=== PATIENT | female | born 1960 | race African-American/Black ===

== ENCOUNTER 2016-10-11 13:02 | Emergency (ER) | payer OTHER ==
[2016-10-11 13:06] VITALS: BP 135/62; PULSE 56; TEMP 98.3; BMI 30.2
--- NOTE | 2016-10-11 14:19 | PDOC ---
History of Present Illness - General Chief Complaint: Laceration Stated Complaint: LT FINGER LACERATION Time Seen by Provider: 10/11/16 14:13 History Source: Patient - History of Present Illness Initial Comments: 10/11/16 14:13 was making a salad at home, slipped and incised her left index finger. Patient is taking Plavix so was having difficulty getting the bleeding to stop. States last tetanus was a few months ago. 10/11/16 14:16 Timing/Duration: reports: just prior to arrival Severity: Yes: mild Past History - Travel Traveled outside of the country in the last 30 days: No Close contact w/someone who was outside of country & ill: No - Past Medical History Allergies/Adverse Reactions: Allergies Allergy/AdvReac Type Severity Reaction Status Date / Time lactose Allergy Mild Verified 10/11/16 13:06 codeine [Codeine] AdvReac Intermediate Verified 10/11/16 13:06 Home Medications: Ambulatory Orders Atorvastatin Ca [Lipitor] 20 mg PO HS #0 tablet 05/15/12 Amlodipine Besylate [Norvasc -] 10 mg PO DAILY 02/15/13 Clopidogrel Bisulfate [Plavix -] 75 mg PO DAILY 02/15/13 Enalapril Maleate [Vasotec -] 10 mg PO DAILY 02/03/14 Anastrozole [Arimidex -] 1 mg PO DAILY #0 tablet 02/07/14 Aspirin [ASA -] 81 mg PO DAILY #0 tab.chew 02/07/14 Insulin (Novolog) [Novolog Flexpen -] 0 units SQ ACHS PRN 02/09/15 Levothyroxine [Synthroid -] 112 mcg PO DAILY 02/09/15 Cephalexin Monohydrate [Keflex -] 500 mg PO Q8H #21 capsule 04/21/16 Cancer: Yes (LEFT BREAST LUMPECTOMY) CVA: Yes (TIA X 3) Diabetes: Yes HTN: Yes Psychiatric Problems: Yes (ANXIETY.) Thyroid Disease: Yes (HYPO.) - Psycho/Social/Smoking Cessation Hx Anxiety: Yes Suicidal Ideation: No Smoking Status: Yes Smoking History: Never smoked Have you smoked in the past 12 months: No Number of Cigarettes Smoked Daily: 6 If you are a former smoker, when did you quit?: 01/16/2014 Information on smoking cessation initiated: No 'Breaking Loose' booklet given: 02/03/14 Hx Alcohol Use: No Drug/Substance Use Hx: No Substance Use Type: None Hx Substance Use Treatment: No Review of Systems - Review of Systems Able to Perform ROS?: Yes Is the patient limited Luxembourger proficient: Yes Constitutional: Yes: See HPI. No: Symptoms Reported Musculoskeletal: Yes: Symptoms Reported, See HPI Integumentary: Yes: Symptoms Reported, See HPI, Lesions (flap laceration to the distal aspect of left index finger) *Physical Exam - Vital Signs Last Vital Signs Temp Pulse Resp BP Pulse Ox 98.3 F 56 L 20 135/62 100 10/11/16 13:03 10/11/16 13:03 10/11/16 13:03 10/11/16 13:03 10/11/16 13:03 - Physical Exam General Appearance: Yes: Nourished, Appropriately Dressed, Apparent Distress, Mild Distress Neck: positive: Supple Musculoskeletal: positive: Normal Inspection. negative: Decreased Range of Motion Extremity: positive: Normal Capillary Refill, Normal Range of Motion Integumentary: positive: Normal Color, Other (1 cm flap laceration to the distal aspect of left index finger, no nailbed involvement, has full range of motion. Small oozing type bleed) Neurologic: positive: eyeglass lens generator II-XII NML intact, Fully Oriented, Alert, Normal Mood/ Affect, Normal Response, Motor Strength 5/5 Procedures - Laceration/Wound Repair Left 2nd digit Finger Wound Length: to 2.5 cm Wound Explored: clean Wound's Depth, Shape: flap Irrigated w/ Saline: Yes Betadine Prep: Yes Wound Repaired With: Sutures Number of Sutures: 3 Sterile Dressing Applied: Yes Splint Applied: Yes Progress Note - Progress Note Progress Note: Finger laceration repaired. *DC/Admit/Observation/Transfer Diagnosis at time of Disposition: Finger laceration Qualifiers: Encounter type: initial encounter Qualified Code(s): S61.219A - Laceration without foreign body of unspecified finger without damage to nail, initial encounter - Discharge Dispostion Disposition: HOME Condition at time of disposition: Stable Admit: No - Patient Instructions Printed Discharge Instructions: DI for Laceration Repair Additional Instructions: Rest, elevate, avoid strenuous activity or heavy lifting until sutures are removed Leave dressing on for the next 24 hours, Then may remove dressing gently and wash area with soap and water. Reapply bacitracin ointment and dressing daily for the next 5 days On day #6 keep the wound protected and cover as needed until sutures are removed allowing wound to start to dry May use Tylenol or Motrin for pain relief Suture removal in : 10 Days
== END 2016-10-11 14:26 | disposition home or self-care (01) ==
LOC: JERFT 13:02
PROC: 0HQGXZZ Repair Left Hand Skin, External Approach (ICD-10-PCS; principal; 2016-10-11)
DX: S61.211A Laceration without foreign body of left index finger without damage to nail, initial encounter (principal); W45.8XXA Other foreign body or object entering through skin, initial encounter; Y93.G1 Activity, food preparation and clean up; Y92.000 Kitchen of unspecified non-institutional (private) residence as the place of occurrence of the external cause; Z79.01 Long term (current) use of anticoagulants; Z79.82 Long term (current) use of aspirin; F41.9 Anxiety disorder, unspecified; E03.9 Hypothyroidism, unspecified; Z87.891 Personal history of nicotine dependence; I10 Essential (primary) hypertension; E11.9 Type 2 diabetes mellitus without complications; Z86.73 Personal history of transient ischemic attack (TIA), and cerebral infarction without residual deficits; Z85.3 Personal history of malignant neoplasm of breast
CPT/HCPCS: 12001-25; 99281-25

== ENCOUNTER 2017-01-27 12:47 | Emergency (ER) | payer BC, OTHER ==
[2017-01-27 13:03] VITALS: PULSE 73; TEMP 98.2; BMI 28.8
--- NOTE | 2017-01-27 13:52 | PDOC ---
History of Present Illness - General History Source: Patient Exam Limitations: No Limitations - History of Present Illness Initial Comments: 01/27/17 14:10 56y F hx of hl, htn, dm, hyopthyroidism, tia, ckd presents with abnormal labs. The patient had blood work with dr. Solis yesterday and was told her K was elevated to 5.7. The pt states she otherwise feels well, and denies any problems with potassium in the past. The pt states sh does have a mild L flank pain that is intermittent and worse when she is moving/twisting. IT is otherwise not associated wth any radiationg, hematuria, abd pain, back pain, dysuria, fever/chills, n/v, diarrhea. The pt also states the pain seems to improve after having a BM. She has a chronic problemw ith constipation and states the last time she had a good BM was several months ago, but she does hav small intermittent BMs here and there. She has not been compliant with her stool regiment. <Mp Camp - Last Filed: 01/27/17 15:23> <Jed Medina - Last Filed: 01/27/17 15:25> - General Chief Complaint: Pain Stated Complaint: LT SIDE PAIN, (PCP SENT) LAB VARIANCE Time Seen by Provider: 01/27/17 13:38 Past History - Past Medical History Cancer: Yes (LEFT BREAST LUMPECTOMY) CVA: Yes (TIA X 3) Diabetes: Yes HTN: Yes Hypercholesterolemia: Yes Psychiatric Problems: Yes (ANXIETY.) Thyroid Disease: Yes (HYPO.) - Psycho/Social/Smoking Cessation Hx Anxiety: Yes Suicidal Ideation: No Smoking Status: Yes Smoking History: Former smoker Have you smoked in the past 12 months: No Number of Cigarettes Smoked Daily: 6 If you are a former smoker, when did you quit?: 01/16/2014 Information on smoking cessation initiated: No 'Breaking Loose' booklet given: 02/03/14 Hx Alcohol Use: No Drug/Substance Use Hx: No Substance Use Type: None Hx Substance Use Treatment: No <Mp Camp - Last Filed: 01/27/17 15:23> <Jed Medina - Last Filed: 01/27/17 15:25> - Past Medical History Allergies/Adverse Reactions: Allergies Allergy/AdvReac Type Severity Reaction Status Date / Time lactose Allergy Mild Verified 01/27/17 12:59 codeine [Codeine] AdvReac Intermediate Verified 01/27/17 12:59 Home Medications: Ambulatory Orders Atorvastatin Ca [Lipitor] 20 mg PO HS #0 tablet 05/15/12 Amlodipine Besylate [Norvasc -] 10 mg PO DAILY 02/15/13 Clopidogrel Bisulfate [Plavix -] 75 mg PO DAILY 02/15/13 Enalapril Maleate [Vasotec -] 10 mg PO DAILY 02/03/14 Anastrozole [Arimidex -] 1 mg PO DAILY #0 tablet 02/07/14 Aspirin [ASA -] 81 mg PO DAILY #0 tab.chew 02/07/14 Insulin (Novolog) [Novolog Flexpen -] 0 units SQ ACHS PRN 02/09/15 Levothyroxine [Synthroid -] 112 mcg PO DAILY 02/09/15 Cephalexin Monohydrate [Keflex -] 500 mg PO Q8H #21 capsule 04/21/16 Review of Systems - Review of Systems Able to Perform ROS?: Yes Comments:: 01/27/17 14:13 Constitutional - no reported Fever, Chills, HEENT: no reported vision changes, sore throat Respiratory: no reported cough, sob, hemoptysis Cardiac: no reported chest pain, palpitations, light headedness, leg swelling Abd/GI: +flank pain no reported abd pain, nausea, vomiting, blood per rectum, melena, diarrhea : no reported dysuria, frequency, discharge Musculskelatal - no reported back pain, joint swelling skin - no reported bruising, erythema, rash neurological: no reported headache, numbness, focal weakness, tingling, ataxia, hematologic: no reported anemia, easy bruising, easy bleeding <Conrado,Mp - Last Filed: 01/27/17 15:23> *Physical Exam - Vital Signs Last Vital Signs Temp Pulse Resp BP Pulse Ox 98.2 F 73 19 126/71 96 01/27/17 12:59 01/27/17 12:59 01/27/17 12:59 01/27/17 12:59 01/27/17 12:59 - Physical Exam Comments: 01/27/17 14:13 GENERAL: The patient is awake, alert, and fully oriented, Nontoxic - in no acute distress. HEAD: Normocephalic, atraumatic. EYES: extraocular movements intact, sclera anicteric, conjunctiva clear. ENT: Normal voice, Moist mucous membranes. NECK: Normal range of motion, supple LUNGS: Breath sounds equal, clear to auscultation bilaterally. No wheezes, no rhonchi, no rales. HEART: Regular rate and rhythm, normal S1 and S2 without murmur, rub or gallop. ABDOMEN: Soft, nontender, normoactive bowel sounds. No guarding, no rebound. No CVA tenderness mild tenderness to flank, worse with rotational motion/turning EXTREMITIES: Normal range of motion, no edema. No clubbing or cyanosis. No cords, erythema, or tenderness. NEUROLOGICAL: No facial assymetry, Normal speech, PSYCH: Normal mood, normal affect. SKIN: Warm, Dry, normal turgor, <Mp Camp - Last Filed: 01/27/17 15:23> - Vital Signs Last Vital Signs Temp Pulse Resp BP Pulse Ox 98.2 F 73 19 126/71 96 01/27/17 12:59 01/27/17 12:59 01/27/17 12:59 01/27/17 12:59 01/27/17 13:30 <Jed Medina - Last Filed: 01/27/17 15:25> Heart Score/ECG Review - ECG Impressions Comment:: 01/27/17 15:20 Twelve-lead EKG was performed and reviewed by me. There is normal sinus rhythm with a rate of 58 The axis is normal. The intervals are normal. There is normal R wave progression There are no ST or T wave abnormalities. Impression: Normal twelve-lead EKG <Mp Camp - Last Filed: 01/27/17 15:23> ED Treatment Course - LABORATORY CBC & Chemistry Diagram: 01/27/17 14:03 01/27/17 14:03 <Mp Camp - Last Filed: 01/27/17 15:23> - LABORATORY CBC & Chemistry Diagram: 01/27/17 14:03 01/27/17 14:03 - ADDITIONAL ORDERS Additional order review: Laboratory Results 01/27/17 01/27/17 14:03 14:03 Sodium 141 Potassium 5.2 H Chloride 106 Carbon Dioxide 26 Anion Gap 9 BUN 36 H Creatinine 1.6 H Creat Clearance w eGFR 33.47 Random Glucose 143 H D Calcium 9.2 Magnesium 2.5 H D Total Bilirubin 0.4 D AST 32 D ALT 52 D Alkaline Phosphatase 201 H D Total Protein 7.7 Albumin 3.9 Urine Color Ltyellow Urine Appearance Clear Urine pH 5.0 Urine Protein 1+ H Urine Glucose (UA) Negative Urine Ketones Negative Urine Blood Negative Urine Nitrite Negative Urine Bilirubin Negative Urine Urobilinogen Negative Ur Leukocyte Esterase Negative 01/27/17 14:03 RBC 3.84 MCV 92.3 MCHC 33.0 RDW 13.9 MPV 8.6 Neutrophils % 53.3 D Lymphocytes % 36.7 Monocytes % 5.8 Eosinophils % 3.1 Basophils % 1.1 <Jed Medina - Last Filed: 01/27/17 15:25> Medical Decision Making - Medical Decision Making 01/27/17 14:14 pt sent here for hyperkalemia will recheck her K, mag, will obtain ekg flank pain, lkely musuclar as only preent when she is moving, no pain when she is at rest no systemic comlaints including f/c, n/v abd soft nontender will ck ua to r/o hematuria ?kidney stone 01/27/17 15:21 k at 5.2 cr at 1.6 ekg shows no changes suggestive of hyperkalemia case dw dr. andino - will hvae pt fu with dr. khoury next week ua inconsistent with hematuria/uti I discussed the physical exam findings, ancillary test results and final diagnoses with the patient. I answered all of the patient's questions. The patient was satisfied with the care received and felt comfortable with the discharge plan and treatment plan. The patient will call their primary care physician within 24 hours to arrange follow-up and will return to the Emergency Department with any new, persistent or worsening symptoms. <Mp Camp - Last Filed: 01/27/17 15:23> *DC/Admit/Observation/Transfer - Discharge Dispostion Admit: No <Mp Camp - Last Filed: 01/27/17 15:23> - Attestations Scribe Attestion: Documentation prepared by Jed Medina, acting as medical affairs director for Mp Camp MD. <Jed Medina - Last Filed: 01/27/17 15:25> Diagnosis at time of Disposition: Hyperkalemia - Discharge Dispostion Disposition: HOME Condition at time of disposition: Improved - Referrals Referrals: Brennen Davenport MD [Primary Care Provider] - Anthony Khoury MD [Staff Physician] - - Patient Instructions Printed Discharge Instructions: DI for Hyperkalemia Additional Instructions: Follow-up with Dr. Khoury on Monday. Return to the emergency department immediately with ANY new, persistent or worsening symptoms. You MUST call and follow up with your doctor tomorrow for further evaluation of your symptoms. Results were discussed with you. Please make sure your doctor reviews the results of your emergency evaluation. If you had any xrays during your visit, it was read preliminarily by myself, a Radiologist will review it and if there are any additional findings we will call you.
[2017-01-27 14:12] LABS: BASOPHIL 1.1 % (0-2.0); EOSINOPHIL 3.1 % (0-4.5); MCH 30.4 pg (25.7-33.7); MEAN CELL VOLUME 92.3 fl (80-96); MEAN PLT VOLUME 8.6 fl (7.5-11.1); NEUTROPHILS 53.3 % (42.8-82.8); PLATELET COUNT 255 K/MM3 (134-434); RDW 13.9 % (11.6-15.6); WHITE BLOOD COUNT 4.7 K/mm3 (4.0-10.0)
[2017-01-27 14:13] LABS: URINE APPEARANCE CLEAR; URINE BILIRUBIN NEGATIVE (NEGATIVE); URINE BLOOD NEGATIVE (NEGATIVE); URINE COLOR LTYELLOW; URINE GLUCOSE (UA) NEGATIVE (NEGATIVE); URINE KETONE NEGATIVE (NEGATIVE); URINE LEUK ESTERASE NEGATIVE (NEGATIVE); URINE NITRITE NEGATIVE (NEGATIVE); URINE UROBILINOGEN NEGATIVE E.U./dl (0.2-1.0)
[2017-01-27 14:14] LABS: URINE PROTEIN 1+ (NEGATIVE)
[2017-01-27 14:32] LABS: ALBUMIN 3.9 g/dl (3.4-5.0); BILIRUBIN,TOTAL 0.4 mg/dL (0.2-1.0); CALCIUM 9.2 mg/dL (8.5-10.1); COCKROFT - GAULT 47.787; CREATININE 1.6 mg/dL (0.55-1.02); MAGNESIUM 2.5 mg/dL (1.8-2.4); TOT PROT 7.7 g/dl (6.4-8.2)
[2017-01-27 16:13] VITALS: BP 122/70
[2017-01-27 17:34] LABS: URINE HYALINE CAST 5 /lpf; URINE MUCUS RARE; URINE RBC 1 /hpf (0-3); URINE WBC <1 /hpf (3-5)
--- NOTE | 2017-01-30 12:54 | EKG ---
Test Reason : Blood Pressure : / mmHG Vent. Rate : 058 BPM Atrial Rate : 058 BPM P-R Int : 138 ms QRS Dur : 070 ms QT Int : 410 ms P-R-T Axes : 059 -05 006 degrees QTc Int : 402 ms SINUS BRADYCARDIA WITH PREMATURE ATRIAL COMPLEXES CANNOT RULE OUT ANTERIOR INFARCT , AGE UNDETERMINED ABNORMAL ECG WHEN COMPARED WITH ECG OF 03-FEB-2014 18:54, PREMATURE ATRIAL COMPLEXES ARE NOW PRESENT T WAVE INVERSION NOW EVIDENT IN LATERAL LEADS Confirmed by MICHELE LEAHY MD ([id number]) on 01/30/2017 12:54:27 PM Referred By: Confirmed By:MICHELE LEAHY MD
== END 2017-01-27 15:55 | disposition home or self-care (01) ==
LOC: JER 12:47
DX: E87.6 Hypokalemia (principal); I10 Essential (primary) hypertension; E11.9 Type 2 diabetes mellitus without complications; Z79.84 Long term (current) use of oral hypoglycemic drugs; E78.5 Hyperlipidemia, unspecified; N18.9 Chronic kidney disease, unspecified; F41.8 Other specified anxiety disorders; Z86.73 Personal history of transient ischemic attack (TIA), and cerebral infarction without residual deficits; Z85.3 Personal history of malignant neoplasm of breast
CPT/HCPCS: 36415; 80053; 81003; 81015; 83735; 85025; 93005; 93010; 99282-25

== ENCOUNTER 2017-04-23 12:28 | Emergency (ER) | payer BC, OTHER ==
[2017-04-23 12:52] VITALS: BP 116/67; PULSE 65; TEMP 98.3; BMI 30.9
--- NOTE | 2017-04-23 12:56 | PDOC ---
Attending Attestation - Resident Resident Name: Malick Childress - ED Attending Attestation I have performed the following: I have examined & evaluated the patient, The case was reviewed & discussed with the resident, I agree w/resident's findings & plan, Exceptions are as noted - HPI HPI: 04/23/17 13:32 "The patient is a 56 year old female, with a significant past medical history of HLD, HTN, DM, hypothyroidism, TIA, DM, and CKD, who presents to the emergency department with bilateral knee pain for several months. She reports that it started with swelling above her knees and pain with prolonged ambulation in both knees. She reports since its original onset having bilateral knee pain that is made worse with any weight bearing activities. She notes today here pain was notably worse,being unable to walk long distances secondary to bilateral knee pain. Pt denies any new weakness or numbness in her legs. She denies recent fevers, chills, headache or dizziness. She denies recent nausea, vomit, diarrhea. Per chart review, pt has had Xrays and MRI of her L knee that demonstrate likely meniscal tear. Pt has not yet seen an orthopedist regarding her knee pain. Allergies: NKA Past surgical history: None reported. Social history: Nonsmoker. Denies EtOH use and recreational drug use. " - Physicial Exam PE: 04/23/17 13:36 "GENERAL: Awake, alert, and fully oriented, in no acute distress HEAD: No signs of trauma EYES: PERRLA, EOMI, sclera anicteric, conjunctiva clear ENT: Auricles normal inspection, hearing grossly normal, nares patent, oropharynx clear without exudates. Moist mucosa NECK: Normal ROM, supple, no lymphadenopathy, JVD, or masses LUNGS: Breath sounds equal, clear to auscultation bilaterally. No wheezes, and no crackles HEART: Regular rate and rhythm, normal S1 and S2, no murmurs, rubs or gallops ABDOMEN: Soft, nontender, normoactive bowel sounds. No guarding, no rebound. No masses EXTREMITIES: Normal range of motion, no edema. Pt ambulatory with antalgic gait , + pain on varus and valgus stress BLE, negative drawer test, no laxity in either knee NEUROLOGICAL: Cranial nerves II through XII grossly intact. Normal speech, 5/5 strength and sensation in all extremities SKIN: Warm, Dry, normal turgor, no rashes or lesions noted. " - Medical Decision Making 04/23/17 13:39 56 F with chronic b/l knee pain, presenting with worsening pain. Pain is likely msk in etiology, given previous abnormal XR and MRI findings. No asymmetric swelling or calf pain to suggest DVT. Pt with normal strength and sensation, no neuro deficits to suggest intracranial process. - Refer to ortho
--- NOTE | 2017-04-23 13:15 | PDOC ---
History of Present Illness - General Chief Complaint: Constipation Stated Complaint: SWOLLEN LEGS Time Seen by Provider: 04/23/17 12:54 - History of Present Illness Initial Comments: 04/23/17 13:15 Ms. Veliz is a 56 year old female with a significant past medical history of DMII , Breast Cancer (L), Kidney disease, and TIA's (3, last in 2010) who presents to the emergency department with a several week history of increased leg pain bilaterally. She states that she normally has pain in both knees when she walks but that over the last few weeks it has gotten much worse. The patient denies chest pain, shortness of breath, headache and dizziness. Denies fever, chills, nausea, vomit, diarrhea and constipation. Denies dysuria, frequency, urgency and hematuria. Allergies: Codeine Past surgical history: partial hysterectomy and L lumpectomy Social history: Denies EtOH or tobacco use PMD - Brennen Davenport Past History - Past Medical History Allergies/Adverse Reactions: Allergies Allergy/AdvReac Type Severity Reaction Status Date / Time lactose Allergy Mild Verified 01/27/17 12:59 codeine [Codeine] AdvReac Intermediate Verified 01/27/17 12:59 Home Medications: Ambulatory Orders Atorvastatin Ca [Lipitor] 20 mg PO HS #0 tablet 05/15/12 Amlodipine Besylate [Norvasc -] 10 mg PO DAILY 02/15/13 Clopidogrel Bisulfate [Plavix -] 75 mg PO DAILY 02/15/13 Enalapril Maleate [Vasotec -] 10 mg PO DAILY 02/03/14 Aspirin [ASA -] 81 mg PO DAILY #0 tab.chew 02/07/14 Insulin (Novolog) [Novolog Flexpen -] 0 units SQ ACHS PRN 02/09/15 Levothyroxine [Synthroid -] 112 mcg PO DAILY 02/09/15 Insulin Glargine,Hum.rec.anlog [Toujeo Solostar] 35 unit SQ AM 01/27/17 Oxycodone HCl/Acetaminophen [Percocet 10-325 mg Tablet] 1 each PO Q6H PRN Cancer: Yes (LEFT BREAST LUMPECTOMY) CVA: Yes (TIA X 3) Diabetes: Yes HTN: Yes Hypercholesterolemia: Yes Psychiatric Problems: Yes (ANXIETY.) Thyroid Disease: Yes (HYPO.) - Psycho/Social/Smoking Cessation Hx Anxiety: Yes Suicidal Ideation: No Smoking Status: Yes Smoking History: Former smoker Have you smoked in the past 12 months: No Number of Cigarettes Smoked Daily: 6 If you are a former smoker, when did you quit?: 2012 Information on smoking cessation initiated: No 'Breaking Loose' booklet given: 02/03/14 Hx Alcohol Use: No Drug/Substance Use Hx: No Substance Use Type: None Hx Substance Use Treatment: No Review of Systems - Review of Systems Comments:: 04/23/17 13:16 GENERAL/CONSTITUTIONAL: No fever or chills. No weakness. HEAD, EYES, EARS, NOSE AND THROAT: No change in vision. No ear pain or discharge. No sore throat. CARDIOVASCULAR: No chest pain or shortness of breath RESPIRATORY: No cough, wheezing, or hemoptysis. GASTROINTESTINAL: No nausea, vomiting, diarrhea or constipation. GENITOURINARY: No dysuria, frequency, or change in urination. MUSCULOSKELETAL: +Significant knee pain RICHELLE with walking. No muscle swelling or pain. No neck or back pain. SKIN: No rash NEUROLOGIC: No headache, vertigo, loss of consciousness, or change in strength/ sensation. ENDOCRINE: No increased thirst. No abnormal weight change HEMATOLOGIC/LYMPHATIC: No anemia, easy bleeding, or history of blood clots. ALLERGIC/IMMUNOLOGIC: No hives or skin allergy. *Physical Exam - Vital Signs Last Vital Signs Temp Pulse Resp BP Pulse Ox 98.3 F 65 18 116/67 100 04/23/17 12:49 04/23/17 12:49 04/23/17 12:49 04/23/17 12:49 04/23/17 12:49 - Physical Exam Comments: 04/23/17 13:16 GENERAL: Awake, alert, and fully oriented, in no acute distress HEAD: No signs of trauma, normocephalic, atraumatic EYES: PERRLA, EOMI, sclera anicteric, conjunctiva clear ENT: Auricles normal inspection, hearing grossly normal, nares patent, oropharynx clear without exudates. Moist mucosa NECK: Normal ROM, supple, no lymphadenopathy, JVD, or masses LUNGS: No distress, speaks full sentences, clear to auscultation bilaterally HEART: Regular rate and rhythm, normal S1 and S2, no murmurs, rubs or gallops, peripheral pulses normal and equal bilaterally. ABDOMEN: Soft, nontender, normoactive bowel sounds. No guarding, no rebound. No masses EXTREMITIES: +Pain on standing noted but good muscle strength. Normal inspection , Normal range of motion, no edema. No clubbing or cyanosis. NEUROLOGICAL: +Walks with a cane to steady herself. Cranial nerves II through XII grossly intact. Normal speech, no focal sensorimotor deficits SKIN: Warm, Dry, normal turgor, no rashes or lesions noted. Medical Decision Making - Medical Decision Making 04/23/17 13:23 Ms. Veliz presents in no acute distress for management of her chronic knee pain. Counseled on management options and the need to do this with an outpatient provider for maximal benefit. 04/23/17 13:32 Will refer to ortho for f/u *DC/Admit/Observation/Transfer Diagnosis at time of Disposition: Pain in both knees Qualifiers: Chronicity: chronic Qualified Code(s): M25.561 - Pain in right knee; M25.562 - Pain in left knee; G89.29 - Other chronic pain - Discharge Dispostion Disposition: HOME - Referrals Referrals: Jez Dyer MD [Staff Physician] - - Patient Instructions Printed Discharge Instructions: DI for Knee Pain Additional Instructions: Please return if any increase in fever or acute pain. - Attestations Physician Attestion: 04/23/17 13:34 I, Dr. Malick Childress, attest that this document has been prepared under my direction and personally reviewed by me in its entirety. I further attest, that it accurately reflects all work, treatment, procedures and medical decision -making performed by me.
== END 2017-04-23 13:53 | disposition home or self-care (01) ==
LOC: JER 12:28
DX: M25.562 Pain in left knee (principal); M25.561 Pain in right knee; G89.29 Other chronic pain; I10 Essential (primary) hypertension; F41.9 Anxiety disorder, unspecified; E11.9 Type 2 diabetes mellitus without complications; Z85.3 Personal history of malignant neoplasm of breast; Z86.73 Personal history of transient ischemic attack (TIA), and cerebral infarction without residual deficits; Z87.891 Personal history of nicotine dependence
CPT/HCPCS: 99282-25

== ENCOUNTER 2018-05-23 09:51 | Inpatient (IN) | payer BC, OTHER ==
[2018-05-23 09:56] VITALS: BMI 33.5
--- NOTE | 2018-05-23 10:07 | PDOC ---
History of Present Illness - General History Source: Patient Exam Limitations: No Limitations - History of Present Illness Initial Comments: 05/23/18 11:25 The patient is a 57-year-old female with a past medical history of HLD, HTN, type 1 DM, Breast CA s/p lumpectomy and on hormonal therapy, TIA x4 (last stroke 4 years ago, with B/L weakness), CKD and hypothyroidism presets to the emergency department with dizziness since around 8:30 today. The patient reports an acute onset of dizziness presents with difficulty ambulating straight , states she keep veering left. The patient reports associated symptoms of lightheadedness when getting up and slightly blurry vision. The patient reports a baseline history of B/l weakness but denies the recent symptoms to be similar. The patient reports recent change in medication states she was started on Lovastatin 25 mg about 2 months ago and amlodipine dose reduced from 10 mg to 5 secondary to swelling. The patient reports she has an appointment with Dr. Park tomorrow. The patient reports getting an MRI done with Dr. Marinelli within the year. Denies numbness, tingling or loss of sensation. Denies Allergies: Codeine. Lactose Social history: Former smoker. Surgical history: lumpectomy PCP: Dr. Bonnie Davenport Neurology: Dr. Marinelli. <Linda Rios - Last Filed: 05/23/18 12:44> - General History Source: Patient Exam Limitations: No Limitations <Keyana Ross - Last Filed: 05/26/18 07:44> - General Chief Complaint: Lightheaded Stated Complaint: WEAKNESS, LIGHTHEADED Time Seen by Provider: 05/23/18 10:07 NIH Stroke Scale - Last Known Well Date/Time & Onset Date Last Known Well: 05/22/18 Time Last Known Well: 22:00 - Initial Evaluation Level of consciousness: Alert Ask patient the month and their age: Answers both correctly Ask patient to open & close eyes; make fist and let go: Obeys both correctly Best gaze (horizontal eye movement): Normal Visual field testing: No visual field loss Facial paresis (Show teeth/raise eyebrows/close eyes tight): Normal symmetrical movement Motor Function: Left Arm: Normal Motor Function: Right Arm: Normal (extends arm 90 (or 45) degrees for 10 seconds without drift Motor Function: Left Leg: Normal (extends leg 30 degrees for 5 seconds without drift) Motor Function: Right Leg: Normal (extends leg 30 degrees for 5 seconds without drift) Limb Ataxia: No ataxia Sensory(Use pinprick test arms,legs,trunk,face/side to side): Normal Best language (Describe picture, name items, read sentences): No Aphasia Dysarthria (read several words): Normal articulation Extinction and Inattention: No abnormality - Total Score NIH Stroke Scale Score: 0 <Keyana Ross - Last Filed: 05/26/18 07:44> tPA Exclusion Checklist 0-3hr - Time Elapsed Date last known well: 05/22/18 Time last known well: 22:00 Elaspsed time: 3 Day(s) and 9 Hour(s) and 40 Minutes - Thrombolytic Therapy Candidate Is the patient eligible for Thrombolytic Therapy?: No - Exclusion Criteria 0-3hr SBP greater than 185 or DBP greater than 110mmHg despite tx: No Recent IC/spinal surgery,head trauma or stroke w/in last 3mo: No Hx of previous IC hemorrhage, IC neoplasm, AVM or aneurysm: No Active internal bleeding: No Blding diathesis(low plt ct, inc PTT,INR>1.7 or use of NOAC): No Symptoms suggest subarachnoid hemorrhage: No CT demonstrates multilobar infarct(>1/3 cerebral hemiphere): No Arterial puncture at noncompressible site in previous 7 days: No Blood glucose concentration less than 50mg/dL (2.7mmol/L): No - Relative Exclusion Criteria 0-3h Life expectancy <1yr/severe co-morbid illness/PH[facility]ICIAN [employer] [facility]ICINE on admit: No : No Patient/family refused: No Rapid improvement: No Stroke severity too mild: No Recent acute TN (w/in previous 3 months): No Seizure at onset with postictal residual neuro impairments: No Major surgery or serious trauma w/in previous 14 days: No Recent GI or hemorrhage (w/in previous 21 days): No - Ineligibility reason(s) Reasons No tPA given: Outside of window - delayed arrival, See reason(s) noted above (NIHSS 0) <Keyana Ross - Last Filed: 05/26/18 07:44> Past History <Linda Rios - Last Filed: 05/23/18 12:44> - Past Medical History Cancer: Yes (LEFT BREAST LUMPECTOMY) CVA: Yes (TIA X 3) COPD: No Diabetes: Yes HTN: Yes Hypercholesterolemia: Yes Psychiatric Problems: Yes (ANXIETY.) Thyroid Disease: Yes (HYPO.) - Suicide/Smoking/Psychosocial Hx Smoking Status: Yes Smoking History: Never smoked Have you smoked in the past 12 months: No Number of Cigarettes Smoked Daily: 6 If you are a former smoker, when did you quit?: 2012 Information on smoking cessation initiated: No 'Breaking Loose' booklet given: 02/03/14 Hx Alcohol Use: No Drug/Substance Use Hx: No Substance Use Type: None Hx Substance Use Treatment: No <Keyana Ross - Last Filed: 05/26/18 07:44> - Past Medical History Allergies/Adverse Reactions: Allergies Allergy/AdvReac Type Severity Reaction Status Date / Time lactose Allergy Mild Verified 05/23/18 09:56 codeine [Codeine] AdvReac Intermediate Verified 05/23/18 09:56 Home Medications: Ambulatory Orders Atorvastatin Ca [Lipitor] 20 mg PO HS #0 tablet 05/15/12 Amlodipine Besylate [Norvasc -] 5 mg PO DAILY 02/15/13 Clopidogrel Bisulfate [Plavix -] 75 mg PO DAILY 02/15/13 Aspirin [ASA -] 81 mg PO DAILY #0 tab.chew 02/07/14 Insulin (Novolog) [Novolog Flexpen -] 0 units SQ ACHS PRN 02/09/15 Levothyroxine [Synthroid -] 100 mcg PO DAILY 02/09/15 Insulin Glargine,Hum.rec.anlog [Toujeo Solostar] 26 unit SQ AM 01/27/17 Oxycodone HCl/Acetaminophen [Percocet 10-325 mg Tablet] 1 each PO Q6H PRN Losartan Potassium 25 mg PO DAILY 05/23/18 Review of Systems - Review of Systems Able to Perform ROS?: Yes Comments:: 05/23/18 11:27 General: No fevers or chills, no weakness, no weight loss HEENT: (+) Slight blurry vision. No sore throat,. No ear pain CardioVascular: No chest pain or shortness of breath Respiratory:No cough, or wheezing. Gastrointestinal: no nausea, vomiting, diarrhea or constipation, No rectal bleeding Genitourinary: No dysuria, hematuria, or frequency Musculoskeletal: No joint or muscle pain or swelling Neurologic:(+) Dizziness and lightheadedness. No headache, vertigo, or loss of consciousness Psychiatric: nor depression Skin: No rashes or easy bruising Endocrine: no increased thirst or abnormal weight change Allergic: no skin or latex allergy All other systems reviewed and normal <Linda Rios - Last Filed: 05/23/18 12:44> *Physical Exam - Vital Signs Last Vital Signs Temp Pulse Resp BP Pulse Ox 97.6 F 79 18 172/86 99 05/23/18 09:52 05/23/18 09:52 05/23/18 09:52 05/23/18 09:52 05/23/18 09:52 - Physical Exam Comments: 05/23/18 11:27 GENERAL: The patient is in no acute distress. HEAD: Normal with no signs of trauma. EYES: PERRLA, EOMI, sclera anicteric, conjunctiva clear. ENT: Ears normal, nares patent, oropharynx clear without exudates. Moist mucous membranes. NECK: Normal range of motion, supple without lymphadenopathy, JVD, or masses. LUNGS: Breath sounds equal, clear to auscultation bilaterally. No wheezes, and no crackles. HEART:Regular rate and rhythm, normal S1 and S2 without murmur, rub or gallop. ABDOMEN: Soft, nontender, normoactive bowel sounds. No guarding, no rebound. No masses palpable. EXTREMITIES: Normal range of motion, no edema. No clubbing or cyanosis. No erythema, or tenderness. NEUROLOGICAL: See NIHSS. MUSCULOSKELETAL: Back non-tender to palpation, no CVA tenderness SKIN: Warm, Dry, normal turgor, no rashes or lesions noted. <Linda Rios - Last Filed: 05/23/18 12:44> - Vital Signs Last Vital Signs Temp Pulse Resp BP Pulse Ox 97.6 F 79 18 172/86 99 05/23/18 09:52 05/23/18 09:52 05/23/18 09:52 05/23/18 09:52 05/23/18 09:52 <Keyana Ross - Last Filed: 05/26/18 07:44> ED Treatment Course - LABORATORY CBC & Chemistry Diagram: 05/23/18 10:32 05/23/18 10:32 - ADDITIONAL ORDERS Additional order review: Laboratory Results 05/23/18 10:43 PT with INR 10.90 INR 0.96 05/23/18 10:32 RBC 3.93 MCV 93.9 MCHC 33.5 RDW 13.5 MPV 8.8 Neutrophils % 69.4 Lymphocytes % 20.0 D Monocytes % 6.2 Eosinophils % 3.5 Basophils % 0.9 <Linda Rios - Last Filed: 05/23/18 12:44> - LABORATORY CBC & Chemistry Diagram: 05/25/18 05:30 05/25/18 05:30 <Keyana Ross - Last Filed: 05/26/18 07:44> Medical Decision Making - Medical Decision Making 05/23/18 12:44 Dr. Jules called at 12:45 pm. <Linda Rios - Last Filed: 05/23/18 12:44> - Medical Decision Making 05/23/18 10:28 57 yo F h/o IDDM, HTN, HLD, prior CVA x 4, hypothyroidism Pt presents to the ER with a complaint of lightheadedness No vertigo Pt feels that when she walks, she is veering to the left side No headache She was last well last night Awoke this morning at approximately 8:30am and went to the bathroom She felt like she was veering to the left when she walked No chest pain, no shortness of breath On examination: NIHSS 0 RRR CTA No abd pain EK05/23/18 12:16 Laboratory Tests 02/28/18 05/23/18 05/23/18 11:44 10:32 10:32 WBC 5.8 Hgb 12.4 Hct 36.9 Plt Count 310 Sodium 140 Potassium 5.0 Chloride 107 Carbon Dioxide 26 BUN 32 H 32 H Creatinine 1.5 H 1.5 H Random Glucose 197 H 206 H Alkaline Phosphatase 152 H Creatine Kinase 270 H Troponin I < 0.02 05/23/18 13:[address] Jules Will order MRI Pt awoke with symptoms this AM Unclear time of onset NIHSS low would not TPA based on low NIHSS and unclear time of onset Symptoms could be peripheral however, pt has had multiple strokes in the past Case reviewed with Dr. Davenport He will admit Clinical impression: possible tia? possible posterior stroke, ? vertigo 05/26/18 07:44 <Keyana Ross - Last Filed: 05/26/18 07:44> *DC/Admit/Observation/Transfer - Attestations Scribe Attestion: 05/23/18 11:28 Documentation prepared by Linda Rios, acting as medical art therapist for Keyana Ross MD. <Linda Rios - Last Filed: 05/23/18 12:44> - Discharge Dispostion Decision to Admit order: Yes <Keyana Ross - Last Filed: 05/26/18 07:44> Diagnosis at time of Disposition: Dizziness, TIA (transient ischemic attack) - Discharge Dispostion Condition at time of disposition: Stable
[2018-05-23 11:01] LABS: BASO % 0.9 % (0-2.0); EOS % 3.5 % (0-4.5); HEMATOCRIT 36.9 % (32.4-45.2); HEMOGLOBIN 12.4 GM/dL (10.7-15.3); MCH 31.5 pg (25.7-33.7); MCHC 33.5 g/dl (32.0-36.0); MEAN CELL VOLUME 93.9 fl (80-96); MEAN PLT VOLUME 8.8 fl (7.5-11.1); MONO % 6.2 % (3.8-10.2); NEUT % 69.4 % (42.8-82.8); PLATELET COUNT 310 K/MM3 (134-434); RBC 3.93 M/mm3 (3.60-5.2); RDW 13.5 % (11.6-15.6); WHITE BLOOD COUNT 5.8 K/mm3 (4.0-10.0)
[2018-05-23 11:13] LABS: INR 0.96 (0.83-1.09); PROTHROMBIN TIME (PATIENT) 10.9 SEC (9.7-13.0)
--- NOTE | 2018-05-23 11:31 | EKG ---
Test Reason : Blood Pressure : / mmHG Vent. Rate : 071 BPM Atrial Rate : 071 BPM P-R Int : 150 ms QRS Dur : 072 ms QT Int : 414 ms P-R-T Axes : 065 -16 045 degrees QTc Int : 449 ms NORMAL SINUS RHYTHM WITH SINUS ARRHYTHMIA POSSIBLE LEFT ATRIAL ENLARGEMENT LOW VOLTAGE QRS NONSPECIFIC ST AND T WAVE ABNORMALITY ABNORMAL ECG WHEN COMPARED WITH ECG OF 27-JAN-2017 15:10, PREMATURE ATRIAL COMPLEXES ARE NO LONGER PRESENT NONSPECIFIC T WAVE ABNORMALITY HAS REPLACED INVERTED T WAVES IN LATERAL LEADS QT HAS LENGTHENED Confirmed by DORI AN, SCOTT ([id number]) on 05/23/2018 11:31:14 AM Referred By: Confirmed By:SCOTT MEADOWS MD
[2018-05-23 11:54] LABS: ALBUMIN 3.6 g/dl (3.4-5.0); ANION GAP 7 MMOL/L (8-16); BLOOD UREA NITROGEN 32 mg/dL (7-18); CALCIUM 8.9 mg/dL (8.5-10.1); CHLORIDE 107 mmol/L (98-107); CO2 26 mmol/L (21-32); CREATININE 1.5 mg/dL (0.55-1.02); GLUCOSE,RANDOM 206 mg/dL (74-106); SGOT/AST 21 U/L (15-37); SGPT/ALT 25 U/L (12-78); SODIUM 140 mmol/L (136-145)
[2018-05-23 11:58] LABS: ALK PHOS 152 U/L (45-117); BILIRUBIN,TOTAL 0.5 mg/dL (0.2-1.0); TOT PROT 7.9 g/dl (6.4-8.2)
[2018-05-23 12:42] LABS: URINE APPEARANCE SLCLOUDY; URINE BILIRUBIN NEGATIVE (<2.0 mg/dL); URINE COLOR LTYELLOW; URINE GLUCOSE (UA) NEGATIVE (NEGATIVE); URINE KETONE NEGATIVE (NEGATIVE); URINE LEUK ESTERASE TRACE (NEGATIVE); URINE NITRITE NEGATIVE (NEGATIVE); URINE UROBILINOGEN NEGATIVE mg/dL (0.2-1.0)
[2018-05-23 12:49] LABS: URINE PROTEIN 2+ (NEGATIVE)
[2018-05-23 12:56] LABS: EPI CELLS MODERATE /HPF (FEW); URINE BACTERIA RARE /hpf (NONE SEEN); URINE HYALINE CAST 1 /lpf
[2018-05-23] MEDS ORDERED: INSULIN (NOVOLOG) ASPART 100 UNITS/ML 10ML VIAL SQ ONE (14:27)
[2018-05-23 14:32] LABS: ACETONE SERUM NEGATIVE (NEGATIVE)
[2018-05-23] MEDS ORDERED: INSULIN (NOVOLOG) ASPART 100 UNITS/ML 10ML VIAL ONE ×2 (14:43→15:25)
[2018-05-23] MEDS ORDERED: Insulin (LOG) Aspart 100 UNITS/ML VIAL SQ ONE (15:26)
[2018-05-23] MEDS ORDERED: INSULIN REGULAR HUMAN 100 UNITS/ML *VIAL ONE (15:28)
[2018-05-23] MEDS ORDERED: ONDANSETRON 4 MG/2 ML VIAL IVPUSH ONE (15:28)
[2018-05-23] MEDS ORDERED: ONDANSETRON 4 MG/2 ML VIAL ONE (15:28)
[2018-05-23] MEDS ORDERED: SODIUM CHLORIDE 1,000 ML IV SCH (15:45)
[2018-05-23] MEDS: MECLIZINE HCL 25 MG TABLET (FP) PO SCH ×2 (17:47→22:19)
[2018-05-23] MEDS: ONDANSETRON 4 MG/2 ML VIAL IVPUSH PRN (21:01)
[2018-05-23] MEDS: PANTOPRAZOLE SODIUM 40 MG VIAL IVPB SCH (21:02)
[2018-05-23] MEDS ORDERED: INSULIN (LEVEMIR) 100 UNITS/ML UNITS SQ SCH (22:00)
[2018-05-23] MEDS: ATORVASTATIN CA 40 MG TABLET (FP) PO SCH (22:14)
[2018-05-24] MEDS: ACETAMINOPHEN 325 MG TABLET (FP) PO PRN ×2 (02:29→17:00)
[2018-05-24] MEDS: MECLIZINE HCL 25 MG TABLET (FP) PO SCH ×3 (05:46→21:32)
[2018-05-24 06:47] LABS: BASO % 0.5 % (0-2.0); HEMATOCRIT 37.7 % (32.4-45.2); HEMOGLOBIN 12.3 GM/dL (10.7-15.3); LYMPH % 10.5 % (8-40); MCH 30.8 pg (25.7-33.7); MCHC 32.6 g/dl (32.0-36.0); MEAN CELL VOLUME 94.3 fl (80-96); MEAN PLT VOLUME 8.8 fl (7.5-11.1); MONO % 3.9 % (3.8-10.2); NEUT % 85.1 % (42.8-82.8); PLATELET COUNT 300 K/MM3 (134-434); RBC 3.99 M/mm3 (3.60-5.2); RDW 13.7 % (11.6-15.6); WHITE BLOOD COUNT 10.3 K/mm3 (4.0-10.0)
[2018-05-24 07:43] LABS: ALBUMIN 3.6 g/dl (3.4-5.0); BLOOD UREA NITROGEN 30 mg/dL (7-18); CHLORIDE 106 mmol/L (98-107); POTASSIUM 4.4 mmol/L (3.5-5.1); SODIUM 142 mmol/L (136-145)
[2018-05-24 07:53] LABS: ALK PHOS 136 U/L (45-117); ANION GAP 13 MMOL/L (8-16); BILIRUBIN,TOTAL 0.8 mg/dL (0.2-1.0); CALCIUM 8.9 mg/dL (8.5-10.1); CO2 23 mmol/L (21-32); CREATININE 1.7 mg/dL (0.55-1.02); GLUCOSE,RANDOM 262 mg/dL (74-106); SGOT/AST 21 U/L (15-37); SGPT/ALT 22 U/L (12-78); TOT PROT 7.7 g/dl (6.4-8.2)
--- NOTE | 2018-05-24 08:49 | CONSULT ---
Consult - text type - Consultation Consultation Note: Neurology History of Present Illness 57-year-old female with a past medical history of HLD, HTN, type 1 DM, Breast CA s/p lumpectomy and on hormonal therapy, TIA x4 (last stroke 4 years ago, with B/L weakness), CKD and hypothyroidism presets to the emergency department with dizziness since around 8:30 today. The patient reports an acute onset of dizziness presented with difficulty ambulating straight, stated she keep veering left. The patient reported associated symptoms of lightheadedness when getting up and slightly blurry vision. The patient reports a baseline history of B/l weakness but denies the recent symptoms to be similar. The patient reported recent change in medication states she was started on Lovastatin 25 mg about 2 months ago and amlodipine dose reduced from 10 mg to 5 secondary to swelling. Previously seen by Dr Marinelli as well, had requested to see me to ER physician and I was called. CT head completed and no acute changes. MRI brain ordered, pending. She has been vomiting overnight and this AM remains unable to ambulate. Not able to keep meclezine/zofran without emesis. Also anxious and may benefit from low dose valium, will order 2mg. Past History - Past Medical History Cancer: Yes (LEFT BREAST LUMPECTOMY) CVA: Yes (TIA X 3) COPD: No Diabetes: Yes HTN: Yes Hypercholesterolemia: Yes Psychiatric Problems: Yes (ANXIETY.) Thyroid Disease: Yes (HYPO.) - Suicide/Smoking/Psychosocial Hx Smoking Status: Yes Smoking History: Never smoked Have you smoked in the past 12 months: No Number of Cigarettes Smoked Daily: 6 If you are a former smoker, when did you quit?: 2012 Information on smoking cessation initiated: No 'Breaking Loose' booklet given: 02/03/14 Hx Alcohol Use: No Drug/Substance Use Hx: No Substance Use Type: None Hx Substance Use Treatment: No - Past Medical History Allergies/Adverse Reactions: Allergies Allergy/AdvReac Type Severity Reaction Status Date / Time lactose Allergy Mild Verified 05/23/18 09:56 codeine [Codeine] AdvReac Intermediate Verified 05/23/18 09:56 Home Medications: Ambulatory Orders Atorvastatin Ca [Lipitor] 20 mg PO HS #0 tablet 05/15/12 Amlodipine Besylate [Norvasc -] 5 mg PO DAILY 02/15/13 Clopidogrel Bisulfate [Plavix -] 75 mg PO DAILY 02/15/13 Aspirin [ASA -] 81 mg PO DAILY #0 tab.chew 02/07/14 Insulin (Novolog) [Novolog Flexpen -] 0 units SQ ACHS PRN 02/09/15 Levothyroxine [Synthroid -] 100 mcg PO DAILY 02/09/15 Insulin Glargine,Hum.rec.anlog [Toujeo Solostar] 26 unit SQ AM 01/27/17 Oxycodone HCl/Acetaminophen [Percocet 10-325 mg Tablet] 1 each PO Q6H PRN Losartan Potassium 25 mg PO DAILY 05/23/18 Review of Systems General: No fevers or chills, no weakness, no weight loss HEENT: (+) Slight blurry vision. No sore throat,. No ear pain CardioVascular: No chest pain or shortness of breath Respiratory:No cough, or wheezing. Gastrointestinal: no nausea, vomiting, diarrhea or constipation, No rectal bleeding Genitourinary: No dysuria, hematuria, or frequency Musculoskeletal: No joint or muscle pain or swelling Neurologic:(+) Dizziness and lightheadedness. No headache, vertigo, or loss of consciousness Psychiatric: nor depression Skin: No rashes or easy bruising Endocrine: no increased thirst or abnormal weight change Allergic: no skin or latex allergy All other systems reviewed and normal *Physical Exam Vital Signs Period Temp Pulse Resp BP Sys/Perez Pulse Ox Last 24 Hr 97.6 F-98.7 F 65-79 18-20 122-172/61-86 96-100 GENERAL: The patient is in no acute distress. HEAD: Normal with no signs of trauma. EYES: PERRLA, EOMI, sclera anicteric, conjunctiva clear. ENT: Ears normal, nares patent, oropharynx clear without exudates. Moist mucous membranes. NECK: Normal range of motion, supple without lymphadenopathy, JVD, or masses. LUNGS: Breath sounds equal, clear to auscultation bilaterally. No wheezes, and no crackles. HEART:Regular rate and rhythm, normal S1 and S2 without murmur, rub or gallop. ABDOMEN: Soft, nontender, normoactive bowel sounds. No guarding, no rebound. No masses palpable. EXTREMITIES: Normal range of motion, no edema. No clubbing or cyanosis. No erythema, or tenderness. NEUROLOGICAL: Awake, alert, no aphasia, CN intact, sensory intact, UE 5-, LE 4+ , limited effort, gait deferred MUSCULOSKELETAL: Back non-tender to palpation, no CVA tenderness SKIN: Warm, Dry, normal turgor, no rashes or lesions noted. CBCD WBC 10.3 K/mm3 (4.0-10.0) H 05/24/18 05:30 RBC 3.99 M/mm3 (3.60-5.2) 05/24/18 05:30 Hgb 12.3 GM/dL (10.7-15.3) 05/24/18 05:30 Hct 37.7 % (32.4-45.2) 05/24/18 05:30 MCV 94.3 fl (80-96) 05/24/18 05:30 MCHC 32.6 g/dl (32.0-36.0) 05/24/18 05:30 RDW 13.7 % (11.6-15.6) 05/24/18 05:30 Plt Count 300 K/MM3 (134-434) 05/24/18 05:30 MPV 8.8 fl (7.5-11.1) 05/24/18 05:30 CMP Sodium 142 mmol/L (136-145) 05/24/18 05:30 Potassium 4.4 mmol/L (3.5-5.1) 05/24/18 05:30 Chloride 106 mmol/L (98-107) 05/24/18 05:30 Carbon Dioxide 23 mmol/L (21-32) 05/24/18 05:30 Anion Gap 13 MMOL/L (8-16) 05/24/18 05:30 BUN 30 mg/dL (7-18) H 05/24/18 05:30 Creatinine 1.7 mg/dL (0.55-1.02) H 05/24/18 05:30 Creat Clearance w eGFR 31.09 (>60) 05/24/18 05:30 Random Glucose 262 mg/dL (74-106) H 05/24/18 05:30 Calcium 8.9 mg/dL (8.5-10.1) 05/24/18 05:30 Total Bilirubin 0.8 mg/dL (0.2-1.0) 05/24/18 05:30 AST 21 U/L (15-37) 05/24/18 05:30 ALT 22 U/L (12-78) 05/24/18 05:30 Alkaline Phosphatase 136 U/L (45-117) H D 05/24/18 05:30 Total Protein 7.7 g/dl (6.4-8.2) 05/24/18 05:30 Albumin 3.6 g/dl (3.4-5.0) 05/24/18 05:30 CARDIAC ENZYMES Creatine Kinase 289 IU/L (26-192) H 05/24/18 05:30 Troponin I 0.30 ng/ml (0.00-0.05) H 05/24/18 05:30 CT head reviewed Medical Decision Making 57-year-old female with a past medical history of HLD, HTN, type 1 DM, Breast CA s/p lumpectomy and on hormonal therapy, TIA x4 (last stroke 4 years ago, with B/L weakness), CKD and hypothyroidism presets to the emergency department with dizziness since around 8:30 today. The patient reports an acute onset of dizziness presented with difficulty ambulating straight, stated she keep veering left. The patient reported associated symptoms of lightheadedness when getting up and slightly blurry vision. Recommend IV Fluids, increased hydration MRI brain ordered Avoid sudden head movements Echo being completed, follow up results Not able to keep meclezine/zofran without emesis. Also anxious, ordered low dose Valium Physical therapy, vestibular therapy as able Monitor BP, maintain normotensive range Monitor LDL, continue statin Continue ASA, Plavix Fall prevention DVT ppx Discussed with nurse
[2018-05-24] MEDS: ONDANSETRON 4 MG/2 ML VIAL IVPUSH PRN (08:52)
[2018-05-24] MEDS: PANTOPRAZOLE SODIUM 40 MG VIAL IVPB SCH ×2 (08:53→12:04)
[2018-05-24] MEDS: diazePAM 2 MG TABLET PO SCH ×3 (09:54→16:00)
[2018-05-24] MEDS: amLODIPine BESYLATE 5 MG TABLET (FP) PO SCH (09:55)
[2018-05-24] MEDS: CLOPIDOGREL BISULFATE 75 MG TABLET (FP) PO SCH (09:55)
[2018-05-24] MEDS: ASPIRIN COATED 81 MG TABLET.EC PO SCH (09:55)
--- NOTE | 2018-05-24 10:20 | CON.CARD ---
Consult Consult Specialty:: cardiology Reason for Consultation:: dizziness, gait imbalance; hx CVA, HTN - History of Present Illness History of Present Illness: The patient is a 57-year-old female with a past medical history of HLD, HTN, type 1 DM, Breast CA s/p lumpectomy and on hormonal therapy, TIA; CVA x4 (last stroke 4 years ago, with residual B/L weakness), CKD and hypothyroidism presets to the emergency department with dizziness since around 8:30 today. The patient reports an acute onset of dizziness presents with difficulty ambulating straight, states she keep veering left. The patient reports associated symptoms of lightheadedness when getting up and slightly blurry vision. The patient reports a baseline history of B/l weakness but denies the recent symptoms to be similar. The patient reports recent change in medication states she was started on Lovastatin 25 mg about 2 months ago and amlodipine dose reduced from 10 mg to 5 secondary to swelling. The patient reports she has an appointment with Dr. Park tomorrow. The patient reports getting an MRI done with Dr. Marinelli within the year. Denies numbness, tingling or loss of sensation. - History Source History Provided By: Patient, Medical Record Limitations to Obtaining History: No Limitations - Past Medical History Cardio/Vascular: Yes: HTN, Hyperlipdemia (breast cancer , radiation, hypothyroid ) Reproductive: Yes: Postmenopausal ...: No - Alcohol/Substance Use Hx Alcohol Use: No - Smoking History Smoking history: Former smoker Have you smoked in the past 12 months: No Aproximately how many cigarettes per day: 6 If you are a former smoker, when did you quit?: 2013 Home Medications - Allergies Allergies/Adverse Reactions: Allergies Allergy/AdvReac Type Severity Reaction Status Date / Time lactose Allergy Mild Verified 05/23/18 09:56 codeine [Codeine] AdvReac Intermediate Verified 05/23/18 09:56 - Home Medications Home Medications: Ambulatory Orders Atorvastatin Ca [Lipitor] 20 mg PO HS #0 tablet 05/15/12 Amlodipine Besylate [Norvasc -] 5 mg PO DAILY 02/15/13 Clopidogrel Bisulfate [Plavix -] 75 mg PO DAILY 02/15/13 Aspirin [ASA -] 81 mg PO DAILY #0 tab.chew 02/07/14 Insulin (Novolog) [Novolog Flexpen -] 0 units SQ ACHS PRN 02/09/15 Levothyroxine [Synthroid -] 100 mcg PO DAILY 02/09/15 Insulin Glargine,Hum.rec.anlog [Toubetina Solostar] 26 unit SQ AM 01/27/17 Oxycodone HCl/Acetaminophen [Percocet 10-325 mg Tablet] 1 each PO Q6H PRN Losartan Potassium 25 mg PO DAILY 05/23/18 Family Disease History - Family Disease History Family Disease History: Heart Disease: Mother ([place] in her ?50s) Review of Systems - Review of Systems Constitutional: reports: Weakness Eyes: reports: No Symptoms HENT: reports: No Symptoms Neck: reports: No Symptoms Cardiovascular: reports: No Symptoms Respiratory: reports: No Symptoms Gastrointestinal: reports: No Symptoms Genitourinary: reports: No Symptoms Breasts: reports: No Symptoms Reported Musculoskeletal: reports: Muscle Weakness Neurological: reports: Weakness Psychiatric: reports: Anxiety - Risk Factors Known Risk Factors: Yes: Age, Family History, Hypercholesterolemia, Hypertension , Physical Inactivity, Prior MT /Emb Stroke (several prior strokes) Vital Signs: Vital Signs Temperature 98.6 F 05/24/18 05:09 Pulse Rate 76 05/24/18 05:09 Respiratory Rate 18 05/24/18 05:09 Blood Pressure 146/77 05/24/18 05:09 O2 Sat by Pulse Oximetry (%) 96 05/23/18 21:00 Constitutional: Yes: Anxious Eyes: Yes: WNL HENT: Yes: WNL Neck: Yes: WNL Respiratory: Yes: WNL Gastrointestinal: Yes: WNL Renal/: No: Anuria Cardiovascular: Yes: Pulse Irregular JVD: No Carotid Bruit: No PMI: Non-Displaced Heart Sounds: Yes: S1, S2 Murmur: Yes: Systolic Murmur, Grade 1 Musculoskeletal: Yes: Muscle Weakness Extremities: Yes: Cool Edema: No Peripheral Pulses WNL: Yes Integumentary: Yes: WNL Neurological: Yes: Alert, Oriented, Unsteady Gait, Weakness Psychiatric: Yes: Alert, Oriented - Other Data Labs, Other Data: CBC, BMP 05/24/18 05:30 05/24/18 05:30 INR, PTT INR 0.96 (0.83-1.09) 05/23/18 10:43 Troponin, BNP 05/23/18 05/24/18 10:32 05:30 Troponin I < 0.02 0.30 H Troponin, BNP 05/23/18 05/24/18 10:32 05:30 Troponin I < 0.02 0.30 H Problem List - Problems (1) CKD (chronic kidney disease) Code(s): N18.9 - CHRONIC KIDNEY DISEASE, UNSPECIFIED (2) Dizziness Code(s): R42 - DIZZINESS AND GIDDINESS (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 Code(s): I63.9 - CEREBRAL INFARCTION, UNSPECIFIED (5) Hyperlipidemia Assessment/Plan: on atorvastatin; f/u lipid panel, and keep LDL well below 70 mg/dL. Code(s): E78.5 - HYPERLIPIDEMIA, UNSPECIFIED (6) HTN (hypertension) Code(s): I10 - ESSENTIAL (PRIMARY) HYPERTENSION (7) Diabetes Assessment/Plan: On levemir. If renal function improves, consider ACEI or ARB for renal protection and HTN. Code(s): E11.9 - TYPE 2 DIABETES MELLITUS WITHOUT COMPLICATIONS
--- NOTE | 2018-05-24 10:34 | HP ---
Admitting History and Physical - Admission Chief Complaint: pt c/o dizziness when moving head for last wk getting woorst. also er dr stated she vis falling tioards lt side ? admiited for ? tia. also c/ o of pimples all over body derm stated ? psorisis History Source: Patient Limitations to Obtaining History: Other (brdridding due to dizziness) - Past Medical History Cardiovascular: Yes: HTN, Hyperlipdemia (breast cancer , radiation, hypothyroid) Gastrointestinal: Yes: Other (n/v) ...: No ENT: Yes: Other (vertigo) Dermatology: Yes: Other (?psoriasis) - Past Surgical History Past Surgical History: Yes: Valve Replacement (lt lumpectomy) - Smoking History Smoking history: Former smoker Have you smoked in the past 12 months: No Aproximately how many cigarettes per day: 6 If you are a former smoker, when did you quit?: 2013 - Alcohol/Substance Use Hx Alcohol Use: No History of Substance Use: reports: None - Social History Usual Living Arrangement: Yes: Alone History of Recent Travel: No Home Medications - Allergies Allergies/Adverse Reactions: Allergies Allergy/AdvReac Type Severity Reaction Status Date / Time lactose Allergy Mild Verified 05/23/18 09:56 codeine [Codeine] AdvReac Intermediate Verified 05/23/18 09:56 - Home Medications Home Medications: Ambulatory Orders Atorvastatin Ca [Lipitor] 20 mg PO HS #0 tablet 05/15/12 Amlodipine Besylate [Norvasc -] 5 mg PO DAILY 02/15/13 Clopidogrel Bisulfate [Plavix -] 75 mg PO DAILY 02/15/13 Aspirin [ASA -] 81 mg PO DAILY #0 tab.chew 02/07/14 Insulin (Novolog) [Novolog Flexpen -] 0 units SQ ACHS PRN 02/09/15 Levothyroxine [Synthroid -] 100 mcg PO DAILY 02/09/15 Insulin Glargine,Hum.rec.anlog [Touchriso Solostar] 26 unit SQ AM 01/27/17 Oxycodone HCl/Acetaminophen [Percocet 10-325 mg Tablet] 1 each PO Q6H PRN Losartan Potassium 25 mg PO DAILY 05/23/18 Family Disease History - Family Disease History Family History: Unremarkable Review of Systems - Review of Systems Neurological: reports: Dizziness Physical Examination Vital Signs: Vital Signs Temperature 98.6 F 05/24/18 05:09 Pulse Rate 76 05/24/18 05:09 Respiratory Rate 18 05/24/18 05:09 Blood Pressure 146/77 05/24/18 05:09 O2 Sat by Pulse Oximetry (%) 96 05/23/18 21:00 Constitutional: Yes: Well Nourished Eyes: Yes: WNL HENT: Yes: WNL Neck: Yes: WNL Cardiovascular: Yes: WNL Respiratory: Yes: WNL Gastrointestinal: Yes: Hypoactive Bowel Sounds ...Rectal Exam: Yes: Deferred Renal/: Yes: WNL Breast(s): Yes: WNL, Right Musculoskeletal: Yes: Back Pain Extremities: Yes: WNL Edema: No Peripheral Pulses WNL: Yes Integumentary: Yes: Other (pimples all over body) Psychiatric: Yes: WNL Labs: CBC, BMP 05/24/18 05:30 05/24/18 05:30 Problem List - Problems (1) Vertigo Code(s): R42 - DIZZINESS AND GIDDINESS Assessment/Plan miralax for constipation ? opoid induced hydrocortizone cream prednisone iv for vertigo no help w nativert chk carotid and echo to compleat tia cw/u sono abd high alp n/v ? may not be vertigo related cont all tx as is
[2018-05-24] MEDS ORDERED: methylPREDNISolone NA SUCC 40 MG/1 ML VIAL IVPB PRN (10:41)
[2018-05-24] MEDS: POLYETHYLENE GLYCOL 3350 119 GM BTL PO SCH (11:03)
[2018-05-24] MEDS: FOLIC ACID 1 MG TABLET (FP) PO SCH (11:03)
--- NOTE | 2018-05-24 11:11 | CON.GI ---
Consult Consult Specialty:: GI Reason for Consultation:: vomiting - History of Present Illness History of Present Illness: Chart reviewed. Events and neuro assessment noted. Per initial intake: The patient is a 57-year-old female with a past medical history of HLD, HTN, type 1 DM, Breast CA s/p lumpectomy and on hormonal therapy , TIA x4 (last stroke 4 years ago, with B/L weakness), CKD and hypothyroidism presets to the emergency department with dizziness since around 8:30 today. The patient reports an acute onset of dizziness presents with difficulty ambulating straight, states she keep veering left. The patient reports associated symptoms of lightheadedness when getting up and slightly blurry vision. The patient reports a baseline history of B/l weakness but denies the recent symptoms to be similar. The patient reports recent change in medication states she was started on Lovastatin 25 mg about 2 months ago and amlodipine dose reduced from 10 mg to 5 secondary to swelling. The patient reports she has an appointment with Dr. Park tomorrow. The patient reports getting an MRI done with Dr. Marinelli within the year. Denies numbness, tingling or loss of sensation. The pr reports nausea and vomiting episodes with onset last night. Triggered by dizziness, which, it turn, triggered by head movements. No chronic GI issues other than constipation treated with Movantic and Colace. Up to date on colorectal screening. No history of GERD, PUD. - History Source History Provided By: Patient, Medical Record Limitations to Obtaining History: No Limitations - Past Medical History Cardio/Vascular: Yes: HTN, Hyperlipdemia (breast cancer , radiation, hypothyroid ) Gastrointestinal: Yes: Other (n/v) ...: No ENT: Yes: Other (vertigo) Dermatology: Yes: Other (?psoriasis) - Past Surgical History Past Surgical History: Yes: Valve Replacement (lt lumpectomy) - Alcohol/Substance Use Hx Alcohol Use: No History of Substance Use: reports: None - Smoking History Smoking history: Former smoker Have you smoked in the past 12 months: No Aproximately how many cigarettes per day: 6 If you are a former smoker, when did you quit?: 2012 - Social History History of Recent Travel: No Home Medications - Allergies Allergies/Adverse Reactions: Allergies Allergy/AdvReac Type Severity Reaction Status Date / Time lactose Allergy Mild Verified 05/23/18 09:56 codeine [Codeine] AdvReac Intermediate Verified 05/23/18 09:56 - Home Medications Home Medications: Ambulatory Orders Atorvastatin Ca [Lipitor] 20 mg PO HS #0 tablet 05/15/12 Amlodipine Besylate [Norvasc -] 5 mg PO DAILY 02/15/13 Clopidogrel Bisulfate [Plavix -] 75 mg PO DAILY 02/15/13 Aspirin [ASA -] 81 mg PO DAILY #0 tab.chew 02/07/14 Insulin (Novolog) [Novolog Flexpen -] 0 units SQ ACHS PRN 02/09/15 Levothyroxine [Synthroid -] 100 mcg PO DAILY 02/09/15 Insulin Glargine,Hum.rec.anlog [Toujeo Solostar] 26 unit SQ AM 01/27/17 Oxycodone HCl/Acetaminophen [Percocet 10-325 mg Tablet] 1 each PO Q6H PRN Losartan Potassium 25 mg PO DAILY 05/23/18 Family Disease History - Family Disease History Family History: Unremarkable Review of Systems Findings/Remarks: as per HPI, ED, H&P Physical Exam-GI Vital Signs: Vital Signs Temperature 98.6 F 05/24/18 05:09 Pulse Rate 76 05/24/18 05:09 Respiratory Rate 18 05/24/18 05:09 Blood Pressure 146/77 05/24/18 05:09 O2 Sat by Pulse Oximetry (%) 96 05/23/18 21:00 Constitutional: Yes: Well Nourished, No Distress, Calm Eyes: Yes: Conjunctiva Clear HENT: Yes: Atraumatic, Other (loss of nasolabial fold on l. side) Respiratory: Yes: Regular Gastrointestinal Inspection: No: Ascites, Distention ...Auscultate: Yes: Normoactive Bowel Sounds ...Palpate: Yes: Soft. No: Firm/Rigid, Guarding, Mass, Tenderness Neurological: Yes: Alert, Oriented, Unsteady Gait (per HPI), Other. No: Confusion, Dysarthria, Lethargy, Tingling, Tremors Labs: CBC, BMP 05/24/18 05:30 05/24/18 05:30 INR, PTT INR 0.96 (0.83-1.09) 05/23/18 10:43 Laboratory Last Values WBC 10.3 K/mm3 (4.0-10.0) H 05/24/18 05:30 RBC 3.99 M/mm3 (3.60-5.2) 05/24/18 05:30 Hgb 12.3 GM/dL (10.7-15.3) 05/24/18 05:30 Hct 37.7 % (32.4-45.2) 05/24/18 05:30 MCV 94.3 fl (80-96) 05/24/18 05:30 MCH 30.8 pg (25.7-33.7) 05/24/18 05:30 MCHC 32.6 g/dl (32.0-36.0) 05/24/18 05:30 RDW 13.7 % (11.6-15.6) 05/24/18 05:30 Plt Count 300 K/MM3 (134-434) 05/24/18 05:30 MPV 8.8 fl (7.5-11.1) 05/24/18 05:30 Absolute Neuts (auto) 8.7 K/mm3 (1.5-8.0) H 05/24/18 05:30 Neutrophils % 85.1 % (42.8-82.8) H D 05/24/18 05:30 Lymphocytes % 10.5 % (8-40) D 05/24/18 05:30 Monocytes % 3.9 % (3.8-10.2) 05/24/18 05:30 Eosinophils % 0.0 % (0-4.5) D 05/24/18 05:30 Basophils % 0.5 % (0-2.0) 05/24/18 05:30 Nucleated RBC % 0 % (0-0) 05/24/18 05:30 PT with INR 10.90 SEC (9.7-13.0) 05/23/18 10:43 INR 0.96 (0.83-1.09) 05/23/18 10:43 Sodium 142 mmol/L (136-145) 05/24/18 05:30 Potassium 4.4 mmol/L (3.5-5.1) 05/24/18 05:30 Chloride 106 mmol/L (98-107) 05/24/18 05:30 Carbon Dioxide 23 mmol/L (21-32) 05/24/18 05:30 Anion Gap 13 MMOL/L (8-16) 05/24/18 05:30 BUN 30 mg/dL (7-18) H 05/24/18 05:30 Creatinine 1.7 mg/dL (0.55-1.02) H 05/24/18 05:30 Creat Clearance w eGFR 31.09 (>60) 05/24/18 05:30 POC Glucometer 267 UNITS (80-120) 05/24/18 04:36 Random Glucose 262 mg/dL (74-106) H 05/24/18 05:30 Calcium 8.9 mg/dL (8.5-10.1) 05/24/18 05:30 Total Bilirubin 0.8 mg/dL (0.2-1.0) 05/24/18 05:30 AST 21 U/L (15-37) 05/24/18 05:30 ALT 22 U/L (12-78) 05/24/18 05:30 Alkaline Phosphatase 136 U/L (45-117) H D 05/24/18 05:30 Creatine Kinase 289 IU/L (26-192) H 05/24/18 09:50 Creatine Kinase Index 1.9 % (0.0-5.0) 05/24/18 09:50 CK-MB (CK-2) 5.66 ng/mL (0.5-3.6) H 05/24/18 09:50 Troponin I 0.26 ng/ml (0.00-0.05) H 05/24/18 09:50 Total Protein 7.7 g/dl (6.4-8.2) 05/24/18 05:30 Albumin 3.6 g/dl (3.4-5.0) 05/24/18 05:30 Urine Color Ltyellow 05/23/18 10:32 Urine Appearance Slcloudy 05/23/18 10:32 Urine pH 5.0 (5.0-8.0) 05/23/18 10:32 Ur Specific [place] 1.014 (1.001-1.035) 05/23/18 10:32 Urine Protein 2+ (NEGATIVE) H 05/23/18 10:32 Urine Glucose (UA) Negative (NEGATIVE) 05/23/18 10:32 Urine Ketones Negative (NEGATIVE) 05/23/18 10:32 Urine Blood Negative (NEGATIVE) 05/23/18 10:32 Urine Nitrite Negative (NEGATIVE) 05/23/18 10:32 Urine Bilirubin Negative (<2.0 mg/dL) 05/23/18 10:32 Urine Urobilinogen Negative mg/dL (0.2-1.0) 05/23/18 10:32 Ur Leukocyte Esterase Trace (NEGATIVE) 05/23/18 10:32 Urine WBC (Auto) 1 /hpf (3-5) 05/23/18 10:32 Urine RBC (Auto) 1 /hpf (0-3) 05/23/18 10:32 Ur Epithelial Cells Moderate /HPF (FEW) 05/23/18 10:32 Urine Bacteria Rare /hpf (NONE SEEN) 05/23/18 10:32 Hyaline Casts 1 /lpf 05/23/18 10:32 Acetone, Qual Negative (NEGATIVE) L 05/23/18 10:32 Imaging - Results Chest X-ray: Report Reviewed Assessment/Plan This appears to be a positional vertigo with resultant nausea and vomiting. Neurology is on the case. Doubt GI system as the primary source of nausea and vomiting. May benefit form small dose PPI while on ASA and plavix. Will obtain AXR and Lipase. Continue current management.
--- NOTE | 2018-05-24 12:18 | ECHO ---
Name: ARUNA ARRIETA Exam:Adult Echocardiogram Study Date: 05/24/2018 08:31 AM Age: 57 yrs Reason For Study: DIZZINESS Height: 64 in Weight: 195 lb BSA: 1.9 m2 MMode/2D Measurements & Calculations IVSd: 0.86 cm Ao root diam: 3.1 cm LVIDd: 4.7 cm LA dimension: 2.8 cm LVIDs: 2.5 cm LVPWd: 0.85 cm EDV(Teich): 103.3 ml ESV(Teich): 21.9 ml Doppler Measurements & Calculations MV E max virgen: 50.9 cm/sec Med Peak E' Virgen: 7.9 cm/sec MV A max virgen: 101.4 cm/sec Med E/e': 6.4 MV E/A: 0.50 Lat Peak E' Virgen: 8.0 cm/sec MV dec time: 0.26 sec Lat E/e': 6.4 Procedure A complete two-dimensional transthoracic echocardiogram was performed (2D, M-mode, Doppler and color flow Doppler). Left Ventricle The left ventricular size, thickness and function are normal. The left ventricular ejection fraction is normal. Ejection Fraction = 60-65%. The left ventricular wall motion is normal. Right Ventricle The right ventricle is normal in size and function. Atria Normal left and right atrial size and function. Mitral Valve There is no mitral regurgitation noted. Tricuspid Valve No tricuspid regurgitation. There was insufficient TR detected to calculate RV systolic pressure. Aortic Valve No hemodynamically significant valvular aortic stenosis. No aortic regurgitation is present. Pulmonic Valve There is no pulmonic valvular regurgitation. Great Vessels The aortic root is normal size. Pericardium/Pleura There is no pericardial effusion. Interpretation Summary The left ventricular size, thickness and function are normal. The right ventricle is normal in size and function. No significant valvular abnormalities. MD Khalif Mcgrath 05/24/2018 11:46 AM
--- NOTE | 2018-05-24 13:41 | EKG ---
Test Reason : Blood Pressure : / mmHG Vent. Rate : 078 BPM Atrial Rate : 078 BPM P-R Int : 152 ms QRS Dur : 066 ms QT Int : 404 ms P-R-T Axes : 064 -15 026 degrees QTc Int : 460 ms NORMAL SINUS RHYTHM NONSPECIFIC T WAVE ABNORMALITY PROLONGED QT ABNORMAL ECG WHEN COMPARED WITH ECG OF 23-MAY-2018 09:52, NO SIGNIFICANT CHANGE WAS FOUND Confirmed by TITA AN, HEATHER ([id number]) on 05/24/2018 1:41:17 PM Referred By: LADONNA CHANDRA Confirmed By:HEATHER RIVERS MD
[2018-05-24] MEDS ORDERED: LOSARTAN POTASSIUM 25 MG TABLET PO ONE (18:15)
[2018-05-24] MEDS: INSULIN (LEVEMIR) 100 UNITS/ML UNITS SQ SCH (21:31)
[2018-05-24] MEDS: ATORVASTATIN CA 40 MG TABLET (FP) PO SCH (21:32)
[2018-05-24 21:44] LABS: CHOLESTEROL 190 mg/dL (50-200); HDL CHOLESTEROL 91 mg/dL (40-60); TRIGLYCERIDES 74 mg/dL (35-160)
[2018-05-25] MEDS: diazePAM 2 MG TABLET PO SCH ×5 (00:14→19:25)
[2018-05-25] MEDS: MECLIZINE HCL 25 MG TABLET (FP) PO SCH ×3 (06:16→21:36)
[2018-05-25 06:18] LABS: BASO % 0.7 % (0-2.0); EOS % 1.4 % (0-4.5); HEMOGLOBIN 11.3 GM/dL (10.7-15.3); LYMPH % 19.6 % (8-40); MCH 31.1 pg (25.7-33.7); MCHC 33.2 g/dl (32.0-36.0); MEAN CELL VOLUME 93.5 fl (80-96); MEAN PLT VOLUME 8.7 fl (7.5-11.1); MONO % 6.8 % (3.8-10.2); NEUT % 71.5 % (42.8-82.8); PLATELET COUNT 273 K/MM3 (134-434); RBC 3.64 M/mm3 (3.60-5.2); RDW 13.7 % (11.6-15.6); WHITE BLOOD COUNT 10.6 K/mm3 (4.0-10.0)
[2018-05-25 06:41] LABS: ANION GAP 8 MMOL/L (8-16); BLOOD UREA NITROGEN 30 mg/dL (7-18); CALCIUM 8.5 mg/dL (8.5-10.1); CHLORIDE 115 mmol/L (98-107); CO2 26 mmol/L (21-32); CREATININE 1.6 mg/dL (0.55-1.02); GLUCOSE,RANDOM 107 mg/dL (74-106); POTASSIUM 4.5 mmol/L (3.5-5.1); SODIUM 149 mmol/L (136-145)
--- NOTE | 2018-05-25 08:57 | PN ---
Progress Note (short form) - Note Progress Note: Neurology History of Present Illness 57-year-old female with a past medical history of HLD, HTN, type 1 DM, Breast CA s/p lumpectomy and on hormonal therapy, TIA x4 (last stroke 4 years ago, with B/L weakness), CKD and hypothyroidism presets to the emergency department with dizziness. The patient reported an acute onset of dizziness presented with difficulty ambulating straight, stated she keep veering left. The patient reported associated symptoms of lightheadedness when getting up and slightly blurry vision. The patient reports a baseline history of B/l weakness but denies the recent symptoms to be similar. The patient reported recent change in medication states she was started on Lovastatin 25 mg about 2 months ago and amlodipine dose reduced from 10 mg to 5 secondary to swelling. Previously seen by Dr Marinelli as well, had requested to see me to ER physician and I was called. CT head completed and no acute changes. MRI brain completed and demonstrated cerebellar infarct as noted. Discussed with nurse overnight, added CTA as Carotid doppler showed high peak velocity and further imaging recommended though does not appear to have high grade stenosis. Not completed due to elevated Cr, renal consulted, reports she previously saw Dr. Ramsay, consulted requested. Echo reviewed and normal. Lipid profile checked, LDL 100, will adjust statin, goal LDL is <70. Valium has been helpful and much improved. In terms of dispo, seems more likely that she will need short term rehab placement as opposed to home. Patient in agreement with this, discussed with AM nurse. Active Medications Acetaminophen (Tylenol -) 650 mg PO Q4H PRN PRN Reason: PAIN LEVEL 1 - 3 Last Admin: 05/24/18 17:00 Dose: 650 mg Amlodipine Besylate (Norvasc -) 5 mg PO DAILY [facility] Last Admin: 05/24/18 09:55 Dose: 5 mg Aspirin (Ecotrin -) 81 mg PO DAILY [facility] Last Admin: 05/24/18 09:55 Dose: 81 mg Atorvastatin Calcium (Lipitor -) 40 mg PO HS [facility] Last Admin: 05/24/18 21:32 Dose: 40 mg Clopidogrel Bisulfate (Plavix -) 75 mg PO DAILY [facility] Last Admin: 05/24/18 09:55 Dose: 75 mg Diazepam (Valium -) 2 mg PO Q6HPO [facility] Last Admin: 05/25/18 06:16 Dose: 2 mg Folic Acid (Folic Acid -) 1 mg PO DAILY [facility] Last Admin: 05/24/18 11:03 Dose: 1 mg Hydrocortisone (Anusol 2.5% Hc Cream -) 1 applic [place] DAILY [facility] Insulin Detemir (Levemir Vial) 25 units SQ HS [facility] Last Admin: 05/24/18 21:31 Dose: 15 units Losartan Potassium (Cozaar -) 25 mg PO DAILY [facility] Meclizine HCl (Antivert -) 25 mg PO TID [facility] Last Admin: 05/25/18 06:16 Dose: 25 mg Methylprednisolone Sodium Succinate (Solu-Medrol -) 40 mg IVPB BID PRN PRN Reason: VERTIGO Ondansetron HCl (Zofran Injection) 4 mg IVPUSH Q6H PRN PRN Reason: NAUSEA AND/OR VOMITING Last Admin: 05/24/18 08:52 Dose: 4 mg Pantoprazole Sodium (Protonix Iv) 40 mg IVPB DAILY [facility] Last Admin: 05/24/18 12:04 Dose: 40 mg Polyethylene Glycol (Miralax (For Daily Use) -) 17 gm PO DAILY [facility] Last Admin: 05/24/18 11:03 Dose: 17 grams Polyethylene Glycol (Miralax (For Daily Use) -) 17 gm PO DAILY [facility] *Physical Exam Vital Signs Temperature 98.9 F 05/25/18 06:02 Pulse Rate 69 05/25/18 06:02 Respiratory Rate 18 05/25/18 06:02 Blood Pressure 115/73 05/25/18 06:02 O2 Sat by Pulse Oximetry (%) 95 05/24/18 21:00 GENERAL: The patient is in no acute distress. HEAD: Normal with no signs of trauma. EYES: PERRLA, EOMI, sclera anicteric, conjunctiva clear. ENT: Ears normal, nares patent, oropharynx clear without exudates. Moist mucous membranes. NECK: Normal range of motion, supple without lymphadenopathy, JVD, or masses. LUNGS: Breath sounds equal, clear to auscultation bilaterally. No wheezes, and no crackles. HEART:Regular rate and rhythm, normal S1 and S2 without murmur, rub or gallop. ABDOMEN: Soft, nontender, normoactive bowel sounds. No guarding, no rebound. No masses palpable. EXTREMITIES: Normal range of motion, no edema. No clubbing or cyanosis. No erythema, or tenderness. NEUROLOGICAL: Awake, alert, no aphasia, CN intact, sensory intact, UE 5-, LE 4+ , limited effort, gait deferred MUSCULOSKELETAL: Back non-tender to palpation, no CVA tenderness SKIN: Warm, Dry, normal turgor, no rashes or lesions noted. CBCD WBC 10.6 K/mm3 (4.0-10.0) H 05/25/18 05:30 RBC 3.64 M/mm3 (3.60-5.2) 05/25/18 05:30 Hgb 11.3 GM/dL (10.7-15.3) 05/25/18 05:30 Hct 34.0 % (32.4-45.2) 05/25/18 05:30 MCV 93.5 fl (80-96) 05/25/18 05:30 MCHC 33.2 g/dl (32.0-36.0) 05/25/18 05:30 RDW 13.7 % (11.6-15.6) 05/25/18 05:30 Plt Count 273 K/MM3 (134-434) 05/25/18 05:30 MPV 8.7 fl (7.5-11.1) 05/25/18 05:30 CMP Sodium 149 mmol/L (136-145) H 05/25/18 05:30 Potassium 4.5 mmol/L (3.5-5.1) 05/25/18 05:30 Chloride 115 mmol/L (98-107) H 05/25/18 05:30 Carbon Dioxide 26 mmol/L (21-32) 05/25/18 05:30 Anion Gap 8 MMOL/L (8-16) 05/25/18 05:30 BUN 30 mg/dL (7-18) H 05/25/18 05:30 Creatinine 1.6 mg/dL (0.55-1.02) H 05/25/18 05:30 Creat Clearance w eGFR 33.34 (>60) 05/25/18 05:30 Random Glucose 107 mg/dL (74-106) H 05/25/18 05:30 Calcium 8.5 mg/dL (8.5-10.1) 05/25/18 05:30 Total Bilirubin 0.8 mg/dL (0.2-1.0) 05/24/18 05:30 AST 21 U/L (15-37) 05/24/18 05:30 ALT 22 U/L (12-78) 05/24/18 05:30 Alkaline Phosphatase 136 U/L (45-117) H D 05/24/18 05:30 Total Protein 7.7 g/dl (6.4-8.2) 05/24/18 05:30 Albumin 3.6 g/dl (3.4-5.0) 05/24/18 05:30 CARDIAC ENZYMES Creatine Kinase 289 IU/L (26-192) H 05/24/18 09:50 Troponin I 0.26 ng/ml (0.00-0.05) H 05/24/18 09:50 CT head reviewed MRI brain reviewed Echo reviewed Carotid doppler reviewed Medical Decision Making 57-year-old female with a past medical history of HLD, HTN, type 1 DM, Breast CA s/p lumpectomy and on hormonal therapy, TIA x4 (last stroke 4 years ago, with B/L weakness), CKD and hypothyroidism presets to the emergency department with dizziness since around 8:30 today. The patient reports an acute onset of dizziness presented with difficulty ambulating straight, stated she keep veering left. The patient reported associated symptoms of lightheadedness when getting up and slightly blurry vision. MRI brain completed and demonstrated cerebellar infarct as noted. CTA neck ordered as Carotid doppler showed high peak velocity and further imaging recommended though does not appear to have high grade stenosis. Elevated Cr, renal consulted, reports she previously saw Dr. Ramsay, consulted requested. Echo reviewed and normal. Lipid profile checked, LDL 100, will adjust statin, goal LDL is <70. Valium has been helpful and much improved. Avoid sudden head movements Continue meclezine/zofran Physical therapy, vestibular therapy as able PLan is for short term rehab Monitor BP, Goal is <140/90 for now, <130/80 as outpatient Continue ASA, Plavix Fall prevention DVT ppx Discussed with nurse
[2018-05-25] MEDS ORDERED: LOSARTAN POTASSIUM 50 MG TABLET (FP) PO SCH (10:00)
[2018-05-25] MEDS ORDERED: PT OWN MED DRAWER 7, Y5N ONE (10:06)
[2018-05-25] MEDS: HYDROCORTISONE 2.5% TOPICAL CREAM 30 GM TUBE PR SCH (10:34)
[2018-05-25] MEDS: ASPIRIN COATED 81 MG TABLET.EC PO SCH (10:37)
[2018-05-25] MEDS: POLYETHYLENE GLYCOL 3350 119 GM BTL PO SCH ×2 (10:37→10:38)
[2018-05-25] MEDS: FOLIC ACID 1 MG TABLET (FP) PO SCH (10:37)
[2018-05-25] MEDS: amLODIPine BESYLATE 5 MG TABLET (FP) PO SCH (10:38)
[2018-05-25] MEDS: CLOPIDOGREL BISULFATE 75 MG TABLET (FP) PO SCH (10:39)
[2018-05-25] MEDS: PANTOPRAZOLE SODIUM 40 MG VIAL IVPB SCH (10:50)
[2018-05-25] MEDS ORDERED: INSULIN (NOVOLOG) ASPART 100 UNITS/ML 10ML VIAL ONE ×2 (11:42→21:34)
[2018-05-25] MEDS ORDERED: INSULIN (NOVOLOG) ASPART 100 UNITS/ML 10ML VIAL SQ ONE (12:45)
--- NOTE | 2018-05-25 13:11 | PN ---
Progress Note, Physician Chief Complaint: less dizziness tolerating diet sugars higher on steroids - Current Medication List Current Medications: Active Medications Acetaminophen (Tylenol -) 650 mg PO Q4H PRN PRN Reason: PAIN LEVEL 1 - 3 Last Admin: 05/24/18 17:00 Dose: 650 mg Amlodipine Besylate (Norvasc -) 5 mg PO DAILY [facility] Last Admin: 05/25/18 10:38 Dose: 5 mg Aspirin (Ecotrin -) 81 mg PO DAILY [facility] Last Admin: 05/25/18 10:37 Dose: 81 mg Atorvastatin Calcium (Lipitor -) 80 mg PO HS [facility] Clopidogrel Bisulfate (Plavix -) 75 mg PO DAILY [facility] Last Admin: 05/25/18 10:39 Dose: 75 mg Diazepam (Valium -) 2 mg PO Q6HPO [facility] Last Admin: 05/25/18 12:02 Dose: Not Given Folic Acid (Folic Acid -) 1 mg PO DAILY [facility] Last Admin: 05/25/18 10:37 Dose: 1 mg Hydrocortisone (Anusol 2.5% Hc Cream -) 1 applic [place] DAILY [facility] Last Admin: 05/25/18 10:34 Dose: Not Given Insulin Detemir (Levemir Vial) 25 units SQ HS [facility] Last Admin: 05/24/18 21:31 Dose: 15 units Losartan Potassium (Cozaar -) 25 mg PO DAILY [facility] Last Admin: 05/25/18 10:36 Dose: 25 mg Meclizine HCl (Antivert -) 25 mg PO TID [facility] Last Admin: 05/25/18 06:16 Dose: 25 mg Methylprednisolone Sodium Succinate (Solu-Medrol -) 40 mg IVPB BID PRN PRN Reason: VERTIGO Ondansetron HCl (Zofran Injection) 4 mg IVPUSH Q6H PRN PRN Reason: NAUSEA AND/OR VOMITING Last Admin: 05/24/18 08:52 Dose: 4 mg Pantoprazole Sodium (Protonix Iv) 40 mg IVPB DAILY [facility] Last Admin: 05/25/18 10:50 Dose: 40 mg Polyethylene Glycol (Miralax (For Daily Use) -) 17 gm PO DAILY [facility] Last Admin: 05/25/18 10:37 Dose: 17 grams Polyethylene Glycol (Miralax (For Daily Use) -) 17 gm PO DAILY [facility] Last Admin: 05/25/18 10:38 Dose: Not Given - Objective Vital Signs: Vital Signs Temperature 98.5 F 05/25/18 10:23 Pulse Rate 67 05/25/18 10:23 Respiratory Rate 18 05/25/18 10:23 Blood Pressure 150/72 05/25/18 10:23 O2 Sat by Pulse Oximetry (%) 95 05/24/18 21:00 Constitutional: Yes: Calm Eyes: Yes: WNL HENT: Yes: WNL Neck: Yes: WNL Cardiovascular: Yes: WNL Respiratory: Yes: WNL Gastrointestinal: Yes: WNL ...Rectal Exam: Yes: Deferred Genitourinary: Yes: WNL Breast(s): Yes: WNL Musculoskeletal: Yes: Back Pain Edema: No Peripheral Pulses WNL: Yes Integumentary: Yes: WNL Neurological: Yes: Unsteady Gait ...Motor Strength: WNL Psychiatric: Yes: WNL Labs: CBC, BMP 05/25/18 05:30 05/25/18 05:30 INR, PTT INR 0.96 (0.83-1.09) 05/23/18 10:43 Problem List - Problems (1) Vertigo Code(s): R42 - DIZZINESS AND GIDDINESS Assessment/Plan cta neck renal to see if able to do test due to renal numbers case managment p/t going to [facility] spoke to her and agred short term rehab
--- NOTE | 2018-05-25 14:00 | CONSULT ---
Consult Consult Specialty:: Nephrology - History of Present Illness Chief Complaint: dizziness History of Present Illness: Pt is a 57 year old female with pmhx of HLD, HTN, DM, CKD, TIA, CVA, hypothyroidism and breast cancer who presents to the ER with dizziness. She was found to have a CVA and admitted for treatment. Pt has CKD and follows with Dr Khoury. She had a carotid ultrasound which had positive finding and it was recommended that she gets a cta of he head and neck. She denies shortness of breath. SHe denies lower ext edema. She denies dysuria or hematuria. - History Source History Provided By: Patient, Medical Record - Past Medical History Cardio/Vascular: Yes: HTN, Hyperlipdemia (breast cancer , radiation, hypothyroid ) Gastrointestinal: Yes: Other (n/v) Renal/: Yes: Renal Inusuff ...: No ENT: Yes: Other (vertigo) Dermatology: Yes: Other (?psoriasis) - Past Surgical History Past Surgical History: Yes: Valve Replacement (lt lumpectomy) - Alcohol/Substance Use Hx Alcohol Use: No History of Substance Use: reports: None - Smoking History Smoking history: Former smoker Have you smoked in the past 12 months: No Aproximately how many cigarettes per day: 6 If you are a former smoker, when did you quit?: 2012 - Social History History of Recent Travel: No Home Medications - Allergies Allergies/Adverse Reactions: Allergies Allergy/AdvReac Type Severity Reaction Status Date / Time lactose Allergy Mild Verified 05/23/18 09:56 codeine [Codeine] AdvReac Intermediate Verified 05/23/18 09:56 - Home Medications Home Medications: Ambulatory Orders Atorvastatin Ca [Lipitor] 20 mg PO HS #0 tablet 05/15/12 Amlodipine Besylate [Norvasc -] 5 mg PO DAILY 02/15/13 Clopidogrel Bisulfate [Plavix -] 75 mg PO DAILY 02/15/13 Aspirin [ASA -] 81 mg PO DAILY #0 tab.chew 02/07/14 Insulin (Novolog) [Novolog Flexpen -] 0 units SQ ACHS PRN 02/09/15 Levothyroxine [Synthroid -] 100 mcg PO DAILY 02/09/15 Insulin Glargine,Hum.rec.anlog [Touchriso Solostar] 26 unit SQ AM 01/27/17 Oxycodone HCl/Acetaminophen [Percocet 10-325 mg Tablet] 1 each PO Q6H PRN Losartan Potassium 25 mg PO DAILY 05/23/18 Review of Systems - Review of Systems Constitutional: reports: Malaise Eyes: reports: No Symptoms HENT: reports: No Symptoms Neck: reports: No Symptoms Cardiovascular: reports: No Symptoms Respiratory: reports: No Symptoms Gastrointestinal: reports: No Symptoms Musculoskeletal: reports: No Symptoms Integumentary: reports: No Symptoms Neurological: reports: Dizziness Physical Exam Vital Signs: Vital Signs Temperature 98.5 F 05/25/18 10:23 Pulse Rate 67 05/25/18 10:23 Respiratory Rate 18 05/25/18 10:23 Blood Pressure 150/72 05/25/18 10:23 O2 Sat by Pulse Oximetry (%) 95 05/24/18 21:00 Constitutional: Yes: Calm Eyes: Yes: Conjunctiva Clear Cardiovascular: Yes: S1, S2 Respiratory: Yes: CTA Bilaterally Gastrointestinal: Yes: Soft ...Rectal Exam: Yes: Other Musculoskeletal: Yes: WNL Integumentary: Yes: WNL Neurological: Yes: Oriented Labs: CBC, BMP 05/25/18 05:30 05/25/18 05:30 Laboratory Tests 12/28/16 01/27/17 02/28/18 12:12 14:03 11:44 Creatinine 1.6 H 1.6 H 1.5 H 05/23/18 05/24/18 05/25/18 10:32 05:30 05:30 Creatinine 1.5 H 1.7 H 1.6 H Imaging - Results Cat Scan: Report Reviewed Problem List - Problems (1) CKD (chronic kidney disease) Code(s): N18.9 - CHRONIC KIDNEY DISEASE, UNSPECIFIED (2) Dizziness Code(s): R42 - DIZZINESS AND GIDDINESS (3) Vertigo Code(s): R42 - DIZZINESS AND GIDDINESS (4) CVA (cerebral infarction) Code(s): I63.9 - CEREBRAL INFARCTION, UNSPECIFIED Assessment/Plan Current Medications Generic Name Dose Route Start Last Admin Trade Name Freq PRN Reason Stop Dose Admin Acetaminophen 650 mg 05/23/18 15:44 05/24/18 17:00 Tylenol - PO 650 mg Q4H PRN Administration PAIN LEVEL 1 - 3 Amlodipine Besylate 5 mg 05/24/18 10:00 05/25/18 10:38 Norvasc - PO 5 mg DAILY PAT Administration Aspirin 81 mg 05/24/18 10:00 05/25/18 10:37 Ecotrin - PO 81 mg DAILY PAT Administration Atorvastatin Calcium 80 mg 05/25/18 22:00 Lipitor - PO HS PAT Clopidogrel Bisulfate 75 mg 05/24/18 10:00 05/25/18 10:39 Plavix - PO 75 mg DAILY [facility] Administration Diazepam 2 mg 05/24/18 10:00 05/25/18 12:02 Valium - PO Not Given Q6HPO PAT Folic Acid 1 mg 05/24/18 10:00 05/25/18 10:37 Folic Acid - PO 1 mg DAILY [facility] Administration Hydrocortisone 1 applic 05/25/18 10:00 05/25/18 10:34 Anusol 2.5% Hc Cream - CT Not Given DAILY [facility] Insulin Aspart 1 vial 05/25/18 16:30 Novolog Vial Sliding Scale - SQ ACHS [facility] Protocol Insulin Detemir 25 units 05/24/18 22:00 05/24/18 21:31 Levemir Vial SQ 15 units HS [facility] Administration Losartan Potassium 25 mg 05/25/18 10:00 05/25/18 10:36 Cozaar - PO 25 mg DAILY [facility] Administration Meclizine HCl 25 mg 05/23/18 17:45 05/25/18 15:07 Antivert - PO 25 mg TID PAT Administration Methylprednisolone Sodium Succinate 40 mg 05/24/18 10:41 Solu-Medrol - IVPB BID PRN VERTIGO Ondansetron HCl 4 mg 05/23/18 20:51 05/24/18 08:52 Zofran Injection IVPUSH 4 mg Q6H PRN Administration NAUSEA AND/OR VOMITING Pantoprazole Sodium 40 mg 05/23/18 21:00 05/25/18 10:50 Protonix Iv IVPB 40 mg DAILY PAT Administration Polyethylene Glycol 17 gm 05/24/18 10:00 05/25/18 10:37 Miralax (For Daily Use) - PO 17 grams DAILY PAT Administration Polyethylene Glycol 17 gm 05/25/18 10:00 05/25/18 10:38 Miralax (For Daily Use) - PO Not Given DAILY [facility] Impression 1. CKD 2. HTN 3. CVA acute 4. hx breast cancer 5. HLD 6. DM Plan - can hold cozaar and increase norvasc to 10 mg - will give 1/2 ns as sodium is elevated - consider a vascular aval for the carotid lesion. perhaps a non contrast mra of the head and neck may provide more data. If these tests are not possible, would prep with fluids before CTA. Risk of MARILY from contrast explained to patient - monitor renal function - discussed with medical attending Dr Kelly
--- NOTE | 2018-05-25 14:12 | PN ---
Progress Note, Physician History of Present Illness: The patient is a 57-year-old female with a past medical history of HLD, HTN, type 1 DM, Breast CA s/p lumpectomy and on hormonal therapy, TIA x4 (last stroke 4 years ago, with B/L weakness), CKD and hypothyroidism presets to the emergency department with dizziness since around 8:30 today. The patient reports an acute onset of dizziness presents with difficulty ambulating straight , states she keep veering left. The patient reports associated symptoms of lightheadedness when getting up and slightly blurry vision. The patient reports a baseline history of B/l weakness but denies the recent symptoms to be similar. The patient reports recent change in medication states she was started on Lovastatin 25 mg about 2 months ago and amlodipine dose reduced from 10 mg to 5 secondary to swelling. The patient reports she has an appointment with Dr. Park tomorrow. The patient reports getting an MRI done with Dr. Marinelli within the year. Denies numbness, tingling or loss of sensation. - Current Medication List Current Medications: Active Medications Acetaminophen (Tylenol -) 650 mg PO Q4H PRN PRN Reason: PAIN LEVEL 1 - 3 Last Admin: 05/24/18 17:00 Dose: 650 mg Amlodipine Besylate (Norvasc -) 5 mg PO DAILY [facility] Last Admin: 05/25/18 10:38 Dose: 5 mg Aspirin (Ecotrin -) 81 mg PO DAILY [facility] Last Admin: 05/25/18 10:37 Dose: 81 mg Atorvastatin Calcium (Lipitor -) 80 mg PO [facility] Clopidogrel Bisulfate (Plavix -) 75 mg PO DAILY [facility] Last Admin: 05/25/18 10:39 Dose: 75 mg Diazepam (Valium -) 2 mg PO Q6HPO [facility] Last Admin: 05/25/18 12:02 Dose: Not Given Folic Acid (Folic Acid -) 1 mg PO DAILY [facility] Last Admin: 05/25/18 10:37 Dose: 1 mg Hydrocortisone (Anusol 2.5% Hc Cream -) 1 applic [place] DAILY [facility] Last Admin: 05/25/18 10:34 Dose: Not Given Insulin Aspart (Novolog Vial Sliding Scale -) 1 vial SQ [facility]; Protocol Insulin Detemir (Levemir Vial) 25 units SQ [facility] Last Admin: 05/24/18 21:31 Dose: 15 units Losartan Potassium (Cozaar -) 25 mg PO DAILY [facility] Last Admin: 05/25/18 10:36 Dose: 25 mg Meclizine HCl (Antivert -) 25 mg PO TID [facility] Last Admin: 05/25/18 06:16 Dose: 25 mg Methylprednisolone Sodium Succinate (Solu-Medrol -) 40 mg IVPB BID PRN PRN Reason: VERTIGO Ondansetron HCl (Zofran Injection) 4 mg IVPUSH Q6H PRN PRN Reason: NAUSEA AND/OR VOMITING Last Admin: 05/24/18 08:52 Dose: 4 mg Pantoprazole Sodium (Protonix Iv) 40 mg IVPB DAILY [facility] Last Admin: 05/25/18 10:50 Dose: 40 mg Polyethylene Glycol (Miralax (For Daily Use) -) 17 gm PO DAILY [facility] Last Admin: 05/25/18 10:37 Dose: 17 grams Polyethylene Glycol (Miralax (For Daily Use) -) 17 gm PO DAILY [facility] Last Admin: 05/25/18 10:38 Dose: Not Given - Objective Vital Signs: Vital Signs Temperature 98.5 F 05/25/18 10:23 Pulse Rate 67 05/25/18 10:23 Respiratory Rate 18 05/25/18 10:23 Blood Pressure 150/72 05/25/18 10:23 O2 Sat by Pulse Oximetry (%) 96 05/25/18 09:00 Eyes: Yes: WNL, Conjunctiva Clear, EOM Intact HENT: Yes: WNL, Atraumatic, Normocephalic Neck: Yes: WNL, Supple, Trachea Midline Cardiovascular: Yes: WNL, Regular Rate and Rhythm Respiratory: Yes: WNL, Regular, CTA Bilaterally Gastrointestinal: Yes: WNL, Normal Bowel Sounds Genitourinary: Yes: WNL Musculoskeletal: Yes: WNL Extremities: Yes: WNL Edema: No Integumentary: Yes: WNL Neurological: Yes: Alert, Oriented ...Motor Strength: WNL Psychiatric: Yes: WNL Labs: CBC, BMP 05/25/18 05:30 05/25/18 05:30 INR, PTT INR 0.96 (0.83-1.09) 05/23/18 10:43 Problem List - Problems (1) Dizziness Code(s): R42 - DIZZINESS AND GIDDINESS (2) TIA (transient ischemic attack) Code(s): G45.9 - TRANSIENT CEREBRAL ISCHEMIC ATTACK, UNSPECIFIED (3) Vertigo Code(s): R42 - DIZZINESS AND GIDDINESS (4) Abrasion of thigh, left, infected Code(s): S70.312A - ABRASION, LEFT THIGH, INITIAL ENCOUNTER; L08.9 - LOCAL INFECTION OF THE SKIN AND SUBCUTANEOUS TISSUE, UNSP Qualifiers: Encounter type: initial encounter Qualified Code(s): S70.312A - Abrasion, left thigh, initial encounter (5) 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 Code(s): I69.393 - ATAXIA FOLLOWING CEREBRAL INFARCTION (6) CVA (cerebral infarction) Code(s): I63.9 - CEREBRAL INFARCTION, UNSPECIFIED (7) Cellulitis of left thigh Code(s): L03.116 - CELLULITIS OF LEFT LOWER LIMB (8) Contusion of hip, left Code(s): S70.02XA - CONTUSION OF LEFT HIP, INITIAL ENCOUNTER (9) Contusion of thigh, left Code(s): S70.12XA - CONTUSION OF LEFT THIGH, INITIAL ENCOUNTER Qualifiers: Encounter type: initial encounter Qualified Code(s): S70.12XA - Contusion of left thigh, initial encounter (10) Finger laceration Code(s): S61.219A - LACERATION W/O FB OF UNSP FINGER W/O DAMAGE TO NAIL, INIT Qualifiers: Encounter type: initial encounter Qualified Code(s): S61.219A - Laceration without foreign body of unspecified finger without damage to nail, initial encounter (11) Hyperkalemia Code(s): E87.5 - HYPERKALEMIA (12) Hypoglycemia Code(s): E16.2 - HYPOGLYCEMIA, UNSPECIFIED (13) Knee pain, bilateral Code(s): M25.561 - PAIN IN RIGHT KNEE; M25.562 - PAIN IN LEFT KNEE Qualifiers: Chronicity: chronic Qualified Code(s): M25.561 - Pain in right knee; M25.562 - Pain in left knee; G89.29 - Other chronic pain (14) Shoulder joint pain Code(s): M25.519 - PAIN IN UNSPECIFIED SHOULDER Assessment/Plan cerebellar infarct CVA x 19 February 2014 Hyperlipidemia 2009 Hypertension 2011 Stage 0 Breast cancer- Lumpectomy s/p radiation 2013 Plan bp control c. duplex cont asa/plavix further rx as per neurology
[2018-05-25] MEDS ORDERED: SODIUM CHLORIDE 0.45% 1,000 ML IV SCH (15:15)
[2018-05-25] MEDS: INSULIN SLIDING SCALE (NOVOLOG) 1 VIAL SQ SCH ×2 (17:33→21:38)
[2018-05-25] MEDS: ATORVASTATIN CA 80 MG TABLET (FP) PO SCH (21:37)
[2018-05-25] MEDS: INSULIN (LEVEMIR) 100 UNITS/ML UNITS SQ SCH (21:37)
[2018-05-26] MEDS: diazePAM 2 MG TABLET PO SCH ×2 (01:30→06:19)
[2018-05-26] MEDS: MECLIZINE HCL 25 MG TABLET (FP) PO SCH ×3 (06:19→22:39)
[2018-05-26] MEDS: INSULIN SLIDING SCALE (NOVOLOG) 1 VIAL SQ SCH ×4 (06:19→22:37)
[2018-05-26 07:35] LABS: CHLORIDE 110 mmol/L (98-107); POTASSIUM 4.3 mmol/L (3.5-5.1); SODIUM 143 mmol/L (136-145)
[2018-05-26 07:38] LABS: ANION GAP 7 MMOL/L (8-16); BLOOD UREA NITROGEN 31 mg/dL (7-18); CALCIUM 8.1 mg/dL (8.5-10.1); CO2 26 mmol/L (21-32); CREATININE 1.5 mg/dL (0.55-1.02); GLUCOSE,RANDOM 155 mg/dL (74-106)
[2018-05-26] MEDS: ACETAMINOPHEN 325 MG TABLET (FP) PO PRN (08:12)
--- NOTE | 2018-05-26 08:51 | PN ---
Progress Note, Physician Chief Complaint: Seen and examined in coverage for Birdie She states her vertigo/dizziness has improved History of Present Illness: TELE: NSR, APCs, rare PVCs - Current Medication List Current Medications: Active Medications Acetaminophen (Tylenol -) 650 mg PO Q4H PRN PRN Reason: PAIN LEVEL 1 - 3 Last Admin: 05/26/18 08:12 Dose: 650 mg Amlodipine Besylate (Norvasc -) 10 mg PO DAILY [facility] Aspirin (Ecotrin -) 81 mg PO DAILY [facility] Last Admin: 05/25/18 10:37 Dose: 81 mg Atorvastatin Calcium (Lipitor -) 80 mg PO HS [facility] Last Admin: 05/25/18 21:37 Dose: 80 mg Clopidogrel Bisulfate (Plavix -) 75 mg PO DAILY [facility] Last Admin: 05/25/18 10:39 Dose: 75 mg Diazepam (Valium -) 2 mg PO Q6HPO [facility] Last Admin: 05/26/18 06:19 Dose: 2 mg Folic Acid (Folic Acid -) 1 mg PO DAILY [facility] Last Admin: 05/25/18 10:37 Dose: 1 mg Hydrocortisone (Anusol 2.5% Hc Cream -) 1 applic [place] DAILY [facility] Last Admin: 05/25/18 10:34 Dose: Not Given Sodium Chloride (1/2 Normal Saline) 1,000 mls @ 50 mls/hr IV ASDIR [facility] Stop: 05/26/18 15:14 Last Admin: 05/25/18 15:35 Dose: 50 mls/hr Insulin Aspart (Novolog Vial Sliding Scale -) 1 vial SQ [facility]; Protocol Last Admin: 05/26/18 06:19 Dose: 2 units Insulin Detemir (Levemir Vial) 25 units SQ [facility] Last Admin: 05/25/18 21:37 Dose: 15 units Meclizine HCl (Antivert -) 25 mg PO TID [facility] Last Admin: 05/26/18 06:19 Dose: 25 mg Methylprednisolone Sodium Succinate (Solu-Medrol -) 40 mg IVPB BID PRN PRN Reason: VERTIGO Ondansetron HCl (Zofran Injection) 4 mg IVPUSH Q6H PRN PRN Reason: NAUSEA AND/OR VOMITING Last Admin: 05/24/18 08:52 Dose: 4 mg Pantoprazole Sodium (Protonix Iv) 40 mg IVPB DAILY [facility] Last Admin: 05/25/18 10:50 Dose: 40 mg Polyethylene Glycol (Miralax (For Daily Use) -) 17 gm PO DAILY [facility] Last Admin: 05/25/18 10:37 Dose: 17 grams Polyethylene Glycol (Miralax (For Daily Use) -) 17 gm PO DAILY [facility] Last Admin: 05/25/18 10:38 Dose: Not Given - Objective Vital Signs: Vital Signs Temperature 98.5 F 05/26/18 01:00 Pulse Rate 60 05/26/18 05:00 Respiratory Rate 18 05/26/18 05:00 Blood Pressure 145/75 05/26/18 05:00 O2 Sat by Pulse Oximetry (%) 97 05/25/18 21:25 Constitutional: Yes: No Distress Cardiovascular: Yes: Regular Rate and Rhythm Respiratory: Yes: CTA Bilaterally Gastrointestinal: Yes: Soft Edema: No Neurological: Yes: Alert Labs: CBC, BMP 05/25/18 05:30 05/26/18 05:30 INR, PTT INR 0.96 (0.83-1.09) 05/23/18 10:43 - ....Imaging EKG: Image Reviewed Other: Other (MRA neck no sig stenosis) Assessment/Plan IMP: Acute cerebellar CVA HTN H/o breast CA REC: 1. Cont tele to r/o occult AF- thus far not noted 2. MRA neck w/out sig carotid stenosis. Echo with no obvious source. 3. Cont ASA/Plavix and high dose statin. Would likely benefit from JOSE ANGEL or ARB ( to replace Amlodipine, unless other medical contraindication). Optimize glucose control 4. Further reccs as per Neuro
[2018-05-26] MEDS ORDERED: PT OWN MED DRAWER 7, Y5N ONE (09:42)
[2018-05-26] MEDS: PANTOPRAZOLE SODIUM 40 MG VIAL IVPB SCH (10:15)
[2018-05-26] MEDS: ASPIRIN COATED 81 MG TABLET.EC PO SCH (10:16)
[2018-05-26] MEDS: CLOPIDOGREL BISULFATE 75 MG TABLET (FP) PO SCH (10:16)
[2018-05-26] MEDS: amLODIPine BESYLATE 10 MG TABLET (FP) PO SCH (10:16)
[2018-05-26] MEDS: FOLIC ACID 1 MG TABLET (FP) PO SCH (10:16)
[2018-05-26] MEDS: HYDROCORTISONE 2.5% TOPICAL CREAM 30 GM TUBE PR SCH (10:17)
[2018-05-26] MEDS: POLYETHYLENE GLYCOL 3350 119 GM BTL PO SCH ×2 (10:17→17:20)
--- NOTE | 2018-05-26 11:56 | PN ---
Progress Note (short form) - Note Progress Note: 1. CKD 2. HTN 3. CVA acute 4. hx breast cancer 5. HLD 6. DM Current Medications Amlodipine Besylate (Norvasc -) 10 mg PO DAILY [facility] Last Admin: 05/26/18 10:16 Dose: 10 mg Aspirin (Ecotrin -) 81 mg PO DAILY [facility] Last Admin: 05/26/18 10:16 Dose: 81 mg Atorvastatin Calcium (Lipitor -) 80 mg PO HS [facility] Last Admin: 05/25/18 21:37 Dose: 80 mg Clopidogrel Bisulfate (Plavix -) 75 mg PO DAILY [facility] Last Admin: 05/26/18 10:16 Dose: 75 mg Folic Acid (Folic Acid -) 1 mg PO DAILY [facility] Last Admin: 05/26/18 10:16 Dose: 1 mg Hydrocortisone (Anusol 2.5% Hc Cream -) 1 applic [place] DAILY [facility] Last Admin: 05/26/18 10:17 Dose: Not Given Insulin Aspart (Novolog Vial Sliding Scale -) 1 vial SQ [facility]; Protocol Last Admin: 05/26/18 06:19 Dose: 2 units Insulin Detemir (Levemir Vial) 25 units SQ [facility] Last Admin: 05/25/18 21:37 Dose: 15 units Meclizine HCl (Antivert -) 25 mg PO TID [facility] Last Admin: 05/26/18 06:19 Dose: 25 mg Pantoprazole Sodium (Protonix Iv) 40 mg IVPB DAILY [facility] Last Admin: 05/26/18 10:15 Dose: 40 mg Polyethylene Glycol (Miralax (For Daily Use) -) 17 gm PO DAILY [facility] Last Admin: 05/26/18 10:17 Dose: 17 grams Polyethylene Glycol (Miralax (For Daily Use) -) 17 gm PO DAILY [facility] Last Admin: 05/25/18 10:38 Dose: Not Given Prednisone (Deltasone -) 20 mg PO DAILY [facility] Last Vital Signs Temp Pulse Resp BP Pulse Ox 98.5 F 61 18 135/76 97 05/26/18 09:00 05/26/18 09:00 05/26/18 09:00 05/26/18 09:00 05/26/18 09:00 alert in nad Lungs clear heart reg abd soft nontender ext no edema CBC, BMP 05/25/18 05:30 05/26/18 05:30 IMP- CKD renal function at baseline HTN - good BP control Plan- ensure hydration monitor renal function
--- NOTE | 2018-05-26 12:19 | DS ---
Physical Examination Vital Signs: Vital Signs Temperature 98.5 F 05/26/18 09:00 Pulse Rate 61 05/26/18 09:00 Respiratory Rate 18 05/26/18 09:00 Blood Pressure 135/76 05/26/18 09:00 O2 Sat by Pulse Oximetry (%) 97 05/26/18 09:00 Constitutional: Yes: Well Nourished Eyes: Yes: WNL HENT: Yes: WNL Neck: Yes: WNL Cardiovascular: Yes: WNL Respiratory: Yes: WNL Gastrointestinal: Yes: WNL ...Rectal Exam: Yes: Deferred Renal/: Yes: WNL Breast(s): Yes: WNL Musculoskeletal: Yes: Back Pain Extremities: Yes: WNL Edema: No Peripheral Pulses WNL: Yes Integumentary: Yes: WNL Neurological: Yes: Weakness ...Motor Strength: WNL Psychiatric: Yes: WNL Labs: CBC, BMP 05/25/18 05:30 05/26/18 05:30 Discharge Summary Reason For Visit: DIZZINESS; TRANSIENT ISCHEMIC ATTACK cereballar cv Current Active Problems CKD (chronic kidney disease) (Acute) Dizziness (Acute) TIA (transient ischemic attack) (Acute) Vertigo (Acute) Condition: Stable - Instructions Diet, Activity, Other Instructions: cont all meds as is adir nh placement will come in to do d/c 100 pm Referrals: Brennen Davenport MD [Primary Care Provider] - Disposition: [facility] - Home Medications Comprehensive Discharge Medication List: Ambulatory Orders Atorvastatin Ca [Lipitor] 20 mg PO HS #0 tablet 05/15/12 Amlodipine Besylate [Norvasc -] 5 mg PO DAILY 02/15/13 Clopidogrel Bisulfate [Plavix -] 75 mg PO DAILY 02/15/13 Aspirin [ASA -] 81 mg PO DAILY #0 tab.chew 02/07/14 Insulin (Novolog) [Novolog Flexpen -] 0 units SQ ACHS PRN 02/09/15 Levothyroxine [Synthroid -] 100 mcg PO DAILY 02/09/15 Insulin Glargine,Hum.rec.anlog [Toujeo Solostar] 26 unit SQ AM 01/27/17 Oxycodone HCl/Acetaminophen [Percocet 10-325 mg Tablet] 1 each PO Q6H PRN Losartan Potassium 25 mg PO DAILY 05/23/18
[2018-05-26] MEDS: ATORVASTATIN CA 80 MG TABLET (FP) PO SCH (22:39)
[2018-05-26] MEDS: INSULIN (LEVEMIR) 100 UNITS/ML UNITS SQ SCH (22:41)
[2018-05-27] MEDS: INSULIN SLIDING SCALE (NOVOLOG) 1 VIAL SQ SCH ×4 (06:35→21:42)
[2018-05-27] MEDS: MECLIZINE HCL 25 MG TABLET (FP) PO SCH ×3 (06:36→21:40)
[2018-05-27] MEDS: ASPIRIN COATED 81 MG TABLET.EC PO SCH (09:07)
[2018-05-27] MEDS: FOLIC ACID 1 MG TABLET (FP) PO SCH (09:07)
[2018-05-27] MEDS: amLODIPine BESYLATE 10 MG TABLET (FP) PO SCH (09:07)
[2018-05-27] MEDS: predniSONE 20 MG TABLET (UD) PO SCH (09:07)
[2018-05-27] MEDS: PANTOPRAZOLE SODIUM 40 MG VIAL IVPB SCH (09:07)
[2018-05-27] MEDS: CLOPIDOGREL BISULFATE 75 MG TABLET (FP) PO SCH (09:07)
--- NOTE | 2018-05-27 09:20 | PN ---
Progress Note, Physician Chief Complaint: no CP, SOB TELE: reviewed, no AF noted. NSR - Current Medication List Current Medications: Active Medications Amlodipine Besylate (Norvasc -) 10 mg PO DAILY [facility] Last Admin: 05/27/18 09:07 Dose: 10 mg Aspirin (Ecotrin -) 81 mg PO DAILY [facility] Last Admin: 05/27/18 09:07 Dose: 81 mg Atorvastatin Calcium (Lipitor -) 80 mg PO HS [facility] Last Admin: 05/26/18 22:39 Dose: 80 mg Clopidogrel Bisulfate (Plavix -) 75 mg PO DAILY [facility] Last Admin: 05/27/18 09:07 Dose: 75 mg Folic Acid (Folic Acid -) 1 mg PO DAILY [facility] Last Admin: 05/27/18 09:07 Dose: 1 mg Hydrocortisone (Anusol 2.5% Hc Cream -) 1 applic [place] DAILY [facility] Last Admin: 05/26/18 10:17 Dose: Not Given Insulin Aspart (Novolog Vial Sliding Scale -) 1 vial SQ [facility]; Protocol Last Admin: 05/27/18 06:35 Dose: 4 units Insulin Detemir (Levemir Vial) 25 units SQ [facility] Last Admin: 05/26/18 22:41 Dose: 15 units Meclizine HCl (Antivert -) 25 mg PO TID [facility] Last Admin: 05/27/18 06:36 Dose: 25 mg Methylnaltrexone [place] (Relistor -) 12 mg SQ Q2D@1000 [facility] Pantoprazole Sodium (Protonix Iv) 40 mg IVPB DAILY [facility] Last Admin: 05/27/18 09:07 Dose: 40 mg Polyethylene Glycol (Miralax (For Daily Use) -) 17 gm PO DAILY [facility] Last Admin: 05/26/18 10:17 Dose: 17 grams Polyethylene Glycol (Miralax (For Daily Use) -) 17 gm PO DAILY [facility] Last Admin: 05/26/18 17:20 Dose: Not Given Prednisone (Deltasone -) 20 mg PO DAILY [facility] Last Admin: 05/27/18 09:07 Dose: 20 mg - Objective Vital Signs: Vital Signs Temperature 98.4 F 05/27/18 05:00 Pulse Rate 76 05/27/18 05:00 Respiratory Rate 18 05/27/18 05:00 Blood Pressure 144/75 05/27/18 05:00 O2 Sat by Pulse Oximetry (%) 98 05/26/18 20:10 Constitutional: Yes: No Distress, Calm Eyes: Yes: Conjunctiva Clear Cardiovascular: Yes: Regular Rate and Rhythm Respiratory: Yes: CTA Bilaterally Gastrointestinal: Yes: Soft Edema: No Neurological: Yes: Alert, Oriented ...Motor Strength: WNL Labs: CBC, BMP 05/25/18 05:30 05/26/18 05:30 INR, PTT INR 0.96 (0.83-1.09) 05/23/18 10:43 - ....Imaging EKG: Image Reviewed Assessment/Plan IMP: Acute cerebellar CVA HTN H/o breast CA REC: 1. Tele NSR without AF. Recommend extended outpt holter. 2. MRA neck w/out sig carotid stenosis. Echo with no obvious source. 3. Cont ASA/Plavix and high dose statin. Would likely benefit from JOSE ANGEL or ARB ( to replace Amlodipine, unless other medical contraindication). Optimize glucose control 4. Further reccs as per Neuro Coverage for Meagan
[2018-05-27] MEDS: HYDROCORTISONE 2.5% TOPICAL CREAM 30 GM TUBE PR SCH (12:48)
[2018-05-27] MEDS: POLYETHYLENE GLYCOL 3350 119 GM BTL PO SCH ×2 (12:48)
--- NOTE | 2018-05-27 14:58 | PN ---
Progress Note (short form) - Note Progress Note: 1. CKD 2. HTN 3. CVA acute 4. hx breast cancer 5. HLD 6. DM Current Medications Amlodipine Besylate (Norvasc -) 10 mg PO DAILY [facility] Last Admin: 05/27/18 09:07 Dose: 10 mg Aspirin (Ecotrin -) 81 mg PO DAILY [facility] Last Admin: 05/27/18 09:07 Dose: 81 mg Atorvastatin Calcium (Lipitor -) 80 mg PO HS [facility] Last Admin: 05/26/18 22:39 Dose: 80 mg Clopidogrel Bisulfate (Plavix -) 75 mg PO DAILY [facility] Last Admin: 05/27/18 09:07 Dose: 75 mg Folic Acid (Folic Acid -) 1 mg PO DAILY [facility] Last Admin: 05/27/18 09:07 Dose: 1 mg Hydrocortisone (Anusol 2.5% Hc Cream -) 1 applic [place] DAILY [facility] Last Admin: 05/27/18 12:48 Dose: Not Given Insulin Aspart (Novolog Vial Sliding Scale -) 1 vial SQ [facility]; Protocol Last Admin: 05/27/18 12:15 Dose: 6 units Insulin Detemir (Levemir Vial) 25 units SQ [facility] Last Admin: 05/26/18 22:41 Dose: 15 units Meclizine HCl (Antivert -) 25 mg PO TID [facility] Last Admin: 05/27/18 13:25 Dose: 25 mg Methylnaltrexone [place] (Relistor -) 12 mg SQ Q2D@1000 [facility] Pantoprazole Sodium (Protonix Iv) 40 mg IVPB DAILY [facility] Last Admin: 05/27/18 09:07 Dose: 40 mg Polyethylene Glycol (Miralax (For Daily Use) -) 17 gm PO DAILY [facility] Last Admin: 05/27/18 12:48 Dose: Not Given Polyethylene Glycol (Miralax (For Daily Use) -) 17 gm PO DAILY [facility] Last Admin: 05/27/18 12:48 Dose: Not Given Prednisone (Deltasone -) 20 mg PO DAILY [facility] Last Admin: 05/27/18 09:07 Dose: 20 mg Last Vital Signs Temp Pulse Resp BP Pulse Ox 98.6 F 83 20 127/78 98 05/27/18 14:00 05/27/18 14:00 05/27/18 14:00 05/27/18 14:00 05/26/18 20:10 alert in nad Lungs clear heart reg abd soft nontender ext no edema CBC, BMP 05/25/18 05:30 05/26/18 05:30 IMP- CKD renal function at baseline HTN - good BP control Plan- ensure hydration monitor renal function agree with transfer to rehab
[2018-05-27] MEDS: ATORVASTATIN CA 80 MG TABLET (FP) PO SCH (21:40)
[2018-05-27] MEDS: INSULIN (LEVEMIR) 100 UNITS/ML UNITS SQ SCH (21:41)
[2018-05-28] MEDS: MECLIZINE HCL 25 MG TABLET (FP) PO SCH ×3 (06:03→22:11)
[2018-05-28] MEDS: INSULIN SLIDING SCALE (NOVOLOG) 1 VIAL SQ SCH ×4 (06:04→22:12)
[2018-05-28 08:02] LABS: ANION GAP 8 MMOL/L (8-16); BLOOD UREA NITROGEN 46 mg/dL (7-18); CALCIUM 9.1 mg/dL (8.5-10.1); CHLORIDE 108 mmol/L (98-107); CO2 26 mmol/L (21-32); CREATININE 1.5 mg/dL (0.55-1.02); GLUCOSE,RANDOM 122 mg/dL (74-106); POTASSIUM 4.5 mmol/L (3.5-5.1); SODIUM 142 mmol/L (136-145)
--- NOTE | 2018-05-28 08:59 | PN ---
Progress Note (short form) - Note Progress Note: Neurology History of Present Illness 57-year-old female with a past medical history of HLD, HTN, type 1 DM, Breast CA s/p lumpectomy and on hormonal therapy, TIA x4 (last stroke 4 years ago, with B/L weakness), CKD and hypothyroidism presets to the emergency department with dizziness. The patient reported an acute onset of dizziness presented with difficulty ambulating straight, stated she keep veering left. The patient reported associated symptoms of lightheadedness when getting up and slightly blurry vision. The patient reports a baseline history of B/l weakness but denies the recent symptoms to be similar. The patient reported recent change in medication states she was started on Lovastatin 25 mg about 2 months ago and amlodipine dose reduced from 10 mg to 5 secondary to swelling. Previously seen by Dr Marinelli as well, had requested to see me to ER physician and I was called. CT head completed and no acute changes. MRI brain completed and demonstrated cerebellar infarct as noted. Echo reviewed and normal. Lipid profile checked, LDL 100, statin adjusted, goal LDL is <70. Valium has been helpful and much improved. MRA completed and reviewed and with significant stenosis. Patient for placement for short term rehab, possibly today. Active Medications Amlodipine Besylate (Norvasc -) 10 mg PO DAILY [facility] Last Admin: 05/27/18 09:07 Dose: 10 mg Aspirin (Ecotrin -) 81 mg PO DAILY [facility] Last Admin: 05/27/18 09:07 Dose: 81 mg Atorvastatin Calcium (Lipitor -) 80 mg PO HS [facility] Last Admin: 05/27/18 21:40 Dose: 80 mg Clopidogrel Bisulfate (Plavix -) 75 mg PO DAILY [facility] Last Admin: 05/27/18 09:07 Dose: 75 mg Folic Acid (Folic Acid -) 1 mg PO DAILY [facility] Last Admin: 05/27/18 09:07 Dose: 1 mg Hydrocortisone (Anusol 2.5% Hc Cream -) 1 applic [place] DAILY [facility] Last Admin: 05/27/18 12:48 Dose: Not Given Insulin Aspart (Novolog Vial Sliding Scale -) 1 vial SQ [facility]; Protocol Last Admin: 05/28/18 06:04 Dose: 2 units Insulin Detemir (Levemir Vial) 25 units SQ [facility] Last Admin: 05/27/18 21:41 Dose: 25 units Meclizine HCl (Antivert -) 25 mg PO TID [facility] Last Admin: 05/28/18 06:03 Dose: 25 mg Methylnaltrexone [place] (Relistor -) 12 mg SQ Q2D@1000 [facility] Pantoprazole Sodium (Protonix Iv) 40 mg IVPB DAILY [facility] Last Admin: 05/27/18 09:07 Dose: 40 mg Polyethylene Glycol (Miralax (For Daily Use) -) 17 gm PO DAILY [facility] Last Admin: 05/27/18 12:48 Dose: Not Given Prednisone (Deltasone -) 20 mg PO DAILY [facility] Last Admin: 05/27/18 09:07 Dose: 20 mg *Physical Exam Vital Signs Period Temp Pulse Resp BP Sys/Perez Pulse Ox Last 24 Hr 97.8 F-98.7 F 64-83 18-20 120-144/56-78 98 GENERAL: The patient is in no acute distress. HEAD: Normal with no signs of trauma. EYES: PERRLA, EOMI, sclera anicteric, conjunctiva clear. ENT: Ears normal, nares patent, oropharynx clear without exudates. Moist mucous membranes. NECK: Normal range of motion, supple without lymphadenopathy, JVD, or masses. LUNGS: Breath sounds equal, clear to auscultation bilaterally. No wheezes, and no crackles. HEART:Regular rate and rhythm, normal S1 and S2 without murmur, rub or gallop. ABDOMEN: Soft, nontender, normoactive bowel sounds. No guarding, no rebound. No masses palpable. EXTREMITIES: Normal range of motion, no edema. No clubbing or cyanosis. No erythema, or tenderness. NEUROLOGICAL: Awake, alert, no aphasia, CN intact, sensory intact, UE 5-, LE 4+ , limited effort, gait deferred MUSCULOSKELETAL: Back non-tender to palpation, no CVA tenderness SKIN: Warm, Dry, normal turgor, no rashes or lesions noted. CBCD WBC 10.6 K/mm3 (4.0-10.0) H 05/25/18 05:30 RBC 3.64 M/mm3 (3.60-5.2) 05/25/18 05:30 Hgb 11.3 GM/dL (10.7-15.3) 05/25/18 05:30 Hct 34.0 % (32.4-45.2) 05/25/18 05:30 MCV 93.5 fl (80-96) 05/25/18 05:30 MCHC 33.2 g/dl (32.0-36.0) 05/25/18 05:30 RDW 13.7 % (11.6-15.6) 05/25/18 05:30 Plt Count 273 K/MM3 (134-434) 05/25/18 05:30 MPV 8.7 fl (7.5-11.1) 05/25/18 05:30 CMP Sodium 142 mmol/L (136-145) 05/28/18 06:30 Potassium 4.5 mmol/L (3.5-5.1) 05/28/18 06:30 Chloride 108 mmol/L (98-107) H 05/28/18 06:30 Carbon Dioxide 26 mmol/L (21-32) 05/28/18 06:30 Anion Gap 8 MMOL/L (8-16) 05/28/18 06:30 BUN 46 mg/dL (7-18) H 05/28/18 06:30 Creatinine 1.5 mg/dL (0.55-1.02) H 05/28/18 06:30 Creat Clearance w eGFR 35.92 (>60) 05/28/18 06:30 Random Glucose 122 mg/dL (74-106) H 05/28/18 06:30 Calcium 9.1 mg/dL (8.5-10.1) 05/28/18 06:30 Total Bilirubin 0.8 mg/dL (0.2-1.0) 05/24/18 05:30 AST 21 U/L (15-37) 05/24/18 05:30 ALT 22 U/L (12-78) 05/24/18 05:30 Alkaline Phosphatase 136 U/L (45-117) H D 05/24/18 05:30 Total Protein 7.7 g/dl (6.4-8.2) 05/24/18 05:30 Albumin 3.6 g/dl (3.4-5.0) 05/24/18 05:30 CARDIAC ENZYMES Creatine Kinase 289 IU/L (26-192) H 05/24/18 09:50 Troponin I 0.26 ng/ml (0.00-0.05) H 05/24/18 09:50 CT head reviewed MRI brain reviewed Echo reviewed Carotid doppler reviewed MRA reviewed Medical Decision Making 57-year-old female with a past medical history of HLD, HTN, type 1 DM, Breast CA s/p lumpectomy and on hormonal therapy, TIA x4 (last stroke 4 years ago, with B/L weakness), CKD and hypothyroidism presets to the emergency department with dizziness. The patient reported an acute onset of dizziness presented with difficulty ambulating straight, stated she keep veering left. The patient reported associated symptoms of lightheadedness when getting up and slightly blurry vision. MRI brain completed and demonstrated cerebellar infarct as noted. MRA completed and without HD significant stenosis Echo reviewed and normal. Lipid profile checked, LDL 100, statin adjusted to 80mg, goal LDL is <70. Valium has been helpful and much improved. Avoid sudden head movements Continue meclezine/zofran Physical therapy, vestibular therapy as able PLan is for short term rehab Monitor BP, Goal is <140/90 for now, <130/80 as outpatient Continue ASA, Plavix Fall prevention DVT ppx
--- NOTE | 2018-05-28 09:03 | PN ---
Progress Note, Physician History of Present Illness: The patient is a 57-year-old female with a past medical history of HLD, HTN, type 1 DM, Breast CA s/p lumpectomy and on hormonal therapy, TIA x4 (last stroke 4 years ago, with B/L weakness), CKD and hypothyroidism presets to the emergency department with dizziness since around 8:30 today. The patient reports an acute onset of dizziness presents with difficulty ambulating straight , states she keep veering left. The patient reports associated symptoms of lightheadedness when getting up and slightly blurry vision. The patient reports a baseline history of B/l weakness but denies the recent symptoms to be similar. The patient reports recent change in medication states she was started on Lovastatin 25 mg about 2 months ago and amlodipine dose reduced from 10 mg to 5 secondary to swelling. The patient reports she has an appointment with Dr. Park tomorrow. The patient reports getting an MRI done with Dr. Marinelli within the year. Denies numbness, tingling or loss of sensation. - Current Medication List Current Medications: Active Medications Amlodipine Besylate (Norvasc -) 10 mg PO DAILY [facility] Last Admin: 05/27/18 09:07 Dose: 10 mg Aspirin (Ecotrin -) 81 mg PO DAILY [facility] Last Admin: 05/27/18 09:07 Dose: 81 mg Atorvastatin Calcium (Lipitor -) 80 mg PO HS [facility] Last Admin: 05/27/18 21:40 Dose: 80 mg Clopidogrel Bisulfate (Plavix -) 75 mg PO DAILY [facility] Last Admin: 05/27/18 09:07 Dose: 75 mg Folic Acid (Folic Acid -) 1 mg PO DAILY [facility] Last Admin: 05/27/18 09:07 Dose: 1 mg Hydrocortisone (Anusol 2.5% Hc Cream -) 1 applic [place] DAILY [facility] Last Admin: 05/27/18 12:48 Dose: Not Given Insulin Aspart (Novolog Vial Sliding Scale -) [address] [facility]; Protocol Last Admin: 05/28/18 06:04 Dose: 2 units Insulin Detemir (Levemir Vial) 25 units SQ HS [facility] Last Admin: 05/27/18 21:41 Dose: 25 units Meclizine HCl (Antivert -) 25 mg PO TID [facility] Last Admin: 05/28/18 06:03 Dose: 25 mg Methylnaltrexone [place] (Relistor -) 12 mg SQ Q2D@1000 [facility] Pantoprazole Sodium (Protonix Iv) 40 mg IVPB DAILY [facility] Last Admin: 05/27/18 09:07 Dose: 40 mg Polyethylene Glycol (Miralax (For Daily Use) -) 17 gm PO DAILY [facility] Last Admin: 05/27/18 12:48 Dose: Not Given Prednisone (Deltasone -) 20 mg PO DAILY [facility] Last Admin: 05/27/18 09:07 Dose: 20 mg - Objective Vital Signs: Vital Signs Temperature 98.6 F 05/28/18 06:00 Pulse Rate 64 05/28/18 06:00 Respiratory Rate 18 05/28/18 06:00 Blood Pressure 144/56 05/28/18 06:00 O2 Sat by Pulse Oximetry (%) 98 05/27/18 21:00 Eyes: Yes: WNL, Conjunctiva Clear, EOM Intact HENT: Yes: WNL, Atraumatic, Normocephalic Neck: Yes: WNL, Supple, Trachea Midline Cardiovascular: Yes: WNL, Regular Rate and Rhythm Respiratory: Yes: WNL, Regular, CTA Bilaterally Gastrointestinal: Yes: WNL, Normal Bowel Sounds Genitourinary: Yes: WNL Musculoskeletal: Yes: WNL Extremities: Yes: WNL Edema: No Integumentary: Yes: WNL Neurological: Yes: WNL, Alert, Oriented ...Motor Strength: WNL Psychiatric: Yes: WNL Labs: CBC, BMP 05/25/18 05:30 05/28/18 06:30 INR, PTT INR 0.96 (0.83-1.09) 05/23/18 10:43 Problem List - Problems (1) Dizziness Code(s): R42 - DIZZINESS AND GIDDINESS (2) TIA (transient ischemic attack) Code(s): G45.9 - TRANSIENT CEREBRAL ISCHEMIC ATTACK, UNSPECIFIED (3) Vertigo Code(s): R42 - DIZZINESS AND GIDDINESS (4) Abrasion of thigh, left, infected Code(s): S70.312A - ABRASION, LEFT THIGH, INITIAL ENCOUNTER; L08.9 - LOCAL INFECTION OF THE SKIN AND SUBCUTANEOUS TISSUE, UNSP Qualifiers: Encounter type: initial encounter Qualified Code(s): S70.312A - Abrasion, left thigh, initial encounter (5) 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 Code(s): I69.393 - ATAXIA FOLLOWING CEREBRAL INFARCTION (6) CVA (cerebral infarction) Code(s): I63.9 - CEREBRAL INFARCTION, UNSPECIFIED (7) Cellulitis of left thigh Code(s): L03.116 - CELLULITIS OF LEFT LOWER LIMB (8) Contusion of hip, left Code(s): S70.02XA - CONTUSION OF LEFT HIP, INITIAL ENCOUNTER (9) Contusion of thigh, left Code(s): S70.12XA - CONTUSION OF LEFT THIGH, INITIAL ENCOUNTER Qualifiers: Encounter type: initial encounter Qualified Code(s): S70.12XA - Contusion of left thigh, initial encounter (10) Finger laceration Code(s): S61.219A - LACERATION W/O FB OF UNSP FINGER W/O DAMAGE TO NAIL, INIT Qualifiers: Encounter type: initial encounter Qualified Code(s): S61.219A - Laceration without foreign body of unspecified finger without damage to nail, initial encounter (11) Hyperkalemia Code(s): E87.5 - HYPERKALEMIA (12) Hypoglycemia Code(s): E16.2 - HYPOGLYCEMIA, UNSPECIFIED (13) Knee pain, bilateral Code(s): M25.561 - PAIN IN RIGHT KNEE; M25.562 - PAIN IN LEFT KNEE Qualifiers: Chronicity: chronic Qualified Code(s): M25.561 - Pain in right knee; M25.562 - Pain in left knee; G89.29 - Other chronic pain (14) Shoulder joint pain Code(s): M25.519 - PAIN IN UNSPECIFIED SHOULDER Assessment/Plan IMP: Acute cerebellar CVA HTN H/o breast CA REC: 1. Tele NSR without AF. Recommend extended outpt holter. 2. MRA neck w/out sig carotid stenosis. Echo with no obvious source. 3. Cont ASA/Plavix and high dose statin. Would likely benefit from JOSE ANGEL or ARB ( to replace Amlodipine, unless other medical contraindication). Optimize glucose control 4. Further reccs as per Neuro
[2018-05-28] MEDS ORDERED: PT OWN MED DRAWER 7, Y5N ONE (09:20)
[2018-05-28] MEDS: CLOPIDOGREL BISULFATE 75 MG TABLET (FP) PO SCH (09:27)
[2018-05-28] MEDS: FOLIC ACID 1 MG TABLET (FP) PO SCH (09:27)
[2018-05-28] MEDS: ASPIRIN COATED 81 MG TABLET.EC PO SCH (09:27)
[2018-05-28] MEDS: amLODIPine BESYLATE 10 MG TABLET (FP) PO SCH (09:27)
[2018-05-28] MEDS: predniSONE 20 MG TABLET (UD) PO SCH (09:27)
[2018-05-28] MEDS: HYDROCORTISONE 2.5% TOPICAL CREAM 30 GM TUBE PR SCH (09:34)
[2018-05-28] MEDS: PANTOPRAZOLE SODIUM 40 MG VIAL IVPB SCH (10:33)
[2018-05-28] MEDS ORDERED: ROSUVASTATIN CA 40 MG TABLET PO ONE (11:16)
[2018-05-28] MEDS ORDERED: INSULIN (NOVOLOG) ASPART 100 UNITS/ML 10ML VIAL ONE (12:39)
[2018-05-28] MEDS: Methylnaltrexone Bromide 12 MG/0.6 ML KIT SQ SCH ×2 (12:42→19:04)
[2018-05-28] MEDS: POLYETHYLENE GLYCOL 3350 119 GM BTL PO SCH ×2 (12:44→17:51)
[2018-05-28] MEDS ORDERED: amLODIPine BESYLATE 5 MG TABLET (FP) PO SCH (13:42)
--- NOTE | 2018-05-28 13:42 | PN ---
Progress Note, Physician History of Present Illness: Pt seen and examined at bedside. She is awake and alert. She denies dysuria or hematuria. - Current Medication List Current Medications: Active Medications Amlodipine Besylate (Norvasc -) 10 mg PO DAILY [facility] Last Admin: 05/28/18 09:27 Dose: 10 mg Aspirin (Ecotrin -) 81 mg PO DAILY [facility] Last Admin: 05/28/18 09:27 Dose: 81 mg Atorvastatin Calcium (Lipitor -) [address] [facility] Last Admin: 05/27/18 21:40 Dose: 80 mg Clopidogrel Bisulfate (Plavix -) 75 mg PO DAILY [facility] Last Admin: 05/28/18 09:27 Dose: 75 mg Folic Acid (Folic Acid -) 1 mg PO DAILY [facility] Last Admin: 05/28/18 09:27 Dose: 1 mg Hydrocortisone (Anusol 2.5% Hc Cream -) 1 applic [place] DAILY [facility] Last Admin: 05/28/18 09:34 Dose: Not Given Insulin Aspart (Novolog Vial Sliding Scale -) 1 vial SQ [facility]; Protocol Last Admin: 05/28/18 12:41 Dose: 2 units Insulin Detemir (Levemir Vial) [address] [facility] Last Admin: 05/27/18 21:41 Dose: 25 units Meclizine HCl (Antivert -) 25 mg PO TID [facility] Last Admin: 05/28/18 06:03 Dose: 25 mg Methylnaltrexone [place] (Relistor -) 12 mg SQ Q2D@1000 [facility] Last Admin: 05/28/18 12:42 Dose: Not Given Pantoprazole Sodium (Protonix -) 40 mg PO DAILY [facility] Polyethylene Glycol (Miralax (For Daily Use) -) 17 gm PO DAILY [facility] Last Admin: 05/28/18 12:44 Dose: Not Given Prednisone (Deltasone -) 20 mg PO DAILY [facility] Last Admin: 05/28/18 09:27 Dose: 20 mg - Objective Vital Signs: Vital Signs Temperature 98 F 05/28/18 10:00 Pulse Rate 64 05/28/18 10:00 Respiratory Rate 20 05/28/18 10:00 Blood Pressure 118/72 05/28/18 10:00 O2 Sat by Pulse Oximetry (%) 98 05/28/18 09:00 Constitutional: Yes: Calm Eyes: Yes: Conjunctiva Clear HENT: Yes: Atraumatic Neck: Yes: Supple Cardiovascular: Yes: S1, S2 Respiratory: Yes: CTA Bilaterally Gastrointestinal: Yes: Soft Genitourinary: Yes: WNL Edema: No Neurological: Yes: Oriented Labs: CBC, BMP 05/25/18 05:30 05/28/18 06:30 INR, PTT INR 0.96 (0.83-1.09) 05/23/18 10:43 Problem List - Problems (1) CKD (chronic kidney disease) Code(s): N18.9 - CHRONIC KIDNEY DISEASE, UNSPECIFIED (2) Dizziness Code(s): R42 - DIZZINESS AND GIDDINESS (3) Vertigo Code(s): R42 - DIZZINESS AND GIDDINESS (4) CVA (cerebral infarction) Code(s): I63.9 - CEREBRAL INFARCTION, UNSPECIFIED Assessment/Plan Current Medications Generic Name Dose Route Start Last Admin Trade Name Freq PRN Reason Stop Dose Admin Amlodipine Besylate 10 mg 05/26/18 10:00 05/28/18 09:27 Norvasc - PO 10 mg DAILY PAT Administration Aspirin 81 mg 05/24/18 10:00 05/28/18 09:27 Ecotrin - PO 81 mg DAILY PAT Administration Atorvastatin Calcium 80 mg 05/25/18 22:00 05/27/18 21:40 Lipitor - PO 80 mg HS PAT Administration Clopidogrel Bisulfate 75 mg 05/24/18 10:00 05/28/18 09:27 Plavix - PO 75 mg DAILY PAT Administration Folic Acid 1 mg 05/24/18 10:00 05/28/18 09:27 Folic Acid - PO 1 mg DAILY PAT Administration Hydrocortisone 1 applic 05/25/18 10:00 05/28/18 09:34 Anusol 2.5% Hc Cream - [place] Not Given DAILY PAT Insulin Aspart 1 vial 05/25/18 16:30 05/28/18 12:41 Novolog Vial Sliding Scale - SQ 2 units ACHS PAT Administration Protocol Insulin Detemir 25 units 05/24/18 22:00 05/27/18 21:41 Levemir Vial SQ 25 units HS PAT Administration Meclizine HCl 25 mg 05/23/18 17:45 05/28/18 06:03 Antivert - PO 25 mg TID PAT Administration Methylnaltrexone [place] 12 mg 05/28/18 10:00 05/28/18 12:42 Relistor - SQ Not Given Q2D@1000 [facility] Pantoprazole Sodium 40 mg 05/29/18 10:00 Protonix - PO DAILY PAT Polyethylene Glycol 17 gm 05/25/18 10:00 05/28/18 12:44 Miralax (For Daily Use) - PO Not Given DAILY [facility] Prednisone 20 mg 05/27/18 10:00 05/28/18 09:27 Deltasone - PO 20 mg DAILY [facility] Administration Impression 1. CKD 2. HTN 3. CVA acute 4. hx breast cancer 5. HLD 6. DM Plan - restart losartan - change amlodipine to 5 mg - mra neck no sig stenosis - neuro input appreciated - cardio input appreciated Dr Kelly
[2018-05-28] MEDS ORDERED: INSULIN (LEVEMIR) 100 UNITS/ML UNITS SQ SCH (22:00)
[2018-05-28] MEDS: ATORVASTATIN CA 80 MG TABLET (FP) PO SCH (22:11)
[2018-05-29] MEDS ORDERED: diazePAM 2 MG TABLET PO PRN (05:31)
[2018-05-29] MEDS: MECLIZINE HCL 25 MG TABLET (FP) PO SCH ×2 (05:55→14:52)
[2018-05-29] MEDS: INSULIN SLIDING SCALE (NOVOLOG) 1 VIAL SQ SCH ×2 (06:01→11:57)
[2018-05-29 08:43] VITALS: BP 127/74; PULSE 78; TEMP 98
--- NOTE | 2018-05-29 09:11 | PN ---
Progress Note (short form) - Note Progress Note: Neurology History of Present Illness 57-year-old female with a past medical history of HLD, HTN, type 1 DM, Breast CA s/p lumpectomy and on hormonal therapy, TIA x4 (last stroke 4 years ago, with B/L weakness), CKD and hypothyroidism presets to the emergency department with dizziness. The patient reported an acute onset of dizziness presented with difficulty ambulating straight, stated she keep veering left. The patient reported associated symptoms of lightheadedness when getting up and slightly blurry vision. The patient reports a baseline history of B/l weakness but denies the recent symptoms to be similar. The patient reported recent change in medication states she was started on Lovastatin 25 mg about 2 months ago and amlodipine dose reduced from 10 mg to 5 secondary to swelling. Previously seen by Dr Marinelli as well, had requested to see me to ER physician and I was called. CT head completed and no acute changes. MRI brain completed and demonstrated cerebellar infarct as noted. Echo reviewed and normal. Lipid profile checked, LDL 100, statin adjusted, goal LDL is <70. Valium has been helpful and much improved. MRA completed and reviewed and with significant stenosis. Patient for placement for short term rehab, overnight contacted for dizzyness, ordered low valium, improved. Doing well this AM. Active Medications Amlodipine Besylate (Norvasc -) 5 mg PO DAILY [facility] Aspirin (Ecotrin -) 81 mg PO DAILY [facility] Last Admin: 05/28/18 09:27 Dose: 81 mg Atorvastatin Calcium (Lipitor -) 80 mg PO HS [facility] Last Admin: 05/28/18 22:11 Dose: 80 mg Clopidogrel Bisulfate (Plavix -) 75 mg PO DAILY [facility] Last Admin: 05/28/18 09:27 Dose: 75 mg Diazepam (Valium -) 2 mg PO Q12H PRN PRN Reason: ANXIETY/AGITATION Last Admin: 05/29/18 05:55 Dose: 2 mg Folic Acid (Folic Acid -) 1 mg PO DAILY [facility] Last Admin: 05/28/18 09:27 Dose: 1 mg Hydrocortisone (Anusol 2.5% Hc Cream -) 1 applic [place] DAILY [facility] Last Admin: 05/28/18 09:34 Dose: Not Given Insulin Aspart (Novolog Vial Sliding Scale -) 1 vial SQ [facility]; Protocol Last Admin: 05/29/18 06:01 Dose: 6 units Insulin Detemir (Levemir Vial) 30 units SQ HS [facility] Last Admin: 05/28/18 22:12 Dose: 30 units Losartan Potassium (Cozaar -) 25 mg PO DAILY [facility] Meclizine HCl (Antivert -) 25 mg PO TID [facility] Last Admin: 05/29/18 05:55 Dose: 25 mg Methylnaltrexone [place] (Relistor -) 12 mg SQ Q2D@1000 [facility] Last Admin: 05/28/18 19:04 Dose: 12 mg Pantoprazole Sodium (Protonix -) 40 mg PO DAILY [facility] Polyethylene Glycol (Miralax (For Daily Use) -) 17 gm PO DAILY [facility] Last Admin: 05/28/18 17:51 Dose: 17 grams Prednisone (Deltasone -) 20 mg PO DAILY [facility] Last Admin: 05/28/18 09:27 Dose: 20 mg *Physical Exam Vital Signs Period Temp Pulse Resp BP Sys/Perez Pulse Ox Last 24 Hr 98 F-98.8 F 64-78 18-20 118-139/49-85 97-97 GENERAL: The patient is in no acute distress. HEAD: Normal with no signs of trauma. EYES: PERRLA, EOMI, sclera anicteric, conjunctiva clear. ENT: Ears normal, nares patent, oropharynx clear without exudates. Moist mucous membranes. NECK: Normal range of motion, supple without lymphadenopathy, JVD, or masses. LUNGS: Breath sounds equal, clear to auscultation bilaterally. No wheezes, and no crackles. HEART:Regular rate and rhythm, normal S1 and S2 without murmur, rub or gallop. ABDOMEN: Soft, nontender, normoactive bowel sounds. No guarding, no rebound. No masses palpable. EXTREMITIES: Normal range of motion, no edema. No clubbing or cyanosis. No erythema, or tenderness. NEUROLOGICAL: Awake, alert, no aphasia, CN intact, sensory intact, UE 5-, LE 4+ , limited effort, gait deferred MUSCULOSKELETAL: Back non-tender to palpation, no CVA tenderness SKIN: Warm, Dry, normal turgor, no rashes or lesions noted. CBCD WBC 10.6 K/mm3 (4.0-10.0) H 05/25/18 05:30 RBC 3.64 M/mm3 (3.60-5.2) 05/25/18 05:30 Hgb 11.3 GM/dL (10.7-15.3) 05/25/18 05:30 Hct 34.0 % (32.4-45.2) 05/25/18 05:30 MCV 93.5 fl (80-96) 05/25/18 05:30 MCHC 33.2 g/dl (32.0-36.0) 05/25/18 05:30 RDW 13.7 % (11.6-15.6) 05/25/18 05:30 Plt Count 273 K/MM3 (134-434) 05/25/18 05:30 MPV 8.7 fl (7.5-11.1) 05/25/18 05:30 CMP Sodium 142 mmol/L (136-145) 05/28/18 06:30 Potassium 4.5 mmol/L (3.5-5.1) 05/28/18 06:30 Chloride 108 mmol/L (98-107) H 05/28/18 06:30 Carbon Dioxide 26 mmol/L (21-32) 05/28/18 06:30 Anion Gap 8 MMOL/L (8-16) 05/28/18 06:30 BUN 46 mg/dL (7-18) H 05/28/18 06:30 Creatinine 1.5 mg/dL (0.55-1.02) H 05/28/18 06:30 Creat Clearance w eGFR 35.92 (>60) 05/28/18 06:30 Random Glucose 122 mg/dL (74-106) H 05/28/18 06:30 Calcium 9.1 mg/dL (8.5-10.1) 05/28/18 06:30 Total Bilirubin 0.8 mg/dL (0.2-1.0) 05/24/18 05:30 AST 21 U/L (15-37) 05/24/18 05:30 ALT 22 U/L (12-78) 05/24/18 05:30 Alkaline Phosphatase 136 U/L (45-117) H D 05/24/18 05:30 Total Protein 7.7 g/dl (6.4-8.2) 05/24/18 05:30 Albumin 3.6 g/dl (3.4-5.0) 05/24/18 05:30 CARDIAC ENZYMES Creatine Kinase 289 IU/L (26-192) H 05/24/18 09:50 Troponin I 0.26 ng/ml (0.00-0.05) H 05/24/18 09:50 CT head reviewed MRI brain reviewed Echo reviewed Carotid doppler reviewed MRA reviewed Medical Decision Making 57-year-old female with a past medical history of HLD, HTN, type 1 DM, Breast CA s/p lumpectomy and on hormonal therapy, TIA x4 (last stroke 4 years ago, with B/L weakness), CKD and hypothyroidism presets to the emergency department with dizziness. The patient reported an acute onset of dizziness presented with difficulty ambulating straight, stated she keep veering left. The patient reported associated symptoms of lightheadedness when getting up and slightly blurry vision. MRI brain completed and demonstrated cerebellar infarct as noted. MRA completed and without HD significant stenosis Echo reviewed and normal. Lipid profile checked, LDL 100, statin adjusted to 80mg, goal LDL is <70. Valium has been helpful and much improved, would avoid use more than once daily , ordered only PRN, discussed with patient Avoid sudden head movements Continue meclezine/zofran Physical therapy, vestibular therapy as able PLan is for short term rehab Monitor BP, Goal is <140/90 for now, <130/80 as outpatient Continue ASA, Plavix Fall prevention DVT ppx
[2018-05-29] MEDS ORDERED: PANTOPRAZOLE 40 MG TABLET (FP) PO SCH (10:00)
[2018-05-29] MEDS ORDERED: LOSARTAN POTASSIUM 25 MG TABLET PO SCH (10:00)
--- NOTE | 2018-05-29 10:04 | PN ---
Progress Note, Physician Chief Complaint: no bm yet despite relisor miralax tx vss tolerating diet oob in chair w 1 person assist - Current Medication List Current Medications: Active Medications Amlodipine Besylate (Norvasc -) 5 mg PO DAILY [facility] Aspirin (Ecotrin -) 81 mg PO DAILY [facility] Last Admin: 05/28/18 09:27 Dose: 81 mg Atorvastatin Calcium (Lipitor -) 80 mg PO HS [facility] Last Admin: 05/28/18 22:11 Dose: 80 mg Clopidogrel Bisulfate (Plavix -) 75 mg PO DAILY [facility] Last Admin: 05/28/18 09:27 Dose: 75 mg Diazepam (Valium -) 2 mg PO Q12H PRN PRN Reason: ANXIETY/AGITATION Last Admin: 05/29/18 05:55 Dose: 2 mg Folic Acid (Folic Acid -) 1 mg PO DAILY [facility] Last Admin: 05/28/18 09:27 Dose: 1 mg Hydrocortisone (Anusol 2.5% Hc Cream -) 1 applic SD DAILY [facility] Last Admin: 05/28/18 09:34 Dose: Not Given Insulin Aspart (Novolog Vial Sliding Scale -) 1 vial SQ [facility]; Protocol Last Admin: 05/29/18 06:01 Dose: 6 units Insulin Detemir (Levemir Vial) 30 units SQ HS [facility] Last Admin: 05/28/18 22:12 Dose: 30 units Losartan Potassium (Cozaar -) 25 mg PO DAILY [facility] Meclizine HCl (Antivert -) 25 mg PO TID [facility] Last Admin: 05/29/18 05:55 Dose: 25 mg Methylnaltrexone [place] (Relistor -) 12 mg SQ Q2D@1000 [facility] Last Admin: 05/28/18 19:04 Dose: 12 mg Pantoprazole Sodium (Protonix -) 40 mg PO DAILY [facility] Polyethylene Glycol (Miralax (For Daily Use) -) 17 gm PO DAILY [facility] Last Admin: 05/28/18 17:51 Dose: 17 grams Prednisone (Deltasone -) 20 mg PO DAILY [facility] Last Admin: 05/28/18 09:27 Dose: 20 mg - Objective Vital Signs: Vital Signs Temperature 98 F 05/29/18 08:41 Pulse Rate 78 05/29/18 08:41 Respiratory Rate 20 05/29/18 08:41 Blood Pressure 127/74 05/29/18 08:41 O2 Sat by Pulse Oximetry (%) 97 09/11/18 08:33 Constitutional: Yes: Other (constipation) Eyes: Yes: Other (less blurry states needs glasses optho outpt) HENT: Yes: WNL Neck: Yes: WNL Cardiovascular: Yes: WNL Respiratory: Yes: WNL Gastrointestinal: Yes: Hypoactive Bowel Sounds ...Rectal Exam: Yes: Deferred Breast(s): Yes: WNL Musculoskeletal: Yes: WNL Extremities: Yes: WNL Edema: No Peripheral Pulses WNL: Yes Integumentary: Yes: WNL (legs weak unsteady gait) Psychiatric: Yes: WNL Labs: CBC, BMP 05/25/18 05:30 05/28/18 06:30 INR, PTT INR 0.96 (0.83-1.09) 05/23/18 10:43 Problem List - Problems (1) Vertigo Code(s): R42 - DIZZINESS AND GIDDINESS Assessment/Plan high colonic enama awaiting ins to authorise bed at adir cont tx as is wastch renal to cont losartin ? past ? had 20 percent decline neeta arbs stopped cont all other tx as is chk basic in am if pt still in house
[2018-05-29] MEDS: CLOPIDOGREL BISULFATE 75 MG TABLET (FP) PO SCH (10:41)
[2018-05-29] MEDS: ASPIRIN COATED 81 MG TABLET.EC PO SCH (10:41)
[2018-05-29] MEDS: predniSONE 20 MG TABLET (UD) PO SCH (10:41)
[2018-05-29] MEDS: FOLIC ACID 1 MG TABLET (FP) PO SCH (10:44)
[2018-05-29] MEDS: POLYETHYLENE GLYCOL 3350 119 GM BTL PO SCH (10:45)
--- NOTE | 2018-05-29 11:22 | PN ---
Progress Note, Physician History of Present Illness: Pt seen and examined at bedside. She is awake and alert. - Current Medication List Current Medications: Active Medications Amlodipine Besylate (Norvasc -) 5 mg PO DAILY [facility] Last Admin: 05/29/18 10:41 Dose: 5 mg Aspirin (Ecotrin -) 81 mg PO DAILY [facility] Last Admin: 05/29/18 10:41 Dose: 81 mg Atorvastatin Calcium (Lipitor -) 80 mg PO HS [facility] Last Admin: 05/28/18 22:11 Dose: 80 mg Clopidogrel Bisulfate (Plavix -) 75 mg PO DAILY [facility] Last Admin: 05/29/18 10:41 Dose: 75 mg Diazepam (Valium -) 2 mg PO Q12H PRN PRN Reason: ANXIETY/AGITATION Last Admin: 05/29/18 05:55 Dose: 2 mg Folic Acid (Folic Acid -) 1 mg PO DAILY [facility] [place] Last Admin: 05/29/18 10:44 Dose: 1 mg Hydrocortisone (Anusol 2.5% Hc Cream -) 1 applic [place] DAILY [facility] Last Admin: 05/28/18 09:34 Dose: Not Given Insulin Aspart (Novolog Vial Sliding Scale -) 1 vial SQ [facility]; Protocol Last Admin: 05/29/18 06:01 Dose: 6 units Insulin Detemir (Levemir Vial) 30 units SQ [facility] Last Admin: 05/28/18 22:12 Dose: 30 units Levothyroxine Sodium (Synthroid -) 100 mcg PO DAILY@0700 [facility] Losartan Potassium (Cozaar -) 25 mg PO DAILY [facility] Last Admin: 05/29/18 10:41 Dose: 25 mg Meclizine HCl (Antivert -) 25 mg PO TID [facility] Last Admin: 05/29/18 05:55 Dose: 25 mg Methylnaltrexone [place] (Relistor -) 12 mg SQ Q2D@1000 [facility] Last Admin: 05/28/18 19:04 Dose: 12 mg Pantoprazole Sodium (Protonix -) 40 mg PO DAILY [facility] Last Admin: 05/29/18 10:40 Dose: 40 mg Polyethylene Glycol (Miralax (For Daily Use) -) 17 gm PO DAILY [facility] Last Admin: 05/29/18 10:45 Dose: 17 grams Prednisone (Deltasone -) 20 mg PO DAILY [facility] Last Admin: 05/29/18 10:41 Dose: 20 mg - Objective Vital Signs: Vital Signs Temperature 98 F 05/29/18 08:41 Pulse Rate 78 05/29/18 08:41 Respiratory Rate 20 05/29/18 08:41 Blood Pressure 127/74 05/29/18 08:41 O2 Sat by Pulse Oximetry (%) 97 05/29/18 08:33 Constitutional: Yes: Calm Eyes: Yes: Conjunctiva Clear HENT: Yes: Atraumatic Neck: Yes: Supple Cardiovascular: Yes: S1, S2 Respiratory: Yes: CTA Bilaterally Gastrointestinal: Yes: Soft Edema: No Neurological: Yes: Oriented Psychiatric: Yes: Oriented Labs: CBC, BMP 05/25/18 05:30 05/28/18 06:30 INR, PTT INR 0.96 (0.83-1.09) 05/23/18 10:43 Problem List - Problems (1) CKD (chronic kidney disease) Code(s): N18.9 - CHRONIC KIDNEY DISEASE, UNSPECIFIED (2) Dizziness Code(s): R42 - DIZZINESS AND GIDDINESS (3) Vertigo Code(s): R42 - DIZZINESS AND GIDDINESS (4) CVA (cerebral infarction) Code(s): I63.9 - CEREBRAL INFARCTION, UNSPECIFIED Assessment/Plan Current Medications Generic Name Dose Route Start Last Admin Trade Name Freq PRN Reason Stop Dose Admin Amlodipine Besylate 5 mg 05/28/18 13:42 05/29/18 10:41 Norvasc - PO 5 mg DAILY PAT Administration Aspirin 81 mg 05/24/18 10:00 05/29/18 10:41 Ecotrin - PO 81 mg DAILY PAT Administration Atorvastatin Calcium 80 mg 05/25/18 22:00 05/28/18 22:11 Lipitor - PO 80 mg HS PAT Administration Clopidogrel Bisulfate 75 mg 05/24/18 10:00 05/29/18 10:41 Plavix - PO 75 mg DAILY PAT Administration Diazepam 2 mg 05/29/18 05:31 05/29/18 05:55 Valium - PO 2 mg Q12H PRN Administration ANXIETY/AGITATION Folic Acid 1 mg 05/24/18 10:00 05/29/18 10:44 Folic Acid - PO 1 mg DAILY PAT Administration Hydrocortisone 1 applic 05/25/18 10:00 05/28/18 09:34 Anusol 2.5% Hc Cream - UT Not Given DAILY PAT Insulin Aspart 1 vial 05/25/18 16:30 05/29/18 06:01 Novolog Vial Sliding Scale - SQ 6 units ACHS PAT Administration Protocol Insulin Detemir 30 units 05/28/18 22:00 05/28/18 22:12 Levemir Vial SQ 30 units HS PAT Administration Levothyroxine Sodium 100 mcg 05/30/18 07:00 Synthroid - PO DAILY@0700 PAT Losartan Potassium 25 mg 05/29/18 10:00 05/29/18 10:41 Cozaar - PO 25 mg DAILY PAT Administration Meclizine HCl 25 mg 05/23/18 17:45 05/29/18 05:55 Antivert - PO 25 mg TID PAT Administration Methylnaltrexone [place] 12 mg 05/28/18 10:00 05/28/18 19:04 Relistor - SQ 12 mg Q2D@1000 PAT Administration Pantoprazole Sodium 40 mg 05/29/18 10:00 05/29/18 10:40 Protonix - PO 40 mg DAILY PAT Administration Polyethylene Glycol 17 gm 05/25/18 10:00 05/29/18 10:45 Miralax (For Daily Use) - PO 17 grams DAILY PAT Administration Prednisone 20 mg 05/27/18 10:00 05/29/18 10:41 Deltasone - PO 20 mg DAILY PAT Administration Laboratory Tests 01/05/16 03/23/16 12/28/16 08:40 08:20 12:12 Creatinine 1.4 H D 1.9 H D 1.6 H 01/27/17 02/28/18 05/26/18 14:03 11:44 05:30 Creatinine 1.6 H 1.5 H 1.5 H 05/28/18 06:30 Creatinine 1.5 H Impression 1. CKD 2. HTN 3. CVA acute 4. hx breast cancer 5. HLD 6. DM Plan - bp stable - pt was on losartan before admission, it was held for possible cta. Cont with losartan and monitor renal function. - cont amlodipine at 5 mg - pt will follow with Dr Khoury as outpt - cont arb as tolerated Dr Kelly
--- NOTE | 2018-05-29 12:28 | CONSULT ---
Consult Consult Specialty:: Podiatry Reason for Consultation:: Bunions and fungus toe nails b/l feet - History of Present Illness Chief Complaint: Painful bunions b/l feet and fungus toe nails b/l feet - History Source History Provided By: Patient Limitations to Obtaining History: Clinical Condition - Past Medical History BRICKLAYER'S ASSISTANT: Yes: TIA Cardio/Vascular: Yes: HTN, Hyperlipdemia (breast cancer , radiation, hypothyroid ) Gastrointestinal: Yes: Other (n/v) Renal/: Yes: Renal Inusuff ...: No ENT: Yes: Other (vertigo) Dermatology: Yes: Other (?psoriasis) - Past Surgical History Past Surgical History: Yes: Valve Replacement (lt lumpectomy) - Alcohol/Substance Use Hx Alcohol Use: No History of Substance Use: reports: None - Smoking History Smoking history: Never smoked Have you smoked in the past 12 months: No Aproximately how many cigarettes per day: 6 If you are a former smoker, when did you quit?: 2012 - Social History History of Recent Travel: No Home Medications - Allergies Allergies/Adverse Reactions: Allergies Allergy/AdvReac Type Severity Reaction Status Date / Time lactose Allergy Mild Verified 05/23/18 09:56 codeine [Codeine] AdvReac Intermediate Verified 05/23/18 09:56 - Home Medications Home Medications: Ambulatory Orders Atorvastatin Ca [Lipitor] 20 mg PO HS #0 tablet 05/15/12 Amlodipine Besylate [Norvasc -] 5 mg PO DAILY 02/15/13 Clopidogrel Bisulfate [Plavix -] 75 mg PO DAILY 02/15/13 Aspirin [ASA -] 81 mg PO DAILY #0 tab.chew 02/07/14 Insulin (Novolog) [Novolog Flexpen -] 0 units SQ ACHS PRN 02/09/15 Levothyroxine [Synthroid -] 100 mcg PO DAILY 02/09/15 Insulin Glargine,Hum.rec.anlog [Touchriso Solostar] 26 unit SQ AM 01/27/17 Oxycodone HCl/Acetaminophen [Percocet 10-325 mg Tablet] 1 each PO Q6H PRN Losartan Potassium 25 mg PO DAILY 05/23/18 Physical Exam Vital Signs: Vital Signs Temperature 98 F 05/29/18 08:41 Pulse Rate 78 05/29/18 08:41 Respiratory Rate 20 05/29/18 08:41 Blood Pressure 127/74 05/29/18 08:41 O2 Sat by Pulse Oximetry (%) 97 05/29/18 08:33 Musculoskeletal: Yes: Other (b/l bunions tracking, -trackbound, +enlarged dme b/ l) Extremities: Yes: Other (mycotic nails x 10 with subungual debris, vsgi, + diminished neurologic status) Labs: CBC, BMP 05/25/18 05:30 05/28/18 06:30 Assessment/Plan onychomycosis hallux valgus Patient under care of Dr. Daniela Guerrero. Discussed surgical intervention and nail care. Will follow up with Dr. Guerrero. Recommend diabetic shoes if no surgical intervention.
[2018-05-29] MEDS ORDERED: EZETIMIBE 10 MG TABLET (FP) PO SCH (14:30)
[2018-05-29] MEDS ORDERED: LEVOTHYROXINE NA 100 MCG TABLET (FP) PO SCH (14:30)
--- NOTE | 2018-05-29 14:32 | PN ---
Progress Note, Physician Chief Complaint: Pt, with family at bedside, denies chest pain or dyspnea. If she tries to stand up, she continues to feel weak, with gait abnormality. History of Present Illness: The patient is a 57-year-old female with a past medical history of HLD, HTN, type 1 DM, Breast CA s/p lumpectomy and on hormonal therapy, TIA; CVA x4 (last stroke 4 years ago, with residual B/L weakness), CKD and hypothyroidism presets to the emergency department with dizziness since around 8:30 today. The patient reports an acute onset of dizziness presents with difficulty ambulating straight, states she keep veering left. The patient reports associated symptoms of lightheadedness when getting up and slightly blurry vision. The patient reports a baseline history of B/l weakness but denies the recent symptoms to be similar. The patient reports recent change in medication states she was started on Lovastatin 25 mg about 2 months ago and amlodipine dose reduced from 10 mg to 5 secondary to swelling. The patient reports she has an appointment with Dr. Park tomorrow. The patient reports getting an MRI done with Dr. Marinelli within the year. Denies numbness, tingling or loss of sensation. - Current Medication List Current Medications: Active Medications Amlodipine Besylate (Norvasc -) 5 mg PO DAILY [facility] Last Admin: 05/29/18 10:41 Dose: 5 mg Aspirin (Ecotrin -) 81 mg PO DAILY [facility] Last Admin: 05/29/18 10:41 Dose: 81 mg Atorvastatin Calcium (Lipitor -) 80 mg PO HS [facility] Last Admin: 05/28/18 22:11 Dose: 80 mg Clopidogrel Bisulfate (Plavix -) 75 mg PO DAILY [facility] Last Admin: 05/29/18 10:41 Dose: 75 mg Diazepam (Valium -) 2 mg PO Q12H PRN PRN Reason: ANXIETY/AGITATION Last Admin: 05/29/18 05:55 Dose: 2 mg Ezetimibe (Zetia -) 10 mg PO DAILY [facility] Folic Acid (Folic Acid -) 1 mg PO DAILY [facility] Last Admin: 05/29/18 10:44 Dose: 1 mg Hydrocortisone (Anusol 2.5% Hc Cream -) 1 applic ME DAILY [facility] Last Admin: 05/28/18 09:34 Dose: Not Given Insulin Aspart (Novolog Vial Sliding Scale -) 1 vial SQ ACHS [facility]; Protocol Last Admin: 05/29/18 11:57 Dose: 2 units Insulin Detemir (Levemir Vial) 30 units SQ HS [facility] Last Admin: 05/28/18 22:12 Dose: 30 units Levothyroxine Sodium (Synthroid -) 100 mcg PO DAILY@0700 [facility] Losartan Potassium (Cozaar -) 25 mg PO DAILY [facility] Last Admin: 05/29/18 10:41 Dose: 25 mg Meclizine HCl (Antivert -) 25 mg PO TID [facility] Last Admin: 05/29/18 05:55 Dose: 25 mg Methylnaltrexone [place] (Relistor -) 12 mg SQ Q2D@1000 [facility] Last Admin: 05/28/18 19:04 Dose: 12 mg Pantoprazole Sodium (Protonix -) 40 mg PO DAILY [facility] Last Admin: 05/29/18 10:40 Dose: 40 mg Polyethylene Glycol (Miralax (For Daily Use) -) 17 gm PO DAILY [facility] Last Admin: 05/29/18 10:45 Dose: 17 grams Prednisone (Deltasone -) 20 mg PO DAILY [facility] Last Admin: 05/29/18 10:41 Dose: 20 mg - Objective Vital Signs: Vital Signs Temperature 98 F 05/29/18 08:41 Pulse Rate 78 05/29/18 08:41 Respiratory Rate 20 05/29/18 08:41 Blood Pressure 127/74 05/29/18 08:41 O2 Sat by Pulse Oximetry (%) 97 05/29/18 08:33 Labs: CBC, BMP 05/25/18 05:30 05/28/18 06:30 INR, PTT INR 0.96 (0.83-1.09) 05/23/18 10:43 Problem List - Problems (1) CKD (chronic kidney disease) Code(s): N18.9 - CHRONIC KIDNEY DISEASE, UNSPECIFIED (2) Dizziness Code(s): R42 - DIZZINESS AND GIDDINESS (3) 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 Code(s): I63.9 - CEREBRAL INFARCTION, UNSPECIFIED (5) Hyperlipidemia Assessment/Plan: LDL choldesterol 100 mg/dL. On atorvastatin 80 mg daily. Add Zetia 10 mg daily. Code(s): E78.5 - HYPERLIPIDEMIA, UNSPECIFIED (6) HTN (hypertension) Code(s): I10 - ESSENTIAL (PRIMARY) HYPERTENSION (7) Diabetes Assessment/Plan: On levemir. If renal function improves, consider ACEI or ARB for renal protection and HTN. Code(s): E11.9 - TYPE 2 DIABETES MELLITUS WITHOUT COMPLICATIONS
[2018-05-29] MEDS: HYDROCORTISONE 2.5% TOPICAL CREAM 30 GM TUBE PR SCH (14:52)
== END 2018-05-29 15:38 | DRG 64 ==
LOC: JER 09:51 → JERBED 13:11 → J4W 16:10
PROVIDERS: ADMIT Family Medicine; ATTEND Family Medicine
DX: I63.9 Cerebral infarction, unspecified (principal); I61.9 Nontraumatic intracerebral hemorrhage, unspecified; E78.5 Hyperlipidemia, unspecified; I69.393 Ataxia following cerebral infarction; E11.9 Type 2 diabetes mellitus without complications; E03.9 Hypothyroidism, unspecified; F41.9 Anxiety disorder, unspecified; Z85.3 Personal history of malignant neoplasm of breast; R42 Dizziness and giddiness; I12.9 Hypertensive chronic kidney disease with stage 1 through stage 4 chronic kidney disease, or unspecified chronic kidney disease; E11.22 Type 2 diabetes mellitus with diabetic chronic kidney disease; N18.9 Chronic kidney disease, unspecified; R26.9 Unspecified abnormalities of gait and mobility; B35.1 Tinea unguium; M20.10 Hallux valgus (acquired), unspecified foot; Z95.2 Presence of prosthetic heart valve; Z87.891 Personal history of nicotine dependence
CPT/HCPCS: 36415; 70450-TC; 70547-TC; 70551-TC; 71046-TC-FY; 74018-TC-FY; 76705-TC; 80048; 80053; 80061; 81003; 81015; 82009; 82550; 82553; 82962; 83690; 83721; 84484; 85025; 85610; 87086; 93005; 93010; 93306-TC; 93880-TC; 97116-GP; 97162-GP; 99284-25; J7030

== ENCOUNTER 2019-02-12 11:41 | Inpatient (IN) | payer BC, OTHER | END 2019-02-14 11:48 | disposition home health service (06) | LOC: JER 11:41 → JERBED 17:35 → J4W 23:07 ==

== ENCOUNTER 2019-11-01 11:08 | Emergency (ER) | payer BC, OTHER ==
[2019-11-01 11:29] VITALS: BP 153/67; PULSE 61; TEMP 98.6; BMI 34.8
[2019-11-01] MEDS ORDERED: LIDOCAINE HCL 5% TOP OINTMENT 50 GM TUBE TP ONE (11:45)
[2019-11-01] MEDS ORDERED: METHOCARBAMOL 500 MG TABLET PO ONE (11:45)
[2019-11-01] MEDS ORDERED: LIDOCAINE 5% TOPICAL PATCH ONE (11:54)
[2019-11-01] MEDS ORDERED: METHOCARBAMOL 500 MG TABLET ONE (11:54)
[2019-11-01] MEDS ORDERED: LIDOCAINE 5% TOPICAL PATCH TP ONE (11:55)
--- NOTE | 2019-11-01 12:18 | PDOC ---
History of Present Illness - General Chief Complaint: Injury Stated Complaint: FALL Time Seen by Provider: 11/01/19 11:31 History Source: Patient Exam Limitations: Clinical Condition - History of Present Illness Initial Comments: 11/01/19 12:13 Patient with multiple comorbidities and chronic left shoulder pain present with complaint of left shoulder and forearm pain and lower back pain status post slip while going down a staircase yesterday and falling the back and outstretched hand. Patient denies hitting head or loss of consciousness. Patient on anticoagulant therapy. Denies bruising or ecchymosis . Patient report taking Tylenol this morning for pain to lower back and left shoulder with minimal improvement. Patient report being seen by pain management for chronic back pains on Percocet. Denies numbness or tingling sensation. Denies any other symptoms Occurred: reports: yesterday Past History - Past Medical History Allergies/Adverse Reactions: Allergies Allergy/AdvReac Type Severity Reaction Status Date / Time lactose Allergy Mild Verified 11/01/19 11:24 codeine [Codeine] AdvReac Intermediate Verified 11/01/19 11:24 Home Medications: Ambulatory Orders Amlodipine Besylate [Norvasc -] 5 mg PO DAILY 02/15/13 Clopidogrel Bisulfate [Plavix -] 75 mg PO DAILY 02/15/13 Aspirin [ASA -] 81 mg PO DAILY #0 tab.chew 02/07/14 Levothyroxine [Synthroid -] 100 mcg PO DAILY 02/09/15 Atorvastatin Ca [Lipitor] 80 mg PO HS 02/12/19 Insulin Pump [Insulin Pump - (Nf)] 02/12/19 Losartan Potassium 50 mg PO BID 02/12/19 Lidocaine 5% Top. Ointment [Xylocaine 5% Top. Ointment -] 1 applic TP DAILY #1 tube 11/01/19 Methocarbamol [Robaxin -] 500 mg PO BID PRN #14 tablet 11/01/19 Anemia: No Cancer: Yes (LEFT BREAST LUMPECTOMY) CVA: Yes (TIA X 3) COPD: No Diabetes: Yes HTN: Yes Hypercholesterolemia: Yes Psychiatric Problems: Yes (ANXIETY.) Thyroid Disease: Yes (HYPO.) - Psycho Social/Smoking Cessation Hx Smoking Status: Yes Smoking History: Unknown if ever smoked Have you smoked in the past 12 months: No Number of Cigarettes Smoked Daily: 6 If you are a former smoker, when did you quit?: 2012 'Breaking Loose' booklet given: 02/03/14 Hx Alcohol Use: No Drug/Substance Use Hx: No Substance Use Type: None Hx Substance Use Treatment: No Review of Systems - Review of Systems Able to Perform ROS?: Yes Is the patient limited Angolan proficient: No Constitutional: No: Chills, Fever, Malaise HEENTM: No: Symptoms Reported, See HPI, Eye Pain, Blurred Vision, Tearing, Recent change in vision, Double Vision, Cataracts, Ear Pain, Ocular Prothesis, Ear Discharge, Nose Pain, Nose Congestion, Tinnitus, Nose Bleeding, Hearing Loss , Throat Pain, Throat Swelling, Mouth Pain, Dental Problems, Difficulty Swallowing, Mouth Swelling, Other Respiratory: No: Symptoms reported, See HPI, Cough, Orthopnea, Shortness of Breath, SOB with Exertion, SOB at Rest, Stridor, Wheezing, Productive cough, Hemoptysis, Other ABD/GI: No: Symptoms Reported, See HPI, Nausea, Vomiting Musculoskeletal: Yes: Symptoms Reported, See HPI, Back Pain, Joint Pain (left shoulder pain), Muscle Pain (left forearm pain) Integumentary: No: Symptoms Reported, Bruising Neurological: No: Symptoms reported, Numbness, Paresthesia, Tingling, Weakness All Other Systems: Reviewed and Negative *Physical Exam - Vital Signs Last Vital Signs Temp Pulse Resp BP Pulse Ox 98.6 F 61 18 153/67 97 11/01/19 11:26 11/01/19 11:26 11/01/19 11:26 11/01/19 11:26 11/01/19 11:26 - Physical Exam 11/01/19 12:16 GENERAL: Well developed, well nourished. Awake and alert in mild acute distress and walking with a walker. PULMONARY: No evidence of respiratory distress. MUSCULOSKELETAL : Moderate tenderness tenderness over posterior paravertebral muscle of lumbosacral spine of L3-S2 on bilateral sides. No midline tenderness. No bony deformities. Mild tenderness to posterior left shoulder and AC joint of left shoulder with no visible deformity. Mild tenderness to distal left forearm with no visible swelling or deformity SKIN: Warm and dry. Normal capillary refill. No bruising no ecchymosis NEUROLOGICAL: Alert, awake, appropriate. No motor deficits in the lower extremities. Gait is normal without ataxia. PSYCHIATRIC: Cooperative. Good eye contact. Appropriate mood and affect. General Appearance: Yes: Nourished, Appropriately Dressed, Mild Distress ED Treatment Course - RADIOLOGY Radiology Studies Ordered: Category Date Time Status FOREARM- LEFT [RAD] Stat Radiology 11/01/19 11:46 Ordered SHOULDER-W/TRANS-LEFT [RAD] Stat Radiology 11/01/19 11:46 Ordered SPINE-LUMBAR SACRAL [RAD] Stat Radiology 11/01/19 11:46 Ordered - Medications Given in the ED: ED Medications Discontinued Medications Generic Name Dose Route Start Last Admin Trade Name Paul PRN Reason Stop Dose Admin Lidocaine 1 patch 11/01/19 11:55 11/01/19 12:01 Lidoderm Patch - TP 11/01/19 11:56 1 patch ONCE ONE Administration Lidocaine HCl 1 applic 11/01/19 11:45 11/01/19 12:01 Xylocaine 5% Top. Ointment TP 11/01/19 11:46 Not Given ONCE ONE Methocarbamol 500 mg 11/01/19 11:45 11/01/19 11:55 Robaxin - PO 11/01/19 11:46 500 mg ONCE ONE Administration Medical Decision Making - Medical Decision Making 11/01/19 12:15 Patient with multiple comorbidities and chronic left shoulder pain present with complaint of left shoulder and forearm pain and lower back pain status post slip while going down a staircase yesterday and falling the back and outstretched hand. Patient denies hitting head or loss of consciousness. Patient on anticoagulant therapy. Denies bruising or ecchymosis . Patient report taking Tylenol this morning for pain to lower back and left shoulder with minimal improvement. Patient report being seen by pain management for chronic back pains on Percocet. Denies numbness or tingling sensation. Denies any other symptoms Exam significant for moderate tenderness to lower paravertebral muscle of bilateral lumbosacral spine of L4-S2. No midline tenderness. No radiculopathy. Mild tenderness to posterior aspect and AC joint of left shoulder and left distal forearm. No visible swelling or deformity. Patient walking with a walker. Symptoms likely back contusion and strain and left shoulder strain. Patient took Tylenol by prior to ED visit. Will order Robaxin 500 mg p.o. for spasm. X -ray of lumbosacral and left shoulder and forearm ordered to rule out fracture 11/01/19 13:01 X-ray done shows no acute fracture or dislocation. Patient stable for discharge with take home Tylenol as needed for pain and Robaxin for spasm. Topical lidocaine ordered for back pain. Patient report skin irritation to lower torso from previous insulin injection which has been persistent for many weeks and has now resolved with hydrocortisone cream given by PCP. Referral given to patient to dermatology for dermatitis of abdomen wall Discharge - Discharge Information Problems reviewed: Yes Clinical Impression/Diagnosis: Shoulder joint pain, Dermatitis Fall Qualifiers: Encounter type: initial encounter Qualified Code(s): W19.XXXA - Unspecified fall, initial encounter Lumbago without sciatica Qualifiers: Chronicity: acute Back pain laterality: unspecified Qualified Code(s): M54.5 - Low back pain Condition: Stable Disposition: HOME - Admission No - Additional Discharge Information Prescriptions: Lidocaine 5% Top. Ointment [Xylocaine 5% Top. Ointment -] 1 applic TP DAILY #1 tube Methocarbamol [Robaxin -] 500 mg PO BID PRN #14 tablet PRN Reason: Back Pain - Follow up/Referral Referrals: Dian Michael MD [Primary Care Provider] - Kelli Martínez MD [Staff Physician] - - Patient Discharge Instructions Additional Instructions: Take prescribed medication as prescribed for pain and take Tylenol as needed for pain. Follow-up with referring dermatology Dr. Martínez for rash on abdomen - Post Discharge Activity
== END 2019-11-01 12:58 | disposition home or self-care (01) ==
LOC: JERFT 11:08
DX: M54.5 Low back pain (principal); M25.512 Pain in left shoulder; M79.632 Pain in left forearm; L30.9 Dermatitis, unspecified; E78.00 Pure hypercholesterolemia, unspecified; I10 Essential (primary) hypertension; E03.9 Hypothyroidism, unspecified; E11.9 Type 2 diabetes mellitus without complications; Z79.4 Long term (current) use of insulin; E73.9 Lactose intolerance, unspecified; F41.9 Anxiety disorder, unspecified; Z86.73 Personal history of transient ischemic attack (TIA), and cerebral infarction without residual deficits; Z79.02 Long term (current) use of antithrombotics/antiplatelets; Z85.3 Personal history of malignant neoplasm of breast; Z96.41 Presence of insulin pump (external) (internal); Z88.5 Allergy status to narcotic agent
CPT/HCPCS: 72100-TC-FY; 73030-TC-LT-FY; 73090-TC-LT-FY; 99284-25

== ENCOUNTER 2020-05-22 04:44 | Inpatient (IN) | payer OTHER ==
[2020-05-21 10:29] VITALS: BMI 34.2
[2020-05-22] MEDS ORDERED: ONDANSETRON 4 MG/2 ML VIAL IVPUSH PRN ×2 (10:44→16:00)
[2020-05-22] MEDS ORDERED: LACTATED RINGERS SOLUTION 1,000 ML IV SCH (10:45)
[2020-05-22] MEDS ORDERED: METHYLENE BLUE 50 MG/10 ML AMPUL ONE (11:00)
[2020-05-22] MEDS ORDERED: INSULIN (NOVOLOG) ASPART 100 UNITS/ML 10ML VIAL SQ ONE (12:25)
[2020-05-22] MEDS ORDERED: ceFAZolin 2 GRAM PREMIX BAG IVPB ONE (13:37)
[2020-05-22] MEDS ORDERED: PROMETHAZINE HCL 25 MG/1 ML VIAL IVPUSH PRN (16:00)
[2020-05-22] MEDS ORDERED: ACETAMINOPHEN 500 MG TABLET (FP) PO PRN (16:02)
[2020-05-22] MEDS ORDERED: ALPRAZolam 0.25 MG TABLET PO ONE (16:02)
--- NOTE | 2020-05-22 16:02 | OP ---
Operative Note - Note: Operative Date: 05/22/20 Pre-Operative Diagnosis: R breast ca, h/o L breastDCIS Operation: Bilateral total mastectomy and R sentinel lymph node biopsy Post-Operative Diagnosis: Same as Pre-op Surgeon: Wendy Moise Anesthesia: General Specimens Removed: SLN x4 and R breast and L breast Drains & Tubes with Location: ANG x4 to both chest wall Operative Report Dictated: Yes
[2020-05-22] MEDS ORDERED: traMADol HCL 50 MG TABLET PO PRN (16:06)
[2020-05-22] MEDS ORDERED: HYDROmorphone *PCA* 10MG/50ML DISP.SYRIN PCA ONE (16:11)
[2020-05-22] MEDS ORDERED: HYDROmorphone *PCA* 10MG/50ML DISP.SYRIN PCA SCH (16:15)
[2020-05-22] MEDS: INSULIN SLIDING SCALE (NOVOLOG) 1 VIAL SQ SCH ×2 (17:32→21:09)
--- NOTE | 2020-05-22 19:27 | OP ---
DATE OF OPERATION: 05/22/2020 PREOPERATIVE DIAGNOSIS: Right breast cancer, history of left breast ductal carcinoma in situ. POSTOPERATIVE DIAGNOSIS: Right breast cancer, history of left breast ductal carcinoma in situ. PROCEDURE: Bilateral total mastectomy and right sentinel node biopsy. SURGEON: Pancho Frank MD. ANESTHESIA: General. ESTIMATED BLOOD LOSS: 200 mL. DRAINS: ANG x4. COMPLICATIONS: None. This was a sterile procedure. INDICATION FOR PROCEDURE: Patient presented with a palpable mass centrally in the right breast behind the nipple-areolar complex. After a lengthy discussion and imaging, it was decided to go ahead with bilateral mastectomies and a right sentinel node biopsy, as she had a clinically negative axilla. The procedure was discussed with her, and all her questions answered. PROCEDURE IN DETAIL: The patient was brought to [facility] in [place], was taken to nuclear medicine, where I injected technetium via sulfur colloid in intradermal injection in the right breast 9 o'clock areolar border. She was then brought up to the operating room, and after induction of general anesthesia and IV antibiotics, both breasts were prepped. Then 5 mL of isosulfan blue dye was injected into the right subareolar plexus by me, and the breast was massaged for 5 minutes. The breast and axilla were then prepped and draped in usual sterile fashion. A 4-cm incision was made in the right axilla, carried down through the pectoral fascia to identify what appears to be 3 lymph nodes together that were hot and blue. There was a 2nd sentinel node that was blue but not hot. There were 2 others that were hot and blue. These were all sent to pathology for permanent section. Hemostasis showed electrocautery. There was no other blue dye, radioactivity or pathological lymph nodes in the right axilla or in the level 2 axilla. I did use the probe to probe the intramammary lymph nodes as well, and I was not able to get any counts. At this point, once the sentinel node procedure was completed, a right total mastectomy was performed. An ellipse of skin was taken to include the nipple-areolar complex as was the area of skin that seemed to be thickened. Superior, inferior, medial, lateral flaps were raised, and the breast was reflected off the pectoralis muscle, tied with a stitch at the lateral edge, and sent with the right mastectomy to pathology in formalin. Hemostasis assured electrocautery. Through 2 separate stab wounds, two 10-mm ANG drains were placed into the mastectomy site and secured to the skin with a 3-0 nylon stitch. The skin was then approximated using skin melani. The gown, glove, instruments were all changed, and the left mastectomy was performed. An ellipse of skin was taken to include the nipple-areolar complex as well as the scar from the prior lumpectomy for DCIS. Superior, inferior, medial, lateral flaps were raised, and the breast was reflected off the pectoralis muscle. Care was taken not to go into the left axilla. The mastectomy was then tied with a stitch at the lateral edge, and sent in formalin as a left mastectomy. Hemostasis was assured with electrocautery. Through 2 separate stab wounds, two 10-mm ANG drains were inserted into the left mastectomy area and secured to the skin with a 3-0 nylon stitch. The skin was then approximated using skin melani. A sterile dressing of Omer gauze, Telfa, fluffs, and then ABDs was applied. The bulbs were attached to the drains and were functioning . A Surgi-Bra was placed as well. She tolerated the procedure well, was extubated on the operating room table and taken to recovery in good condition. PANCHO FRANK M.D. [id number]
[2020-05-22] MEDS: ONDANSETRON 4 MG/2 ML VIAL IVPB PRN (20:32)
[2020-05-22] MEDS ORDERED: INSULIN (NOVOLOG) ASPART 100 UNITS/ML 10ML VIAL ONE (21:01)
[2020-05-22] MEDS: HEPARIN NA (PORCINE) 5,000 UNITS/ML 1ML VIAL SQ SCH (21:08)
[2020-05-22] MEDS: LACTATED RINGERS SOLUTION 1,000 ML/1,000 ML INFUS.BAG IV SCH (21:11)
[2020-05-22] MEDS: CEFAZOLIN 1 GM/D5W 1 GM/50 ML BAG IVPB SCH (23:53)
[2020-05-23] MEDS: DOCUSATE SODIUM 100 MG CAPSULE (FP) PO SCH ×3 (05:51→21:31)
[2020-05-23] MEDS: LACTATED RINGERS SOLUTION 1,000 ML/1,000 ML INFUS.BAG IV SCH ×2 (05:52→16:26)
[2020-05-23] MEDS: INSULIN SLIDING SCALE (NOVOLOG) 1 VIAL SQ SCH ×4 (06:28→21:39)
[2020-05-23] MEDS: CEFAZOLIN 1 GM/D5W 1 GM/50 ML BAG IVPB SCH (06:36)
[2020-05-23] MEDS: ONDANSETRON 4 MG/2 ML VIAL IVPB PRN (08:06)
[2020-05-23] MEDS: HEPARIN NA (PORCINE) 5,000 UNITS/ML 1ML VIAL SQ SCH ×2 (09:11→21:31)
[2020-05-23] MEDS ORDERED: oxyCODONE HCL 5 MG TABLET PO PRN ×2 (12:29→15:30)
[2020-05-23] MEDS ORDERED: ACETAMINOPHEN 325 MG TABLET (FP) PO PRN ×2 (12:29→15:30)
[2020-05-23] MEDS ORDERED: PCA PUMP NR ONE (12:47)
[2020-05-23] MEDS: CEPHALEXIN MONOHYDRATE 500 MG CAPSULE (UD) PO SCH ×2 (12:51→21:31)
--- NOTE | 2020-05-23 14:51 | PN ---
Progress Note (short form) - Note Progress Note: pod 1 s/p bl mastectomy afebrile vss sugars ok on sliding scale, needed straight cath mastectomy flaps viable, JPs in place ambulate, pain control, watch for urinary retention possible discharge tomorrow
[2020-05-23] MEDS: oxyCODONE HCL 5 MG TABLET PO PRN ×2 (16:22→21:31)
[2020-05-23] MEDS: ACETAMINOPHEN 325 MG TABLET (FP) PO PRN ×2 (16:22→21:31)
--- NOTE | 2020-05-23 18:57 | PN ---
Progress Note (short form) - Note Progress Note: 59F s/p bilateral mastectomy with SN biopsy under GET[facility]. LOSS CONTROL CONSULTANT discontinued. No new c/o. Vital Signs Temp 99.6 F 05/23/20 18:00 Pulse 69 05/23/20 18:00 Resp 18 05/23/20 18:00 BP 122/48 L 05/23/20 18:00 Pulse Ox 91 L 05/23/20 18:00 Intake & Output 05/22/20 05/23/20 05/23/20 23:59 11:59 23:59 Intake Total 1525 150 Output Total 425 545 520 Balance 1100 -545 -370 Weight 190 lb Intake: IV 1425 150 Lactated Ringers Solution 325 150 1,000 ml @ 75 mls/hr IV ASDIR PAT Rx#:[id number] IVPB 100 Output: Drainage 225 95 170 Left 3 ANG Drain 10 25 10 Left 4 ANG Drain 45 30 20 Right 1 ANG Drain 25 10 60 Right 2 ANG DRAIN 45 30 80 Urine 450 350 Straight Cath 350 Void 450 Estimated Blood Loss 200 Other: Voiding Method Bedside Commode Toilet Toilet # Unmeasured Voids Straight Cath 1 Void 1 Bowel Movement No Yes No # Bowel Movements 1 0 Weight Measurement Method Built in [facility] Current Medications Generic Name Dose Route Start Last Admin Trade Name Freq PRN Reason Stop Dose Admin Acetaminophen 1,000 mg 05/22/20 16:02 Tylenol - PO Q6H PRN MILD PAIN 1-3 Acetaminophen 325 mg 05/23/20 15:30 Tylenol - PO 05/26/20 15:29 Q4H PRN PAIN LEVEL 4 - 6 Acetaminophen 650 mg 05/23/20 15:30 05/23/20 16:22 Tylenol - PO 05/26/20 15:29 650 mg Q4H PRN Administration PAIN LEVEL 7 - 10 Cephalexin HCl 500 mg 05/23/20 12:45 05/23/20 12:51 Keflex - PO 500 mg TID PAT Administration Docusate Sodium 100 mg 05/23/20 06:00 05/23/20 16:22 Colace - PO 100 mg TID PAT Administration Fentanyl 50 mcg 05/22/20 10:44 Sublimaze Injection - IVPUSH [id number] PRN PAIN-PACU ORDER X 4 DOSES ONLY Fentanyl 50 mcg 05/22/20 16:00 Sublimaze Injection - IVPUSH [id number] PRN PAIN-PACU ORDER X 4 DOSES ONLY Heparin Sodium (Porcine) 5,000 unit 05/22/20 22:00 05/23/20 09:11 Heparin - SQ 5,000 unit BID PAT Administration Lactated Ringer's 1,000 ml in 1,000 mls @ 75 mls/hr 05/22/20 16:15 05/23/20 16:26 Lactated Ringers Solution IV Not Given ASDIR [facility] Insulin Aspart 1 vial 05/22/20 16:30 05/23/20 17:00 Novolog Vial Sliding Scale - SQ 4 unit ACHS PAT Administration Protocol Ondansetron HCl 4 mg 05/22/20 16:02 05/23/20 08:06 Zofran Injection IVPB 4 mg Q6H PRN Administration NAUSEA Oxycodone HCl 5 mg 05/23/20 15:30 Roxicodone - PO Q4H PRN PAIN LEVEL 4 - 6 Oxycodone HCl 10 mg 05/23/20 15:30 05/23/20 16:22 Roxicodone - PO 10 mg Q4H PRN Administration PAIN LEVEL 7 - 10 Pneumococcal 13-Valent Conj Vacc 0.5 ml 05/24/20 10:56 Prevnar 13 Syringe - IM 05/24/20 10:57 .ONCE ONE Promethazine HCl 12.5 mg 05/22/20 16:00 Phenergan Injection - IVPUSH Q6H PRN NAUSEA-FOR RESCUE AFTER 15 MIN Discontinued Medications Generic Name Dose Route Start Last Admin Trade Name Freq PRN Reason Stop Dose Admin Acetaminophen 325 mg 05/23/20 12:29 05/23/20 12:51 Tylenol - PO 325 mg Q4H PRN Administration PAIN SCALE 5-10 Alprazolam 1 mg 05/22/20 16:02 Xanax - PO 05/22/20 16:03 ONCE ONE Hydromorphone HCl 10 mg 05/22/20 16:15 05/23/20 00:32 Hydromorphone 10 Mg/50 Ml-Ns LOSS CONTROL CONSULTANT 05/23/20 16:14 Not Given LOSS CONTROL CONSULTANT [facility] Protocol Lactated Ringer's 1,000 mls @ 75 mls/hr 05/22/20 10:45 Lactated Ringers Solution IV ASDIR [facility] Cefazolin Sodium 1 gm in 50 mls @ 100 mls/hr 05/22/20 22:00 05/23/20 06:36 Ancef 1 Gm Premixed Ivpb - IVPB 05/23/20 21:59 100 mls/hr Q8H PAT Administration Insulin Aspart 5 units 05/22/20 12:25 05/22/20 12:30 Novolog Vial SQ 05/22/20 12:26 5 units ONCE ONE Administration Ondansetron HCl 4 mg 05/22/20 10:44 05/22/20 17:07 Zofran Injection IVPUSH 4 mg Q6H PRN Administration NAUSEA AND/OR VOMITING Ondansetron HCl 4 mg 05/22/20 16:00 Zofran Injection IVPUSH Q6H PRN NAUSEA AND/OR VOMITING Oxycodone HCl 5 mg 05/23/20 12:29 05/23/20 12:49 Roxicodone - PO 5 mg Q4H PRN Administration PAIN SCALE 5-10 Oxycodone/Acetaminophen 1 - 2 combo 05/23/20 14:32 Percocet 5/325 - PO Q6H PRN PAIN LEVEL 6-10 Tramadol HCl 50 mg 05/22/20 16:06 Ultram - PO Q6H PRN PAIN LEVEL 6-10 - On PO pain meds, D/C pending - No anesthesia complications
[2020-05-24] MEDS: DOCUSATE SODIUM 100 MG CAPSULE (FP) PO SCH (05:32)
[2020-05-24 05:36] VITALS: BP 133/66; PULSE 72; TEMP 98.8
[2020-05-24] MEDS: INSULIN SLIDING SCALE (NOVOLOG) 1 VIAL SQ SCH (06:04)
[2020-05-24] MEDS: oxyCODONE HCL 5 MG TABLET PO PRN (08:20)
[2020-05-24] MEDS: ACETAMINOPHEN 325 MG TABLET (FP) PO PRN (08:22)
[2020-05-24] MEDS ORDERED: BENZOCAINE/MENTH/CETYLPYRD CL 1 EACH LOZENGE MM PRN (08:44)
[2020-05-24] MEDS ORDERED: PNEUMOC 13-VAL CONJ-DIP CRM/PF 0.5 ML DISP.SYRIN IM ONE (10:00)
--- NOTE | 2020-06-01 14:08 | PATH ---
Surgical Pathology Report Patient Name: ARUNA ARRIETA [facility]. Rec. #: [id number] /Age/Gender: 1960 (Age: 59) / F Account: [id number] Location: [address] [place] [address] Taken: 05/22/2020 Received: 05/26/2020 Reported: 06/01/2020 Physicians: Wendy Moise M.D. Specimen(s) Received A: RIGHT AXILLARY SENTINEL LYMPH NODE #1 HOT NOT BLUE B: RIGHT AXILLARY SENTINEL LYMPH NODE #2 HOT NOT BLUE C: RIGHT AXILLARY SENTINEL LYMPH NODE #3 HOT AND BLUE D: RIGHT AXILLARY SENTINEL LYMPH NODE #4 HOT AND BLUE E: RIGHT MASTECTOMY F: LEFT MASTECTOMY Clinical History History of left breast DCIS status post lumpectomy in 2012 now with right breast cancer Final Diagnosis A. AXILLARY SENTINEL LYMPH NODE #1, RIGHT, HOT NOT BLUE, EXCISION: THREE OF THREE LYMPH NODES WITH METASTATIC CARCINOMA (MACROMETASTASIS, >0.2 MM, 3/3). LARGEST TUMOR DEPOSIT MEASURES 1.4 CM IN GREATEST MICROSCOPIC DIMENSION. FOCAL EXTRANODAL EXTENSION IDENTIFIED. B. AXILLARY SENTINEL LYMPH NODE #2, RIGHT, HOT NOT BLUE, EXCISION: TWO LYMPH NODES NEGATIVE FOR CARCINOMA (0/2). C. AXILLARY SENTINEL LYMPH NODE #3, RIGHT, HOT AND BLUE, EXCISION: ONE OF THREE LYMPH NODES WITH METASTATIC CARCINOMA (MACROMETASTASIS, >0.2 MM, 1/3). LARGEST TUMOR DEPOSIT MEASURES 3 MM IN GREATEST MICROSCOPIC DIMENSION. NO EXTRANODAL EXTENSION IDENTIFIED. D. AXILLARY SENTINEL LYMPH NODE #4, RIGHT, HOT AND BLUE, EXCISION: ONE LYMPH NODE NEGATIVE FOR CARCINOMA (0/1). E. BREAST, RIGHT, MASTECTOMY: TWO FOCI OF INVASIVE DUCTAL CARCINOMA, POORLY DIFFERENTIATED (TUBULE SCORE: 3/3, NUCLEAR GRADE: 3/3, MITOTIC SCORE: 3/3; TOTAL LESLY SCORE: 9/9). FIRST FOCI OF INVASIVE DUCTAL CARCINOMA INVOLVES LOWER INNER QUADRANT (LIQ), AND MEASURES 2.3 CM IN GREATEST MICROSCOPIC DIMENSION. SECOND FOCI OF INVASIVE DUCTAL CARCINOMA ASSOCIATED WITH SOLID PAPILLARY COMPONENT, SPANS UPPER INNER QUADRANT AND UPPER OUTER QUADRANTS (UIQ AND UOQ) AND MEASURES 5 CM (GROSS DIMENSION). EXTENSIVE DUCTAL CARCINOMA IN SITU (DCIS), HIGH GRADE, SOLID TYPE, WITH COMEDONECROSIS AND MICROCALCIFICATIONS, ADMIXED WITH INVASIVE CARCINOMA. EXTENSIVE LYMPHOVASCULAR INVASION INCLUDING DERMAL LYMPHATIC INVASION IDENTIFIED. SURGICAL MARGINS ARE UNINVOLVED BY DCIS AND INVASIVE CARCINOMA; CARCINOMA IS 5 MM FROM CLOSEST ANTERIOR SOFT TISSUE MARGIN. DERMIS AND NIPPLE BASE ARE INVOLVED BY DCIS AND INVASIVE CARCINOMA. EPIDERMIS IS UNINVOLVED BY CARCINOMA. PATHOLOGIC STAGE (pTNM): pT3m pN2a. SEE CASE SUMMARY BELOW. SEE COMMENT. F. BREAST, LEFT, MASTECTOMY: BREAST PARENCHYMA WITH CHANGES OF PRIOR PROCEDURE AND FIBROCYSTIC CHANGES INCLUDING STROMAL FIBROSIS, MICROCYSTS, DILATED AND ECTATIC DUCTS, PERIDUCTAL CHRONIC INFLAMMATION, APOCRINE METASPLASIA, SCLEROSING ADENOSIS, AND MICROCALCIFICATIONS. SKIN AND NIPPLE WITHOUT SIGNIFICANT PATHOLOGIC FINDINGS. Comment: Part A, Immunohistochemical stains performed at [facility], [place] ([id number]) and interpreted at [facility] show myoepithelial cell markers (p40 and SMM-HC) are negative in areas of invasive carcinoma, while preserved in DCIS. LUISANA utilized to evaluate this case. Part B, Immunohistochemical stains for SMM-HC and p63 performed and interpreted at [facility] show preserved myoepithelial cells in the areas of sclerosing adenosis. Findings discussed with Dr. Moise, 06/01/20. Comments Breast Invasive Carcinoma: Surgical Pathology Case Summary (Based on AJCC TNM 8 th edition) Procedure _X_ Total mastectomy (including nipple-sparing and skin-sparing mastectomy) Specimen Laterality _X_ Right Tumor Size _X_ Greatest dimension of largest invasive focus >1 mm (millimeters): 50 mm (gross measurement) Histologic Type _X_ Invasive carcinoma of no special type, NOS (ductal) -LIQ _X_ Invasive carcinoma of no special type, NOS (ductal) associated with solid papillary component - UIQ and UOQ Histologic Grade ([place] Histologic Score) Glandular (Acinar)/Tubular Differentiation _X_ Score 3 (<10% of tumor area forming glandular/tubular structures) Nuclear Pleomorphism _X_ Score 3 Mitotic Rate _X_ Score 3 Overall Grade _X_ Grade 3 (scores of 8 or 9) Tumor Focality _X_ Multiple foci of invasive carcinoma Number of foci: 2 Sizes of individual foci: 50 mm and 23 mm Ductal Carcinoma In Situ (DCIS) _X_ DCIS is present in specimen _X_ Positive for extensive intraductal component (EIC) Tumor Extension Skin _X_ Invasive carcinoma directly invades into the dermis or epidermis without skin ulceration Nipple _X_ DCIS does not involve the nipple epidermis Skeletal Muscle _X_ No skeletal muscle is present. Margins Invasive Carcinoma Margins _X_ Uninvolved by invasive carcinoma Distance from closest margin (millimeters): 5 mm Closest margin: Anterior soft tissue DCIS Margins _X_ Uninvolved by DCIS Distance from closest margin (millimeters): 5 mm from anterior soft tissue Regional Lymph Nodes _X__ Involved by tumor cells Number of Lymph Nodes with Macrometastases (>2 mm): 4 Number of Lymph Nodes with Micrometastases (>0.2 mm to 2 mm and/or >200 cells): 0 Number of Lymph Nodes with Isolated Tumor Cells (=0.2 mm and =200 cells): 0 Size of Largest Metastatic Deposit (millimeters): 14 mm Extranodal Extension: _X_ Present Extent of extranodal extension: _X_ </= 2 mm Treatment Effect in the Breast _X_ No known presurgical therapy Treatment Effect in the Lymph Nodes _X_ No known presurgical therapy Lymphovascular Invasion _X_ Present, extensive Pathologic Stage Classification (pTNM, AJCC 8th Edition) Primary Tumor (Invasive Carcinoma) (pT) _X_ pT3: Tumor >50 mm in greatest dimension Regional Lymph Nodes (pN) Category (pN) _X_ pN2a: Metastases in 4 to 9 axillary lymph nodes (at least 1 tumor deposit larger than 2.0 mm) Biomarker Studies LIQ Results of ER and KY studies performed on this specimen (block E3) at [facility] are as follows: ER (clone [id number] mouse monoclonal antibody by [employer]): _X_ Positive: ~70 % nuclear staining with moderate to strong intensity PgR (clone16 mouse monoclonal antibody by [employer]): _X_ Positive: ~30 % nuclear staining with moderate to strong intensity Results of Her2 (IHC) & Ki-67 on this specimen (block E3) at [place], [place] ([id number]) are as follows: Her2 IHC (EP3 from [employer], formerly known as [id number], using [employer] Polymer Refine detection kit): 0 (Negative) Ki67: ~20% (Intermediate proliferative index). UIQ and UOQ Results of ER and KY studies performed on this specimen (block E8) at [facility] are as follows: ER (clone [id number] mouse monoclonal antibody by [employer]): _X_ Positive: ~40 % nuclear staining with weak to strong intensity PgR (clone16 mouse monoclonal antibody by [employer]): _X_ Positive: ~15% nuclear staining with moderate to strong intensity Results of Her2 (IHC) & Ki-67 on this specimen (block E8) at [place], [place] ([id number]) are as follows: Her2 IHC (EP3 from [employer], formerly known as [id number], using [employer] Polymer Refine detection kit): 0 (Negative) Ki67: ~35% (High proliferative index). Formalin fixation time exceeds current ASCO/CAP recommendations for ER,PgR & Her2 testing (6-72 hrs). Negative results must be interpreted with caution as false negatives may occur. Cold ischemic time is within recommended guidelines/Time to formalin fixation is not given. Electronically Signed Daniela Cadrona M.D. Gross Description A. Received in formalin labeled "right axillary sentinel lymph node #1," are 3 ramey lymph nodes ranging from 0.8 x 0.5 x 0.5 cm to 1.4 x 1.1 x 0.6 cm. The lymph nodes are bisected and entirely submitted in 3 cassettes. B. Received in formalin labeled "right axillary sentinel lymph node #2," are 2 ramey lymph nodes measuring 0.6 x 0.5 x 0.4 cm and 1.7 x 0.9 x 0.6 cm. The lymph nodes are bisected and entirely submitted in 2 cassettes. C. Received in formalin labeled "right axillary sentinel lymph node #3," are 3 ramey lymph nodes ranging from 0.4 x 0.3 x 0.3 cm to 1.4 x 1.0 x 0.3 cm. The lymph nodes are entirely submitted in 3 cassettes. D. Received in formalin labeled "right axillary sentinel lymph node #4," is a 1.1 x 0.8 x 0.4 cm ramey lymph node. The specimen is bisected and entirely submitted in one cassette. E. Received in formalin, labeled "right mastectomy," is an 850 gram, 18.0 x 16.0 x 6.5 cm. right mastectomy specimen with a suture marking the lateral edge of the skin, per the surgeon. The anterior surface displays a 6.0 x 7.5 cm brown, elliptical portion of skin with a 1.1 cm in diameter nipple. The deep margin is inked black and the anterior soft tissue margin is inked blue. The specimen is serially sectioned from lateral to medial. Sectioning reveals a 2 x 1.2 x 0.8 cm ramey, ill-defined mass in the lower inner quadrant (LIQ). The mass is 0.5 cm from the anterior soft tissue margin. There is an additional 5.0 x 4.2 x 3.5 cm ill-defined focus of dense, white, focally firm fibrous tissue with foci of hemorrhage, possibly consistent with a prior biopsy site. The focus spans the upper inner quadrant (UIQ) upper outer quadrant (UOQ). The remaining breast parenchyma displays abundant dense, white, firm fibrous tissue. Educational Program Assistant sections are submitted in 23 cassettes as follows: 1-serially sectioned nipple; 2-subareolar shave; 3-one full face section of LIQ mass with anterior soft tissue margin; 0-6-fprrqwzclh LIQ mass; 8-14-large ill-defined focus of firm fibrous tissue sequentially submitted from UIQ to UOQ; 44-09-qdlnmbnkyf UIQ; 59-06-tuvgvlahld UOQ; 20-21-lower outer quadrant; 22-skin and anterior soft tissue margin; 23-deep margin. F. Received in formalin, labeled "left mastectomy," is a 442 gram, 13.0 x 11.5 x 7.0 cm. left mastectomy specimen with a suture marking the lateral edge of the skin, per the surgeon. The anterior surface displays an 11.5 x 5.8 cm brown, elliptical portion of skin with a 1.1 cm in diameter nipple. The deep margin is inked black and the anterior soft tissue margin is inked blue. The specimen is serially sectioned from medial to lateral. Sectioning reveals a 5 cm in greatest dimension focus of firm fibrotic tissue in the lower outer quadrant (LOQ), consistent with a previous biopsy cavity. The cavity is surrounded by dense white fibrous tissue and dilated ducts. The remaining breast parenchyma displays minimal fibrous tissue. Educational Program Assistant sections are submitted in 19 cassettes as follows: 1-serially sectioned nipple; 2-subareolar shave; 0-0-pcofovgh biopsy cavity sequentially submitted from lateral to medial; 1-67-kkuploxbcyrt tissue; 12-13-upper outer quadrant; 14-15-upper inner quadrant; 16-17-lower inner quadrant; 18-skin and anterior soft tissue margin; 19-deep margin. Total formalin fixation time: Approximately 120 hours 05/27/2020 [facility]05/27/2020
--- NOTE | 2020-06-15 13:24 | PN ---
Progress Note (short form) - Note Progress Note: Pathology shows two cancers in the Right breast with 4/9 positive R axillary Lymph node.
== END 2020-05-24 10:38 | disposition home or self-care (01) | DRG 580 ==
LOC: J2C 04:44 → EDSTATUS 12:30 → J6S 17:58
PROVIDERS: ADMIT Surgery; ATTEND Surgery
PROC: 0HTV0ZZ Resection of Bilateral Breast, Open Approach (ICD-10-PCS; principal; 2020-05-22 12:00)
PROC: 07B50ZX Excision of Right Axillary Lymphatic, Open Approach, Diagnostic (ICD-10-PCS; 2020-05-22 12:00)
DX: C50.911 Malignant neoplasm of unspecified site of right female breast (principal); C77.9 Secondary and unspecified malignant neoplasm of lymph node, unspecified; R33.8 Other retention of urine
CPT/HCPCS: 78195-TC; 82962; 88307-TC; 88341-TC; 90670; 94760; A9541; J1644; Q9968

== ENCOUNTER 2020-06-12 05:01 | Day surgery (SDC) | payer OTHER ==
[2020-06-10 16:10] VITALS: BMI 34.5
--- OUTSIDE RECORDS SUMMARY | 2020-06-12 05:10 | XMS ---
:1960 [facility] Providers Name Role Phone [facility] Unavailable Unavailable BRIGHT ROGELIO, ROGELIO Unavailable Unavailable Cirilo Gomes Unavailable [phone] Bright, Rogelio Unavailable Unavailable Bright, Rogelio Unavailable Unavailable Bright, Rogelio Unavailable Unavailable Bright, Rogelio Unavailable Unavailable Bright, Rogelio Unavailable Unavailable Bright, Rogelio Unavailable Unavailable Re-disclosure Warning The records that you are about to access may contain information from federally- assisted alcohol or drug abuse programs. If such information is present, then the following federally mandated warning applies: This information has been disclosed to you from records protected by federal confidentiality rules (42 CFR part 2). The federal rules prohibit you from making any further disclosure of this information unless further disclosure is expressly permitted by the written consent of the person to whom it pertains or as otherwise permitted by 42 CFR part 2. A general authorization for the release of medical or other information is NOT sufficient for this purpose. The Federal rules restrict any use of the information to criminally investigate or prosecute any alcohol or drug abuse patient.The records that you are about to access may contain highly sensitive health information, the redisclosure of which is protected by Article 27-F of the [facility] Public Health law. If you continue you may haveaccess to information: Regarding HIV / AIDS; Provided by facilities licensed or operated by the [facility] Office of Mental Health; or Provided by the [facility] Office for People With Developmental Disabilities. If such information is present, then the following [facility] mandated warning applies: This information has been disclosed to you from confidential records which are protected by state law. State law prohibits you from making any further disclosure of this information without the specific written consent of the person to whom it pertains, or as otherwise permitted by law. Any unauthorized further disclosure in violation of state law may result in a fine or fpc sentence or both. A general authorization for the release of medical or other information is NOT sufficient authorization for further disclosure. Allergies and Adverse Reactions Type Description Substance Reaction Status Data Source(s ) Drug allergy Codeine Codeine [facility] Food allergy No Known Food No Known Food [facility] Encounters Encounter Providers Location Date Indications Data Source(s ) Outpatient Attender: [facility] 04/18/2020 [facility] ([facility] 11:17:47 AM Care Amanda pena) EDT Patient admitted. Outpatient Attender: [address] 03/03/2020 03:19:39 PM [facility] ([facility] EDT [facility]) Patient admitted. Outpatient Attender: [address] 11/05/2019 11:46:57 AM [facility] ([facility] EST [facility]) Patient admitted. Outpatient 10/30/2019 [facility] 01:55:00 PM EST - ([facility] 10/30/2019 [facility]) 02:00:00 PM EST Outpatient 10/29/2019 [facility] 02:27:00 PM EST Medical C enter Outpatient Attender: 10/29/2019 [facility] ROGELIO BRIGHT 09:30:00 AM EST [facility] ROGELIOAdmitter : ROGELIO MCLAUGHLINIOReferrer : ROGELIO MERCADO Attender: [facility] 09:30:00 AM EST - [facility] Medical 10/29/2019 [place]) 09:30:00 AM EST Outpatient 10/29/2019 [facility] 12:00:00 AM EST Medical C enter Outpatient Attender: [facility] 10/23/2019 [facility] ([facility] 10:21:38 AM EST [facility]) Patient admitted. Outpatient 08/27/2019 12:04:00 [facility] Outpatient 08/27/2019 12:00:00 [facility] Outpatient Attender: ROGELIO Anguiano 06/25/2019 10:03:00 [facility] ROGELIOAdmitter: ROGELIO MCLAUGHLINIOReferrer: ROGELIO MERCADO Attender: [facility] 06/25/2019 10:03:00 [facility] ([facility] EDT - 06/25/2019 [facility] 10:03:00 AM EDT Center) Outpatient 06/25/2019 09:18:00 [facility] Outpatient 06/25/2019 12:00:00 [facility] Outpatient 03/14/2019 05:43:48 [facility] ( [facility]) Outpatient 03/14/2019 05:42:00 [facility] ( [facility]) Outpatient 03/14/2019 05:40:23 [facility] ( [facility]) Outpatient 03/13/2019 02:19:49 [facility] Patient admitted. Outpatient 02/08/2019 10:05:29 AM EDT [facility] ([facility]) Patient admitted. Outpatient 02/08/2019 10:05:15 AM EDT [facility] Patient admitted. Outpatient 01/04/2019 09:33:58 [facility] ( [facility] ) Outpatient 01/03/2019 03:37:27 [facility] ( [facility] Attender: [facility] 01/27/2010 12:56:00 [facility] ([facility] PM EDT - 01/27/2010 [facility] 12:56:00 PM EDT Center) Attender: [facility] 01/04/2010 09:56:00 [facility] ([facility] AM EDT - 01/04/2010 [facility] 09:56:00 AM EDT Center) Attender: [facility] 12/23/2009 01:08:00 [facility]EXTGEN ([facility] PM EDT - 12/23/2009 [facility] 01:08:00 PM EDT Center) Medications Medication Brand Start Product Dose Route [facility] Indications Reaction Description Data Name Date Form Instructions Instructions Source(s) Fosinopril Fosino 1.00 ORAL active take 1 N EXTGEN Sodium 10 pril 2009 {tbl} tablet ([facility] Oral 10 mg 12:00: (10MG) by [facility] Tablet Tab 00 AM ORAL route Medica l Fosinopril EDT every day Cent er) 10 mg Tab Lantus INSULI 01/27/ SUBCUT active inject by NEXTGEN Solostar N 2009 ANEOUS Subcutaneous ( [facility] 300 unit/3 GLARGI 12:00: route per Robby mL Sub-Q NE,HUM 00 AM insulin Medic al Insulin Pen .REC.A EDT protocol Ce nter) NLOG 40 Units sq Hydrochlorothiazide Hydrochlorothiazide 01/27/2010 1.00 ORAL active take 1 NEXTGEN 25 mg Tab 25 MG Oral Tablet 12:00:00 AM {tbl} tablet ([facility] EDT (25MG) [facility] by ORAL Medical route [place]) every day Naproxen 500 MG Oral Naproxen 500 mg Tab 01/27/2010 1.00 ORAL active take 1 [facility]EXT[facility] Tablet Naproxen 500 12:00:00 AM {tbl} tablet ([facility] mg Tab EDT (500MG) [facility] by Medical ORAL Center) route 2 times every day with food atorvastatin 40 MG Lipitor 40 mg Tab 01/27/2010 1.00 ORAL ac tive atorvas N[facility] Oral Tablet 12:00:00 AM {tbl} tatin ([facility] [Lipitor] Lipitor 40 EDT 40 M G Robby mg Tab Oral Medical Tablet [place]) [Lipito r] Aspirin 81 mg ASPIRIN 01/27/2010 1.00 ORAL active chew 1 [facility]EXTGEN Chewable Tab 12:00:00 AM {tbl} tabl et ([facility] EDT (81MG) [facility] by ORAL Medical route [place]) every day Insurance Providers Payer name Policy type Policy ID Covered Covered green party's Policy P skylar / Coverage green party ID relationship to Jolly Inf ormation type jolly [place]AN MEDICARE [id number] SP [id number] [facility] MEDICARE [id number] SP [id number] VIP MEDICAID [id number] SP [id number] MEDICAID [id number] SP [id number] BLUE CROSS [id number] SP [id number] SENIOR PLAN VNS CHOICE [id number] SP [id number] [place] MEDICARE [id number] SP [id number] BLUE CROSS [id number] SP [id number] SENIOR PLAN HIP MEDICARE [id number] SP [id number] VIP VNS CHOICE [id number] SP [id number] GHI PPO [id number] SP [id number] GHI PPO [id number] SP [id number] SELMA [id number] SP [id number] HEALTHCARE (MEDICARE) WELLCARE OF [id number] SP [id number] [place] MEDIBLUE OP [id number] self [id number] MEDIBLUE OP O [id number] 01 [id number] [facility] Problems, Conditions, and Diagnoses Code Display Name Description Problem Type Effective Data Sour ce(s) Dates [id number] Financial problem Financial problem Complaint 12/17/2018 [facility] 01:00:00 PM ([facility]) [id number] Bipolar disorder Bipolar disorder Complaint 12/17/2018 [place] [facility] 01:00:00 PM ([facility]) [id number] Bereavement Bereavement Complaint 12/17/2018 [facility] 01:00:00 PM ([facility]) [id number] Benign essential Benign essential Problem 01/04/2010 NE XTGEN ([facility] hypertension hypertension 12:00:00 AM [facility]) N18.9 Chronic kidney CHRONIC KIDNEY Diagnosis 10/29/2019 [facility] disease, DISEASE, 09:30:00 AM Medical Cente r unspecified UNSPECIFIED EST Results ID Date Data Source [id number] 06/11/2020 02:40:00 PM EDT [facility] Received: 06/11/2020 at 05:41:00 QTE : [place], [address], Duane Ruiz MD Received: 06/11/2020 at 05:41:00 QTE : [facility], [address], [place], [address], Duane Ruiz MD Received: 06/11/2020 at 05:41:00 QTE : [facility], [place], [address], Duane Ruiz MD Received: 06/11/2020 at 05:41:00 QTE : [facility], [place], [address], Duane Ruiz MD Name Value Range Interpretation Code Description Data Ebony rce(s) Supporting Document(s ) ID Date Data Source [id number] 06/11/2020 02:40:00 PM EDT [facility] Received: 06/11/2020 at 05:41:00 QTE : [facility], [place], [address], Duane Ruiz MD Received: 06/11/2020 at 05:41:00 QTE : [facility], [place], [address], Duane Ruiz MD Received: 06/11/2020 at 05:41:00 QTE : [facility], [place], [address], Duane Ruiz MD Received: 06/11/2020 at 05:41:00 QTE : [facility], [place], [address], Duane Ruiz MD Name Value Range Interpretation Description Data Source(s ) Supporting Code Document(s ) aPTT in 31 sec 22-34 Normal (applies [facility] Platelet poor to non-numeric Diagnostics plasma by results) Coagulation assay This test has not been validated for mon itoringunfractionated heparin therapy. For testing thatis validated for this type o f therapy, please referto the Heparin Anti-Xa assay (test code 41018).For additional i nformation, please refer tohttp://education.[employer] Vega/ faq/TJZ337(This link is being provided forinformational/educational purposes on ly.) ID Date Data Source [id number] 06/11/2020 02:40:00 PM EDT [facility] Received: 06/11/2020 at 05:41:00 QTE : [facility], [place], [place], [address], Duane Ruiz MD Received: 06/11/2020 at 05:41:00 QTE : [facility], [place], [place], [address], Duane Ruiz MD Received: 06/11/2020 at 05:41:00 QTE : [facility], [place] [address], [place], [address], Duane Ruiz MD Received: 06/11/2020 at 05:41:00 QTE : [facility], [place] [address], [place], [address], Duane Ruiz MD Name Value Range Interpretation Description Data Source(s ) Supporting Code Document(s ) INR in Platelet 1.0 Normal (applies to [facility] poor plasma by non-numeric Diagnostics Coagulation results) assay Reference Range 0.9- 1.1Moderate-intensity Warfarin Therapy 2.0-3.0Higher-intensity Warfarin Therapy 3.0-4.0 Prothrombin time (PT) 10.3 sec 9.0-11.5 Normal (applies to [facility] non-numeric results) ID Date Data Source [id number] 06/11/2020 02:40:00 PM EDT [facility] Received: 06/11/2020 at 05:41:00 QTE : [facility], [place], [address]Duane MD Received: 06/11/2020 at 05:41:00 QTE : [facility], [place], [address], Duane Ruiz MD Received: 06/11/2020 at 05:41:00 QTE : [facility], [place], [address], Duane Ruiz MD Received: 06/11/2020 at 05:41:00 QTE : [facility], [address], [place], [address], Duane Ruiz MD Name Value Range Interpretation Description Data Source(s ) Supporting Code Document(s ) Glucose 82 mg/dL 65-99 Normal (applies to [facility] [Mass/volum non-numeric Diagnostics e] in Serum results) or Plasma Fasting reference interval Urea nitrogen 35 mg/dL 7-25 Above high normal [facility] [Mass/volume] in Serum or Plasma Creatinine [Mass/volume] 1.56 mg/dL 0.50-1.05 Above high normal [facility] in Serum or Plasma For patients >49 years of age, the refer ence limitfor Creatinine is approximately 13% higher for peopleidentified as -A merican. Glomerular filtration 36 mL/min/1.73m2 > OR = 60 Below low Q uest Diagnostics rate/1.73 sq M.predicted normal [Volume Rate/Area] in Serum, Plasma or Blood by Creatinine-based formula (MDRD) Glomerular filtration 42 mL/min/1.73m2 > OR = 60 Below low Q uest Diagnostics rate/1.73 sq M predicted normal among blacks [Volume Rate/Area] in Serum or Plasma by Creatinine-based formula (MDRD) Urea nitrogen/Creatinine 22 (calc) 6-22 Normal [facility] [Mass Ratio] in Serum or (applies to Plasma non-numeric results) Sodium [Moles/volume] in 139 mmol/L 135-146 Normal Ques t Diagnostics Serum or Plasma (applies to non-numeric results) Potassium [Moles/volume] 5.1 mmol/L 3.5-5.3 Normal Ques t Diagnostics in Serum or Plasma (applies to non-numeric results) Chloride [Moles/volume] 106 mmol/L 98-110 Normal [facility] in Serum or Plasma (applies to non-numeric results) Carbon dioxide, total 23 mmol/L 20-32 Normal [facility] [Moles/volume] in Serum (applies to or Plasma non-numeric results) Calcium [Mass/volume] in 9.5 mg/dL 8.6-10.4 Normal [facility] Serum or Plasma (applies to non-numeric results) Protein [Mass/volume] in 7.3 g/dL 6.1-8.1 Normal [facility] Serum or Plasma (applies to non-numeric results) Albumin [Mass/volume] in 3.6 g/dL 3.6-5.1 Normal [facility] Serum or Plasma (applies to non-numeric results) Globulin [Mass/volume] 3.7 g/dL (calc) 1.9-3.7 Normal Q uest Diagnostics in Serum by calculation (applies to non-numeric results) Albumin/Globulin [Mass 1.0 (calc) 1.0-2.5 Normal [facility] Ratio] in Serum or (applies to Plasma non-numeric results) Bilirubin.total 0.5 mg/dL 0.2-1.2 Normal [facility] [Mass/volume] in Serum (applies to or Plasma non-numeric results) Alkaline phosphatase 105 U/L 37-153 Normal [facility] [Enzymatic (applies to activity/volume] in non-numeric Serum or Plasma results) Aspartate 22 U/L 10-35 Normal [facility] aminotransferase (applies to [Enzymatic non-numeric activity/volume] in results) Serum or Plasma Alanine aminotransferase 15 U/L 6-29 Normal [facility] [Enzymatic (applies to activity/volume] in non-numeric Serum or Plasma results) ID Date Data Source [id number] 06/11/2020 02:40:00 PM EDT [facility] Received: 06/11/2020 at 05:41:00 QTE : [facility] [place], [address], Duane Ruiz MD Received: 06/11/2020 at 05:41:00 QTE : [facility] [place], [address], Duane Ruiz MD Received: 06/11/2020 at 05:41:00 QTE : [facility] [place], [address], Duane Ruiz MD Received: 06/11/2020 at 05:41:00 QTE : [facility] [place], [address], Duane Ruiz MD Name Value Range Interpretation Description Data Source(s ) Supporting Code Document(s ) Cancer Ag 16 U/mL <38 Normal (applies to [facility] 27-29 non-numeric Diagnostics [Units/volu results) me] in Serum or Plasma This test was performed using the SiemPaxfire sChemiluminescent method. Values obtained fromdifferent assay methods cannot be us edinterchangeably. CA 27.29 levels, regardless ofvalue, should not be interp reted as absoluteevidence of the presence or absence of disease. ID Date Data Source [id number] 06/07/2020 11:10:00 AM EDT [facility] Name Value Range Interpretation Description Data Sup porting Code Source(s) Document(s ) SARS [facility] coronavirus 2 RNA This lab was ordered by [facility] and reported by [facility]. ID Date Data Source [id number] 05/18/2020 10:31:00 AM EDT [facility] Name Value Range Interpretation Description Data Sup porting Code Source(s) Document(s ) SARS [facility] coronavirus 2 RNA This lab was ordered by [facility] and reported by [facility]. Procedure Social History Code Duration Value Status Description Data Source(s ) Smoking Unknown if ever completed Unknown if ever Jenna gil [facility] smoked smoked [facility] Patient Treatment Plan of Care Planned Activity Planned Date Details Description Data Source (s) Naproxen 500 MG Oral Tablet 01/27/2010 [facility] ([facility] 12:00:00 AM [facility]) atorvastatin 40 MG Oral 01/27/2010 NEXT GEN ([facility] Tablet [Lipitor] 12:00:00 AM [facility]) Aspirin 81 mg Chewable Tab 01/27/2010 N EXTGEN ([facility] 12:00:00 AM [facility]) Fosinopril Sodium 10 MG Oral 01/27/2010 [facility] ([facility] Tablet 12:00:00 AM [facility]) Hydrochlorothiazide 25 mg Tab 01/27/2010 [facility] ([facility] 12:00:00 AM [facility]) Lantus Solostar 300 unit/3 mL 01/27/2010 NEXTGEN ([facility] Sub-Q Insulin Pen 12:00:00 AM [facility])
[2020-06-12] MEDS ORDERED: LIDOCAINE HCL 1%, 10 MG/ML (20ML VIAL) ONE (11:29)
--- NOTE | 2020-06-12 12:27 | HP ---
History & Physical Update - History History: No Change - Physical Physical: No Change - Assessment Assessment: No Change - Plan Plan: No Change
[2020-06-12] MEDS ORDERED: MIDAZOLAM HCL 2 MG/2 ML SINGLE DOSE VIAL ONE (12:28)
[2020-06-12] MEDS ORDERED: PROPOFOL 20 ML ONE (12:34)
[2020-06-12] MEDS ORDERED: ceFAZolin SODIUM 1 GM VIAL IVPB ONE (12:45)
[2020-06-12] MEDS ORDERED: LIDOCAINE HCL 1%, 10 MG/ML (20ML VIAL) ID ONE (12:54)
[2020-06-12] MEDS ORDERED: ePHEDrine SULFATE 50 MG/1 ML AMPULE ONE (12:56)
[2020-06-12] MEDS ORDERED: PROMETHAZINE HCL 25 MG/1 ML VIAL IVPUSH PRN (13:54)
[2020-06-12] MEDS ORDERED: oxyCODONE HCL 5 MG TABLET PO PRN (13:54)
[2020-06-12] MEDS ORDERED: ONDANSETRON 4 MG/2 ML VIAL IVPUSH PRN (13:54)
[2020-06-12] MEDS ORDERED: LACTATED RINGERS SOLUTION 1,000 ML IV SCH (14:00)
[2020-06-12 17:08] VITALS: BP 103/67; PULSE 66; TEMP 98.4
--- NOTE | 2020-06-14 13:59 | OP ---
DATE OF OPERATION: 06/12/2020 PREOPERATIVE DIAGNOSIS: Right breast cancer with positive lymph node and insufficient venous access. POSTOPERATIVE DIAGNOSIS: Right breast cancer with positive lymph node and insufficient venous access. PROCEDURE: Left Mediport under fluoroscopy and revision of right mastectomy with insertion of drain. SURGEON: Wendy Frank MD ANESTHESIA: General. ESTIMATED BLOOD LOSS: 30 mL. DRAINS: ANG x1 on the right mastectomy flap. COMPLICATIONS: None. DISPOSITION: Stable at end of procedure. INDICATION: Patient had bilateral mastectomy and a right sentinel node biopsy that noted a lymph node positive locally advanced multicentric right breast cancer. She now needs chemotherapy, therefore needs venous access. It was decided to do a Mediport. She also had a persistent seroma and postoperative fluid collection in the right mastectomy flap, so it was decided to revise this to make it flatter as this continued to bother her. The procedure was discussed with her. All the questions answered. PROCEDURE IN DETAIL: Patient was brought to [facility] in [place], taken into the operating room and, after induction of general anesthesia and IV antibiotics, both chest terry were prepped and draped in the usual sterile fashion. First a left Mediport was inserted. A percutaneous stick of the left subclavian vein was performed and using the Seldinger technique a Mediport catheter was placed into the superior vena cava under direct fluoroscopy. This system was flushed with heparinized saline. A Mediport pocket was then created and the catheter was tunneled through and connected to the Mediport device at the appropriate length. The system was again flushed to make sure it was patent. Once this was completed, the incision was closed with interrupted 3-0 Vicryl and running 4-0 Biosyn as well as the incision for the percutaneous stick was also closed with interrupted 4-0 Biosyn. A sterile dressing over Steri-Strips and Tegaderm was applied. Next, the revision right mastectomy was performed. The prior incision from the mastectomy was sharply reopened and the intact seroma and organizing hematoma was drained out. Surfaces were checked and hemostasis assured with electrocautery. Through a separate stab wound a 10-mm ANG drain was placed into the mastectomy flap and secured to the skin with a 3-0 nylon stitch. The mastectomy was then closed with interrupted 3-0 Vicryl, a skin stapler, Vaseline gauze, Telfa, gauze, ABD pads and a surgical bra. Once this was completed, she was extubated on the operating room table and taken to recovery in good condition. WENDY FRANK M.D. [id number]
== END 2020-06-12 16:10 | disposition home or self-care (01) ==
LOC: JASU-SURG 05:01
PROVIDERS: ATTEND Surgery
PROC: B518ZZA Fluoroscopy of Superior Vena Cava, Guidance (ICD-10-PCS; 2020-06-12)
PROC: 0HBT0ZZ Excision of Right Breast, Open Approach (ICD-10-PCS; principal; 2020-06-12 11:00)
PROC: 02HV33Z Insertion of Infusion Device into Superior Vena Cava, Percutaneous Approach (ICD-10-PCS; 2020-06-12 11:00)
DX: C50.911 Malignant neoplasm of unspecified site of right female breast (principal); R59.9 Enlarged lymph nodes, unspecified
CPT/HCPCS: 19301; 36561; C1788; 71045-TC-FY; 76000-TC-FY; 82962; 94760; J1644

== ENCOUNTER 2020-12-05 22:27 | Inpatient (IN) | payer OTHER ==
[2020-12-05] MEDS ORDERED: ONDANSETRON 4 MG/2 ML VIAL IVPUSH ONE (23:15)
[2020-12-05] MEDS ORDERED: LACTATED RINGERS SOLUTION 1000 ML INFUS.BAG IV ONE (23:30)
[2020-12-06 01:38] LABS: BASO % 0.4 % (0-2.0); HEMATOCRIT 29.6 % (32.4-45.2); HEMOGLOBIN 9.6 GM/dL (10.7-15.3); LYMPH % 11.6 % (8-40); MCH 28.9 pg (25.7-33.7); MCHC 32.5 g/dl (32.0-36.0); MEAN CELL VOLUME 88.8 fl (80-96); MEAN PLT VOLUME 9.2 fl (7.5-11.1); MONO % 8.7 % (3.8-10.2); NEUT % 79.3 % (42.8-82.8); PLATELET COUNT 258 K/MM3 (134-434); RBC 3.33 M/mm3 (3.60-5.2); RDW 16.4 % (11.6-15.6); WHITE BLOOD COUNT 8.2 K/mm3 (4.0-10.0)
[2020-12-06] MEDS ORDERED: ONDANSETRON 4 MG/2 ML VIAL ONE (01:50)
[2020-12-06 01:52] LABS: INR 1.03 (0.83-1.09); PROTHROMBIN TIME (PATIENT) 12.5 SEC (9.7-13.0)
[2020-12-06 01:54] LABS: ACTIVATED PTT 27.7 SECONDS (25.2-36.5)
[2020-12-06 02:04] LABS: POTASSIUM 4.9 mmol/L (3.5-5.1)
[2020-12-06 02:06] LABS: CALCIUM 8.4 mg/dL (8.5-10.1)
[2020-12-06 02:07] LABS: ALBUMIN 2.8 g/dl (3.4-5.0); BLOOD UREA NITROGEN 83.4 mg/dL (7-18)
[2020-12-06] MEDS ORDERED: ACETAMINOPHEN 1000 MG/100 ML VIAL (NON FORMULARY) IVPB ONE (02:08)
[2020-12-06 02:10] LABS: BILIRUBIN,DIRECT 0.2 mg/dL (0.0-0.2)
[2020-12-06] MEDS ORDERED: ACETAMINOPHEN INJECTION 100 ML IVPB ONE (02:10)
[2020-12-06 02:11] LABS: VENOUS BASE EXCESS -5.2 mmol/L (-2-2); VENOUS O2 SATURATION 57.5 % (70-80); VENOUS PCO2 39.9 mmHg (38-52); VENOUS PH 7.326 (7.310-7.410)
[2020-12-06 02:12] LABS: BILIRUBIN,TOTAL 0.4 mg/dL (0.2-1); TOT PROT 7.8 g/dl (6.4-8.2)
[2020-12-06] MEDS ORDERED: LACTATED RINGERS SOLUTION 1000 ML INFUS.BAG IV ONE (03:30)
[2020-12-06] MEDS ORDERED: DEXAMETHASONE SOD PHOSPHATE 4 MG/1 ML VIAL IVPUSH ONE (03:34)
[2020-12-06] MEDS ORDERED: DEXAMETHASONE SOD PHOSPHATE 10 MG/1 ML VIAL ONE (04:36)
[2020-12-06] MEDS: INSULIN SLIDING SCALE (NOVOLOG) 1 VIAL SQ SCH ×4 (07:30→22:35)
[2020-12-06 08:15] LABS: EPI CELLS >36 /uL (0-25.1); HYALINE CASTS 5 /uL (0-3.1); URINE APPEARANCE CLOUDY; URINE BACTERIA 217 /uL (0-1359); URINE BILIRUBIN NEGATIVE (NEGATIVE); URINE COLOR YELLOW; URINE GLUCOSE (UA) NEGATIVE (NEGATIVE); URINE KETONE TRACE (NEGATIVE); URINE LEUK ESTERASE NEGATIVE (NEGATIVE); URINE NITRITE NEGATIVE (NEGATIVE); URINE PROTEIN 2+ (NEGATIVE); URINE WBC 19 /uL (0-25.8)
[2020-12-06 08:23] LABS: URINE RBC 43.2 /uL (0-23.9)
[2020-12-06] MEDS: INSULIN (LEVEMIR) 100 UNITS/ML UNITS SQ SCH (08:28)
[2020-12-06] MEDS: SODIUM CHLORIDE 1,000 ML IV SCH ×2 (08:29→21:03)
[2020-12-06] MEDS: CLOPIDOGREL BISULFATE 75 MG TABLET (FP) PO SCH (10:00)
[2020-12-06] MEDS: HEPARIN NA (PORCINE) 5,000 UNITS/ML 1ML VIAL SQ SCH ×2 (10:00→18:15)
[2020-12-06] MEDS: amLODIPine BESYLATE 10 MG TABLET (FP) PO SCH (10:00)
[2020-12-06] MEDS: ASPIRIN 81 MG CHEWABLE TABLETS PO SCH (10:00)
[2020-12-06] MEDS: LEVOTHYROXINE NA 112 MCG TABLET (FP) PO SCH (10:00)
[2020-12-06] MEDS ORDERED: amLODIPine BESYLATE 5 MG TABLET (FP) ONE (10:07)
[2020-12-06] MEDS ORDERED: CLOPIDOGREL BISULFATE 75 MG TABLET (FP) ONE (10:07)
[2020-12-06] MEDS ORDERED: ASPIRIN 81 MG CHEWABLE TABLETS ONE (10:07)
[2020-12-06] MEDS ORDERED: HEPARIN NA (PORCINE) 5,000 UNITS/ML 1ML VIAL ONE (10:08)
[2020-12-06] MEDS: CEFTRIAXONE 1 GM in DEXTROSE 5%-WATER - 50 ML IVPB SCH (15:13)
[2020-12-06] MEDS ORDERED: MORPHINE SULFATE 2 MG/ML VIAL ONE (15:17)
[2020-12-06] MEDS ORDERED: CEFTRIAXONE 1 GM/50 ML BAG ONE (15:18)
[2020-12-06] MEDS: MORPHINE SULFATE 2 MG/ML VIAL IVPUSH PRN (16:00)
[2020-12-06 18:10] LABS: POTASSIUM 5.6 mmol/L (3.5-5.1)
[2020-12-06 18:12] LABS: BLOOD UREA NITROGEN 76.7 mg/dL (7-18); CALCIUM 7.8 mg/dL (8.5-10.1)
[2020-12-06] MEDS ORDERED: SODIUM ZIRCONIUM CYCLOSILICATE (LOKELMA) 5 GM PACKET PO ONE (20:00)
[2020-12-07 00:36] VITALS: BMI 34.2
[2020-12-07] MEDS: ATORVASTATIN CA 10 MG TABLET (FP) PO SCH ×2 (00:36→21:29)
[2020-12-07] MEDS: HEPARIN NA (PORCINE) 5,000 UNITS/ML 1ML VIAL SQ SCH ×3 (01:07→17:23)
[2020-12-07] MEDS: TRIMETHOBENZAMIDE HCL 200MG/2ML INJ IM PRN ×2 (01:07→17:32)
[2020-12-07] MEDS: SODIUM CHLORIDE 1,000 ML IV SCH (06:23)
[2020-12-07] MEDS: INSULIN (LEVEMIR) 100 UNITS/ML UNITS SQ SCH (06:23)
[2020-12-07] MEDS: INSULIN SLIDING SCALE (NOVOLOG) 1 VIAL SQ SCH ×4 (06:24→21:45)
[2020-12-07] MEDS: MORPHINE SULFATE 2 MG/ML VIAL IVPUSH PRN ×2 (06:25→22:06)
[2020-12-07] MEDS ORDERED: INSULIN (LEVEMIR) 100 UNITS/ML UNITS SQ ONE (07:49)
[2020-12-07] MEDS ORDERED: INSULIN SLIDING SCALE (NOVOLOG) 1 VIAL SQ ONE (07:49)
[2020-12-07 07:57] LABS: HEMATOCRIT 28.3 % (32.4-45.2); HEMOGLOBIN 9.3 GM/dL (10.7-15.3); MCH 29.3 pg (25.7-33.7); MCHC 32.7 g/dl (32.0-36.0); MEAN CELL VOLUME 89.6 fl (80-96); MEAN PLT VOLUME 9.4 fl (7.5-11.1); PLATELET COUNT 231 K/MM3 (134-434); RBC 3.16 M/mm3 (3.60-5.2); RDW 16.4 % (11.6-15.6); WHITE BLOOD COUNT 12.3 K/mm3 (4.0-10.0)
[2020-12-07 08:14] LABS: POTASSIUM 4.9 mmol/L (3.5-5.1)
[2020-12-07 08:17] LABS: CALCIUM 7.7 mg/dL (8.5-10.1)
[2020-12-07 08:18] LABS: BLOOD UREA NITROGEN 75.4 mg/dL (7-18); MAGNESIUM 2.4 mg/dL (1.8-2.4)
[2020-12-07 08:20] LABS: CREATININE 2.6 mg/dL (0.55-1.3)
[2020-12-07 08:21] LABS: PHOSPHOROUS 3.5 mg/dL (2.5-4.9)
[2020-12-07] MEDS: ACETAMINOPHEN 325 MG TABLET (FP) PO PRN ×2 (09:29→21:52)
[2020-12-07] MEDS ORDERED: cefTRIAXone SODIUM 1 GM VIAL ONE (09:56)
[2020-12-07] MEDS ORDERED: DEXTROSE 5%-WATER - 50 ML IVPB ONE (09:57)
[2020-12-07] MEDS: ASPIRIN 81 MG CHEWABLE TABLETS PO SCH (10:17)
[2020-12-07] MEDS: CLOPIDOGREL BISULFATE 75 MG TABLET (FP) PO SCH (10:17)
[2020-12-07] MEDS: LEVOTHYROXINE NA 112 MCG TABLET (FP) PO SCH (10:17)
[2020-12-07] MEDS: DEXAMETHASONE SOD PHOSPHATE 4 MG/1 ML VIAL IVPUSH SCH (10:18)
[2020-12-07] MEDS: amLODIPine BESYLATE 10 MG TABLET (FP) PO SCH (10:18)
[2020-12-07] MEDS: CEFTRIAXONE 1 GM in DEXTROSE 5%-WATER - 50 ML IVPB SCH (10:18)
[2020-12-07] MEDS ORDERED: VANCOMYCIN 1 GRAM (PRE-DOCKED) 1,000 MG/250 ML BAG IVPB ONE ×2 (11:02→14:00)
[2020-12-07] MEDS ORDERED: CEFEPIME HCL 1 GM VIAL (RESTRICTED TO ID) ONE ×2 (12:05→21:28)
[2020-12-07] MEDS ORDERED: DEXTROSE 5%-WATER 100 ML IVPB ONE ×2 (12:05→21:28)
[2020-12-07] MEDS: CEFEPIME 1 GM in DEXTROSE 5%-WATER 100 ML IVPB SCH ×2 (12:10→21:29)
[2020-12-07] MEDS: ALBUTEROL SO4 HFA INHALER IH SCH (15:18)
[2020-12-07] MEDS: BUDESONIDE/FORMETEROL FUMARATE 160/4.5 mcg INHALER IH SCH ×2 (15:18)
[2020-12-08] MEDS: ALBUTEROL SO4 HFA INHALER IH SCH ×5 (00:01→21:59)
[2020-12-08] MEDS: HEPARIN NA (PORCINE) 5,000 UNITS/ML 1ML VIAL SQ SCH ×3 (05:30→18:57)
[2020-12-08] MEDS: TRIMETHOBENZAMIDE HCL 200MG/2ML INJ IM PRN ×2 (05:47→15:04)
[2020-12-08] MEDS: INSULIN SLIDING SCALE (NOVOLOG) 1 VIAL SQ SCH ×4 (06:00→22:05)
[2020-12-08] MEDS: MORPHINE SULFATE 2 MG/ML VIAL IVPUSH PRN ×4 (06:06→22:12)
[2020-12-08 06:36] LABS: HEMATOCRIT 28.5 % (32.4-45.2); HEMOGLOBIN 9.4 GM/dL (10.7-15.3); MCH 29.1 pg (25.7-33.7); MEAN CELL VOLUME 88.2 fl (80-96); MEAN PLT VOLUME 9.7 fl (7.5-11.1); PLATELET COUNT 259 K/MM3 (134-434); RBC 3.23 M/mm3 (3.60-5.2); WHITE BLOOD COUNT 15.8 K/mm3 (4.0-10.0)
[2020-12-08] MEDS ORDERED: INSULIN (LEVEMIR) 100 UNITS/ML UNITS SQ SCH (07:00)
[2020-12-08 07:08] LABS: POTASSIUM 4.9 mmol/L (3.5-5.1)
[2020-12-08 07:15] LABS: BLOOD UREA NITROGEN 64.6 mg/dL (7-18); CALCIUM 8.1 mg/dL (8.5-10.1)
[2020-12-08 07:19] LABS: BILIRUBIN,TOTAL 0.3 mg/dL (0.2-1); CREATININE 2.1 mg/dL (0.55-1.3)
[2020-12-08 07:20] LABS: TOT PROT 6.4 g/dl (6.4-8.2)
[2020-12-08 07:25] LABS: ALBUMIN 2.1 g/dl (3.4-5.0)
[2020-12-08] MEDS ORDERED: DEXTROSE 5%-WATER 100 ML IVPB ONE ×2 (08:44→21:53)
[2020-12-08] MEDS ORDERED: CEFEPIME HCL 1 GM VIAL (RESTRICTED TO ID) ONE ×2 (08:44→21:53)
[2020-12-08] MEDS: ACETAMINOPHEN 325 MG TABLET (FP) PO PRN (09:06)
[2020-12-08] MEDS: ASPIRIN 81 MG CHEWABLE TABLETS PO SCH (09:06)
[2020-12-08] MEDS: LEVOTHYROXINE NA 112 MCG TABLET (FP) PO SCH (09:06)
[2020-12-08] MEDS: DEXAMETHASONE SOD PHOSPHATE 4 MG/1 ML VIAL IVPUSH SCH (09:06)
[2020-12-08] MEDS: CEFEPIME 1 GM in DEXTROSE 5%-WATER 100 ML IVPB SCH ×2 (09:06→21:59)
[2020-12-08] MEDS: amLODIPine BESYLATE 10 MG TABLET (FP) PO SCH (09:06)
[2020-12-08] MEDS: CLOPIDOGREL BISULFATE 75 MG TABLET (FP) PO SCH (09:06)
[2020-12-08] MEDS: BUDESONIDE/FORMETEROL FUMARATE 160/4.5 mcg INHALER IH SCH ×2 (09:31→22:04)
[2020-12-08] MEDS: INSULIN (LEVEMIR) 100 UNITS/ML UNITS SQ SCH (16:44)
[2020-12-08] MEDS: ATORVASTATIN CA 10 MG TABLET (FP) PO SCH (21:59)
[2020-12-09] MEDS: TRIMETHOBENZAMIDE HCL 200MG/2ML INJ IM PRN ×2 (01:48→09:55)
[2020-12-09] MEDS: HEPARIN NA (PORCINE) 5,000 UNITS/ML 1ML VIAL SQ SCH ×3 (01:48→18:24)
[2020-12-09] MEDS: SODIUM CHLORIDE 1,000 ML IV SCH ×2 (01:48→21:40)
[2020-12-09] MEDS: INSULIN SLIDING SCALE (NOVOLOG) 1 VIAL SQ SCH ×4 (06:06→21:48)
[2020-12-09] MEDS: INSULIN (LEVEMIR) 100 UNITS/ML UNITS SQ SCH ×2 (06:06→22:00)
[2020-12-09 07:07] LABS: HEMATOCRIT 26.8 % (32.4-45.2); HEMOGLOBIN 8.8 GM/dL (10.7-15.3); MCHC 32.7 g/dl (32.0-36.0); MEAN CELL VOLUME 88.5 fl (80-96); MEAN PLT VOLUME 9.9 fl (7.5-11.1); PLATELET COUNT 265 K/MM3 (134-434); RBC 3.03 M/mm3 (3.60-5.2); RDW 16.2 % (11.6-15.6)
[2020-12-09 07:39] LABS: CALCIUM 8.2 mg/dL (8.5-10.1)
[2020-12-09 07:40] LABS: ALBUMIN 1.9 g/dl (3.4-5.0); BLOOD UREA NITROGEN 56.5 mg/dL (7-18)
[2020-12-09 07:43] LABS: CREATININE 1.8 mg/dL (0.55-1.3)
[2020-12-09 07:45] LABS: BILIRUBIN,TOTAL 0.4 mg/dL (0.2-1); TOT PROT 6.1 g/dl (6.4-8.2)
[2020-12-09] MEDS ORDERED: DEXTROSE 5%-WATER 100 ML IVPB ONE ×2 (08:39→21:01)
[2020-12-09] MEDS ORDERED: CEFEPIME HCL 1 GM VIAL (RESTRICTED TO ID) ONE ×2 (08:39→21:01)
[2020-12-09] MEDS: ALBUTEROL SO4 HFA INHALER IH SCH ×4 (08:48→21:47)
[2020-12-09] MEDS: CEFEPIME 1 GM in DEXTROSE 5%-WATER 100 ML IVPB SCH ×2 (09:07→21:49)
[2020-12-09] MEDS: LEVOTHYROXINE NA 112 MCG TABLET (FP) PO SCH (09:08)
[2020-12-09] MEDS: DEXAMETHASONE SOD PHOSPHATE 4 MG/1 ML VIAL IVPUSH SCH (09:08)
[2020-12-09] MEDS: BUDESONIDE/FORMETEROL FUMARATE 160/4.5 mcg INHALER IH SCH ×2 (09:08→21:49)
[2020-12-09] MEDS: CLOPIDOGREL BISULFATE 75 MG TABLET (FP) PO SCH (09:08)
[2020-12-09] MEDS: ASPIRIN 81 MG CHEWABLE TABLETS PO SCH (09:08)
[2020-12-09] MEDS: amLODIPine BESYLATE 10 MG TABLET (FP) PO SCH (09:08)
[2020-12-09] MEDS ORDERED: MAGNESIUM SULF 50% (8.12 MEQ/2 ML-1 GM VIAL) IVPB ONE (09:13)
[2020-12-09] MEDS ORDERED: SODIUM CHLORIDE 1,000 ML IV SCH (10:16)
[2020-12-09] MEDS: ONDANSETRON 4 MG/2 ML VIAL IVPUSH PRN ×2 (12:06→21:45)
[2020-12-09] MEDS: oxyCODONE HCL 5 MG TABLET PO PRN ×2 (14:45→21:49)
[2020-12-09] MEDS: ATORVASTATIN CA 10 MG TABLET (FP) PO SCH (21:45)
[2020-12-09] MEDS: ACETAMINOPHEN 325 MG TABLET (FP) PO PRN (21:54)
[2020-12-10] MEDS: HEPARIN NA (PORCINE) 5,000 UNITS/ML 1ML VIAL SQ SCH ×3 (01:29→17:29)
[2020-12-10] MEDS: INSULIN (LEVEMIR) 100 UNITS/ML UNITS SQ SCH ×2 (06:32→22:08)
[2020-12-10] MEDS: INSULIN SLIDING SCALE (NOVOLOG) 1 VIAL SQ SCH ×4 (06:33→21:45)
[2020-12-10] MEDS: TRIMETHOBENZAMIDE HCL 200MG/2ML INJ IM PRN ×2 (06:35→17:27)
[2020-12-10] MEDS: oxyCODONE HCL 5 MG TABLET PO PRN ×3 (06:37→18:48)
[2020-12-10] MEDS: ACETAMINOPHEN 325 MG TABLET (FP) PO PRN ×3 (06:37→18:55)
[2020-12-10 07:38] LABS: HEMATOCRIT 27.3 % (32.4-45.2); MCHC 32.8 g/dl (32.0-36.0); MEAN CELL VOLUME 88.2 fl (80-96); MEAN PLT VOLUME 9.9 fl (7.5-11.1); PLATELET COUNT 293 K/MM3 (134-434); RBC 3.09 M/mm3 (3.60-5.2); RDW 16.4 % (11.6-15.6); WHITE BLOOD COUNT 10.7 K/mm3 (4.0-10.0)
[2020-12-10 07:48] LABS: POTASSIUM 4.9 mmol/L (3.5-5.1)
[2020-12-10 07:56] LABS: CALCIUM 8.2 mg/dL (8.5-10.1)
[2020-12-10 07:57] LABS: BLOOD UREA NITROGEN 51.3 mg/dL (7-18); MAGNESIUM 2.7 mg/dL (1.8-2.4)
[2020-12-10 08:00] LABS: CREATININE 1.9 mg/dL (0.55-1.3)
[2020-12-10] MEDS ORDERED: ceFAZolin SODIUM 1 GM VIAL ONE ×2 (08:45→16:11)
[2020-12-10] MEDS ORDERED: SODIUM CHLORIDE 50 ML IVPB ONE ×2 (08:45→16:11)
[2020-12-10] MEDS: ALBUTEROL SO4 HFA INHALER IH SCH ×4 (08:45→21:39)
[2020-12-10] MEDS ORDERED: MAG HYDROX/AL HYDROX/SIMETH -MYLANTA- ORAL SUSPENSION PO PRN (10:05)
[2020-12-10] MEDS: SODIUM CHLORIDE IVPB SCH ×2 (10:16→17:30)
[2020-12-10] MEDS: ASPIRIN 81 MG CHEWABLE TABLETS PO SCH (10:16)
[2020-12-10] MEDS: CEFAZOLIN IVPB SCH ×2 (10:16→17:30)
[2020-12-10] MEDS: DEXAMETHASONE SOD PHOSPHATE 4 MG/1 ML VIAL IVPUSH SCH (10:16)
[2020-12-10] MEDS: amLODIPine BESYLATE 10 MG TABLET (FP) PO SCH (10:16)
[2020-12-10] MEDS: CLOPIDOGREL BISULFATE 75 MG TABLET (FP) PO SCH (10:16)
[2020-12-10] MEDS: LEVOTHYROXINE NA 112 MCG TABLET (FP) PO SCH (10:16)
[2020-12-10] MEDS: BUDESONIDE/FORMETEROL FUMARATE 160/4.5 mcg INHALER IH SCH ×2 (10:34→22:12)
[2020-12-10] MEDS ORDERED: REMDESIVIR 200 MG in SODIUM CHLORIDE 210 ML IVPB ONE (12:00)
[2020-12-10] MEDS ORDERED: PT OWN MED DRAWER 7, Y5N ONE ×2 (18:48→21:06)
[2020-12-10] MEDS: LETROZOLE 2.5 MG TABLET (FP) PO SCH (21:43)
[2020-12-10] MEDS: ATORVASTATIN CA 40 MG TABLET (FP) PO SCH (22:10)
[2020-12-11] MEDS ORDERED: SODIUM CHLORIDE 50 ML IVPB ONE ×3 (01:59→16:48)
[2020-12-11] MEDS ORDERED: ceFAZolin SODIUM 1 GM VIAL ONE ×3 (01:59→16:47)
[2020-12-11] MEDS: CEFAZOLIN IVPB SCH ×3 (02:01→17:11)
[2020-12-11] MEDS: SODIUM CHLORIDE IVPB SCH ×3 (02:01→17:11)
[2020-12-11] MEDS: HEPARIN NA (PORCINE) 5,000 UNITS/ML 1ML VIAL SQ SCH ×3 (03:00→17:11)
[2020-12-11] MEDS: INSULIN SLIDING SCALE (NOVOLOG) 1 VIAL SQ SCH ×4 (06:50→21:40)
[2020-12-11] MEDS: INSULIN (LEVEMIR) 100 UNITS/ML UNITS SQ SCH ×2 (06:50→21:41)
[2020-12-11 07:30] LABS: HEMATOCRIT 28.4 % (32.4-45.2); HEMOGLOBIN 9.3 GM/dL (10.7-15.3); MCH 28.7 pg (25.7-33.7); MCHC 32.6 g/dl (32.0-36.0); MEAN CELL VOLUME 88.1 fl (80-96); MEAN PLT VOLUME 9.9 fl (7.5-11.1); PLATELET COUNT 359 K/MM3 (134-434); RBC 3.23 M/mm3 (3.60-5.2); RDW 15.9 % (11.6-15.6); WHITE BLOOD COUNT 8.9 K/mm3 (4.0-10.0)
[2020-12-11 07:39] LABS: POTASSIUM 4.6 mmol/L (3.5-5.1)
[2020-12-11 07:40] LABS: CALCIUM 8.6 mg/dL (8.5-10.1)
[2020-12-11 07:41] LABS: BLOOD UREA NITROGEN 49.4 mg/dL (7-18); MAGNESIUM 2.8 mg/dL (1.8-2.4)
[2020-12-11 07:44] LABS: CREATININE 1.8 mg/dL (0.55-1.3)
[2020-12-11 07:45] LABS: TOT PROT 6.3 g/dl (6.4-8.2)
[2020-12-11 07:46] LABS: BILIRUBIN,TOTAL 0.2 mg/dL (0.2-1)
[2020-12-11] MEDS: TRIMETHOBENZAMIDE HCL 200MG/2ML INJ IM PRN (08:50)
[2020-12-11] MEDS: ACETAMINOPHEN 325 MG TABLET (FP) PO PRN ×3 (08:50→21:48)
[2020-12-11] MEDS: oxyCODONE HCL 5 MG TABLET PO PRN ×3 (08:51→21:47)
[2020-12-11] MEDS: DEXAMETHASONE SOD PHOSPHATE 4 MG/1 ML VIAL IVPUSH SCH (09:00)
[2020-12-11] MEDS: amLODIPine BESYLATE 10 MG TABLET (FP) PO SCH (09:01)
[2020-12-11] MEDS: ALBUTEROL SO4 HFA INHALER IH SCH ×4 (09:01→21:47)
[2020-12-11] MEDS: CLOPIDOGREL BISULFATE 75 MG TABLET (FP) PO SCH (09:01)
[2020-12-11] MEDS: ASPIRIN 81 MG CHEWABLE TABLETS PO SCH (09:01)
[2020-12-11] MEDS: LEVOTHYROXINE NA 112 MCG TABLET (FP) PO SCH (09:01)
[2020-12-11] MEDS: BUDESONIDE/FORMETEROL FUMARATE 160/4.5 mcg INHALER IH SCH ×2 (09:02→21:47)
[2020-12-11] MEDS: REMDESIVIR 100 MG in SODIUM CHLORIDE 230 ML IVPB SCH (12:12)
[2020-12-11] MEDS: BISACODYL 5 MG TABLET.DR (FP) PO SCH (16:27)
[2020-12-11] MEDS ORDERED: PT OWN MED DRAWER 7, Y5N ONE (21:33)
[2020-12-11] MEDS: ATORVASTATIN CA 40 MG TABLET (FP) PO SCH (21:41)
[2020-12-11] MEDS: LETROZOLE 2.5 MG TABLET (FP) PO SCH (21:41)
[2020-12-12] MEDS ORDERED: ceFAZolin SODIUM 1 GM VIAL ONE ×3 (02:01→16:28)
[2020-12-12] MEDS ORDERED: SODIUM CHLORIDE 50 ML IVPB ONE ×3 (02:01→16:28)
[2020-12-12] MEDS: SODIUM CHLORIDE IVPB SCH ×3 (02:13→17:00)
[2020-12-12] MEDS: HEPARIN NA (PORCINE) 5,000 UNITS/ML 1ML VIAL SQ SCH ×3 (02:13→17:01)
[2020-12-12] MEDS: CEFAZOLIN IVPB SCH ×3 (02:13→17:00)
[2020-12-12] MEDS: INSULIN (LEVEMIR) 100 UNITS/ML UNITS SQ SCH ×2 (06:33→21:23)
[2020-12-12] MEDS: INSULIN SLIDING SCALE (NOVOLOG) 1 VIAL SQ SCH ×4 (06:33→21:23)
[2020-12-12 08:09] LABS: HEMATOCRIT 27.1 % (32.4-45.2); HEMOGLOBIN 9.2 GM/dL (10.7-15.3); MCH 29.4 pg (25.7-33.7); MCHC 34.1 g/dl (32.0-36.0); MEAN CELL VOLUME 86.3 fl (80-96); MEAN PLT VOLUME 9.5 fl (7.5-11.1); PLATELET COUNT 389 K/MM3 (134-434); RBC 3.14 M/mm3 (3.60-5.2); RDW 15.9 % (11.6-15.6)
[2020-12-12] MEDS: ALBUTEROL SO4 HFA INHALER IH SCH ×4 (08:20→20:50)
[2020-12-12 08:34] LABS: POTASSIUM 4.6 mmol/L (3.5-5.1)
[2020-12-12] MEDS ORDERED: PT OWN MED DRAWER 7, Y5N ONE ×2 (09:04→21:11)
[2020-12-12 09:30] LABS: CALCIUM 8.9 mg/dL (8.5-10.1)
[2020-12-12 09:31] LABS: BLOOD UREA NITROGEN 46.9 mg/dL (7-18)
[2020-12-12 09:34] LABS: CREATININE 1.6 mg/dL (0.55-1.3)
[2020-12-12 09:36] LABS: BILIRUBIN,TOTAL 0.2 mg/dL (0.2-1); TOT PROT 6.2 g/dl (6.4-8.2)
[2020-12-12] MEDS: DEXAMETHASONE SOD PHOSPHATE 4 MG/1 ML VIAL IVPUSH SCH (09:51)
[2020-12-12] MEDS: oxyCODONE HCL 5 MG TABLET PO PRN ×2 (09:52→20:50)
[2020-12-12] MEDS: BISACODYL 5 MG TABLET.DR (FP) PO SCH (09:52)
[2020-12-12] MEDS: ASPIRIN 81 MG CHEWABLE TABLETS PO SCH (09:52)
[2020-12-12] MEDS: CLOPIDOGREL BISULFATE 75 MG TABLET (FP) PO SCH (09:52)
[2020-12-12] MEDS: amLODIPine BESYLATE 10 MG TABLET (FP) PO SCH (09:52)
[2020-12-12] MEDS: LEVOTHYROXINE NA 112 MCG TABLET (FP) PO SCH (09:53)
[2020-12-12] MEDS: REMDESIVIR 100 MG in SODIUM CHLORIDE 230 ML IVPB SCH (09:54)
[2020-12-12] MEDS: BUDESONIDE/FORMETEROL FUMARATE 160/4.5 mcg INHALER IH SCH ×2 (09:54→21:00)
[2020-12-12] MEDS: ACETAMINOPHEN 325 MG TABLET (FP) PO PRN ×2 (11:05→21:02)
[2020-12-12] MEDS ORDERED: GLYCERIN 1 RECTAL SUPPOSITORY, ADULT RC PRN (12:47)
[2020-12-12] MEDS: MAG HYDROX/AL HYDROX/SIMETH 30 ML UNIT-DOSE CUP PO PRN (17:17)
[2020-12-12] MEDS: LETROZOLE 2.5 MG TABLET (FP) PO SCH (21:18)
[2020-12-12] MEDS: ATORVASTATIN CA 40 MG TABLET (FP) PO SCH (21:18)
[2020-12-13] MEDS ORDERED: ceFAZolin SODIUM 1 GM VIAL ONE ×3 (01:58→16:49)
[2020-12-13] MEDS ORDERED: SODIUM CHLORIDE 50 ML IVPB ONE ×3 (01:58→16:49)
[2020-12-13] MEDS: CEFAZOLIN IVPB SCH ×3 (02:13→17:03)
[2020-12-13] MEDS: SODIUM CHLORIDE IVPB SCH ×3 (02:13→17:03)
[2020-12-13] MEDS: HEPARIN NA (PORCINE) 5,000 UNITS/ML 1ML VIAL SQ SCH (02:19)
[2020-12-13] MEDS: INSULIN SLIDING SCALE (NOVOLOG) 1 VIAL SQ SCH ×4 (06:25→21:42)
[2020-12-13] MEDS: INSULIN (LEVEMIR) 100 UNITS/ML UNITS SQ SCH ×2 (06:26→21:43)
[2020-12-13] MEDS: ACETAMINOPHEN 325 MG TABLET (FP) PO PRN ×3 (06:26→21:38)
[2020-12-13 07:41] LABS: BASO % 0.2 % (0-2.0); EOS % 0.5 % (0-4.5); HEMATOCRIT 25.9 % (32.4-45.2); HEMOGLOBIN 8.9 GM/dL (10.7-15.3); LYMPH % 24.4 % (8-40); MCH 29.6 pg (25.7-33.7); MCHC 34.5 g/dl (32.0-36.0); MEAN CELL VOLUME 85.8 fl (80-96); MEAN PLT VOLUME 9.4 fl (7.5-11.1); MONO % 13.4 % (3.8-10.2); NEUT % 61.5 % (42.8-82.8); PLATELET COUNT 410 K/MM3 (134-434); RBC 3.02 M/mm3 (3.60-5.2); RDW 15.8 % (11.6-15.6); WHITE BLOOD COUNT 7.1 K/mm3 (4.0-10.0)
[2020-12-13 08:02] LABS: POTASSIUM 4.1 mmol/L (3.5-5.1)
[2020-12-13 08:08] LABS: ALBUMIN 2.1 g/dl (3.4-5.0); BLOOD UREA NITROGEN 41.1 mg/dL (7-18); CALCIUM 8.3 mg/dL (8.5-10.1)
[2020-12-13 08:11] LABS: CREATININE 1.5 mg/dL (0.55-1.3)
[2020-12-13 08:12] LABS: TOT PROT 6.1 g/dl (6.4-8.2)
[2020-12-13 08:14] LABS: BILIRUBIN,TOTAL 0.4 mg/dL (0.2-1)
[2020-12-13] MEDS ORDERED: PT OWN MED DRAWER 7, Y5N ONE (09:32)
[2020-12-13] MEDS: DEXAMETHASONE SOD PHOSPHATE 4 MG/1 ML VIAL IVPUSH SCH (09:38)
[2020-12-13] MEDS: LEVOTHYROXINE NA 112 MCG TABLET (FP) PO SCH (09:39)
[2020-12-13] MEDS: amLODIPine BESYLATE 10 MG TABLET (FP) PO SCH (09:39)
[2020-12-13] MEDS: CLOPIDOGREL BISULFATE 75 MG TABLET (FP) PO SCH (09:39)
[2020-12-13] MEDS: BISACODYL 5 MG TABLET.DR (FP) PO SCH (09:39)
[2020-12-13] MEDS: ALBUTEROL SO4 HFA INHALER IH SCH ×4 (09:40→21:37)
[2020-12-13] MEDS: BUDESONIDE/FORMETEROL FUMARATE 160/4.5 mcg INHALER IH SCH ×2 (09:40→21:42)
[2020-12-13] MEDS: ASPIRIN 81 MG CHEWABLE TABLETS PO SCH (09:40)
[2020-12-13] MEDS: oxyCODONE HCL 5 MG TABLET PO PRN ×2 (10:00→17:02)
[2020-12-13] MEDS: REMDESIVIR 100 MG in SODIUM CHLORIDE 230 ML IVPB SCH (10:22)
[2020-12-13] MEDS: POLYETHYLENE GLYCOL 3350 119 GM BTL PO SCH (11:32)
[2020-12-13] MEDS: MAG HYDROX/AL HYDROX/SIMETH 30 ML UNIT-DOSE CUP PO PRN (17:03)
[2020-12-13] MEDS: LETROZOLE 2.5 MG TABLET (FP) PO SCH (21:41)
[2020-12-13] MEDS: ATORVASTATIN CA 40 MG TABLET (FP) PO SCH (21:42)
[2020-12-14] MEDS: oxyCODONE HCL 5 MG TABLET PO PRN ×3 (00:01→21:30)
[2020-12-14] MEDS: ACETAMINOPHEN 325 MG TABLET (FP) PO PRN ×3 (00:02→21:37)
[2020-12-14] MEDS: MAG HYDROX/AL HYDROX/SIMETH 30 ML UNIT-DOSE CUP PO PRN (00:07)
[2020-12-14] MEDS ORDERED: SODIUM CHLORIDE 50 ML IVPB ONE ×3 (02:03→16:24)
[2020-12-14] MEDS ORDERED: ceFAZolin SODIUM 1 GM VIAL ONE ×3 (02:03→16:24)
[2020-12-14] MEDS: SODIUM CHLORIDE IVPB SCH ×3 (02:25→17:03)
[2020-12-14] MEDS: CEFAZOLIN IVPB SCH ×3 (02:25→17:03)
[2020-12-14] MEDS: INSULIN SLIDING SCALE (NOVOLOG) 1 VIAL SQ SCH ×4 (06:28→21:29)
[2020-12-14] MEDS: INSULIN (LEVEMIR) 100 UNITS/ML UNITS SQ SCH ×2 (06:29→21:29)
[2020-12-14 08:05] LABS: POTASSIUM 4.8 mmol/L (3.5-5.1)
[2020-12-14 08:07] LABS: ALBUMIN 2.3 g/dl (3.4-5.0); BLOOD UREA NITROGEN 42.1 mg/dL (7-18); CALCIUM 8.6 mg/dL (8.5-10.1)
[2020-12-14 08:10] LABS: CREATININE 1.6 mg/dL (0.55-1.3)
[2020-12-14 08:12] LABS: BILIRUBIN,TOTAL 0.4 mg/dL (0.2-1); TOT PROT 6.8 g/dl (6.4-8.2)
[2020-12-14 08:14] LABS: BASO % 0.3 % (0-2.0); EOS % 0.6 % (0-4.5); HEMATOCRIT 28.6 % (32.4-45.2); HEMOGLOBIN 9.8 GM/dL (10.7-15.3); LYMPH % 22.5 % (8-40); MCH 29.9 pg (25.7-33.7); MCHC 34.3 g/dl (32.0-36.0); MEAN CELL VOLUME 87.3 fl (80-96); MEAN PLT VOLUME 9.3 fl (7.5-11.1); MONO % 11.3 % (3.8-10.2); NEUT % 65.3 % (42.8-82.8); PLATELET COUNT 474 K/MM3 (134-434); RBC 3.27 M/mm3 (3.60-5.2); RDW 16.1 % (11.6-15.6); WHITE BLOOD COUNT 6.5 K/mm3 (4.0-10.0)
[2020-12-14] MEDS ORDERED: PT OWN MED DRAWER 7, Y5N ONE ×2 (08:48→21:01)
[2020-12-14] MEDS: ASPIRIN 81 MG CHEWABLE TABLETS PO SCH (09:05)
[2020-12-14] MEDS: DEXAMETHASONE SOD PHOSPHATE 4 MG/1 ML VIAL IVPUSH SCH (09:05)
[2020-12-14] MEDS: BISACODYL 5 MG TABLET.DR (FP) PO SCH (09:05)
[2020-12-14] MEDS: amLODIPine BESYLATE 10 MG TABLET (FP) PO SCH (09:06)
[2020-12-14] MEDS: CLOPIDOGREL BISULFATE 75 MG TABLET (FP) PO SCH (09:06)
[2020-12-14] MEDS: LEVOTHYROXINE NA 112 MCG TABLET (FP) PO SCH (09:06)
[2020-12-14] MEDS: ALBUTEROL SO4 HFA INHALER IH SCH ×4 (09:12→21:29)
[2020-12-14] MEDS: POLYETHYLENE GLYCOL 3350 119 GM BTL PO SCH (09:12)
[2020-12-14] MEDS: BUDESONIDE/FORMETEROL FUMARATE 160/4.5 mcg INHALER IH SCH ×2 (09:12→21:30)
[2020-12-14] MEDS ORDERED: SODIUM CHLORIDE 1,000 ML IV SCH (10:15)
[2020-12-14] MEDS: REMDESIVIR 100 MG in SODIUM CHLORIDE 230 ML IVPB SCH (11:11)
[2020-12-14] MEDS: ATORVASTATIN CA 40 MG TABLET (FP) PO SCH (21:29)
[2020-12-14] MEDS: LETROZOLE 2.5 MG TABLET (FP) PO SCH (21:29)
[2020-12-15] MEDS ORDERED: ceFAZolin SODIUM 1 GM VIAL ONE ×3 (01:15→16:18)
[2020-12-15] MEDS ORDERED: SODIUM CHLORIDE 50 ML IVPB ONE ×3 (01:15→16:18)
[2020-12-15] MEDS: CEFAZOLIN IVPB SCH ×3 (01:24→17:02)
[2020-12-15] MEDS: SODIUM CHLORIDE IVPB SCH ×3 (01:24→17:02)
[2020-12-15] MEDS: INSULIN SLIDING SCALE (NOVOLOG) 1 VIAL SQ SCH ×4 (06:40→22:02)
[2020-12-15 08:06] LABS: HEMOGLOBIN 8.5 GM/dL (10.7-15.3)
[2020-12-15 08:09] LABS: MCH 29.3 pg (25.7-33.7); MCHC 34.1 g/dl (32.0-36.0); MEAN CELL VOLUME 86.1 fl (80-96); MEAN PLT VOLUME 9.2 fl (7.5-11.1); PLATELET COUNT 454 K/MM3 (134-434); RBC 2.91 M/mm3 (3.60-5.2); RDW 15.7 % (11.6-15.6); WHITE BLOOD COUNT 7.2 K/mm3 (4.0-10.0)
[2020-12-15 08:21] LABS: POTASSIUM 4.3 mmol/L (3.5-5.1)
[2020-12-15 08:22] LABS: CALCIUM 8.5 mg/dL (8.5-10.1)
[2020-12-15 08:23] LABS: BLOOD UREA NITROGEN 38.2 mg/dL (7-18)
[2020-12-15] MEDS: INSULIN (LEVEMIR) 100 UNITS/ML UNITS SQ SCH ×2 (08:23→22:01)
[2020-12-15] MEDS: ALBUTEROL SO4 HFA INHALER IH SCH ×4 (08:23→22:00)
[2020-12-15 08:26] LABS: CREATININE 1.3 mg/dL (0.55-1.3)
[2020-12-15 08:28] LABS: BILIRUBIN,TOTAL 0.3 mg/dL (0.2-1)
[2020-12-15 08:31] LABS: N-TERMINAL BNP 462.7 pg/ml (5-125)
[2020-12-15] MEDS ORDERED: FUROSEMIDE 40 MG/4 ML INJECTABLE VIAL IVPUSH ONE (09:30)
[2020-12-15] MEDS: DEXAMETHASONE SOD PHOSPHATE 4 MG/1 ML VIAL IVPUSH SCH (09:46)
[2020-12-15] MEDS: ACETAMINOPHEN 325 MG TABLET (FP) PO PRN ×3 (09:48→23:25)
[2020-12-15] MEDS: amLODIPine BESYLATE 10 MG TABLET (FP) PO SCH (09:48)
[2020-12-15] MEDS: LEVOTHYROXINE NA 112 MCG TABLET (FP) PO SCH (09:48)
[2020-12-15] MEDS: ASPIRIN 81 MG CHEWABLE TABLETS PO SCH (09:48)
[2020-12-15] MEDS: BISACODYL 5 MG TABLET.DR (FP) PO SCH (09:48)
[2020-12-15] MEDS: oxyCODONE HCL 5 MG TABLET PO PRN ×3 (09:48→23:22)
[2020-12-15] MEDS: CLOPIDOGREL BISULFATE 75 MG TABLET (FP) PO SCH (09:48)
[2020-12-15] MEDS: BUDESONIDE/FORMETEROL FUMARATE 160/4.5 mcg INHALER IH SCH ×2 (10:00→22:02)
[2020-12-15] MEDS: POLYETHYLENE GLYCOL 3350 119 GM BTL PO SCH (11:01)
[2020-12-15] MEDS ORDERED: PT OWN MED DRAWER 7, Y5N ONE (21:44)
[2020-12-15] MEDS: ATORVASTATIN CA 40 MG TABLET (FP) PO SCH (22:01)
[2020-12-15] MEDS: LETROZOLE 2.5 MG TABLET (FP) PO SCH (22:01)
[2020-12-16] MEDS ORDERED: ceFAZolin SODIUM 1 GM VIAL ONE ×2 (01:49→10:35)
[2020-12-16] MEDS ORDERED: SODIUM CHLORIDE 50 ML IVPB ONE ×2 (01:49→10:35)
[2020-12-16] MEDS: SODIUM CHLORIDE IVPB SCH ×2 (02:02→10:40)
[2020-12-16] MEDS: CEFAZOLIN IVPB SCH ×2 (02:02→10:40)
[2020-12-16] MEDS: INSULIN SLIDING SCALE (NOVOLOG) 1 VIAL SQ SCH ×3 (06:24→17:29)
[2020-12-16] MEDS: oxyCODONE HCL 5 MG TABLET PO PRN ×2 (08:12→17:26)
[2020-12-16] MEDS: ACETAMINOPHEN 325 MG TABLET (FP) PO PRN ×2 (08:17→17:27)
[2020-12-16] MEDS: INSULIN (LEVEMIR) 100 UNITS/ML UNITS SQ SCH (08:42)
[2020-12-16] MEDS: ALBUTEROL SO4 HFA INHALER IH SCH ×3 (08:43→17:30)
[2020-12-16] MEDS ORDERED: MULTIVITAMINS (DAILY MVI) TABLET (FP) PO SCH (10:00)
[2020-12-16] MEDS: CLOPIDOGREL BISULFATE 75 MG TABLET (FP) PO SCH (10:39)
[2020-12-16] MEDS: amLODIPine BESYLATE 10 MG TABLET (FP) PO SCH (10:39)
[2020-12-16] MEDS: BISACODYL 5 MG TABLET.DR (FP) PO SCH (10:39)
[2020-12-16] MEDS: ASPIRIN 81 MG CHEWABLE TABLETS PO SCH (10:40)
[2020-12-16] MEDS: DEXAMETHASONE SOD PHOSPHATE 4 MG/1 ML VIAL IVPUSH SCH (10:40)
[2020-12-16] MEDS: POLYETHYLENE GLYCOL 3350 119 GM BTL PO SCH (10:41)
[2020-12-16] MEDS: BUDESONIDE/FORMETEROL FUMARATE 160/4.5 mcg INHALER IH SCH (10:41)
[2020-12-16] MEDS: LEVOTHYROXINE NA 112 MCG TABLET (FP) PO SCH (10:43)
[2020-12-16 14:51] VITALS: BP 132/60; PULSE 62; TEMP 98
== END 2020-12-16 18:00 | disposition home or self-care (01) | DRG 177 ==
LOC: JER 22:27 → JERBED 12-06 03:38 → J4S 12-06 19:56
PROVIDERS: ADMIT Internal Medicine; ATTEND Internal Medicine
PROC: XW033E5 Introduction of Remdesivir Anti-infective into Peripheral Vein, Percutaneous Approach, New Technology Group 5 (ICD-10-PCS; principal; 2020-12-10)
DX: U07.1 COVID-19 (principal); J12.82 Pneumonia due to coronavirus disease 2019; J96.01 Acute respiratory failure with hypoxia; T81.42XA Infection following a procedure, deep incisional surgical site, initial encounter; T81.30XA Disruption of wound, unspecified, initial encounter; N13.2 Hydronephrosis with renal and ureteral calculous obstruction; E78.5 Hyperlipidemia, unspecified; E03.9 Hypothyroidism, unspecified; F41.9 Anxiety disorder, unspecified; E11.65 Type 2 diabetes mellitus with hyperglycemia; N61.0 Mastitis without abscess; R11.2 Nausea with vomiting, unspecified; E66.9 Obesity, unspecified; Z68.34 Body mass index [BMI] 34.0-34.9, adult; I12.9 Hypertensive chronic kidney disease with stage 1 through stage 4 chronic kidney disease, or unspecified chronic kidney disease; E11.22 Type 2 diabetes mellitus with diabetic chronic kidney disease; N18.30 Chronic kidney disease, stage 3 unspecified; Z86.73 Personal history of transient ischemic attack (TIA), and cerebral infarction without residual deficits; Z85.3 Personal history of malignant neoplasm of breast; D63.8 Anemia in other chronic diseases classified elsewhere; Z95.2 Presence of prosthetic heart valve; Y83.8 Other surgical procedures as the cause of abnormal reaction of the patient, or of later complication, without mention of misadventure at the time of the procedure
CPT/HCPCS: 36415; 71045-TC-FY; 74176-TC; 76775-TC; 80048; 80053; 81003; 82010; 82248; 82550; 82553; 82570; 82728; 82803; 82962; 83605; 83615; 83735; 83880; 84100; 84156; 84300; 84443; 84484; 84540; 85025; 85027; 85379; 85610; 85730; 86140; 86769; 87040; 87070; 87086; 87186; 87205; 87804; 93005; 93010; 94761; 97116-GP; 97161-GP; 99285-25; C9399; C9803; G0480; J0131; J1644; U0003; U0005

== ENCOUNTER 2021-06-06 11:41 | Emergency (ER) | payer OTHER ==
[2021-06-06 11:55] VITALS: BMI 35.0
[2021-06-06 13:54] LABS: BASO % 1.1 % (0-2.0); EOS % 2.9 % (0-4.5); HEMATOCRIT 29.2 % (32.4-45.2); LYMPH % 14.6 % (8-40); MCH 31.3 pg (25.7-33.7); MCHC 34.1 g/dl (32.0-36.0); MEAN CELL VOLUME 91.7 fl (80-96); MONO % 9.7 % (3.8-10.2); NEUT % 71.7 % (42.8-82.8); PLATELET COUNT 239 10^3/uL (134-434); RBC 3.19 M/mm3 (3.60-5.2); RDW 14.5 % (11.6-15.6); WHITE BLOOD COUNT 5.4 K/mm3 (4.0-10.0)
[2021-06-06 14:12] LABS: CALCIUM 8.8 mg/dL (8.5-10.1)
[2021-06-06 14:13] LABS: BLOOD UREA NITROGEN 28.6 mg/dL (7-18)
[2021-06-06 14:16] LABS: CREATININE 1.6 mg/dL (0.55-1.3)
[2021-06-06 14:17] LABS: BILIRUBIN,TOTAL 0.4 mg/dL (0.2-1)
[2021-06-06 14:18] LABS: TOT PROT 7.5 g/dl (6.4-8.2)
[2021-06-06 14:41] LABS: EPI CELLS 7 /uL (0-25.1); HYALINE CASTS 1 /uL (0-3.1); PH,URINE 5.5 (5.0-8.0); URINE APPEARANCE CLEAR; URINE BACTERIA 25 /uL (0-1359); URINE BILIRUBIN NEGATIVE (NEGATIVE); URINE COLOR YELLOW; URINE GLUCOSE (UA) NEGATIVE (NEGATIVE); URINE KETONE NEGATIVE (NEGATIVE); URINE LEUK ESTERASE NEGATIVE (NEGATIVE); URINE NITRITE NEGATIVE (NEGATIVE); URINE PROTEIN 3+ (NEGATIVE); URINE RBC 8 /uL (0-23.9); URINE UROBILINOGEN 0.2 mg/dL (0.2-1.0); URINE WBC 15 /uL (0-25.8)
[2021-06-06 15:14] VITALS: BP 159/88; PULSE 78; TEMP 98
== END 2021-06-06 15:14 | disposition home or self-care (01) ==
LOC: JER 11:41
DX: T38.3X1A Poisoning by insulin and oral hypoglycemic [antidiabetic] drugs, accidental (unintentional), initial encounter (principal)
CPT/HCPCS: 36415; 80053; 81003; 82962; 85025; 87086; 99283-25

== ENCOUNTER 2022-02-26 10:44 | Emergency (ER) | payer OTHER ==
[2022-02-26 11:13] VITALS: BP 120/71; PULSE 56; TEMP 98.5; BMI 33.5
== END 2022-02-26 12:17 | disposition home or self-care (01) ==
LOC: JERFT 10:44
DX: R60.9 Edema, unspecified (principal)
CPT/HCPCS: 99281-25

== ENCOUNTER 2022-11-21 10:07 | Emergency (ER) | payer OTHER ==
[2022-11-21 10:21] VITALS: BMI 33.6
[2022-11-21 11:52] LABS: BASO % 1.1 % (0-2.0); EOS % 3.1 % (0-4.5); HEMATOCRIT 33.2 % (32.4-45.2); LYMPH % 17.6 % (8-40); MCH 29.5 pg (25.7-33.7); MEAN CELL VOLUME 89.3 fl (80-96); MEAN PLT VOLUME 8.5 fl (7.5-11.1); MONO % 7.8 % (3.8-10.2); NEUT % 70.4 % (42.8-82.8); PLATELET COUNT 260 10^3/uL (134-434); RBC 3.72 M/mm3 (3.60-5.2); RDW 14.3 % (11.6-15.6); WHITE BLOOD COUNT 4.6 K/mm3 (4.0-10.0)
[2022-11-21 12:08] LABS: ALBUMIN 3.8 g/dl (3.4-5.0); BLOOD UREA NITROGEN 45.7 mg/dL (7-18); CALCIUM 9.5 mg/dL (8.5-10.1)
[2022-11-21 12:14] LABS: BILIRUBIN,TOTAL 0.5 mg/dL (0.2-1); TOT PROT 7.7 g/dl (6.4-8.2)
[2022-11-21 14:47] VITALS: BP 122/78; PULSE 87; RESP 19; TEMP 97.9
== END 2022-11-21 14:47 | disposition home or self-care (01) ==
LOC: JER 10:07
DX: M79.604 Pain in right leg (principal)
CPT/HCPCS: 36415; 80053; 85025; 93971-TC; 99285-25

== ENCOUNTER 2023-05-21 02:58 | Observation (INO) | payer OTHER ==
[2023-05-21 04:27] LABS: BASO % 0.7 % (0-2.0); EOS % 0.3 % (0-4.5); HEMATOCRIT 40.1 % (32.4-45.2); HEMOGLOBIN 13.3 GM/dL (10.7-15.3); LYMPH % 15.7 % (8-40); MCH 30.3 pg (25.7-33.7); MCHC 33.2 g/dl (32.0-36.0); MEAN CELL VOLUME 91.1 fl (80-96); MEAN PLT VOLUME 9.1 fl (7.5-11.1); MONO % 4.3 % (3.8-10.2); PLATELET COUNT 316 10^3/uL (134-434); RDW 13.9 % (11.6-15.6); WHITE BLOOD COUNT 5.1 K/mm3 (4.0-10.0)
[2023-05-21 04:34] LABS: INR 0.85 (0.83-1.09); PROTHROMBIN TIME (PATIENT) 9.9 SEC (9.7-13.0)
[2023-05-21] MEDS ORDERED: SODIUM CHLORIDE 0.9% 500 ML INFUS.BAG IV ONE (04:36)
[2023-05-21 04:37] LABS: ACTIVATED PTT 33.1 SECONDS (25.2-36.5)
[2023-05-21 05:08] LABS: VENOUS BASE EXCESS -2.1 mmol/L (-2-2); VENOUS O2 SATURATION 96.6 % (70-80); VENOUS PCO2 36.1 mmHg (38-52); VENOUS PH 7.406 (7.310-7.410)
[2023-05-21 05:19] LABS: POTASSIUM 4.8 mmol/L (3.5-5.1)
[2023-05-21 05:20] LABS: CALCIUM 9.8 mg/dL (8.5-10.1)
[2023-05-21 05:21] LABS: ALBUMIN 4.4 g/dl (3.4-5.0); BLOOD UREA NITROGEN 39.5 mg/dL (7-18)
[2023-05-21 05:24] LABS: CREATININE 2.3 mg/dL (0.55-1.3)
[2023-05-21 05:26] LABS: BILIRUBIN,TOTAL 0.6 mg/dL (0.2-1); TOT PROT 9.6 g/dl (6.4-8.2)
[2023-05-21] MEDS ORDERED: SODIUM CHLORIDE 1,000 ML IV SCH (08:30)
[2023-05-21] MEDS ORDERED: amLODIPine BESYLATE 5 MG TABLET (FP) ONE ×2 (08:33→22:22)
[2023-05-21] MEDS ORDERED: ASPIRIN COATED 81 MG TABLET.EC ONE (08:33)
[2023-05-21] MEDS ORDERED: HEPARIN NA (PORCINE) 5,000 UNITS/ML 1ML VIAL ONE ×2 (08:34→22:23)
[2023-05-21] MEDS ORDERED: CLOPIDOGREL BISULFATE 75 MG TABLET (FP) ONE (08:34)
[2023-05-21] MEDS ORDERED: LOSARTAN POTASSIUM 50 MG TABLET ONE ×2 (08:34→22:23)
[2023-05-21] MEDS ORDERED: LEVOTHYROXINE NA 100 MCG TABLET (FP) ONE (08:34)
[2023-05-21] MEDS ORDERED: LEVOTHYROXINE NA 25 MCG TABLET (FP) ONE (08:34)
[2023-05-21] MEDS: LEVOTHYROXINE NA 112 MCG TABLET (FP) PO SCH (09:04)
[2023-05-21] MEDS: CLOPIDOGREL BISULFATE 75 MG TABLET (FP) PO SCH (09:07)
[2023-05-21] MEDS: HEPARIN NA (PORCINE) 5,000 UNITS/ML 1ML VIAL SQ SCH ×2 (09:07→22:31)
[2023-05-21] MEDS: amLODIPine BESYLATE 5 MG TABLET (FP) PO SCH ×3 (09:07→22:32)
[2023-05-21] MEDS: CARVEDILOL 3.125 MG TABLET (FP) PO SCH ×3 (09:07→22:32)
[2023-05-21] MEDS: ASPIRIN COATED 81 MG TABLET.EC PO SCH (09:07)
[2023-05-21] MEDS: LOSARTAN POTASSIUM 50 MG TABLET PO SCH ×3 (09:07→22:33)
[2023-05-21] MEDS ORDERED: CARVEDILOL 3.125 MG TABLET (FP) PO SCH (10:00)
[2023-05-21] MEDS: LETROZOLE 2.5 MG TABLET (FP) PO SCH (12:16)
[2023-05-21] MEDS ORDERED: INSULIN (NOVOLOG) ASPART 100 UNITS/ML 10ML VIAL ONE (12:21)
[2023-05-21] MEDS: INSULIN SLIDING SCALE (NOVOLOG) 1 VIAL SQ SCH ×2 (12:23→16:19)
[2023-05-21 15:45] LABS: EPI CELLS 36 /uL (0-25.1); HYALINE CASTS 0 /uL (0-3.1); PH,URINE 5.5 (5.0-8.0); URINE APPEARANCE CLEAR; URINE BACTERIA 64 /uL (0-1359); URINE BILIRUBIN NEGATIVE (NEGATIVE); URINE COLOR YELLOW; URINE GLUCOSE (UA) NEGATIVE (NEGATIVE); URINE KETONE NEGATIVE (NEGATIVE); URINE LEUK ESTERASE 2+ (NEGATIVE); URINE NITRITE NEGATIVE (NEGATIVE); URINE PROTEIN 2+ (NEGATIVE); URINE RBC 14 /uL (0-23.9); URINE UROBILINOGEN 0.2 mg/dL (0.2-1.0); URINE WBC 84 /uL (0-25.8)
[2023-05-21] MEDS ORDERED: ACETAMINOPHEN 325 MG TABLET (FP) ONE (20:23)
[2023-05-21] MEDS: ACETAMINOPHEN 325 MG TABLET (FP) PO PRN (20:32)
[2023-05-21] MEDS ORDERED: ATORVASTATIN CA 20 MG TABLET (FP) ONE (22:22)
[2023-05-21] MEDS ORDERED: CARVEDILOL 3.125 MG TABLET (FP) ONE (22:22)
[2023-05-21] MEDS: ATORVASTATIN CA 20 MG TABLET (FP) PO SCH (22:31)
[2023-05-22] MEDS ORDERED: DEXTROSE 50%-WATER 25 GM/50 ML DISP.SYRIN ONE (06:52)
[2023-05-22] MEDS ORDERED: DEXTROSE 50%-WATER - 25 GM/50 ML VIAL IVPUSH ONE (06:52)
[2023-05-22 08:30] LABS: BASO % 0.6 % (0-2.0); EOS % 3.7 % (0-4.5); HEMATOCRIT 29.4 % (32.4-45.2); HEMOGLOBIN 9.8 GM/dL (10.7-15.3); LYMPH % 31.6 % (8-40); MCH 30.7 pg (25.7-33.7); MCHC 33.5 g/dl (32.0-36.0); MEAN CELL VOLUME 91.7 fl (80-96); MEAN PLT VOLUME 9.4 fl (7.5-11.1); MONO % 10.4 % (3.8-10.2); NEUT % 53.7 % (42.8-82.8); PLATELET COUNT 263 10^3/uL (134-434); RDW 13.8 % (11.6-15.6); WHITE BLOOD COUNT 4.4 K/mm3 (4.0-10.0)
[2023-05-22 08:35] LABS: POTASSIUM 4.3 mmol/L (3.5-5.1)
[2023-05-22 08:36] LABS: CALCIUM 8.8 mg/dL (8.5-10.1)
[2023-05-22 08:37] LABS: BLOOD UREA NITROGEN 39.4 mg/dL (7-18)
[2023-05-22 08:40] LABS: CREATININE 1.8 mg/dL (0.55-1.3)
[2023-05-22] MEDS: LEVOTHYROXINE NA 112 MCG TABLET (FP) PO SCH (09:11)
[2023-05-22] MEDS: INSULIN SLIDING SCALE (NOVOLOG) 1 VIAL SQ SCH ×3 (09:11→17:12)
[2023-05-22] MEDS ORDERED: HEPARIN NA (PORCINE) 5,000 UNITS/ML 1ML VIAL ONE (10:26)
[2023-05-22] MEDS ORDERED: ASPIRIN COATED 81 MG TABLET.EC ONE (10:26)
[2023-05-22] MEDS ORDERED: CLOPIDOGREL BISULFATE 75 MG TABLET (FP) ONE (10:26)
[2023-05-22] MEDS: HEPARIN NA (PORCINE) 5,000 UNITS/ML 1ML VIAL SQ SCH ×2 (10:34→21:35)
[2023-05-22] MEDS: CLOPIDOGREL BISULFATE 75 MG TABLET (FP) PO SCH (10:34)
[2023-05-22] MEDS: ASPIRIN COATED 81 MG TABLET.EC PO SCH (10:34)
[2023-05-22] MEDS: LETROZOLE 2.5 MG TABLET (FP) PO SCH (11:15)
[2023-05-22] MEDS ORDERED: ACETAMINOPHEN 325 MG TABLET (FP) ONE (11:15)
[2023-05-22] MEDS: ACETAMINOPHEN 325 MG TABLET (FP) PO PRN ×2 (11:17→21:35)
[2023-05-22] MEDS ORDERED: amLODIPine BESYLATE 5 MG TABLET (FP) PO SCH (13:00)
[2023-05-22] MEDS: hydrALAZINE HCL 50 MG TABLET (FP) PO SCH ×2 (15:06→21:34)
[2023-05-22 15:37] VITALS: BMI 33.5
[2023-05-22] MEDS ORDERED: amLODIPine BESYLATE 5 MG TABLET (FP) PO ONE (18:18)
[2023-05-22] MEDS: ATORVASTATIN CA 20 MG TABLET (FP) PO SCH (21:35)
[2023-05-23] MEDS: INSULIN SLIDING SCALE (NOVOLOG) 1 VIAL SQ SCH ×3 (06:14→17:41)
[2023-05-23] MEDS: hydrALAZINE HCL 50 MG TABLET (FP) PO SCH ×4 (06:15→22:53)
[2023-05-23] MEDS: LEVOTHYROXINE NA 112 MCG TABLET (FP) PO SCH (06:32)
[2023-05-23 08:00] LABS: CHLORIDE 108 mmol/L (98-107); SODIUM 137 mmol/L (136-145)
[2023-05-23 08:07] LABS: CALCIUM 8.7 mg/dL (8.5-10.1)
[2023-05-23 08:08] LABS: ANION GAP 10 MMOL/L (8-16); BLOOD UREA NITROGEN 36.4 mg/dL (7-18); CO2 20 mmol/L (21-32)
[2023-05-23 08:09] LABS: BASO % 0.7 % (0-2.0); EOS % 4.1 % (0-4.5); HEMATOCRIT 28.7 % (32.4-45.2); HEMOGLOBIN 9.3 GM/dL (10.7-15.3); LYMPH % 21.7 % (8-40); MCH 29.9 pg (25.7-33.7); MCHC 32.2 g/dl (32.0-36.0); MEAN CELL VOLUME 92.7 fl (80-96); MEAN PLT VOLUME 9.8 fl (7.5-11.1); MONO % 9.1 % (3.8-10.2); NEUT % 64.4 % (42.8-82.8); PLATELET COUNT 252 10^3/uL (134-434); RDW 13.5 % (11.6-15.6); WHITE BLOOD COUNT 3.8 K/mm3 (4.0-10.0)
[2023-05-23 08:11] LABS: CREATININE 1.8 mg/dL (0.55-1.3); PHOSPHOROUS 3.4 mg/dL (2.5-4.9); SGOT/AST 21 U/L (15-37); SGPT/ALT 24 U/L (13-61)
[2023-05-23 08:12] LABS: BILIRUBIN,TOTAL 0.5 mg/dL (0.2-1)
[2023-05-23 08:16] LABS: ALBUMIN 3.1 g/dl (3.4-5.0); ALK PHOS 102 U/L (45-117); GLUCOSE,RANDOM 521 mg/dL (74-106); TOT PROT 6.5 g/dl (6.4-8.2)
[2023-05-23] MEDS: HEPARIN NA (PORCINE) 5,000 UNITS/ML 1ML VIAL SQ SCH ×2 (10:09→21:08)
[2023-05-23] MEDS: amLODIPine BESYLATE 10 MG TABLET (FP) PO SCH (10:09)
[2023-05-23] MEDS: ASPIRIN COATED 81 MG TABLET.EC PO SCH (10:09)
[2023-05-23] MEDS: CLOPIDOGREL BISULFATE 75 MG TABLET (FP) PO SCH (10:09)
[2023-05-23] MEDS: LETROZOLE 2.5 MG TABLET (FP) PO SCH (10:11)
[2023-05-23] MEDS ORDERED: INSULIN (NOVOLOG) ASPART 100 UNITS/ML 10ML VIAL ONE ×2 (12:08→17:38)
[2023-05-23] MEDS ORDERED: ALPRAZolam 0.25 MG TABLET PO ONE (13:30)
[2023-05-23] MEDS: ACETAMINOPHEN 325 MG TABLET (FP) PO PRN (13:45)
[2023-05-23 18:32] LABS: CHOLESTEROL 152 mg/dL (50-200)
[2023-05-23 18:34] LABS: LDL CHOLESTEROL (ONLY SJRH) 69 mg/dL (5-100)
[2023-05-23 18:35] LABS: HDL CHOLESTEROL 76 mg/dL (40-60)
[2023-05-23 18:37] LABS: N-TERMINAL BNP 854.3 pg/ml (5-125)
[2023-05-23 19:12] VITALS: RESP 18
[2023-05-23] MEDS: ATORVASTATIN CA 20 MG TABLET (FP) PO SCH (21:08)
[2023-05-23] MEDS ORDERED: LETROZOLE 2.5 MG TABLET (FP) PO SCH (23:45)
[2023-05-24] MEDS: ACETAMINOPHEN 325 MG TABLET (FP) PO PRN ×2 (03:48→13:08)
[2023-05-24] MEDS: hydrALAZINE HCL 50 MG TABLET (FP) PO SCH (05:27)
[2023-05-24] MEDS ORDERED: INSULIN (NOVOLOG) ASPART 100 UNITS/ML 10ML VIAL ONE ×2 (05:41→12:10)
[2023-05-24 06:17] VITALS: PULSE 63; TEMP 99.3
[2023-05-24] MEDS: INSULIN SLIDING SCALE (NOVOLOG) 1 VIAL SQ SCH ×2 (06:20→12:12)
[2023-05-24] MEDS: LEVOTHYROXINE NA 112 MCG TABLET (FP) PO SCH (06:23)
[2023-05-24] MEDS ORDERED: INSULIN (LEVEMIR) 100 UNITS/ML UNITS SQ SCH ×2 (07:00→22:00)
[2023-05-24 07:51] LABS: BASO % 0.8 % (0-2.0); EOS % 3.4 % (0-4.5); HEMATOCRIT 27.5 % (32.4-45.2); HEMOGLOBIN 9.1 GM/dL (10.7-15.3); LYMPH % 21.2 % (8-40); MCH 30.3 pg (25.7-33.7); MCHC 32.9 g/dl (32.0-36.0); MEAN CELL VOLUME 92.2 fl (80-96); MEAN PLT VOLUME 9.9 fl (7.5-11.1); MONO % 9.5 % (3.8-10.2); NEUT % 65.1 % (42.8-82.8); PLATELET COUNT 235 10^3/uL (134-434); RBC 2.99 M/mm3 (3.60-5.2); RDW 13.8 % (11.6-15.6); WHITE BLOOD COUNT 4.2 K/mm3 (4.0-10.0)
[2023-05-24 08:08] LABS: CHLORIDE 107 mmol/L (98-107); POTASSIUM 5.2 mmol/L (3.5-5.1); SODIUM 136 mmol/L (136-145)
[2023-05-24 08:14] LABS: CALCIUM 8.5 mg/dL (8.5-10.1)
[2023-05-24 08:15] LABS: ALBUMIN 3.2 g/dl (3.4-5.0); ANION GAP 11 MMOL/L (8-16); BLOOD UREA NITROGEN 36.1 mg/dL (7-18); CO2 19 mmol/L (21-32); MAGNESIUM 1.9 mg/dL (1.8-2.4)
[2023-05-24 08:17] LABS: PHOSPHOROUS 3.6 mg/dL (2.5-4.9); SGPT/ALT 22 U/L (13-61)
[2023-05-24 08:18] LABS: CREATININE 1.9 mg/dL (0.55-1.3); SGOT/AST 20 U/L (15-37)
[2023-05-24 08:19] LABS: TOT PROT 6.4 g/dl (6.4-8.2)
[2023-05-24 08:21] LABS: ALK PHOS 98 U/L (45-117)
[2023-05-24 08:28] LABS: BILIRUBIN,TOTAL 0.6 mg/dL (0.2-1)
[2023-05-24 08:30] LABS: GLUCOSE,RANDOM 503 mg/dL (74-106)
[2023-05-24] MEDS: amLODIPine BESYLATE 10 MG TABLET (FP) PO SCH (09:41)
[2023-05-24] MEDS: CLOPIDOGREL BISULFATE 75 MG TABLET (FP) PO SCH (09:41)
[2023-05-24] MEDS: ASPIRIN COATED 81 MG TABLET.EC PO SCH (09:41)
[2023-05-24] MEDS: HEPARIN NA (PORCINE) 5,000 UNITS/ML 1ML VIAL SQ SCH (09:41)
[2023-05-24 09:52] VITALS: BP 113/52
== END 2023-05-24 13:54 | disposition home or self-care (01) ==
LOC: JER 02:58 → JERBED 07:52 → J4W 05-22 14:34
PROVIDERS: ADMIT Internal Medicine; ATTEND Internal Medicine
PROC: 3E0337Z Introduction of Electrolytic and Water Balance Substance into Peripheral Vein, Percutaneous Approach (ICD-10-PCS; principal; 2023-05-21)
PROC: 3E023GC Introduction of Other Therapeutic Substance into Muscle, Percutaneous Approach (ICD-10-PCS; 2023-05-21)
PROC: 3E013VG Introduction of Insulin into Subcutaneous Tissue, Percutaneous Approach (ICD-10-PCS; 2023-05-21)
DX: E11.649 Type 2 diabetes mellitus with hypoglycemia without coma (principal); E86.0 Dehydration; R55 Syncope and collapse; N17.9 Acute kidney failure, unspecified; R42 Dizziness and giddiness; C50.919 Malignant neoplasm of unspecified site of unspecified female breast; I10 Essential (primary) hypertension; Z29.8 Encounter for other specified prophylactic measures; I69.998 Other sequelae following unspecified cerebrovascular disease; Z87.891 Personal history of nicotine dependence; Z88.5 Allergy status to narcotic agent; Z91.011 Allergy to milk products; Z90.10 Acquired absence of unspecified breast and nipple
CPT/HCPCS: 0241U-QW; 36415; 70450-TC; 71045-TC-FY; 80048; 80053; 80061; 81003; 82010; 82550; 82553; 82728; 82803; 82962; 83036; 83540; 83550; 83735; 83880; 83930; 84100; 84443; 84484; 85025; 85610; 85730; 87040; 87077; 87086; 87186; 93005; 93010; 93306-TC; 96360; 96361; 96372; 97116-GP; 97162-GP; 99285-25; G0378; J1644

== ENCOUNTER 2023-09-16 08:50 | Inpatient (IN) | payer OTHER ==
[2023-09-16] MEDS ORDERED: ONDANSETRON 4 MG/2 ML VIAL IVPUSH ONE (10:53)
[2023-09-16 10:56] LABS: INR 1.01 (0.83-1.09); PROTHROMBIN TIME (PATIENT) 11.7 SEC (9.7-13.0)
[2023-09-16 10:59] LABS: ACTIVATED PTT 25.5 SECONDS (25.2-36.5)
[2023-09-16 11:05] LABS: HEMATOCRIT 22.3 % (32.4-45.2); HEMOGLOBIN 7.5 GM/dL (10.7-15.3); MCH 30.6 pg (25.7-33.7); MCHC 33.9 g/dl (32.0-36.0); MEAN CELL VOLUME 90.4 fl (80-96); PLATELET COUNT 171 10^3/uL (134-434); RBC 2.46 M/mm3 (3.60-5.2); RDW 14.6 % (11.6-15.6)
[2023-09-16 11:08] LABS: POTASSIUM 4.5 mmol/L (3.5-5.1)
[2023-09-16 11:10] LABS: ALBUMIN 3.5 g/dl (3.4-5.0); BLOOD UREA NITROGEN 22.4 mg/dL (7-18)
[2023-09-16 11:12] LABS: WHITE BLOOD COUNT 0.8 K/mm3 (4.0-10.0)
[2023-09-16 11:13] LABS: CREATININE 1.9 mg/dL (0.55-1.3)
[2023-09-16 11:15] LABS: BILIRUBIN,TOTAL 0.6 mg/dL (0.2-1); TOT PROT 7.6 g/dl (6.4-8.2)
[2023-09-16] MEDS ORDERED: SODIUM CHLORIDE 1,000 ML IV STA (12:57)
[2023-09-16] MEDS ORDERED: ONDANSETRON 4 MG/2 ML VIAL ONE (12:57)
[2023-09-16 13:05] LABS: ANISOCYTOSIS 2+; MACROCYTOSIS 0
[2023-09-16] MEDS ORDERED: PIPERACILLIN/TAZOB 4.5 GM 4.5 GM in DEXTROSE 5%-WATER 100 ML IVPB ONE (15:14)
[2023-09-16] MEDS ORDERED: PIPERACILLIN/TAZOB 4.5 GM 4.5 GM/100 ML BAG IVPB ONE (15:18)
[2023-09-16] MEDS ORDERED: PEGFILGRASTIM (NEULASTA) 6 MG/0.6 ML DISP.SYRIN SQ ONE (15:57)
[2023-09-16] MEDS ORDERED: ACETAMINOPHEN 325 MG TABLET (FP) PO PRN (16:13)
[2023-09-16] MEDS: ENOXAPARIN NA (PORCINE) 40 MG/0.4 ML DISP.SYRIN SQ SCH (17:09)
[2023-09-16] MEDS: POLYETHYLENE GLYCOL (HEALTHYLAX) 3350 17 GM PACKET PO SCH (17:09)
[2023-09-16] MEDS: LACTATED RINGERS SOLUTION 1,000 ML/1,000 ML INFUS.BAG IV SCH (17:14)
[2023-09-16] MEDS: INSULIN ASPART SLIDING SCALE (NOVOLOG) 1 VIAL SQ SCH (17:17)
[2023-09-16] MEDS: hydrALAZINE HCL 50 MG TABLET (FP) PO SCH (22:35)
[2023-09-16] MEDS: ATORVASTATIN CA 20 MG TABLET (FP) PO SCH (22:35)
[2023-09-16] MEDS: SENNOSIDES 8.8 MG/5 ML SYRUP PO SCH (22:40)
[2023-09-17] MEDS: INSULIN ASPART SLIDING SCALE (NOVOLOG) 1 VIAL SQ SCH ×5 (00:47→22:03)
[2023-09-17] MEDS: MELATONIN 5 MG TABLETS PO PRN (00:48)
[2023-09-17] MEDS: LEVOTHYROXINE NA 112 MCG TABLET (FP) PO SCH (06:33)
[2023-09-17] MEDS ORDERED: oxyCODONE HCL 5 MG TABLET PO PRN (08:00)
[2023-09-17] MEDS ORDERED: ALBUTEROL SO4 0.083% IH SOL 2.5 MG/3 ML VIAL.NEB. NEB PRN (08:04)
[2023-09-17] MEDS: hydrALAZINE HCL 50 MG TABLET (FP) PO SCH ×4 (08:54→21:42)
[2023-09-17] MEDS: ENOXAPARIN NA (PORCINE) 40 MG/0.4 ML DISP.SYRIN SQ SCH (09:30)
[2023-09-17] MEDS: UMECLIDINIUM/VILANTEROL (ANORO) 62.5/25 MCG INHALER IH SCH (09:30)
[2023-09-17] MEDS: POLYETHYLENE GLYCOL (HEALTHYLAX) 3350 17 GM PACKET PO SCH (09:30)
[2023-09-17] MEDS: CLOPIDOGREL BISULFATE 75 MG TABLET (FP) PO SCH (09:31)
[2023-09-17] MEDS: FAMOTIDINE 20 MG TABLET PO SCH (09:31)
[2023-09-17] MEDS: ASPIRIN 81 MG CHEWABLE TABLETS PO SCH (09:31)
[2023-09-17] MEDS: amLODIPine BESYLATE 10 MG TABLET (FP) PO SCH (09:31)
[2023-09-17 09:45] LABS: MCH 30.6 pg (25.7-33.7); MCHC 34.5 g/dl (32.0-36.0); MEAN CELL VOLUME 88.7 fl (80-96); MEAN PLT VOLUME 8.7 fl (7.5-11.1); PLATELET COUNT 159 10^3/uL (134-434); RBC 2.14 M/mm3 (3.60-5.2)
[2023-09-17 09:55] LABS: HEMOGLOBIN 6.5 GM/dL (10.7-15.3); WHITE BLOOD COUNT 0.8 K/mm3 (4.0-10.0)
[2023-09-17] MEDS ORDERED: LETROZOLE 2.5 MG TABLET (FP) PO SCH (10:00)
[2023-09-17 10:26] LABS: POTASSIUM 4.5 mmol/L (3.5-5.1)
[2023-09-17 10:34] LABS: BLOOD UREA NITROGEN 20.4 mg/dL (7-18); CALCIUM 8.7 mg/dL (8.5-10.1)
[2023-09-17 10:37] LABS: CREATININE 1.5 mg/dL (0.55-1.3)
[2023-09-17 10:40] LABS: ANISOCYTOSIS 2+; MACROCYTOSIS 0
[2023-09-17] MEDS ORDERED: diphenhydrAMINE HCL 25 MG CAPSULE (FP) PO PRN (10:57)
[2023-09-17] MEDS: TBO-FILGRASTIM 300 MCG/0.5 ML DISP.SYRINGE SQ SCH (11:23)
[2023-09-17] MEDS: LIPASE/PROTEASE/AMYLASE 6,000 UNIT CAPSULE PO SCH ×2 (11:24→16:51)
[2023-09-17] MEDS ORDERED: LANTUS SQ SCH (12:00)
[2023-09-17] MEDS ORDERED: [UNRECOGNIZED DRUG - OTHER] SQ SCH (12:00)
[2023-09-17] MEDS ORDERED: INSULIN (LEVEMIR) 100 UNITS/ML UNITS SQ SCH (12:00)
[2023-09-17] MEDS ORDERED: INSULIN (LEVEMIR) 100 UNITS/ML UNITS SQ ONE (17:03)
[2023-09-17] MEDS ORDERED: hydrALAZINE HCL 20 MG/ML VIAL IVPB ONE (18:07)
[2023-09-17] MEDS: LACTATED RINGERS SOLUTION 1,000 ML/1,000 ML INFUS.BAG IV SCH (20:36)
[2023-09-17] MEDS: ATORVASTATIN CA 20 MG TABLET (FP) PO SCH (21:42)
[2023-09-17] MEDS: LOSARTAN POTASSIUM 50 MG TABLET PO SCH (21:42)
[2023-09-17] MEDS: LETROZOLE 2.5 MG TABLET (FP) PO SCH (21:52)
[2023-09-17] MEDS: SENNOSIDES 8.8 MG/5 ML SYRUP PO SCH (21:53)
[2023-09-17] MEDS: ACETAMINOPHEN 325 MG TABLET (FP) PO PRN (21:54)
[2023-09-18] MEDS ORDERED: DEXTROSE 50%-WATER 25 GM/50 ML DISP.SYRIN IVPUSH PRN (02:38)
[2023-09-18] MEDS: ACETAMINOPHEN 325 MG TABLET (FP) PO PRN ×2 (03:38→17:16)
[2023-09-18] MEDS: hydrALAZINE HCL 50 MG TABLET (FP) PO SCH ×4 (05:49→17:17)
[2023-09-18] MEDS: LEVOTHYROXINE NA 112 MCG TABLET (FP) PO SCH (06:00)
[2023-09-18] MEDS: INSULIN ASPART SLIDING SCALE (NOVOLOG) 1 VIAL SQ SCH ×4 (06:00→21:52)
[2023-09-18] MEDS: LIPASE/PROTEASE/AMYLASE 6,000 UNIT CAPSULE PO SCH ×4 (08:27→17:18)
[2023-09-18] MEDS: ASPIRIN 81 MG CHEWABLE TABLETS PO SCH (09:02)
[2023-09-18] MEDS: FAMOTIDINE 20 MG TABLET PO SCH (09:02)
[2023-09-18] MEDS: INSULIN (LEVEMIR) 100 UNITS/ML UNITS SQ SCH (09:02)
[2023-09-18] MEDS: CLOPIDOGREL BISULFATE 75 MG TABLET (FP) PO SCH (09:02)
[2023-09-18] MEDS: amLODIPine BESYLATE 10 MG TABLET (FP) PO SCH (09:02)
[2023-09-18] MEDS: POLYETHYLENE GLYCOL (HEALTHYLAX) 3350 17 GM PACKET PO SCH ×2 (09:02→21:53)
[2023-09-18] MEDS: UMECLIDINIUM/VILANTEROL (ANORO) 62.5/25 MCG INHALER IH SCH (09:10)
[2023-09-18] MEDS ORDERED: INSULIN (LEVEMIR) 100 UNITS/ML UNITS SQ SCH (10:00)
[2023-09-18 10:40] LABS: HEMATOCRIT 30.8 % (32.4-45.2); HEMOGLOBIN 10.3 GM/dL (10.7-15.3); MCHC 33.3 g/dl (32.0-36.0); MEAN CELL VOLUME 90.1 fl (80-96); MEAN PLT VOLUME 8.7 fl (7.5-11.1); PLATELET COUNT 164 10^3/uL (134-434); RBC 3.42 M/mm3 (3.60-5.2); WHITE BLOOD COUNT 5.5 K/mm3 (4.0-10.0)
[2023-09-18 11:08] LABS: RETICULOCYTES 0.21 % (0.5-1.5)
[2023-09-18] MEDS: TBO-FILGRASTIM 300 MCG/0.5 ML DISP.SYRINGE SQ SCH (11:19)
[2023-09-18 11:22] LABS: POTASSIUM 4.4 mmol/L (3.5-5.1)
[2023-09-18 11:25] LABS: CALCIUM 9.4 mg/dL (8.5-10.1)
[2023-09-18 11:26] LABS: ALBUMIN 3.5 g/dl (3.4-5.0); MAGNESIUM 1.8 mg/dL (1.8-2.4)
[2023-09-18 11:28] LABS: BLOOD UREA NITROGEN 17.5 mg/dL (7-18); PHOSPHOROUS 2.6 mg/dL (2.5-4.9)
[2023-09-18 11:29] LABS: CREATININE 1.6 mg/dL (0.55-1.3)
[2023-09-18 11:30] LABS: TOT PROT 7.5 g/dl (6.4-8.2)
[2023-09-18 11:36] LABS: ANISOCYTOSIS 0; HELMET CELLS 0; HOWELL-JOLLY BODIES 0; MACROCYTOSIS 0; OVALOCYTE 0; ROULEAU 0; SICKELED CELLS 0; TARGET CELLS 0; TEAR DROP CELLS 0; TOXIC GRANULATION 0
[2023-09-18] MEDS: SODIUM BICARBONATE 650 MG TABLET PO SCH (12:22)
[2023-09-18] MEDS: LOSARTAN POTASSIUM 50 MG TABLET PO SCH (21:53)
[2023-09-18] MEDS: ATORVASTATIN CA 20 MG TABLET (FP) PO SCH (21:53)
[2023-09-18] MEDS: LETROZOLE 2.5 MG TABLET (FP) PO SCH (21:53)
[2023-09-18] MEDS: SENNOSIDES 8.6MG TABLET (FP) PO SCH (21:53)
[2023-09-18] MEDS: ONDANSETRON 4 MG/2 ML VIAL IVPUSH PRN (22:43)
[2023-09-19] MEDS: hydrALAZINE HCL 50 MG TABLET (FP) PO SCH ×3 (01:36→17:12)
[2023-09-19] MEDS: INSULIN ASPART SLIDING SCALE (NOVOLOG) 1 VIAL SQ SCH ×4 (06:00→21:58)
[2023-09-19] MEDS: LEVOTHYROXINE NA 112 MCG TABLET (FP) PO SCH (06:00)
[2023-09-19] MEDS: INSULIN (LEVEMIR) 100 UNITS/ML UNITS SQ SCH (06:00)
[2023-09-19] MEDS: LIPASE/PROTEASE/AMYLASE 6,000 UNIT CAPSULE PO SCH ×3 (08:08→17:13)
[2023-09-19] MEDS: ACETAMINOPHEN 325 MG TABLET (FP) PO PRN ×4 (08:08→21:52)
[2023-09-19] MEDS: ONDANSETRON 4 MG/2 ML VIAL IVPUSH PRN ×2 (08:58→16:24)
[2023-09-19] MEDS: amLODIPine BESYLATE 10 MG TABLET (FP) PO SCH (09:22)
[2023-09-19] MEDS: SODIUM BICARBONATE 650 MG TABLET PO SCH (09:22)
[2023-09-19] MEDS: ASPIRIN 81 MG CHEWABLE TABLETS PO SCH (09:22)
[2023-09-19] MEDS: FAMOTIDINE 20 MG TABLET PO SCH (09:22)
[2023-09-19] MEDS: CLOPIDOGREL BISULFATE 75 MG TABLET (FP) PO SCH (09:22)
[2023-09-19] MEDS: POLYETHYLENE GLYCOL (HEALTHYLAX) 3350 17 GM PACKET PO SCH ×3 (09:23→21:59)
[2023-09-19] MEDS: UMECLIDINIUM/VILANTEROL (ANORO) 62.5/25 MCG INHALER IH SCH (09:27)
[2023-09-19 11:33] LABS: HEMATOCRIT 26.1 % (32.4-45.2); HEMOGLOBIN 8.6 GM/dL (10.7-15.3); MCHC 32.9 g/dl (32.0-36.0); MEAN CELL VOLUME 91.3 fl (80-96); MEAN PLT VOLUME 8.3 fl (7.5-11.1); RBC 2.86 M/mm3 (3.60-5.2); RDW 13.8 % (11.6-15.6)
[2023-09-19 11:35] LABS: PLATELET COUNT 136 10^3/uL (134-434)
[2023-09-19 11:59] LABS: POTASSIUM 4.5 mmol/L (3.5-5.1)
[2023-09-19 12:09] LABS: ALBUMIN 3.2 g/dl (3.4-5.0)
[2023-09-19 12:49] LABS: CALCIUM 8.4 mg/dL (8.5-10.1)
[2023-09-19 12:50] LABS: BLOOD UREA NITROGEN 17.1 mg/dL (7-18); MAGNESIUM 1.9 mg/dL (1.8-2.4)
[2023-09-19 12:57] LABS: PHOSPHOROUS 2.1 mg/dL (2.5-4.9)
[2023-09-19 12:58] LABS: CREATININE 1.9 mg/dL (0.55-1.3)
[2023-09-19 12:59] LABS: BILIRUBIN,TOTAL 0.5 mg/dL (0.2-1); TOT PROT 6.7 g/dl (6.4-8.2)
[2023-09-19] MEDS: SODIUM CHLORIDE 1,000 ML IV SCH (15:41)
[2023-09-19] MEDS: LOSARTAN POTASSIUM 50 MG TABLET PO SCH (21:52)
[2023-09-19] MEDS: SENNOSIDES 8.6MG TABLET (FP) PO SCH (21:52)
[2023-09-19] MEDS: ATORVASTATIN CA 20 MG TABLET (FP) PO SCH (21:52)
[2023-09-19] MEDS: LETROZOLE 2.5 MG TABLET (FP) PO SCH (21:59)
[2023-09-19] MEDS ORDERED: guaiFENesin/D-M SUGAR-FREE/ACLHOL-FREE (200 MG/10 MG) 5 ML PO PRN (22:19)
[2023-09-19] MEDS ORDERED: BENZOCAINE/MENTHOL 1 EACH LOZENGE MM PRN (22:20)
[2023-09-19] MEDS: guaiFENesin/D-M SUGAR-FREE/ACLHOL-FREE 5 ML UNIT DOSE PO PRN (23:07)
[2023-09-20] MEDS ORDERED: REMDESIVIR 200 MG in SODIUM CHLORIDE 250 ML IVPB ONE (01:00)
[2023-09-20] MEDS: hydrALAZINE HCL 50 MG TABLET (FP) PO SCH ×3 (02:06→17:44)
[2023-09-20] MEDS: ONDANSETRON 4 MG/2 ML VIAL IVPUSH PRN ×5 (03:56→23:57)
[2023-09-20] MEDS ORDERED: TRIMETHOBENZAMIDE HCL 200MG/2ML INJ IM ONE (04:42)
[2023-09-20] MEDS ORDERED: MINERAL OIL ENEMA 133 ML ENEMA RC ONE (04:42)
[2023-09-20] MEDS: POLYETHYLENE GLYCOL (HEALTHYLAX) 3350 17 GM PACKET PO SCH ×4 (05:20→22:52)
[2023-09-20] MEDS ORDERED: INSULIN (NOVOLOG) ASPART 100 UNITS/ML 10ML VIAL ONE (06:55)
[2023-09-20] MEDS: INSULIN (LEVEMIR) 100 UNITS/ML UNITS SQ SCH (06:57)
[2023-09-20] MEDS: INSULIN ASPART SLIDING SCALE (NOVOLOG) 1 VIAL SQ SCH ×4 (06:58→22:56)
[2023-09-20] MEDS: LEVOTHYROXINE NA 112 MCG TABLET (FP) PO SCH (07:04)
[2023-09-20] MEDS: SODIUM CHLORIDE 1,000 ML IV SCH ×2 (08:03→14:30)
[2023-09-20] MEDS: CLOPIDOGREL BISULFATE 75 MG TABLET (FP) PO SCH (09:16)
[2023-09-20] MEDS: FAMOTIDINE 20 MG TABLET PO SCH (09:16)
[2023-09-20] MEDS: SODIUM BICARBONATE 650 MG TABLET PO SCH (09:17)
[2023-09-20] MEDS: ENOXAPARIN NA (PORCINE) 40 MG/0.4 ML DISP.SYRIN SQ SCH (09:17)
[2023-09-20] MEDS: ASPIRIN 81 MG CHEWABLE TABLETS PO SCH (09:17)
[2023-09-20] MEDS: amLODIPine BESYLATE 10 MG TABLET (FP) PO SCH (09:17)
[2023-09-20 10:31] LABS: HEMATOCRIT 26.4 % (32.4-45.2); HEMOGLOBIN 8.6 GM/dL (10.7-15.3); MCH 29.3 pg (25.7-33.7); MCHC 32.5 g/dl (32.0-36.0); MEAN CELL VOLUME 90.3 fl (80-96); MEAN PLT VOLUME 8.6 fl (7.5-11.1); PLATELET COUNT 104 10^3/uL (134-434); RBC 2.92 M/mm3 (3.60-5.2); RDW 14.1 % (11.6-15.6); WHITE BLOOD COUNT 14.7 K/mm3 (4.0-10.0)
[2023-09-20] MEDS: LIPASE/PROTEASE/AMYLASE 6,000 UNIT CAPSULE PO SCH ×3 (10:37→17:44)
[2023-09-20] MEDS: UMECLIDINIUM/VILANTEROL (ANORO) 62.5/25 MCG INHALER IH SCH (10:37)
[2023-09-20 10:46] LABS: POTASSIUM 4.2 mmol/L (3.5-5.1)
[2023-09-20 10:50] LABS: CALCIUM 8.8 mg/dL (8.5-10.1)
[2023-09-20 10:51] LABS: BLOOD UREA NITROGEN 20.1 mg/dL (7-18)
[2023-09-20 10:54] LABS: CREATININE 1.9 mg/dL (0.55-1.3)
[2023-09-20 10:55] LABS: BILIRUBIN,TOTAL 0.4 mg/dL (0.2-1); TOT PROT 6.6 g/dl (6.4-8.2)
[2023-09-20 10:56] LABS: ANISOCYTOSIS 0; MACROCYTOSIS 0
[2023-09-20] MEDS ORDERED: BISACODYL 5 MG TABLET.DR (FP) PO ONE (18:13)
[2023-09-20] MEDS: ACETAMINOPHEN 325 MG TABLET (FP) PO PRN (19:10)
[2023-09-20] MEDS: DOCUSATE SODIUM 100 MG CAPSULE (FP) PO SCH (22:51)
[2023-09-20] MEDS: ATORVASTATIN CA 20 MG TABLET (FP) PO SCH (22:52)
[2023-09-20] MEDS: SENNOSIDES 8.6MG TABLET (FP) PO SCH (22:52)
[2023-09-20] MEDS: LOSARTAN POTASSIUM 50 MG TABLET PO SCH (22:54)
[2023-09-21] MEDS: LETROZOLE 2.5 MG TABLET (FP) PO SCH ×2 (01:45)
[2023-09-21] MEDS: hydrALAZINE HCL 50 MG TABLET (FP) PO SCH ×3 (01:46→18:03)
[2023-09-21] MEDS: POLYETHYLENE GLYCOL (HEALTHYLAX) 3350 17 GM PACKET PO SCH ×3 (07:54→23:37)
[2023-09-21] MEDS ORDERED: INSULIN (NOVOLOG) ASPART 100 UNITS/ML 10ML VIAL ONE ×3 (07:55→20:13)
[2023-09-21] MEDS: INSULIN ASPART SLIDING SCALE (NOVOLOG) 1 VIAL SQ SCH ×4 (07:56→23:32)
[2023-09-21] MEDS: INSULIN (LEVEMIR) 100 UNITS/ML UNITS SQ SCH (07:56)
[2023-09-21] MEDS: LIPASE/PROTEASE/AMYLASE 6,000 UNIT CAPSULE PO SCH ×3 (07:57→18:03)
[2023-09-21] MEDS: LEVOTHYROXINE NA 112 MCG TABLET (FP) PO SCH (07:57)
[2023-09-21] MEDS: ACETAMINOPHEN 325 MG TABLET (FP) PO PRN (09:35)
[2023-09-21] MEDS: ENOXAPARIN NA (PORCINE) 40 MG/0.4 ML DISP.SYRIN SQ SCH (09:49)
[2023-09-21] MEDS: FAMOTIDINE 20 MG TABLET PO SCH (09:49)
[2023-09-21] MEDS: ASPIRIN 81 MG CHEWABLE TABLETS PO SCH (09:49)
[2023-09-21] MEDS: CLOPIDOGREL BISULFATE 75 MG TABLET (FP) PO SCH (09:49)
[2023-09-21] MEDS: SODIUM BICARBONATE 650 MG TABLET PO SCH (09:49)
[2023-09-21] MEDS: amLODIPine BESYLATE 10 MG TABLET (FP) PO SCH (09:49)
[2023-09-21] MEDS: REMDESIVIR 100 MG in SODIUM CHLORIDE 250 ML IVPB SCH (09:50)
[2023-09-21] MEDS: UMECLIDINIUM/VILANTEROL (ANORO) 62.5/25 MCG INHALER IH SCH (09:54)
[2023-09-21] MEDS: ONDANSETRON *ODT* 4 MG TABLET SL SCH ×2 (12:23→18:03)
[2023-09-21] MEDS: AMINO ACIDS 4.25%/D5W 1,000 ML IV SCH ×2 (13:19→23:08)
[2023-09-21] MEDS: BISACODYL 10 MG SUPP.RECT PR ONE ×2 (13:53→15:38)
[2023-09-21] MEDS: ATORVASTATIN CA 20 MG TABLET (FP) PO SCH (23:09)
[2023-09-21] MEDS: LOSARTAN POTASSIUM 50 MG TABLET PO SCH (23:09)
[2023-09-21] MEDS: DOCUSATE SODIUM 100 MG CAPSULE (FP) PO SCH (23:36)
[2023-09-21] MEDS: SENNOSIDES 8.6MG TABLET (FP) PO SCH (23:37)
[2023-09-22] MEDS: hydrALAZINE HCL 50 MG TABLET (FP) PO SCH ×4 (02:49→18:34)
[2023-09-22] MEDS ORDERED: BENZOCAINE/MENTHOL (CHLORASEPTIC ) LOZENGE MM PRN (03:23)
[2023-09-22] MEDS: ACETAMINOPHEN 325 MG TABLET (FP) PO PRN ×2 (03:32→15:21)
[2023-09-22] MEDS: MELATONIN 5 MG TABLETS PO PRN (03:33)
[2023-09-22] MEDS: LETROZOLE 2.5 MG TABLET (FP) PO SCH ×2 (03:57→21:43)
[2023-09-22] MEDS: POLYETHYLENE GLYCOL (HEALTHYLAX) 3350 17 GM PACKET PO SCH ×3 (06:20→21:41)
[2023-09-22] MEDS: INSULIN (LEVEMIR) 100 UNITS/ML UNITS SQ SCH (06:23)
[2023-09-22] MEDS: INSULIN ASPART SLIDING SCALE (NOVOLOG) 1 VIAL SQ SCH ×4 (06:23→21:41)
[2023-09-22] MEDS: LEVOTHYROXINE NA 112 MCG TABLET (FP) PO SCH (06:24)
[2023-09-22] MEDS: ONDANSETRON *ODT* 4 MG TABLET SL SCH ×3 (06:24→16:30)
[2023-09-22] MEDS: LIPASE/PROTEASE/AMYLASE 6,000 UNIT CAPSULE PO SCH ×3 (08:57→17:07)
[2023-09-22] MEDS: ENOXAPARIN NA (PORCINE) 40 MG/0.4 ML DISP.SYRIN SQ SCH (09:36)
[2023-09-22] MEDS: SODIUM BICARBONATE 650 MG TABLET PO SCH (09:37)
[2023-09-22] MEDS: FAMOTIDINE 20 MG TABLET PO SCH (09:37)
[2023-09-22] MEDS: CLOPIDOGREL BISULFATE 75 MG TABLET (FP) PO SCH (09:37)
[2023-09-22] MEDS: ASPIRIN 81 MG CHEWABLE TABLETS PO SCH (09:37)
[2023-09-22] MEDS: amLODIPine BESYLATE 10 MG TABLET (FP) PO SCH (09:37)
[2023-09-22] MEDS: ONDANSETRON 4 MG/2 ML VIAL IVPUSH PRN (10:11)
[2023-09-22] MEDS: REMDESIVIR 100 MG in SODIUM CHLORIDE 250 ML IVPB SCH (11:16)
[2023-09-22] MEDS: UMECLIDINIUM/VILANTEROL (ANORO) 62.5/25 MCG INHALER IH SCH (11:29)
[2023-09-22] MEDS ORDERED: BISACODYL 10 MG SUPP.RECT PR ONE (14:15)
[2023-09-22] MEDS ORDERED: TRIMETHOBENZAMIDE HCL 200MG/2ML INJ IM ONE (14:15)
[2023-09-22] MEDS: guaiFENesin/D-M SUGAR-FREE/ACLHOL-FREE 5 ML UNIT DOSE PO PRN (15:10)
[2023-09-22] MEDS ORDERED: MAGNESIUM CITRATE 300 ML BOTTLE PO ONE (15:30)
[2023-09-22] MEDS ORDERED: METHYLNALTREXONE BROMIDE 8 MG/0.4 ML SYRINGE SQ ONE (16:00)
[2023-09-22] MEDS: SENNOSIDES 8.6MG TABLET (FP) PO SCH (21:41)
[2023-09-22] MEDS: LOSARTAN POTASSIUM 50 MG TABLET PO SCH (21:41)
[2023-09-22] MEDS: DOCUSATE SODIUM 100 MG CAPSULE (FP) PO SCH (21:41)
[2023-09-22] MEDS: ATORVASTATIN CA 20 MG TABLET (FP) PO SCH (21:41)
[2023-09-23] MEDS: ACETAMINOPHEN 325 MG TABLET (FP) PO PRN ×2 (00:01→22:40)
[2023-09-23] MEDS: guaiFENesin/D-M SUGAR-FREE/ACLHOL-FREE 5 ML UNIT DOSE PO PRN ×4 (02:00→21:56)
[2023-09-23] MEDS: hydrALAZINE HCL 50 MG TABLET (FP) PO SCH ×3 (02:00→17:02)
[2023-09-23] MEDS: MELATONIN 5 MG TABLETS PO PRN (02:04)
[2023-09-23] MEDS: LEVOTHYROXINE NA 112 MCG TABLET (FP) PO SCH (06:00)
[2023-09-23] MEDS: INSULIN ASPART SLIDING SCALE (NOVOLOG) 1 VIAL SQ SCH ×4 (06:00→21:59)
[2023-09-23] MEDS: INSULIN (LEVEMIR) 100 UNITS/ML UNITS SQ SCH (06:00)
[2023-09-23] MEDS: POLYETHYLENE GLYCOL (HEALTHYLAX) 3350 17 GM PACKET PO SCH ×4 (06:00→21:55)
[2023-09-23] MEDS: ONDANSETRON *ODT* 4 MG TABLET SL SCH ×3 (06:01→16:30)
[2023-09-23] MEDS: LIPASE/PROTEASE/AMYLASE 6,000 UNIT CAPSULE PO SCH ×3 (09:16→16:30)
[2023-09-23] MEDS: REMDESIVIR 100 MG in SODIUM CHLORIDE 250 ML IVPB SCH (09:39)
[2023-09-23] MEDS: ENOXAPARIN NA (PORCINE) 40 MG/0.4 ML DISP.SYRIN SQ SCH (09:39)
[2023-09-23] MEDS: amLODIPine BESYLATE 10 MG TABLET (FP) PO SCH (09:40)
[2023-09-23] MEDS: FAMOTIDINE 20 MG TABLET PO SCH (09:40)
[2023-09-23] MEDS: UMECLIDINIUM/VILANTEROL (ANORO) 62.5/25 MCG INHALER IH SCH (09:40)
[2023-09-23] MEDS: ASPIRIN 81 MG CHEWABLE TABLETS PO SCH (09:40)
[2023-09-23] MEDS: CLOPIDOGREL BISULFATE 75 MG TABLET (FP) PO SCH (09:40)
[2023-09-23] MEDS: SODIUM BICARBONATE 650 MG TABLET PO SCH (09:40)
[2023-09-23] MEDS: AMINO ACIDS 4.25%/D5W 1,000 ML IV SCH (10:57)
[2023-09-23 11:05] LABS: HEMATOCRIT 23.8 % (32.4-45.2); MCH 30.5 pg (25.7-33.7); MCHC 33.5 g/dl (32.0-36.0); MEAN PLT VOLUME 9.8 fl (7.5-11.1); PLATELET COUNT 84 10^3/uL (134-434); RBC 2.61 M/mm3 (3.60-5.2); RDW 14.7 % (11.6-15.6); WHITE BLOOD COUNT 5.9 K/mm3 (4.0-10.0)
[2023-09-23 11:24] LABS: POTASSIUM 3.6 mmol/L (3.5-5.1)
[2023-09-23 11:26] LABS: ALBUMIN 2.6 g/dl (3.4-5.0); CALCIUM 8.2 mg/dL (8.5-10.1)
[2023-09-23 11:29] LABS: CREATININE 1.9 mg/dL (0.55-1.3)
[2023-09-23 11:30] LABS: BILIRUBIN,TOTAL 0.6 mg/dL (0.2-1); BLOOD UREA NITROGEN 20.4 mg/dL (7-18)
[2023-09-23 11:31] LABS: TOT PROT 6.2 g/dl (6.4-8.2)
[2023-09-23 11:51] LABS: ANISOCYTOSIS 0; HELMET CELLS 0; HOWELL-JOLLY BODIES 0; MACROCYTOSIS 0; OVALOCYTE 0; ROULEAU 0; SICKELED CELLS 0; TARGET CELLS 0; TEAR DROP CELLS 0; TOXIC GRANULATION 0
[2023-09-23] MEDS: DOCUSATE SODIUM 100 MG CAPSULE (FP) PO SCH (21:54)
[2023-09-23] MEDS: SENNOSIDES 8.6MG TABLET (FP) PO SCH (21:55)
[2023-09-23] MEDS: ATORVASTATIN CA 20 MG TABLET (FP) PO SCH (21:55)
[2023-09-23] MEDS: LOSARTAN POTASSIUM 50 MG TABLET PO SCH (21:55)
[2023-09-23] MEDS: LETROZOLE 2.5 MG TABLET (FP) PO SCH (21:56)
[2023-09-24] MEDS: ONDANSETRON 4 MG/2 ML VIAL IVPUSH PRN (00:13)
[2023-09-24] MEDS: hydrALAZINE HCL 50 MG TABLET (FP) PO SCH ×2 (01:50→09:37)
[2023-09-24] MEDS: ONDANSETRON *ODT* 4 MG TABLET SL SCH ×3 (06:05→16:40)
[2023-09-24] MEDS: LEVOTHYROXINE NA 112 MCG TABLET (FP) PO SCH (06:05)
[2023-09-24] MEDS: POLYETHYLENE GLYCOL (HEALTHYLAX) 3350 17 GM PACKET PO SCH ×4 (06:06→22:47)
[2023-09-24] MEDS: INSULIN ASPART SLIDING SCALE (NOVOLOG) 1 VIAL SQ SCH ×4 (06:09→22:45)
[2023-09-24] MEDS: INSULIN (LEVEMIR) 100 UNITS/ML UNITS SQ SCH (06:09)
[2023-09-24] MEDS: ACETAMINOPHEN 325 MG TABLET (FP) PO PRN ×3 (06:12→21:23)
[2023-09-24] MEDS: LIPASE/PROTEASE/AMYLASE 6,000 UNIT CAPSULE PO SCH ×3 (08:29→16:39)
[2023-09-24] MEDS: REMDESIVIR 100 MG in SODIUM CHLORIDE 250 ML IVPB SCH (09:36)
[2023-09-24] MEDS: ENOXAPARIN NA (PORCINE) 40 MG/0.4 ML DISP.SYRIN SQ SCH (09:36)
[2023-09-24] MEDS: ASPIRIN 81 MG CHEWABLE TABLETS PO SCH (09:37)
[2023-09-24] MEDS: amLODIPine BESYLATE 10 MG TABLET (FP) PO SCH (09:37)
[2023-09-24] MEDS: SODIUM BICARBONATE 650 MG TABLET PO SCH (09:37)
[2023-09-24] MEDS: CLOPIDOGREL BISULFATE 75 MG TABLET (FP) PO SCH (09:37)
[2023-09-24] MEDS: FAMOTIDINE 20 MG TABLET PO SCH (09:37)
[2023-09-24] MEDS: UMECLIDINIUM/VILANTEROL (ANORO) 62.5/25 MCG INHALER IH SCH ×2 (09:43→11:20)
[2023-09-24] MEDS: AMINO ACIDS 4.25%/D5W 1,000 ML IV SCH (12:25)
[2023-09-24] MEDS: guaiFENesin/D-M SUGAR-FREE/ACLHOL-FREE 5 ML UNIT DOSE PO PRN (13:14)
[2023-09-24 16:23] LABS: BASO % 0.7 % (0-2.0); EOS % 3.1 % (0-4.5); HEMATOCRIT 24.1 % (32.4-45.2); LYMPH % 21.5 % (8-40); MCH 29.8 pg (25.7-33.7); MCHC 33.3 g/dl (32.0-36.0); MEAN CELL VOLUME 89.6 fl (80-96); MEAN PLT VOLUME 10.2 fl (7.5-11.1); MONO % 20.1 % (3.8-10.2); NEUT % 54.6 % (42.8-82.8); PLATELET COUNT 128 10^3/uL (134-434); RBC 2.69 M/mm3 (3.60-5.2); RDW 14.7 % (11.6-15.6); WHITE BLOOD COUNT 5.2 K/mm3 (4.0-10.0)
[2023-09-24 16:54] LABS: ANISOCYTOSIS 2+; MACROCYTOSIS 0; OVALOCYTE 1+; TARGET CELLS 1+
[2023-09-24 16:56] LABS: POTASSIUM 3.8 mmol/L (3.5-5.1)
[2023-09-24 16:58] LABS: CALCIUM 7.6 mg/dL (8.5-10.1)
[2023-09-24 16:59] LABS: ALBUMIN 2.4 g/dl (3.4-5.0)
[2023-09-24] MEDS: hydrALAZINE HCL 25 MG TABLET (FP) PO SCH (17:01)
[2023-09-24 17:02] LABS: CREATININE 1.9 mg/dL (0.55-1.3)
[2023-09-24 17:03] LABS: TOT PROT 6.1 g/dl (6.4-8.2)
[2023-09-24 17:04] LABS: BILIRUBIN,TOTAL 0.3 mg/dL (0.2-1)
[2023-09-24] MEDS: SENNOSIDES 8.6MG TABLET (FP) PO SCH (21:22)
[2023-09-24] MEDS: DOCUSATE SODIUM 100 MG CAPSULE (FP) PO SCH (21:22)
[2023-09-24] MEDS: LOSARTAN POTASSIUM 50 MG TABLET PO SCH (21:22)
[2023-09-24] MEDS: ATORVASTATIN CA 20 MG TABLET (FP) PO SCH (21:23)
[2023-09-24] MEDS: LETROZOLE 2.5 MG TABLET (FP) PO SCH (22:45)
[2023-09-25] MEDS: hydrALAZINE HCL 25 MG TABLET (FP) PO SCH ×3 (01:18→16:59)
[2023-09-25] MEDS: ONDANSETRON 4 MG/2 ML VIAL IVPUSH PRN (01:18)
[2023-09-25] MEDS: LEVOTHYROXINE NA 112 MCG TABLET (FP) PO SCH (06:15)
[2023-09-25] MEDS: INSULIN (LEVEMIR) 100 UNITS/ML UNITS SQ SCH (06:15)
[2023-09-25] MEDS: ONDANSETRON *ODT* 4 MG TABLET SL SCH ×3 (06:15→16:59)
[2023-09-25] MEDS: INSULIN ASPART SLIDING SCALE (NOVOLOG) 1 VIAL SQ SCH ×4 (06:17→22:04)
[2023-09-25] MEDS: POLYETHYLENE GLYCOL (HEALTHYLAX) 3350 17 GM PACKET PO SCH ×3 (06:18→21:48)
[2023-09-25] MEDS: ENOXAPARIN NA (PORCINE) 40 MG/0.4 ML DISP.SYRIN SQ SCH (09:36)
[2023-09-25] MEDS: LIPASE/PROTEASE/AMYLASE 6,000 UNIT CAPSULE PO SCH ×3 (09:37→16:59)
[2023-09-25] MEDS: FAMOTIDINE 20 MG TABLET PO SCH (09:37)
[2023-09-25] MEDS: ASPIRIN 81 MG CHEWABLE TABLETS PO SCH (09:37)
[2023-09-25] MEDS: CLOPIDOGREL BISULFATE 75 MG TABLET (FP) PO SCH (09:37)
[2023-09-25] MEDS: amLODIPine BESYLATE 10 MG TABLET (FP) PO SCH (09:37)
[2023-09-25] MEDS: SODIUM BICARBONATE 650 MG TABLET PO SCH (09:37)
[2023-09-25] MEDS: UMECLIDINIUM/VILANTEROL (ANORO) 62.5/25 MCG INHALER IH SCH (09:45)
[2023-09-25] MEDS: AMINO ACIDS 4.25%/D5W 1,000 ML IV SCH (13:28)
[2023-09-25] MEDS: CARVEDILOL 6.25 MG TABLET (FP) PO SCH ×2 (15:25→21:50)
[2023-09-25] MEDS: ACETAMINOPHEN 325 MG TABLET (FP) PO PRN (17:05)
[2023-09-25] MEDS ORDERED: SODIUM CHLORIDE 1,000 ML IV SCH (20:00)
[2023-09-25] MEDS: SENNOSIDES 8.6MG TABLET (FP) PO SCH (21:49)
[2023-09-25] MEDS: LETROZOLE 2.5 MG TABLET (FP) PO SCH (21:49)
[2023-09-25] MEDS: DOCUSATE SODIUM 100 MG CAPSULE (FP) PO SCH (21:49)
[2023-09-25] MEDS: ATORVASTATIN CA 20 MG TABLET (FP) PO SCH (21:50)
[2023-09-25] MEDS: LOSARTAN POTASSIUM 50 MG TABLET PO SCH (21:50)
[2023-09-26] MEDS: hydrALAZINE HCL 25 MG TABLET (FP) PO SCH ×3 (01:26→18:13)
[2023-09-26] MEDS: ACETAMINOPHEN 325 MG TABLET (FP) PO PRN (01:29)
[2023-09-26] MEDS: POLYETHYLENE GLYCOL (HEALTHYLAX) 3350 17 GM PACKET PO SCH ×3 (06:28→21:33)
[2023-09-26] MEDS: INSULIN ASPART SLIDING SCALE (NOVOLOG) 1 VIAL SQ SCH ×4 (06:28→21:33)
[2023-09-26] MEDS: ONDANSETRON *ODT* 4 MG TABLET SL SCH ×3 (06:29→18:06)
[2023-09-26] MEDS: LEVOTHYROXINE NA 112 MCG TABLET (FP) PO SCH (06:29)
[2023-09-26] MEDS: INSULIN (LEVEMIR) 100 UNITS/ML UNITS SQ SCH (06:30)
[2023-09-26] MEDS: CARVEDILOL 6.25 MG TABLET (FP) PO SCH ×2 (09:39→21:32)
[2023-09-26] MEDS: SODIUM BICARBONATE 650 MG TABLET PO SCH (09:39)
[2023-09-26] MEDS: FAMOTIDINE 20 MG TABLET PO SCH (09:39)
[2023-09-26] MEDS: ENOXAPARIN NA (PORCINE) 40 MG/0.4 ML DISP.SYRIN SQ SCH (09:39)
[2023-09-26] MEDS: CLOPIDOGREL BISULFATE 75 MG TABLET (FP) PO SCH (09:39)
[2023-09-26] MEDS: ASPIRIN 81 MG CHEWABLE TABLETS PO SCH (09:39)
[2023-09-26] MEDS: amLODIPine BESYLATE 10 MG TABLET (FP) PO SCH (09:39)
[2023-09-26] MEDS: LIPASE/PROTEASE/AMYLASE 6,000 UNIT CAPSULE PO SCH ×3 (09:40→18:05)
[2023-09-26] MEDS: UMECLIDINIUM/VILANTEROL (ANORO) 62.5/25 MCG INHALER IH SCH (09:44)
[2023-09-26 10:16] LABS: BASO % 0.7 % (0-2.0); EOS % 2.2 % (0-4.5); HEMATOCRIT 24.8 % (32.4-45.2); HEMOGLOBIN 8.2 GM/dL (10.7-15.3); MCH 29.8 pg (25.7-33.7); MCHC 33.1 g/dl (32.0-36.0); MEAN CELL VOLUME 89.9 fl (80-96); MEAN PLT VOLUME 9.1 fl (7.5-11.1); MONO % 16.1 % (3.8-10.2); PLATELET COUNT 235 10^3/uL (134-434); RBC 2.76 M/mm3 (3.60-5.2); RDW 14.9 % (11.6-15.6)
[2023-09-26 10:38] LABS: POTASSIUM 4.3 mmol/L (3.5-5.1)
[2023-09-26 10:44] LABS: CALCIUM 7.8 mg/dL (8.5-10.1)
[2023-09-26 10:45] LABS: ALBUMIN 2.6 g/dl (3.4-5.0); BLOOD UREA NITROGEN 17.7 mg/dL (7-18)
[2023-09-26 10:47] LABS: PHOSPHOROUS 3.4 mg/dL (2.5-4.9)
[2023-09-26 10:48] LABS: CREATININE 1.7 mg/dL (0.55-1.3)
[2023-09-26 10:49] LABS: BILIRUBIN,TOTAL 0.3 mg/dL (0.2-1); TOT PROT 6.2 g/dl (6.4-8.2)
[2023-09-26] MEDS ORDERED: MINERAL OIL ENEMA 133 ML ENEMA RC ONE (11:00)
[2023-09-26] MEDS ORDERED: INSULIN ASPART SLIDING SCALE (NOVOLOG) 1 VIAL SQ ONE (11:53)
[2023-09-26] MEDS: guaiFENesin/D-M SUGAR-FREE/ACLHOL-FREE 5 ML UNIT DOSE PO PRN ×2 (12:28→21:35)
[2023-09-26 16:43] LABS: N-TERMINAL BNP 549.8 pg/ml (5-125)
[2023-09-26] MEDS ORDERED: BISACODYL 10 MG SUPP.RECT PR PRN (17:15)
[2023-09-26] MEDS: DOCUSATE SODIUM 100 MG CAPSULE (FP) PO SCH (21:31)
[2023-09-26] MEDS: LOSARTAN POTASSIUM 50 MG TABLET PO SCH (21:32)
[2023-09-26] MEDS: LETROZOLE 2.5 MG TABLET (FP) PO SCH (21:32)
[2023-09-26] MEDS: SENNOSIDES 8.6MG TABLET (FP) PO SCH (21:33)
[2023-09-26] MEDS: ATORVASTATIN CA 20 MG TABLET (FP) PO SCH (22:49)
[2023-09-27] MEDS: hydrALAZINE HCL 25 MG TABLET (FP) PO SCH ×2 (00:09→10:10)
[2023-09-27] MEDS: MELATONIN 5 MG TABLETS PO PRN (00:10)
[2023-09-27] MEDS: POLYETHYLENE GLYCOL (HEALTHYLAX) 3350 17 GM PACKET PO SCH ×2 (05:23→14:19)
[2023-09-27] MEDS: INSULIN ASPART SLIDING SCALE (NOVOLOG) 1 VIAL SQ SCH ×2 (06:15→12:26)
[2023-09-27] MEDS: ONDANSETRON *ODT* 4 MG TABLET SL SCH ×2 (06:16→10:11)
[2023-09-27] MEDS: LEVOTHYROXINE NA 112 MCG TABLET (FP) PO SCH (06:16)
[2023-09-27] MEDS: ACETAMINOPHEN 325 MG TABLET (FP) PO PRN (06:17)
[2023-09-27] MEDS: INSULIN (LEVEMIR) 100 UNITS/ML UNITS SQ SCH (06:17)
[2023-09-27 06:23] VITALS: BP 146/57; PULSE 61; RESP 18; TEMP 98.1
[2023-09-27] MEDS: SODIUM BICARBONATE 650 MG TABLET PO SCH (10:10)
[2023-09-27] MEDS: ASPIRIN 81 MG CHEWABLE TABLETS PO SCH (10:11)
[2023-09-27] MEDS: CLOPIDOGREL BISULFATE 75 MG TABLET (FP) PO SCH (10:11)
[2023-09-27] MEDS: FAMOTIDINE 20 MG TABLET PO SCH (10:11)
[2023-09-27] MEDS: amLODIPine BESYLATE 10 MG TABLET (FP) PO SCH (10:11)
[2023-09-27] MEDS: LIPASE/PROTEASE/AMYLASE 6,000 UNIT CAPSULE PO SCH ×2 (10:11→12:26)
[2023-09-27] MEDS: CARVEDILOL 6.25 MG TABLET (FP) PO SCH (10:11)
[2023-09-27] MEDS: UMECLIDINIUM/VILANTEROL (ANORO) 62.5/25 MCG INHALER IH SCH (10:11)
[2023-09-27 11:57] LABS: HIV INTERPRETATION NEGATIVE (NEGATIVE)
[2023-09-27 13:11] VITALS: BMI 29.9
== END 2023-09-27 14:48 | disposition home or self-care (01) | DRG 177 ==
LOC: JER 08:50 → JERBED 14:39 → J5S 16:50 → J8W 09-20 02:49 → OBSVTOIN 09-20 09:39 → J5S 09-21 21:48
PROVIDERS: ADMIT Internal Medicine; ATTEND Internal Medicine
PROC: 30233N1 Transfusion of Nonautologous Red Blood Cells into Peripheral Vein, Percutaneous Approach (ICD-10-PCS; 2023-09-17)
PROC: XW033E5 Introduction of Remdesivir Anti-infective into Peripheral Vein, Percutaneous Approach, New Technology Group 5 (ICD-10-PCS; principal; 2023-09-19)
DX: U07.1 COVID-19 (principal); D61.810 Antineoplastic chemotherapy induced pancytopenia; J12.82 Pneumonia due to coronavirus disease 2019; N18.9 Chronic kidney disease, unspecified; D64.9 Anemia, unspecified; I10 Essential (primary) hypertension; E03.9 Hypothyroidism, unspecified; C50.919 Malignant neoplasm of unspecified site of unspecified female breast; E11.9 Type 2 diabetes mellitus without complications; K59.00 Constipation, unspecified
CPT/HCPCS: 0241U-QW; 36415; 36430; 71045-TC-FY; 74176-TC; 76775-TC; 76856-TC; 80048; 80053; 82962; 83036; 83605; 83735; 83880; 84100; 84439; 84443; 84484; 85025; 85045; 85610; 85730; 86140; 86705; 86707; 86850; 86900; 86901; 86922; 87040; 87340; 87350; 87389; 87517; 87522; 93005; 93010; 94761; 97116-GP; 97161-GP; 99285-25; G0378; J0248; J1447; P9058; Q0162

== ENCOUNTER 2024-04-11 13:41 | Inpatient (IN) | payer OTHER ==
[2024-04-11 15:42] LABS: BASO % 0.4 % (0-2.0); EOS % 0.6 % (0-4.5); HEMOGLOBIN 7.8 GM/dL (10.7-15.3); LYMPH % 5.7 % (8-40); MCHC 32.4 g/dl (32.0-36.0); MEAN CELL VOLUME 101.9 fl (80-96); MEAN PLT VOLUME 9.2 fl (7.5-11.1); MONO % 4.3 % (3.8-10.2); RBC 2.36 M/mm3 (3.60-5.2); RDW 23.4 % (11.6-15.6)
[2024-04-11 15:44] LABS: PLATELET COUNT 54 10^3/uL (134-434)
[2024-04-11 15:48] LABS: INR 0.97 (0.83-1.09)
[2024-04-11 15:50] LABS: ACTIVATED PTT 32.3 SECONDS (25.2-36.5)
[2024-04-11 16:03] LABS: POTASSIUM 4.5 mmol/L (3.5-5.1)
[2024-04-11 16:04] LABS: CALCIUM 8.6 mg/dL (8.5-10.1)
[2024-04-11 16:05] LABS: ALBUMIN 3.4 g/dl (3.4-5.0); BLOOD UREA NITROGEN 33.1 mg/dL (7-18)
[2024-04-11 16:08] LABS: CREATININE 2.2 mg/dL (0.55-1.3)
[2024-04-11 16:10] LABS: BILIRUBIN,TOTAL 0.9 mg/dL (0.2-1); TOT PROT 8.1 g/dl (6.4-8.2)
[2024-04-11] MEDS ORDERED: morphine SULFATE 4 MG/ML VIAL ONE ×2 (16:13→21:38)
[2024-04-11] MEDS: LACTATED RINGERS SOLUTION 1000 ML INFUS.BAG IV ONE (16:34)
[2024-04-11 17:04] LABS: EPI CELLS 6 /uL (0-25.1); HYALINE CASTS 0 /uL (0-3.1); PH,URINE 5.5 (5.0-8.0); URINE APPEARANCE CLEAR; URINE BACTERIA 1 /uL (0-1359); URINE BILIRUBIN NEGATIVE (NEGATIVE); URINE COLOR YELLOW; URINE GLUCOSE (UA) NEGATIVE (NEGATIVE); URINE KETONE NEGATIVE (NEGATIVE); URINE LEUK ESTERASE NEGATIVE (NEGATIVE); URINE NITRITE NEGATIVE (NEGATIVE); URINE PROTEIN 3+ (NEGATIVE); URINE RBC 30 /uL (0-23.9); URINE UROBILINOGEN 0.2 mg/dL (0.2-1.0); URINE WBC 7 /uL (0-25.8)
[2024-04-11 17:05] LABS: ANISOCYTOSIS 2+; MACROCYTOSIS 1+; OVALOCYTE 1+; TEAR DROP CELLS 1+
[2024-04-11] MEDS: morphine CARPU-JECT 4 MG/1 ML DISP.SYRIN IVPUSH ONE ×2 (18:02→21:42)
[2024-04-11] MEDS: LIDOCAINE 5% TOPICAL PATCH TP ONE (19:38)
[2024-04-11] MEDS: LIDOCAINE PATCH REMOVAL MC SCH (22:01)
[2024-04-12] MEDS ORDERED: CYCLOBENZAPRINE HCL 5 MG TABLET ONE ×2 (00:14→08:40)
[2024-04-12] MEDS: CYCLOBENZAPRINE HCL 10 MG TABLET (FP) PO ONE (00:40)
[2024-04-12] MEDS ORDERED: ALBUTEROL SO4 HFA INHALER IH PRN (01:30)
[2024-04-12] MEDS ORDERED: MORPHINE SULFATE 2 MG/ML SYRINGE ONE (05:33)
[2024-04-12] MEDS: MORPHINE SULFATE 2 MG/ML SYRINGE IM PRN (05:45)
[2024-04-12] MEDS ORDERED: POLYETHYLENE GLYCOL (HEALTHYLAX) 3350 17 GM PACKET ONE (06:14)
[2024-04-12] MEDS ORDERED: LEVOTHYROXINE NA 50 MCG TABLET (FP) ONE (06:14)
[2024-04-12] MEDS ORDERED: LEVOTHYROXINE NA 25 MCG TABLET (FP) ONE (06:14)
[2024-04-12] MEDS ORDERED: hydrALAZINE HCL 50 MG TABLET (FP) ONE (06:15)
[2024-04-12] MEDS ORDERED: HEPARIN NA (PORCINE) 5,000 UNITS/ML 1ML VIAL ONE (06:15)
[2024-04-12] MEDS: HEPARIN NA (PORCINE) 5,000 UNITS/ML 1ML VIAL SQ SCH (06:30)
[2024-04-12] MEDS: hydrALAZINE HCL 50 MG TABLET (FP) PO SCH (06:30)
[2024-04-12] MEDS: POLYETHYLENE GLYCOL (HEALTHYLAX) 3350 17 GM PACKET PO SCH (06:30)
[2024-04-12] MEDS: LIPASE PO SCH (06:31)
[2024-04-12] MEDS: PROTEASE PO SCH (06:31)
[2024-04-12] MEDS: [UNRECOGNIZED DRUG - OTHER] PO SCH (06:31)
[2024-04-12] MEDS: AMYLASE PO SCH (06:31)
[2024-04-12] MEDS: LEVOTHYROXINE NA 112 MCG TABLET (FP) PO SCH (06:31)
[2024-04-12 08:28] LABS: POTASSIUM 4.4 mmol/L (3.5-5.1)
[2024-04-12 08:30] LABS: CALCIUM 8.5 mg/dL (8.5-10.1)
[2024-04-12 08:31] LABS: BASO % 0.4 % (0-2.0); EOS % 0.6 % (0-4.5); HEMATOCRIT 21.1 % (32.4-45.2); HEMOGLOBIN 7.1 GM/dL (10.7-15.3); LYMPH % 8.3 % (8-40); MCH 33.7 pg (25.7-33.7); MCHC 33.5 g/dl (32.0-36.0); MEAN CELL VOLUME 100.5 fl (80-96); MEAN PLT VOLUME 9.7 fl (7.5-11.1); MONO % 8.2 % (3.8-10.2); NEUT % 82.5 % (42.8-82.8); PLATELET COUNT 45 10^3/uL (134-434); RETICULOCYTES 1.91 % (0.5-1.5); WHITE BLOOD COUNT 10.5 K/mm3 (4.0-10.0)
[2024-04-12 08:31] LABS: BLOOD UREA NITROGEN 32.6 mg/dL (7-18); MAGNESIUM 2.5 mg/dL (1.8-2.4)
[2024-04-12 08:34] LABS: CREATININE 1.8 mg/dL (0.55-1.3); PHOSPHOROUS 4.3 mg/dL (2.5-4.9)
[2024-04-12] MEDS: INSULIN ASPART SLIDING SCALE (NOVOLOG) 1 VIAL SQ SCH (08:34)
[2024-04-12] MEDS: CYCLOBENZAPRINE HCL 5 MG TABLET PO PRN (08:35)
[2024-04-12 08:36] LABS: BILIRUBIN,TOTAL 0.5 mg/dL (0.2-1); TOT PROT 7.2 g/dl (6.4-8.2)
[2024-04-12 09:55] LABS: PLATELET ESTIMATE DECREASED
[2024-04-12] MEDS ORDERED: CYCLOBENZAPRINE HCL 5 MG TABLET PO ONE (10:00)
[2024-04-12] MEDS: CARVEDILOL 3.125 MG TABLET (FP) PO SCH (10:41)
[2024-04-12] MEDS: CLOPIDOGREL BISULFATE 75 MG TABLET (FP) PO SCH (10:41)
[2024-04-12] MEDS: amLODIPine BESYLATE 10 MG TABLET (FP) PO SCH (10:41)
[2024-04-12] MEDS: METHYL SALICYLATE/MENTHOL 30 GM TUBE TP SCH (10:41)
[2024-04-12] MEDS: ASPIRIN COATED 81 MG TABLET.EC PO SCH (10:41)
[2024-04-12] MEDS: UMECLIDINIUM/VILANTEROL (ANORO) 62.5/25 MCG INHALER IH SCH (10:42)
[2024-04-12 11:05] VITALS: BMI 27.8
[2024-04-12] MEDS: HYDROmorphone HCL CARPU-JECT 2 MG/1 ML DISP.SYRIN IVPB ONE (12:39)
[2024-04-12] MEDS: METHYLNALTREXONE BROMIDE 8 MG/0.4 ML SYRINGE SQ ONE (16:52)
[2024-04-12] MEDS: LIDOCAINE 4% PATCH TP SCH (18:44)
[2024-04-12] MEDS: ATORVASTATIN CA 20 MG TABLET (FP) PO SCH (21:21)
[2024-04-12] MEDS: LIDOCAINE PATCH REMOVAL MC SCH (21:28)
[2024-04-12] MEDS: INSULIN (LEVEMIR) 100 UNITS/ML UNITS SQ SCH (21:28)
[2024-04-12] MEDS: ACETAMINOPHEN 325 MG TABLET (FP) PO PRN (21:36)
[2024-04-12] MEDS: LETROZOLE 2.5 MG TABLET (FP) PO SCH (23:34)
[2024-04-13 08:12] LABS: BASO % 0.5 % (0-2.0); EOS % 0.4 % (0-4.5); HEMATOCRIT 19.4 % (32.4-45.2); LYMPH % 11.3 % (8-40); MCH 34.1 pg (25.7-33.7); MCHC 33.9 g/dl (32.0-36.0); MEAN CELL VOLUME 100.7 fl (80-96); MEAN PLT VOLUME 10.4 fl (7.5-11.1); MONO % 15.7 % (3.8-10.2); NEUT % 72.1 % (42.8-82.8); PLATELET COUNT 48 10^3/uL (134-434); RBC 1.92 M/mm3 (3.60-5.2); RDW 22.7 % (11.6-15.6); WHITE BLOOD COUNT 6.7 K/mm3 (4.0-10.0)
[2024-04-13 08:30] LABS: POTASSIUM 4.5 mmol/L (3.5-5.1)
[2024-04-13 08:34] LABS: CALCIUM 8.4 mg/dL (8.5-10.1)
[2024-04-13 08:35] LABS: ALBUMIN 2.8 g/dl (3.4-5.0); BLOOD UREA NITROGEN 35.3 mg/dL (7-18); MAGNESIUM 2.5 mg/dL (1.8-2.4)
[2024-04-13 08:38] LABS: CREATININE 1.9 mg/dL (0.55-1.3); PHOSPHOROUS 4.3 mg/dL (2.5-4.9)
[2024-04-13 08:39] LABS: BILIRUBIN,TOTAL 0.5 mg/dL (0.2-1); TOT PROT 6.8 g/dl (6.4-8.2)
[2024-04-13 08:46] LABS: HEMOGLOBIN 6.6 GM/dL (10.7-15.3)
[2024-04-13] MEDS: BISACODYL 10 MG SUPP.RECT PR ONE (15:01)
[2024-04-13] MEDS: oxyCODONE HCL 5 MG TABLET PO PRN (15:01)
[2024-04-13] MEDS: CYCLOBENZAPRINE HCL 5 MG TABLET PO SCH ×2 (17:24→18:15)
[2024-04-14] MEDS: PROTEASE PO SCH (09:34)
[2024-04-14] MEDS: [UNRECOGNIZED DRUG - OTHER] PO SCH (09:34)
[2024-04-14] MEDS: LIPASE PO SCH (09:34)
[2024-04-14] MEDS: AMYLASE PO SCH (09:34)
[2024-04-14] MEDS: ACETAMINOPHEN 1000 MG/100 ML BAG IVPB ONE ×2 (11:04→17:52)
[2024-04-14] MEDS: BISACODYL 5 MG TABLET.DR (FP) PO ONE (11:04)
[2024-04-14] MEDS: METHYLNALTREXONE BROMIDE 8 MG/0.4 ML SYRINGE SQ ONE (12:26)
[2024-04-14 12:49] LABS: HEMATOCRIT 24.4 % (32.4-45.2); HEMOGLOBIN 8.3 GM/dL (10.7-15.3); MCH 33.3 pg (25.7-33.7); MCHC 34.2 g/dl (32.0-36.0); MEAN CELL VOLUME 97.5 fl (80-96); MEAN PLT VOLUME 10.6 fl (7.5-11.1); PLATELET COUNT 48 10^3/uL (134-434); RDW 22.6 % (11.6-15.6); WHITE BLOOD COUNT 3.4 K/mm3 (4.0-10.0)
[2024-04-14 12:59] LABS: POTASSIUM 4.6 mmol/L (3.5-5.1)
[2024-04-14 13:04] LABS: CALCIUM 8.1 mg/dL (8.5-10.1)
[2024-04-14 13:05] LABS: ALBUMIN 2.8 g/dl (3.4-5.0); BLOOD UREA NITROGEN 29.9 mg/dL (7-18)
[2024-04-14 13:09] LABS: CREATININE 1.8 mg/dL (0.55-1.3)
[2024-04-14 13:10] LABS: TOT PROT 6.8 g/dl (6.4-8.2)
[2024-04-14 13:11] LABS: BILIRUBIN,TOTAL 0.7 mg/dL (0.2-1)
[2024-04-14 13:39] LABS: ANISOCYTOSIS 0; MACROCYTOSIS 0
[2024-04-14] MEDS: LACTULOSE 20 GM/30 ML UDC (FOR ORAL USE ONLY) PO ONE (17:52)
[2024-04-14] MEDS: MAGNESIUM HYDROX 2400MG/30ML ORAL SUSPENSION 30 ML CUP PO ONE (17:52)
[2024-04-15] MEDS: LORazepam 2 MG/ML SDV VIAL IVPUSH STA (13:21)
[2024-04-15 16:00] LABS: MCH 32.8 pg (25.7-33.7); MCHC 33.3 g/dl (32.0-36.0); MEAN CELL VOLUME 98.6 fl (80-96); MEAN PLT VOLUME 10.6 fl (7.5-11.1); PLATELET COUNT 71 10^3/uL (134-434); RBC 2.74 M/mm3 (3.60-5.2); RDW 22.8 % (11.6-15.6); WHITE BLOOD COUNT 4.1 K/mm3 (4.0-10.0)
[2024-04-15 16:24] LABS: POTASSIUM 4.7 mmol/L (3.5-5.1)
[2024-04-15 16:26] LABS: CALCIUM 8.5 mg/dL (8.5-10.1)
[2024-04-15 16:27] LABS: BLOOD UREA NITROGEN 31.4 mg/dL (7-18)
[2024-04-15 16:29] LABS: CREATININE 1.9 mg/dL (0.55-1.3)
[2024-04-15 16:31] LABS: BILIRUBIN,TOTAL 0.5 mg/dL (0.2-1); TOT PROT 7.6 g/dl (6.4-8.2)
[2024-04-15 17:34] LABS: ANISOCYTOSIS 1+; MACROCYTOSIS 0
[2024-04-15] MEDS: PEG 3350/NA SULF BICARB CL/KCL 4000 ML SOLN.RECON PO ONE (18:07)
[2024-04-15] MEDS: DEXTROSE 5%-0.45% SALINE 1,000 ML IV SCH (18:45)
[2024-04-15] MEDS: PATIENT'S OWN MEDICATION (NON-FORMULARY) (Linaclotide [Linzess] 290 MCG Capsule) PO SCH (19:28)
[2024-04-15] MEDS: ACETAMINOPHEN 1000 MG/100 ML BAG IVPB PRN (21:41)
[2024-04-16 08:15] LABS: POTASSIUM 5.3 mmol/L (3.5-5.1)
[2024-04-16 08:18] LABS: HEMATOCRIT 24.6 % (32.4-45.2); HEMOGLOBIN 8.2 GM/dL (10.7-15.3); MCH 33.2 pg (25.7-33.7); MCHC 33.4 g/dl (32.0-36.0); MEAN CELL VOLUME 99.2 fl (80-96); MEAN PLT VOLUME 9.6 fl (7.5-11.1); PLATELET COUNT 64 10^3/uL (134-434); RBC 2.48 M/mm3 (3.60-5.2); RDW 22.2 % (11.6-15.6); WHITE BLOOD COUNT 3.5 K/mm3 (4.0-10.0)
[2024-04-16 08:20] LABS: CALCIUM 8.3 mg/dL (8.5-10.1)
[2024-04-16 08:22] LABS: ALBUMIN 2.7 g/dl (3.4-5.0); BLOOD UREA NITROGEN 29.9 mg/dL (7-18)
[2024-04-16 08:24] LABS: CREATININE 1.7 mg/dL (0.55-1.3)
[2024-04-16 08:25] LABS: BILIRUBIN,TOTAL 0.6 mg/dL (0.2-1)
[2024-04-16 08:26] LABS: TOT PROT 6.9 g/dl (6.4-8.2)
[2024-04-16] MEDS: METHYLNALTREXONE BROMIDE 8 MG/0.4 ML SYRINGE SQ ONE (10:32)
[2024-04-16] MEDS: ACETAMINOPHEN 325 MG TABLET (FP) PO SCH (13:08)
[2024-04-16] MEDS: CYCLOBENZAPRINE HCL 5 MG TABLET PO SCH (13:08)
[2024-04-16] MEDS: LORazepam 2 MG/ML SDV VIAL IVPUSH ONE (14:56)
[2024-04-16] MEDS: oxyCODONE HCL 5 MG TABLET PO PRN (16:29)
[2024-04-16] MEDS: ACETAMINOPHEN 1000 MG/100 ML BAG IVPB SCH (17:22)
[2024-04-17 08:43] LABS: HEMATOCRIT 24.9 % (32.4-45.2); HEMOGLOBIN 8.4 GM/dL (10.7-15.3); MCH 33.1 pg (25.7-33.7); MCHC 33.8 g/dl (32.0-36.0); MEAN CELL VOLUME 98.1 fl (80-96); MEAN PLT VOLUME 9.4 fl (7.5-11.1); PLATELET COUNT 79 10^3/uL (134-434); RBC 2.54 M/mm3 (3.60-5.2); RDW 22.5 % (11.6-15.6); WHITE BLOOD COUNT 4.2 K/mm3 (4.0-10.0)
[2024-04-17 09:07] LABS: POTASSIUM 4.7 mmol/L (3.5-5.1)
[2024-04-17 09:11] LABS: ALBUMIN 2.7 g/dl (3.4-5.0); BLOOD UREA NITROGEN 32.2 mg/dL (7-18); CALCIUM 8.8 mg/dL (8.5-10.1); MAGNESIUM 2.4 mg/dL (1.8-2.4)
[2024-04-17 09:14] LABS: CREATININE 1.8 mg/dL (0.55-1.3); PHOSPHOROUS 4.1 mg/dL (2.5-4.9)
[2024-04-17 09:16] LABS: BILIRUBIN,TOTAL 0.5 mg/dL (0.2-1); TOT PROT 6.7 g/dl (6.4-8.2)
[2024-04-17] MEDS: CYCLOBENZAPRINE HCL 10 MG TABLET (FP) PO SCH (13:55)
[2024-04-17] MEDS: POLYETHYLENE GLYCOL (HEALTHYLAX) 3350 17 GM PACKET PO SCH (13:55)
[2024-04-17] MEDS: PEG 3350/NA SULF BICARB CL/KCL 4000 ML SOLN.RECON PO ONE (17:12)
[2024-04-18 07:46] LABS: HEMATOCRIT 26.2 % (32.4-45.2); HEMOGLOBIN 8.6 GM/dL (10.7-15.3); MCH 33.3 pg (25.7-33.7); MCHC 32.8 g/dl (32.0-36.0); MEAN CELL VOLUME 101.4 fl (80-96); MEAN PLT VOLUME 9.3 fl (7.5-11.1); PLATELET COUNT 93 10^3/uL (134-434); RBC 2.58 M/mm3 (3.60-5.2); RDW 22.9 % (11.6-15.6); WHITE BLOOD COUNT 4.7 K/mm3 (4.0-10.0)
[2024-04-18 08:08] LABS: POTASSIUM 5.3 mmol/L (3.5-5.1)
[2024-04-18 08:10] LABS: CALCIUM 8.5 mg/dL (8.5-10.1); MAGNESIUM 2.5 mg/dL (1.8-2.4)
[2024-04-18 08:11] LABS: ALBUMIN 2.7 g/dl (3.4-5.0); BLOOD UREA NITROGEN 35.9 mg/dL (7-18)
[2024-04-18 08:14] LABS: PHOSPHOROUS 4.7 mg/dL (2.5-4.9)
[2024-04-18 08:15] LABS: BILIRUBIN,TOTAL 0.5 mg/dL (0.2-1); TOT PROT 6.8 g/dl (6.4-8.2)
[2024-04-18] MEDS: Methylnaltrexone Bromide 12 MG/0.6 ML KIT SQ SCH (10:27)
[2024-04-18] MEDS: POLYETHYLENE GLYCOL 3350 255 GM BTL PO ONE (10:28)
[2024-04-18] MEDS: SODIUM PHOSPHATE/NA BIPHOS 133 ML ENEMA RC ONE (10:39)
[2024-04-18] MEDS: SODIUM CHLORIDE 1,000 ML IV SCH (13:09)
[2024-04-18] MEDS: ACETAMINOPHEN 1000 MG/100 ML BAG IVPB ONE (13:10)
[2024-04-18] MEDS: HEPARIN NA (PORCINE) 5,000 UNITS/ML 1ML VIAL SQ SCH (13:33)
[2024-04-18] MEDS: CEFTRIAXONE 1 GM in DEXTROSE 5%-WATER - 50 ML IVPB ONE (13:34)
[2024-04-18] MEDS: MINERAL OIL ENEMA 133 ML ENEMA RC SCH (20:32)
[2024-04-19] MEDS: ACETAMINOPHEN 325 MG TABLET (FP) PO ONE (02:06)
[2024-04-19] MEDS: PANTOPRAZOLE 40 MG TABLET PO SCH (12:22)
[2024-04-19] MEDS: LIPASE/PROTEASE/AMYLASE 36,000 UNIT CAPSULE PO SCH (12:46)
[2024-04-19] MEDS: traMADol HCL 50 MG TABLET PO PRN (13:34)
[2024-04-19 14:07] LABS: MCH 32.6 pg (25.7-33.7); MCHC 32.2 g/dl (32.0-36.0); MEAN CELL VOLUME 101.2 fl (80-96); MEAN PLT VOLUME 8.8 fl (7.5-11.1); PLATELET COUNT 110 10^3/uL (134-434); RBC 2.77 M/mm3 (3.60-5.2); RDW 23.3 % (11.6-15.6); WHITE BLOOD COUNT 3.8 K/mm3 (4.0-10.0)
[2024-04-19 14:29] LABS: POTASSIUM 4.8 mmol/L (3.5-5.1)
[2024-04-19 14:30] LABS: CALCIUM 8.6 mg/dL (8.5-10.1)
[2024-04-19 14:31] LABS: BLOOD UREA NITROGEN 38.5 mg/dL (7-18)
[2024-04-19 14:34] LABS: CREATININE 1.9 mg/dL (0.55-1.3)
[2024-04-19] MEDS: KETOROLAC TROMETHAMINE 30 MG/1 ML VIAL IVPUSH PRN (15:40)
[2024-04-19] MEDS ORDERED: INSULIN ASPART SLIDING SCALE (NOVOLOG) 1 VIAL SQ ONE (18:49)
[2024-04-20] MEDS: Methylnaltrexone Bromide 12 MG/0.6 ML KIT SQ SCH (11:36)
[2024-04-20] MEDS: DOCUSATE SODIUM 100 MG CAPSULE (FP) PO SCH (14:52)
[2024-04-21 08:45] LABS: BASO % 0.4 % (0-2.0); EOS % 1.5 % (0-4.5); HEMATOCRIT 26.5 % (32.4-45.2); HEMOGLOBIN 8.9 GM/dL (10.7-15.3); LYMPH % 10.5 % (8-40); MCH 33.2 pg (25.7-33.7); MCHC 33.5 g/dl (32.0-36.0); MEAN CELL VOLUME 99.1 fl (80-96); MEAN PLT VOLUME 8.6 fl (7.5-11.1); NEUT % 78.6 % (42.8-82.8); PLATELET COUNT 147 10^3/uL (134-434); RBC 2.67 M/mm3 (3.60-5.2); RDW 23.3 % (11.6-15.6); WHITE BLOOD COUNT 5.3 K/mm3 (4.0-10.0)
[2024-04-21 09:05] LABS: POTASSIUM 4.5 mmol/L (3.5-5.1)
[2024-04-21 09:09] LABS: BLOOD UREA NITROGEN 39.4 mg/dL (7-18); MAGNESIUM 2.9 mg/dL (1.8-2.4)
[2024-04-21 09:12] LABS: CALCIUM 8.9 mg/dL (8.5-10.1)
[2024-04-21 09:14] LABS: BILIRUBIN,TOTAL 0.6 mg/dL (0.2-1); TOT PROT 7.8 g/dl (6.4-8.2)
[2024-04-21 09:44] LABS: ANISOCYTOSIS 2+; MACROCYTOSIS 2+
[2024-04-21] MEDS: BISACODYL 10 MG SUPP.RECT PR ONE ×2 (11:01→15:35)
[2024-04-21] MEDS: TAMSULOSIN HCL 0.4 MG CAP PO ONE (18:48)
[2024-04-22] MEDS: ONDANSETRON 4 MG/2 ML VIAL IVPUSH PRN (02:08)
[2024-04-22 08:35] LABS: BASO % 0.5 % (0-2.0); EOS % 1.5 % (0-4.5); HEMATOCRIT 24.6 % (32.4-45.2); HEMOGLOBIN 8.2 GM/dL (10.7-15.3); LYMPH % 11.4 % (8-40); MCH 33.7 pg (25.7-33.7); MCHC 33.2 g/dl (32.0-36.0); MEAN CELL VOLUME 101.5 fl (80-96); MEAN PLT VOLUME 10.2 fl (7.5-11.1); MONO % 12.2 % (3.8-10.2); NEUT % 74.4 % (42.8-82.8); PLATELET COUNT 169 10^3/uL (134-434); RBC 2.42 M/mm3 (3.60-5.2); RDW 22.9 % (11.6-15.6); WHITE BLOOD COUNT 4.8 K/mm3 (4.0-10.0)
[2024-04-22 08:45] LABS: POTASSIUM 4.6 mmol/L (3.5-5.1)
[2024-04-22 08:50] LABS: ALBUMIN 2.6 g/dl (3.4-5.0); BLOOD UREA NITROGEN 32.8 mg/dL (7-18); CALCIUM 8.5 mg/dL (8.5-10.1); MAGNESIUM 2.8 mg/dL (1.8-2.4)
[2024-04-22 09:00] LABS: BILIRUBIN,TOTAL 0.4 mg/dL (0.2-1); CREATININE 1.8 mg/dL (0.55-1.3); TOT PROT 6.9 g/dl (6.4-8.2)
[2024-04-22] MEDS: TAMSULOSIN HCL 0.4 MG CAP PO SCH (11:37)
[2024-04-22] MEDS: ACETAMINOPHEN 325 MG TABLET (FP) PO ONE (23:27)
[2024-04-23] MEDS: ACETAMINOPHEN 325 MG TABLET (FP) PO ONE (06:13)
[2024-04-23] MEDS: METOCLOPRAMIDE HCL 10 MG TABLET (FP) PO SCH (10:52)
[2024-04-23] MEDS: BISACODYL 10 MG SUPP.RECT PR PRN (16:48)
[2024-04-24] MEDS: ACETAMINOPHEN 325 MG TABLET (FP) PO ONE ×2 (01:08→06:30)
[2024-04-24] MEDS: ACETAMINOPHEN 1000 MG/100 ML BAG IVPB PRN (13:47)
[2024-04-25] MEDS: INSULIN (LEVEMIR) 100 UNITS/ML UNITS SQ ONE (12:34)
[2024-04-25 12:39] LABS: POTASSIUM 5.3 mmol/L (3.5-5.1)
[2024-04-25 12:45] LABS: BLOOD UREA NITROGEN 36.5 mg/dL (7-18); CALCIUM 8.7 mg/dL (8.5-10.1)
[2024-04-25 12:46] LABS: ALBUMIN 2.8 g/dl (3.4-5.0)
[2024-04-25 12:51] LABS: BILIRUBIN,TOTAL 0.4 mg/dL (0.2-1); CREATININE 1.9 mg/dL (0.55-1.3); TOT PROT 7.6 g/dl (6.4-8.2)
[2024-04-25] MEDS: INSULIN (LEVEMIR) 100 UNITS/ML UNITS SQ SCH (21:43)
[2024-04-25] MEDS: ACETAMINOPHEN 1000 MG/100 ML BAG IVPB ONE (23:45)
[2024-04-26 08:11] LABS: BASO % 0.5 % (0-2.0); EOS % 0.7 % (0-4.5); HEMATOCRIT 25.7 % (32.4-45.2); HEMOGLOBIN 8.6 GM/dL (10.7-15.3); LYMPH % 9.3 % (8-40); MCH 33.7 pg (25.7-33.7); MCHC 33.6 g/dl (32.0-36.0); MEAN CELL VOLUME 100.3 fl (80-96); MEAN PLT VOLUME 8.4 fl (7.5-11.1); MONO % 11.8 % (3.8-10.2); NEUT % 77.7 % (42.8-82.8); PLATELET COUNT 197 10^3/uL (134-434); RBC 2.57 M/mm3 (3.60-5.2); RDW 23.2 % (11.6-15.6); WHITE BLOOD COUNT 5.3 K/mm3 (4.0-10.0)
[2024-04-26 08:30] LABS: POTASSIUM 4.8 mmol/L (3.5-5.1)
[2024-04-26 08:40] LABS: CALCIUM 8.8 mg/dL (8.5-10.1)
[2024-04-26 08:41] LABS: ALBUMIN 2.6 g/dl (3.4-5.0); BLOOD UREA NITROGEN 34.9 mg/dL (7-18)
[2024-04-26 08:44] LABS: CREATININE 1.9 mg/dL (0.55-1.3)
[2024-04-26 08:45] LABS: BILIRUBIN,TOTAL 0.3 mg/dL (0.2-1)
[2024-04-26 09:40] LABS: ANISOCYTOSIS 3+; MACROCYTOSIS 1+
[2024-04-26 09:45] LABS: PLATELET ESTIMATE ADEQUATE
[2024-04-26] MEDS: ACETAMINOPHEN 1000 MG/100 ML BAG IVPB PRN (16:13)
[2024-04-26] MEDS: hydrALAZINE HCL 50 MG TABLET (FP) PO SCH (22:19)
[2024-04-27] MEDS: MINERAL OIL ENEMA 133 ML ENEMA RC ONE (02:53)
[2024-04-27 07:51] LABS: BASO % 1.1 % (0-2.0); EOS % 1.5 % (0-4.5); HEMATOCRIT 27.8 % (32.4-45.2); HEMOGLOBIN 9.3 GM/dL (10.7-15.3); LYMPH % 14.4 % (8-40); MCH 33.8 pg (25.7-33.7); MCHC 33.5 g/dl (32.0-36.0); MEAN CELL VOLUME 100.8 fl (80-96); MEAN PLT VOLUME 9.7 fl (7.5-11.1); MONO % 16.6 % (3.8-10.2); NEUT % 66.4 % (42.8-82.8); PLATELET COUNT 249 10^3/uL (134-434); RBC 2.75 M/mm3 (3.60-5.2); RDW 22.7 % (11.6-15.6); WHITE BLOOD COUNT 4.4 K/mm3 (4.0-10.0)
[2024-04-27 07:57] LABS: POTASSIUM 4.5 mmol/L (3.5-5.1)
[2024-04-27 08:01] LABS: ALBUMIN 2.6 g/dl (3.4-5.0); BLOOD UREA NITROGEN 31.9 mg/dL (7-18); CALCIUM 8.8 mg/dL (8.5-10.1)
[2024-04-27 08:04] LABS: CREATININE 1.7 mg/dL (0.55-1.3)
[2024-04-27 08:07] LABS: BILIRUBIN,TOTAL 0.3 mg/dL (0.2-1); TOT PROT 7.2 g/dl (6.4-8.2)
[2024-04-27] MEDS: ACETAMINOPHEN 325 MG TABLET (FP) PO PRN (18:08)
[2024-04-28 09:07] LABS: BASO % 0.6 % (0-2.0); EOS % 1.7 % (0-4.5); HEMATOCRIT 27.1 % (32.4-45.2); HEMOGLOBIN 9.1 GM/dL (10.7-15.3); LYMPH % 19.4 % (8-40); MCH 33.4 pg (25.7-33.7); MCHC 33.5 g/dl (32.0-36.0); MEAN CELL VOLUME 99.7 fl (80-96); MEAN PLT VOLUME 7.9 fl (7.5-11.1); MONO % 18.4 % (3.8-10.2); NEUT % 59.9 % (42.8-82.8); PLATELET COUNT 233 10^3/uL (134-434); RBC 2.72 M/mm3 (3.60-5.2); RDW 22.1 % (11.6-15.6); WHITE BLOOD COUNT 4.2 K/mm3 (4.0-10.0)
[2024-04-28 09:15] LABS: ACTIVATED PTT 30.4 SECONDS (25.2-36.5)
[2024-04-28 09:18] LABS: INR 0.96 (0.83-1.09)
[2024-04-28 09:25] LABS: POTASSIUM 4.8 mmol/L (3.5-5.1)
[2024-04-28 09:33] LABS: ALBUMIN 2.7 g/dl (3.4-5.0); BLOOD UREA NITROGEN 32.2 mg/dL (7-18); CALCIUM 8.6 mg/dL (8.5-10.1); MAGNESIUM 2.3 mg/dL (1.8-2.4)
[2024-04-28 09:36] LABS: CREATININE 1.9 mg/dL (0.55-1.3)
[2024-04-28 09:37] LABS: BILIRUBIN,TOTAL 0.3 mg/dL (0.2-1); PHOSPHOROUS 4.1 mg/dL (2.5-4.9); TOT PROT 7.4 g/dl (6.4-8.2)
[2024-04-28] MEDS: ACETAMINOPHEN 1000 MG/100 ML BAG IVPB PRN (20:53)
[2024-04-29] MEDS: SIMETHICONE 80 MG TAB.CHEW (FP) PO ONE (03:36)
[2024-04-29] MEDS: hydrALAZINE HCL 20 MG/ML VIAL IVPB ONE (05:40)
[2024-04-29] MEDS: MINERAL OIL ENEMA 133 ML ENEMA RC ONE (06:00)
[2024-04-29 08:59] LABS: BASO % 0.6 % (0-2.0); EOS % 0.6 % (0-4.5); HEMATOCRIT 26.1 % (32.4-45.2); HEMOGLOBIN 8.7 GM/dL (10.7-15.3); MCH 33.2 pg (25.7-33.7); MCHC 33.1 g/dl (32.0-36.0); MEAN CELL VOLUME 100.4 fl (80-96); MEAN PLT VOLUME 7.9 fl (7.5-11.1); MONO % 12.4 % (3.8-10.2); NEUT % 79.4 % (42.8-82.8); PLATELET COUNT 226 10^3/uL (134-434); RDW 21.9 % (11.6-15.6); WHITE BLOOD COUNT 7.6 K/mm3 (4.0-10.0)
[2024-04-29 09:15] LABS: POTASSIUM 5.5 mmol/L (3.5-5.1)
[2024-04-29 09:17] LABS: ALBUMIN 2.6 g/dl (3.4-5.0); CALCIUM 8.7 mg/dL (8.5-10.1)
[2024-04-29 09:18] LABS: BLOOD UREA NITROGEN 32.2 mg/dL (7-18)
[2024-04-29 09:21] LABS: CREATININE 1.9 mg/dL (0.55-1.3)
[2024-04-29 09:22] LABS: BILIRUBIN,TOTAL 0.4 mg/dL (0.2-1); TOT PROT 7.1 g/dl (6.4-8.2)
[2024-04-29 11:19] LABS: ANISOCYTOSIS 2+; MACROCYTOSIS 1+; OVALOCYTE 1+
[2024-04-29] MEDS: SODIUM ZIRCONIUM CYCLOSILICATE (LOKELMA) 5 GM PACKET PO SCH (17:02)
[2024-04-30] MEDS: ACETAMINOPHEN 325 MG TABLET (FP) PO PRN (14:36)
[2024-04-30] MEDS ORDERED: LACTULOSE 20 GM/30 ML UDC (FOR ORAL USE ONLY) PO PRN (19:05)
[2024-05-03 09:42] VITALS: BP 144/72; PULSE 74; RESP 15; TEMP 98.2
== END 2024-05-03 13:05 | disposition home or self-care (01) | DRG 392 ==
LOC: JER 13:41 → JERBED 19:59 → J7W 04-12 09:07 → OBSVTOIN 04-13 13:39
PROVIDERS: ADMIT Internal Medicine
PROC: 30233N1 Transfusion of Nonautologous Red Blood Cells into Peripheral Vein, Percutaneous Approach (ICD-10-PCS; principal; 2024-04-13)
DX: K59.00 Constipation, unspecified (principal); I69.354 Hemiplegia and hemiparesis following cerebral infarction affecting left non-dominant side; K57.92 Diverticulitis of intestine, part unspecified, without perforation or abscess without bleeding; K59.03 Drug induced constipation; M54.50 Low back pain, unspecified; N18.30 Chronic kidney disease, stage 3 unspecified; E03.9 Hypothyroidism, unspecified; I12.9 Hypertensive chronic kidney disease with stage 1 through stage 4 chronic kidney disease, or unspecified chronic kidney disease; E11.22 Type 2 diabetes mellitus with diabetic chronic kidney disease; D69.6 Thrombocytopenia, unspecified; Z85.3 Personal history of malignant neoplasm of breast; D63.8 Anemia in other chronic diseases classified elsewhere; R33.9 Retention of urine, unspecified; N20.0 Calculus of kidney; T40.2X5A Adverse effect of other opioids, initial encounter; Y92.89 Other specified places as the place of occurrence of the external cause; E11.65 Type 2 diabetes mellitus with hyperglycemia; E78.5 Hyperlipidemia, unspecified
CPT/HCPCS: 36415; 36430; 71045-TC-FY; 72131-TC; 73700-TC-RT; 74018-TC-FY; 74176-TC; 80048; 80053; 81003; 82272; 82607; 82728; 82746; 82947; 82962; 83036; 83540; 83550; 83735; 84100; 84466; 84484; 85025; 85027; 85045; 85610; 85730; 86850; 86900; 86901; 86922; 87086; 87635; 93005; 93010; 97116-GP; 97162-GP; 99285-25; G0378; J0131; J1644; P9038; P9058

== ENCOUNTER 2024-06-16 13:38 | Inpatient (IN) | payer OTHER ==
[2024-06-16] MEDS ORDERED: ONDANSETRON 4 MG/2 ML VIAL ONE (15:22)
[2024-06-16 15:50] LABS: VENOUS O2 SATURATION 37.5 % (70-80); VENOUS PH 7.314 (7.310-7.410)
[2024-06-16 15:52] LABS: HEMATOCRIT 29.3 % (32.4-45.2); HEMOGLOBIN 9.3 GM/dL (10.7-15.3); MCH 31.7 pg (25.7-33.7); MCHC 31.7 g/dl (32.0-36.0); MEAN CELL VOLUME 99.9 fl (80-96); MEAN PLT VOLUME 9.1 fl (7.5-11.1); PLATELET COUNT 278 10^3/uL (134-434); RBC 2.93 M/mm3 (3.60-5.2); RDW 16.7 % (11.6-15.6)
[2024-06-16] MEDS: SODIUM CHLORIDE 1,000 ML IV SCH ×2 (15:54→20:26)
[2024-06-16] MEDS: ONDANSETRON 4 MG/2 ML VIAL IVPUSH ONE (15:54)
[2024-06-16 16:15] LABS: POTASSIUM 5.2 mmol/L (3.5-5.1)
[2024-06-16] MEDS ORDERED: ACETAMINOPHEN INJECTION 100 ML ONE (16:15)
[2024-06-16 16:17] LABS: CALCIUM 8.6 mg/dL (8.5-10.1)
[2024-06-16 16:18] LABS: ALBUMIN 2.3 g/dl (3.4-5.0)
[2024-06-16] MEDS: ACETAMINOPHEN 1000 MG/100 ML BAG IVPB ONE (16:20)
[2024-06-16 16:21] LABS: CREATININE 2.3 mg/dL (0.55-1.3)
[2024-06-16 16:22] LABS: BILIRUBIN,TOTAL 0.3 mg/dL (0.2-1)
[2024-06-16 16:23] LABS: TOT PROT 7.5 g/dl (6.4-8.2)
[2024-06-16] MEDS ORDERED: PIPERACILLIN/TAZOB 4.5 GM 4.5 GM/100 ML BAG IVPB ONE (16:26)
[2024-06-16] MEDS: PIPERACILLIN/TAZOB 4.5 GM 4.5 GM in DEXTROSE 5%-WATER 100 ML IVPB ONE (16:31)
[2024-06-16 16:45] LABS: ANISOCYTOSIS 2+; MACROCYTOSIS 1+
[2024-06-16] MEDS ORDERED: VANCOMYCIN 1 GRAM (PRE-DOCKED) 1,000 MG/250 ML BAG IVPB ONE (17:13)
[2024-06-16] MEDS: VANCOMYCIN 1,000 MG in DEXTROSE 5%-WATER - 250 ML IVPB ONE (18:07)
[2024-06-16 21:52] LABS: EPI CELLS 4 /uL (0-25.1); HYALINE CASTS 0 /uL (0-3.1); PH,URINE 5.5 (5.0-8.0); URINE APPEARANCE TURBID; URINE BACTERIA 1802 /uL (0-1359); URINE BILIRUBIN NEGATIVE (NEGATIVE); URINE COLOR YELLOW; URINE GLUCOSE (UA) NEGATIVE (NEGATIVE); URINE KETONE NEGATIVE (NEGATIVE); URINE LEUK ESTERASE 3+ (NEGATIVE); URINE NITRITE POSITIVE (NEGATIVE); URINE PROTEIN 3+ (NEGATIVE); URINE RBC 56 /uL (0-23.9); URINE UROBILINOGEN 0.2 mg/dL (0.2-1.0); URINE WBC 7665 /uL (0-25.8)
[2024-06-16 23:14] LABS: HIV INTERPRETATION NEGATIVE (NEGATIVE)
[2024-06-17] MEDS: SODIUM CHLORIDE 0.45% 1,000 ML IV SCH (06:07)
[2024-06-17] MEDS ORDERED: INSULIN ASPART SLIDING SCALE (NOVOLOG) 1 VIAL SQ ONE (08:00)
[2024-06-17] MEDS: INSULIN ASPART SLIDING SCALE (NOVOLOG) 1 VIAL SQ SCH (08:02)
[2024-06-17 09:03] LABS: HEMATOCRIT 25.4 % (32.4-45.2); HEMOGLOBIN 8.1 GM/dL (10.7-15.3); MCH 32.3 pg (25.7-33.7); MCHC 31.9 g/dl (32.0-36.0); MEAN CELL VOLUME 101.4 fl (80-96); MEAN PLT VOLUME 9.7 fl (7.5-11.1); PLATELET COUNT 225 10^3/uL (134-434); RBC 2.51 M/mm3 (3.60-5.2); RDW 17.2 % (11.6-15.6); WHITE BLOOD COUNT 9.4 K/mm3 (4.0-10.0)
[2024-06-17 09:10] LABS: CHLORIDE 114 mmol/L (98-107); POTASSIUM 4.5 mmol/L (3.5-5.1); SODIUM 139 mmol/L (136-145)
[2024-06-17 09:19] LABS: ANION GAP 7 mmol/L (4-13); BLOOD UREA NITROGEN 43.2 mg/dL (7-18); CALCIUM 7.7 mg/dL (8.5-10.1); CO2 19 mmol/L (21-32); MAGNESIUM 1.7 mg/dL (1.8-2.4)
[2024-06-17 09:21] LABS: CREATININE 2.1 mg/dL (0.55-1.3)
[2024-06-17 09:22] LABS: PHOSPHOROUS 5.3 mg/dL (2.5-4.9); SGOT/AST 15 U/L (15-37); SGPT/ALT 8 U/L (13-61)
[2024-06-17 09:23] LABS: BILIRUBIN,TOTAL 0.4 mg/dL (0.2-1); TOT PROT 6.4 g/dl (6.4-8.2)
[2024-06-17 09:24] LABS: ALK PHOS 101 U/L (45-117)
[2024-06-17 09:32] LABS: ALBUMIN 1.9 g/dl (3.4-5.0); GLUCOSE,RANDOM 447 mg/dL (74-106)
[2024-06-17 10:17] LABS: ANISOCYTOSIS 2+; MACROCYTOSIS 2+
[2024-06-17] MEDS ORDERED: PIPERACILLIN/TAZOB 2.25 GM 2.25 GM/50 ML BAG IVPB ONE (11:15)
[2024-06-17] MEDS: PIPERACILLIN/TAZOB 2.25 GM 2.25 GM in DEXTROSE 5%-WATER - 50 ML IVPB SCH ×2 (11:18→16:57)
[2024-06-17] MEDS: ALBUTEROL SO4 2.5/IPRATROPIUM 0.5 INH SOL 3 ML VIAL.NEB. NEB SCH (11:21)
[2024-06-17] MEDS: ONDANSETRON *ODT* 4 MG TABLET SL SCH (11:57)
[2024-06-17] MEDS: ACETAMINOPHEN 1000 MG/100 ML BAG IVPB PRN (14:23)
[2024-06-17] MEDS: CARVEDILOL 3.125 MG TABLET (FP) PO SCH (16:54)
[2024-06-17] MEDS: amLODIPine BESYLATE 10 MG TABLET (FP) PO SCH (16:54)
[2024-06-17] MEDS: FERROUS SO4 325 MG TABLET (FP) PO SCH (16:54)
[2024-06-17] MEDS: LIPASE/PROTEASE/AMYLASE 6,000 UNIT CAPSULE PO SCH (16:55)
[2024-06-17] MEDS: LEVOTHYROXINE NA 112 MCG TABLET (FP) PO SCH (16:55)
[2024-06-17] MEDS: TAMSULOSIN HCL 0.4 MG CAP PO SCH (16:56)
[2024-06-17] MEDS: CYCLOBENZAPRINE HCL 5 MG TABLET PO SCH (16:56)
[2024-06-17] MEDS ORDERED: VANCOMYCIN 1,000 MG in DEXTROSE 5%-WATER - 250 ML IVPB SCH (18:00)
[2024-06-17] MEDS: MINERAL OIL ENEMA 133 ML ENEMA RC ONE (18:12)
[2024-06-17] MEDS: PANTOPRAZOLE 40 MG TABLET PO SCH (18:12)
[2024-06-17] MEDS: METOCLOPRAMIDE HCL 10 MG TABLET (FP) PO SCH (18:12)
[2024-06-17] MEDS: POLYETHYLENE GLYCOL (HEALTHYLAX) 3350 17 GM PACKET PO SCH ×2 (18:28→21:35)
[2024-06-17] MEDS: ATORVASTATIN CA 20 MG TABLET (FP) PO SCH (21:35)
[2024-06-17] MEDS: BISACODYL 5 MG TABLET.DR (FP) PO SCH (21:35)
[2024-06-17] MEDS ORDERED: SENNOSIDES 8.6MG TABLET (FP) PO SCH (22:00)
[2024-06-17] MEDS ORDERED: DOCUSATE SODIUM 100 MG CAPSULE (FP) PO SCH (22:00)
[2024-06-17] MEDS: PIPERACILLIN/TAZOB 3.375 GM 3.375 GM in DEXTROSE 5%-WATER - 50 ML IVPB SCH (22:24)
[2024-06-18 09:11] LABS: HEMATOCRIT 26.1 % (32.4-45.2); HEMOGLOBIN 8.1 GM/dL (10.7-15.3); MCH 31.7 pg (25.7-33.7); MCHC 31.1 g/dl (32.0-36.0); MEAN PLT VOLUME 9.5 fl (7.5-11.1); PLATELET COUNT 241 10^3/uL (134-434); RBC 2.56 M/mm3 (3.60-5.2); RDW 17.3 % (11.6-15.6); WHITE BLOOD COUNT 10.3 K/mm3 (4.0-10.0)
[2024-06-18 09:13] LABS: POTASSIUM 3.8 mmol/L (3.5-5.1)
[2024-06-18] MEDS: ONDANSETRON *ODT* 4 MG TABLET SL PRN (09:16)
[2024-06-18 09:18] LABS: CALCIUM 8.1 mg/dL (8.5-10.1)
[2024-06-18 09:19] LABS: ALBUMIN 1.9 g/dl (3.4-5.0); BLOOD UREA NITROGEN 47.3 mg/dL (7-18)
[2024-06-18 09:22] LABS: CREATININE 2.2 mg/dL (0.55-1.3)
[2024-06-18 09:23] LABS: BILIRUBIN,TOTAL 0.4 mg/dL (0.2-1); TOT PROT 6.6 g/dl (6.4-8.2)
[2024-06-18] MEDS: VANCOMYCIN/WATER 1250 MG 1,250 MG/250 ML BAG IVPB ONE (16:39)
[2024-06-18] MEDS: INSULIN (LEVEMIR) 100 UNITS/ML UNITS SQ SCH (23:57)
[2024-06-19] MEDS: ACETAMINOPHEN 1000 MG/100 ML BAG IVPB PRN (00:39)
[2024-06-19] MEDS: ALBUTEROL SO4 2.5/IPRATROPIUM 0.5 INH SOL 3 ML VIAL.NEB. NEB SCH (07:49)
[2024-06-19] MEDS: TAMSULOSIN HCL 0.4 MG CAP PO SCH (09:54)
[2024-06-19] MEDS: oxyCODONE HCL 5 MG TABLET PO PRN (14:10)
[2024-06-19 15:23] LABS: BF WBC & OTHER NUCLEATED CELLS 946 /mm3
[2024-06-19 15:24] LABS: BODY FLUID MACROPHAGES 21 %; BODY FLUID MESOTHELIAL 4 %
[2024-06-19] MEDS: CEFTRIAXONE 1 GM in DEXTROSE 5%-WATER - 50 ML IVPB SCH (17:42)
[2024-06-20] MEDS: ACETAMINOPHEN 1000 MG/100 ML BAG IVPB PRN (08:51)
[2024-06-20 09:26] LABS: POTASSIUM 4.2 mmol/L (3.5-5.1)
[2024-06-20 09:28] LABS: CALCIUM 8.4 mg/dL (8.5-10.1)
[2024-06-20 09:29] LABS: BLOOD UREA NITROGEN 31.4 mg/dL (7-18); MAGNESIUM 2.1 mg/dL (1.8-2.4)
[2024-06-20 09:32] LABS: CREATININE 1.4 mg/dL (0.55-1.3)
[2024-06-20 09:33] LABS: BILIRUBIN,TOTAL 0.3 mg/dL (0.2-1); TOT PROT 6.8 g/dl (6.4-8.2)
[2024-06-20 10:44] LABS: BASO % 0.2 % (0-2.0); EOS % 1.4 % (0-4.5); HEMATOCRIT 30.4 % (32.4-45.2); HEMOGLOBIN 9.8 GM/dL (10.7-15.3); LYMPH % 7.6 % (8-40); MCH 31.8 pg (25.7-33.7); MCHC 32.3 g/dl (32.0-36.0); MEAN CELL VOLUME 98.5 fl (80-96); MEAN PLT VOLUME 7.8 fl (7.5-11.1); MONO % 8.8 % (3.8-10.2); PLATELET COUNT 224 10^3/uL (134-434); RBC 3.08 M/mm3 (3.60-5.2); RDW 17.1 % (11.6-15.6); WHITE BLOOD COUNT 9.7 K/mm3 (4.0-10.0)
[2024-06-20] MEDS: VITAMIN B COMP W-C 1 EA TABLET (NEPHRO-VITE) PO SCH (14:39)
[2024-06-21] MEDS ORDERED: DEXTROSE 50%-WATER 25 GM/50 ML DISP.SYRIN ONE (04:40)
[2024-06-21] MEDS: DEXTROSE 50%-WATER - 25 GM/50 ML VIAL IVPUSH ONE (05:43)
[2024-06-21] MEDS: DEXTROSE 50%-WATER 25 GM/50 ML DISP.SYRIN IVPUSH ONE (06:09)
[2024-06-21] MEDS: INSULIN ASPART SLIDING SCALE (NOVOLOG) 1 VIAL SQ SCH (06:09)
[2024-06-21] MEDS: ACETAMINOPHEN 325 MG TABLET (FP) PO ONE (12:03)
[2024-06-21 12:57] VITALS: BMI 25.7
[2024-06-21] MEDS: ACETAMINOPHEN 325 MG TABLET (FP) PO PRN (23:14)
[2024-06-22] MEDS: INSULIN (LEVEMIR) 100 UNITS/ML UNITS SQ SCH (06:58)
[2024-06-22] MEDS: INSULIN ASPART SLIDING SCALE (NOVOLOG) 1 VIAL SQ SCH (06:58)
[2024-06-22] MEDS: KETOROLAC TROMETHAMINE 30 MG/1 ML VIAL IVPUSH ONE (09:44)
[2024-06-22 12:10] LABS: BODY FLUID ALBUMIN 2.2 g/dL (Not Estab.)
[2024-06-22] MEDS: GABAPENTIN 100 MG CAPSULE PO SCH (13:26)
[2024-06-22] MEDS: guaiFENesin 200 MG/10 ML 10 ML UNIT-DOSE CUPS PO ONE (21:39)
[2024-06-22] MEDS: KETOROLAC TROMETHAMINE 30 MG/1 ML VIAL IVPUSH PRN (21:42)
[2024-06-23 07:23] LABS: HEMATOCRIT 27.7 % (32.4-45.2); HEMOGLOBIN 8.8 GM/dL (10.7-15.3); MCH 31.9 pg (25.7-33.7); MCHC 31.8 g/dl (32.0-36.0); MEAN CELL VOLUME 100.5 fl (80-96); MEAN PLT VOLUME 8.9 fl (7.5-11.1); PLATELET COUNT 246 10^3/uL (134-434); RBC 2.75 M/mm3 (3.60-5.2); RDW 16.8 % (11.6-15.6); WHITE BLOOD COUNT 8.5 K/mm3 (4.0-10.0)
[2024-06-23 07:31] LABS: POTASSIUM 5.2 mmol/L (3.5-5.1)
[2024-06-23 07:35] LABS: ALBUMIN 1.8 g/dl (3.4-5.0); CALCIUM 8.3 mg/dL (8.5-10.1); MAGNESIUM 2.2 mg/dL (1.8-2.4)
[2024-06-23 07:39] LABS: CREATININE 1.9 mg/dL (0.55-1.3)
[2024-06-23 07:40] LABS: BILIRUBIN,TOTAL 0.2 mg/dL (0.2-1); TOT PROT 6.2 g/dl (6.4-8.2)
[2024-06-23] MEDS ORDERED: LEVOTHYROXINE NA 112 MCG TABLET (FP) PO SCH (07:57)
[2024-06-23] MEDS: LEVOTHYROXINE NA 112 MCG TABLET (FP) PO SCH (08:09)
[2024-06-23] MEDS: INSULIN (LEVEMIR) 100 UNITS/ML UNITS SQ SCH (08:10)
[2024-06-23] MEDS ORDERED: SODIUM ZIRCONIUM CYCLOSILICATE (LOKELMA) 5 GM PACKET PO SCH (13:15)
[2024-06-23] MEDS: SODIUM CHLORIDE 0.45% 1,000 ML IV SCH (13:35)
[2024-06-23] MEDS: guaiFENesin/D-METHORPHAN HB 10 ML UNIT-DOSE CUPS PO PRN (17:30)
[2024-06-24 09:55] LABS: BASO % 0.8 % (0-2.0); EOS % 2.4 % (0-4.5); HEMATOCRIT 25.2 % (32.4-45.2); MCH 31.7 pg (25.7-33.7); MCHC 31.6 g/dl (32.0-36.0); MEAN CELL VOLUME 100.3 fl (80-96); MEAN PLT VOLUME 9.1 fl (7.5-11.1); MONO % 3.8 % (3.8-10.2); PLATELET COUNT 231 10^3/uL (134-434); RBC 2.51 M/mm3 (3.60-5.2); RDW 16.7 % (11.6-15.6); WHITE BLOOD COUNT 10.3 K/mm3 (4.0-10.0)
[2024-06-24 10:08] LABS: CHLORIDE 110 mmol/L (98-107); POTASSIUM 5.4 mmol/L (3.5-5.1); SODIUM 137 mmol/L (136-145)
[2024-06-24 10:11] LABS: ALBUMIN 1.8 g/dl (3.4-5.0)
[2024-06-24 10:12] LABS: BLOOD UREA NITROGEN 45.1 mg/dL (7-18); CALCIUM 8.3 mg/dL (8.5-10.1)
[2024-06-24 10:13] LABS: ANION GAP 6 mmol/L (4-13); CO2 21 mmol/L (21-32)
[2024-06-24 10:14] LABS: SGPT/ALT 11 U/L (13-61)
[2024-06-24 10:15] LABS: CREATININE 1.8 mg/dL (0.55-1.3); SGOT/AST 18 U/L (15-37)
[2024-06-24 10:16] LABS: BILIRUBIN,TOTAL 0.4 mg/dL (0.2-1); TOT PROT 6.2 g/dl (6.4-8.2)
[2024-06-24 10:17] LABS: ALK PHOS 162 U/L (45-117)
[2024-06-24 10:18] LABS: GLUCOSE,RANDOM 449 mg/dL (74-106)
[2024-06-24] MEDS: INSULIN (LEVEMIR) 100 UNITS/ML UNITS SQ SCH (21:12)
[2024-06-24] MEDS: ONDANSETRON 4 MG/2 ML VIAL IVPUSH PRN (23:10)
[2024-06-25] MEDS: ACETAMINOPHEN 1000 MG/100 ML BAG IVPB ONE (17:14)
[2024-06-26] MEDS ORDERED: INSULIN ASPART SLIDING SCALE (NOVOLOG) 1 VIAL SQ ONE (06:54)
[2024-06-26] MEDS ORDERED: INSULIN (LEVEMIR) 100 UNITS/ML UNITS SQ ONE (06:54)
[2024-06-26 09:47] LABS: HEMATOCRIT 27.5 % (32.4-45.2); HEMOGLOBIN 7.8 GM/dL (10.7-15.3); MCH 30.6 pg (25.7-33.7); MCHC 28.5 g/dl (32.0-36.0); MEAN CELL VOLUME 107.5 fl (80-96); MEAN PLT VOLUME 9.5 fl (7.5-11.1); PLATELET COUNT 242 10^3/uL (134-434); RBC 2.55 M/mm3 (3.60-5.2); WHITE BLOOD COUNT 11.7 K/mm3 (4.0-10.0)
[2024-06-26 10:24] LABS: POTASSIUM 5.7 mmol/L (3.5-5.1)
[2024-06-26 10:26] LABS: ALBUMIN 1.7 g/dl (3.4-5.0); BLOOD UREA NITROGEN 51.4 mg/dL (7-18); CALCIUM 8.7 mg/dL (8.5-10.1)
[2024-06-26 10:30] LABS: CREATININE 1.8 mg/dL (0.55-1.3)
[2024-06-26 10:31] LABS: BILIRUBIN,TOTAL 0.2 mg/dL (0.2-1); TOT PROT 6.1 g/dl (6.4-8.2)
[2024-06-26] MEDS: KETOROLAC TROMETHAMINE 15 MG/ML VIAL IVPUSH ONE (21:45)
[2024-06-27] MEDS ORDERED: GLUCAGON 1 MG KIT IM ONE (05:53)
[2024-06-27 10:23] LABS: HEMATOCRIT 26.1 % (32.4-45.2); HEMOGLOBIN 8.5 GM/dL (10.7-15.3); MCH 32.4 pg (25.7-33.7); MCHC 32.5 g/dl (32.0-36.0); MEAN CELL VOLUME 99.9 fl (80-96); MEAN PLT VOLUME 9.3 fl (7.5-11.1); PLATELET COUNT 265 10^3/uL (134-434); RBC 2.62 M/mm3 (3.60-5.2); RDW 16.8 % (11.6-15.6); WHITE BLOOD COUNT 9.4 K/mm3 (4.0-10.0)
[2024-06-27] MEDS: FLUCONAZOLE 150 MG TABLET PO ONE (10:53)
[2024-06-27 10:59] LABS: ALBUMIN 1.7 g/dl (3.4-5.0); BLOOD UREA NITROGEN 51.7 mg/dL (7-18); CALCIUM 8.4 mg/dL (8.5-10.1)
[2024-06-27 11:02] LABS: CREATININE 1.8 mg/dL (0.55-1.3)
[2024-06-27 11:03] LABS: BILIRUBIN,TOTAL 0.4 mg/dL (0.2-1); TOT PROT 6.3 g/dl (6.4-8.2)
[2024-06-27] MEDS: IRON SUCROSE INJECTION 200 MG in SODIUM CHLORIDE 100 ML IVPB ONE (12:21)
[2024-06-27] MEDS ORDERED: SODIUM POLYSTYRENE SULFONATE 15 GM/60 ML BOTTLE PO SCH (12:48)
[2024-06-27] MEDS: SODIUM ZIRCONIUM CYCLOSILICATE (LOKELMA) 5 GM PACKET PO SCH ×3 (15:37→15:40)
[2024-06-27] MEDS: MINERAL OIL ENEMA 133 ML ENEMA RC ONE (16:40)
[2024-06-27] MEDS: LORazepam 1 MG TABLET PO PRN (19:59)
[2024-06-27 21:55] VITALS: RESP 18
[2024-06-27] MEDS ORDERED: MICONAZOLE NITRATE 100 MG SUPP SUPP.VAG PV SCH (22:00)
[2024-06-28 10:00] LABS: HEMATOCRIT 27.3 % (32.4-45.2); HEMOGLOBIN 8.7 GM/dL (10.7-15.3); MCH 31.8 pg (25.7-33.7); MEAN CELL VOLUME 99.4 fl (80-96); PLATELET COUNT 250 10^3/uL (134-434); RBC 2.75 M/mm3 (3.60-5.2); RDW 15.9 % (11.6-15.6); WHITE BLOOD COUNT 10.8 K/mm3 (4.0-10.0)
[2024-06-28 10:35] LABS: POTASSIUM 5.2 mmol/L (3.5-5.1)
[2024-06-28 10:37] LABS: BLOOD UREA NITROGEN 44.4 mg/dL (7-18); CALCIUM 8.8 mg/dL (8.5-10.1)
[2024-06-28 10:40] LABS: CREATININE 1.7 mg/dL (0.55-1.3)
[2024-06-28] MEDS ORDERED: VANCOMYCIN 1,000 MG in DEXTROSE 5%-WATER - 250 ML IVPB SCH (14:30)
[2024-06-28] MEDS: VANCOMYCIN/WATER FOR INJ (PEG) 1,000 MG/200 ML BAG IVPB SCH (15:59)
[2024-06-28] MEDS: MICONAZOLE NITRATE 100 MG SUPP SUPP.VAG PV SCH (21:53)
[2024-06-29 05:26] VITALS: PULSE 72
[2024-06-29 14:48] VITALS: BP 116/65; TEMP 99
== END 2024-06-29 15:10 | DRG 193 ==
LOC: JER 13:38 → JERBED 23:57 → J6S 06-17 17:43 → UNDODISIN 06-27 17:29
PROVIDERS: ADMIT Internal Medicine; ATTEND Family Medicine
PROC: 0W9930Z Drainage of Right Pleural Cavity with Drainage Device, Percutaneous Approach (ICD-10-PCS; principal; 2024-06-19)
DX: J18.9 Pneumonia, unspecified organism (principal); E43 Unspecified severe protein-calorie malnutrition; I69.354 Hemiplegia and hemiparesis following cerebral infarction affecting left non-dominant side; N17.9 Acute kidney failure, unspecified; R78.81 Bacteremia; N39.0 Urinary tract infection, site not specified; E46 Unspecified protein-calorie malnutrition; J90 Pleural effusion, not elsewhere classified; R11.2 Nausea with vomiting, unspecified; E86.0 Dehydration; R26.2 Difficulty in walking, not elsewhere classified; E03.9 Hypothyroidism, unspecified; K59.00 Constipation, unspecified; E87.5 Hyperkalemia; D64.9 Anemia, unspecified; M54.50 Low back pain, unspecified; B96.20 Unspecified Escherichia coli [E. coli] as the cause of diseases classified elsewhere; D69.6 Thrombocytopenia, unspecified; F41.9 Anxiety disorder, unspecified; I12.9 Hypertensive chronic kidney disease with stage 1 through stage 4 chronic kidney disease, or unspecified chronic kidney disease; E11.22 Type 2 diabetes mellitus with diabetic chronic kidney disease; N18.9 Chronic kidney disease, unspecified; Z68.25 Body mass index [BMI] 25.0-25.9, adult; Z85.3 Personal history of malignant neoplasm of breast
CPT/HCPCS: 0241U-QW; 32557; 36415; 71045-TC-FY; 71046-TC-FY; 71250-TC; 72131-TC; 72148-TC; 74176-TC; 74181-TC; 76705-TC; 80048; 80053; 80061; 81003; 82042; 82150; 82465; 82803; 82945; 82962; 83036; 83605; 83615; 83690; 83735; 83880; 83986; 84100; 84157; 84439; 84443; 84478; 84484; 85025; 85027; 86803; 86850; 86900; 86901; 87040; 87070; 87075; 87086; 87102; 87116; 87186; 87205; 87206; 87210; 87389; 88108; 88305-TC; 93005; 93010; 93306-TC; 94010; 94640; 97116-GP; 97162-GP; 99285-25; J0131; J1756; Q0162

== ENCOUNTER 2024-07-01 05:12 | Inpatient (IN) | payer OTHER ==
[2024-07-01 06:43] LABS: VENOUS BASE EXCESS -24.5 mmol/L (-2-2); VENOUS O2 SATURATION 37.4 % (70-80); VENOUS PCO2 31.7 mmHg (38-52)
[2024-07-01 06:48] LABS: INR 1.14 (0.83-1.09); PROTHROMBIN TIME (PATIENT) 13.1 SEC (9.7-13.0)
[2024-07-01 06:51] LABS: ACTIVATED PTT 26.7 SECONDS (25.2-36.5)
[2024-07-01 07:00] LABS: HEMATOCRIT 25.1 % (32.4-45.2); MCH 31.7 pg (25.7-33.7); MCHC 27.6 g/dl (32.0-36.0); MEAN PLT VOLUME 9.3 fl (7.5-11.1); PLATELET COUNT 285 10^3/uL (134-434); RBC 2.19 M/mm3 (3.60-5.2); RDW 17.7 % (11.6-15.6); WHITE BLOOD COUNT 13.7 K/mm3 (4.0-10.0)
[2024-07-01 07:16] LABS: CHLORIDE 101 mmol/L (98-107); SODIUM 133 mmol/L (136-145)
[2024-07-01 07:17] LABS: CALCIUM 8.6 mg/dL (8.5-10.1)
[2024-07-01 07:18] LABS: ALBUMIN 1.9 g/dl (3.4-5.0); BLOOD UREA NITROGEN 49.8 mg/dL (7-18); CO2 8 mmol/L (21-32); MAGNESIUM 2.1 mg/dL (1.8-2.4)
[2024-07-01] MEDS: SODIUM CHLORIDE 0.9% 500 ML INFUS.BAG IV ONE ×2 (07:20→08:42)
[2024-07-01 07:21] LABS: CREATININE 2.7 mg/dL (0.55-1.3); SGOT/AST 27 U/L (15-37); SGPT/ALT 21 U/L (13-61)
[2024-07-01 07:23] LABS: TOT PROT 6.7 g/dl (6.4-8.2)
[2024-07-01 07:24] LABS: ALK PHOS 148 U/L (45-117)
[2024-07-01 07:33] LABS: HEMOGLOBIN 6.9 GM/dL (10.7-15.3)
[2024-07-01 07:38] LABS: ANION GAP 23 mmol/L (4-13); BILIRUBIN,TOTAL 0.5 mg/dL (0.2-1); GLUCOSE,RANDOM 761 mg/dL (74-106); POTASSIUM 8.6 mmol/L (3.5-5.1)
[2024-07-01 07:45] LABS: VENOUS PH 6.94 (7.310-7.410)
[2024-07-01] MEDS ORDERED: CALCIUM GLUCONATE 10% - 1,000 MG/10 ML VIAL ONE (08:05)
[2024-07-01] MEDS: CALCIUM GLUCONATE 10% - 1,000 MG/10 ML VIAL IVPB ONE ×2 (08:07→20:06)
[2024-07-01] MEDS ORDERED: PIPERACILLIN/TAZOB 4.5 GM 4.5 GM/100 ML BAG IVPB ONE (08:13)
[2024-07-01] MEDS ORDERED: VANCOMYCIN 1 GRAM (PRE-DOCKED) 1,000 MG/250 ML BAG IVPB ONE (08:14)
[2024-07-01] MEDS: PIPERACILLIN/TAZOB 4.5 GM 4.5 GM in DEXTROSE 5%-WATER 100 ML IVPB ONE (08:15)
[2024-07-01] MEDS: INSULIN REGULAR 100 UNITS in SODIUM CHLORIDE 99 ML IVPB SCH (08:27)
[2024-07-01] MEDS: VANCOMYCIN 1,000 MG in DEXTROSE 5%-WATER - 250 ML IVPB ONE (08:28)
[2024-07-01 08:32] LABS: MCH 31.3 pg (25.7-33.7); MCHC 27.5 g/dl (32.0-36.0); MEAN CELL VOLUME 113.8 fl (80-96); PLATELET COUNT 279 10^3/uL (134-434); RBC 1.85 M/mm3 (3.60-5.2); WHITE BLOOD COUNT 16.2 K/mm3 (4.0-10.0)
[2024-07-01 08:35] LABS: HEMOGLOBIN 5.8 GM/dL (10.7-15.3)
[2024-07-01 08:45] LABS: INR 1.13 (0.83-1.09); PROTHROMBIN TIME (PATIENT) 12.9 SEC (9.7-13.0)
[2024-07-01 08:50] LABS: CHLORIDE 105 mmol/L (98-107); SODIUM 133 mmol/L (136-145)
[2024-07-01 08:52] LABS: ALBUMIN 1.7 g/dl (3.4-5.0); BLOOD UREA NITROGEN 47.8 mg/dL (7-18); CALCIUM 7.9 mg/dL (8.5-10.1); CO2 6 mmol/L (21-32)
[2024-07-01 08:55] LABS: CREATININE 2.7 mg/dL (0.55-1.3); SGPT/ALT 20 U/L (13-61)
[2024-07-01 08:56] LABS: SGOT/AST 26 U/L (15-37)
[2024-07-01 08:57] LABS: TOT PROT 6.2 g/dl (6.4-8.2)
[2024-07-01 08:58] LABS: ALK PHOS 133 U/L (45-117)
[2024-07-01 09:01] LABS: LACTIC ACID 4.2 mmol/L (0.4-2.0)
[2024-07-01] MEDS ORDERED: NOREPINEPHRINE 0.9 % NACL 8 MG/250 ML BAG IVPB ONE (09:04)
[2024-07-01 09:12] LABS: ANION GAP 22 mmol/L (4-13); BILIRUBIN,TOTAL 0.4 mg/dL (0.2-1); GLUCOSE,RANDOM 783 mg/dL (74-106); POTASSIUM 8.9 mmol/L (3.5-5.1)
[2024-07-01] MEDS ORDERED: NOREPINEPHRINE BITARTRATE 16,000 MCG in SODIUM CHLORIDE 484 ML IV SCH (09:15)
[2024-07-01] MEDS: NOREPINEPHRINE 0.9 % NACL 8 MG/250 ML BAG IVPB SCH (09:18)
[2024-07-01 10:17] LABS: ANISOCYTOSIS 0
[2024-07-01 10:18] LABS: ANISOCYTOSIS 0; MACROCYTOSIS 2+
[2024-07-01 10:22] LABS: MACROCYTOSIS 2+
[2024-07-01 10:34] LABS: EPI CELLS >36 /uL (0-25.1); HYALINE CASTS 5 /uL (0-3.1); URINE APPEARANCE CLOUDY; URINE BACTERIA 10 /uL (0-1359); URINE BILIRUBIN NEGATIVE (NEGATIVE); URINE COLOR YELLOW; URINE GLUCOSE (UA) 3+ (NEGATIVE); URINE KETONE 1+ (NEGATIVE); URINE LEUK ESTERASE NEGATIVE (NEGATIVE); URINE NITRITE NEGATIVE (NEGATIVE); URINE PROTEIN 2+ (NEGATIVE); URINE RBC 9 /uL (0-23.9); URINE UROBILINOGEN 0.2 mg/dL (0.2-1.0)
[2024-07-01 11:04] LABS: URINE WBC 93.9 /uL (0-25.8)
[2024-07-01 13:25] LABS: CHLORIDE 109 mmol/L (98-107); SODIUM 139 mmol/L (136-145)
[2024-07-01 13:28] LABS: BLOOD UREA NITROGEN 55.7 mg/dL (7-18); CALCIUM 8.4 mg/dL (8.5-10.1); CO2 10 mmol/L (21-32)
[2024-07-01 13:30] LABS: CREATININE 2.9 mg/dL (0.55-1.3)
[2024-07-01 13:37] LABS: ANION GAP 20 mmol/L (4-13); GLUCOSE,RANDOM 658 mg/dL (74-106); POTASSIUM 6.7 mmol/L (3.5-5.1)
[2024-07-01] MEDS ORDERED: PIPERACILLIN/TAZOB 3.375 GM 3.375 GM in DEXTROSE 5%-WATER - 50 ML IVPB SCH (15:00)
[2024-07-01] MEDS: PIPERACILLIN/TAZOB 3.375 GM 3.375 GM in DEXTROSE 5%-WATER - 50 ML IVPB SCH (16:52)
[2024-07-01] MEDS: LIDOCAINE 4% PATCH TP SCH (16:53)
[2024-07-01 17:01] LABS: BF WBC & OTHER NUCLEATED CELLS 740 /mm3
[2024-07-01 17:49] LABS: BASO % 0.2 % (0-2.0); EOS % 0.2 % (0-4.5); HEMATOCRIT 25.7 % (32.4-45.2); HEMOGLOBIN 8.3 GM/dL (10.7-15.3); LYMPH % 4.9 % (8-40); MCH 30.8 pg (25.7-33.7); MCHC 32.1 g/dl (32.0-36.0); MEAN PLT VOLUME 8.8 fl (7.5-11.1); MONO % 5.1 % (3.8-10.2); NEUT % 89.6 % (42.8-82.8); PLATELET COUNT 268 10^3/uL (134-434); RBC 2.68 M/mm3 (3.60-5.2); RDW 18.7 % (11.6-15.6); WHITE BLOOD COUNT 19.1 K/mm3 (4.0-10.0)
[2024-07-01] MEDS: PIPERACILLIN/TAZOB 2.25 GM 2.25 GM in DEXTROSE 5%-WATER - 50 ML IVPB SCH (17:50)
[2024-07-01] MEDS: SODIUM CHLORIDE 1,000 ML IV SCH (17:57)
[2024-07-01] MEDS: MUPIROCIN 2% TOPICAL OINTMENT FOR DECOLONIZATION NS SCH (17:57)
[2024-07-01 18:07] LABS: CHLORIDE 112 mmol/L (98-107); SODIUM 139 mmol/L (136-145)
[2024-07-01 18:08] LABS: BLOOD UREA NITROGEN 56.6 mg/dL (7-18); CALCIUM 8.6 mg/dL (8.5-10.1); CO2 18 mmol/L (21-32)
[2024-07-01 18:12] LABS: CREATININE 3.1 mg/dL (0.55-1.3)
[2024-07-01 18:24] LABS: BODY FLUID MACROPHAGES 2 %; BODY FLUID MESOTHELIAL 2 %; BODY FLUID MONOCYTE 4 %
[2024-07-01 18:34] LABS: ANION GAP 9 mmol/L (4-13); GLUCOSE,RANDOM 499 mg/dL (74-106); POTASSIUM 6.4 mmol/L (3.5-5.1)
[2024-07-01 22:31] LABS: POTASSIUM 5.9 mmol/L (3.5-5.1)
[2024-07-01] MEDS: CHLORHEXIDINE GLUCONATE 4% CLEANSER FOR DECOLONIZATION TP SCH (22:32)
[2024-07-01] MEDS: LIDOCAINE PATCH REMOVAL MC SCH (22:32)
[2024-07-01 22:35] LABS: BLOOD UREA NITROGEN 53.4 mg/dL (7-18)
[2024-07-01 22:38] LABS: CREATININE 3.4 mg/dL (0.55-1.3)
[2024-07-01 22:40] LABS: CALCIUM 7.2 mg/dL (8.5-10.1)
[2024-07-02] MEDS: DEXTROSE 5%-NORMAL SALINE 1,000 ML IV SCH (01:32)
[2024-07-02 07:29] LABS: HEMATOCRIT 26.9 % (32.4-45.2); HEMOGLOBIN 8.7 GM/dL (10.7-15.3); MCH 30.6 pg (25.7-33.7); MCHC 32.4 g/dl (32.0-36.0); MEAN CELL VOLUME 94.3 fl (80-96); PLATELET COUNT 271 10^3/uL (134-434); RBC 2.85 M/mm3 (3.60-5.2)
[2024-07-02 08:03] LABS: POTASSIUM 5.8 mmol/L (3.5-5.1)
[2024-07-02 08:47] LABS: ALBUMIN 1.8 g/dl (3.4-5.0)
[2024-07-02 08:48] LABS: BLOOD UREA NITROGEN 56.1 mg/dL (7-18); CALCIUM 8.6 mg/dL (8.5-10.1)
[2024-07-02 08:49] LABS: CREATININE 3.5 mg/dL (0.55-1.3)
[2024-07-02 08:51] LABS: BILIRUBIN,TOTAL 0.3 mg/dL (0.2-1); PHOSPHOROUS 3.8 mg/dL (2.5-4.9); TOT PROT 6.3 g/dl (6.4-8.2)
[2024-07-02 09:37] LABS: ANISOCYTOSIS 1+; MACROCYTOSIS 0
[2024-07-02] MEDS: INSULIN (LEVEMIR) 100 UNITS/ML UNITS SQ SCH (09:50)
[2024-07-02] MEDS ORDERED: VANCOMYCIN 1,000 MG in DEXTROSE 5%-WATER - 250 ML IVPB SCH (10:00)
[2024-07-02] MEDS: INSULIN ASPART SLIDING SCALE (NOVOLOG) 1 VIAL SQ SCH (12:11)
[2024-07-02 13:00] LABS: POTASSIUM 5.8 mmol/L (3.5-5.1)
[2024-07-02 13:02] LABS: CALCIUM 8.9 mg/dL (8.5-10.1)
[2024-07-02 13:05] LABS: CREATININE 3.6 mg/dL (0.55-1.3)
[2024-07-02 13:09] LABS: BODY FLUID ALBUMIN 1.8 g/dL (Not Estab.)
[2024-07-02] MEDS ORDERED: DEXTROSE 50%-WATER - 25 GM/50 ML VIAL IVPUSH ONE (14:15)
[2024-07-02] MEDS ORDERED: DEXTROSE 50%-WATER 25 GM/50 ML DISP.SYRIN ONE (14:55)
[2024-07-02] MEDS: INSULIN REGULAR HUMAN 100 UNITS/ML *VIAL IVPUSH ONE (15:10)
[2024-07-02] MEDS: DEXTROSE 50%-WATER 25 GM/50 ML DISP.SYRIN IVPUSH ONE (15:11)
[2024-07-02] MEDS: ALBUTEROL SO4 0.083% IH SOL 2.5 MG/3 ML VIAL.NEB. NEB ONE (15:30)
[2024-07-03 06:07] LABS: BASO % 0.7 % (0-2.0); HEMATOCRIT 26.5 % (32.4-45.2); HEMOGLOBIN 8.6 GM/dL (10.7-15.3); LYMPH % 8.6 % (8-40); MCH 30.7 pg (25.7-33.7); MCHC 32.4 g/dl (32.0-36.0); MEAN CELL VOLUME 94.6 fl (80-96); MEAN PLT VOLUME 8.7 fl (7.5-11.1); MONO % 6.2 % (3.8-10.2); NEUT % 84.5 % (42.8-82.8); PLATELET COUNT 222 10^3/uL (134-434); RDW 18.9 % (11.6-15.6); WHITE BLOOD COUNT 18.3 K/mm3 (4.0-10.0)
[2024-07-03 06:26] LABS: POTASSIUM 4.5 mmol/L (3.5-5.1)
[2024-07-03 06:27] LABS: CALCIUM 7.6 mg/dL (8.5-10.1)
[2024-07-03 06:28] LABS: BLOOD UREA NITROGEN 45.5 mg/dL (7-18); MAGNESIUM 1.6 mg/dL (1.8-2.4)
[2024-07-03 06:31] LABS: CREATININE 3.4 mg/dL (0.55-1.3); PHOSPHOROUS 3.4 mg/dL (2.5-4.9)
[2024-07-03 06:32] LABS: BILIRUBIN,TOTAL 0.3 mg/dL (0.2-1)
[2024-07-03 06:33] LABS: TOT PROT 5.4 g/dl (6.4-8.2)
[2024-07-03 06:59] LABS: ALBUMIN 1.4 g/dl (3.4-5.0)
[2024-07-03] MEDS: PIPERACILLIN/TAZOB 2.25 GM 2.25 GM/50 ML BAG IVPB SCH (14:59)
[2024-07-04] MEDS ORDERED: SODIUM CHLORIDE 0.9% P/F 10 ML VIAL IJ ONE (07:26)
[2024-07-04 12:41] LABS: BASO % 0.1 % (0-2.0); EOS % 0.1 % (0-4.5); HEMATOCRIT 30.1 % (32.4-45.2); HEMOGLOBIN 9.7 GM/dL (10.7-15.3); LYMPH % 4.2 % (8-40); MCH 30.7 pg (25.7-33.7); MCHC 32.3 g/dl (32.0-36.0); MEAN PLT VOLUME 7.7 fl (7.5-11.1); NEUT % 90.6 % (42.8-82.8); PLATELET COUNT 194 10^3/uL (134-434); RBC 3.17 M/mm3 (3.60-5.2); RDW 19.1 % (11.6-15.6); WHITE BLOOD COUNT 15.6 K/mm3 (4.0-10.0)
[2024-07-04 13:00] LABS: POTASSIUM 4.9 mmol/L (3.5-5.1)
[2024-07-04 13:03] LABS: ALBUMIN 1.5 g/dl (3.4-5.0); BLOOD UREA NITROGEN 48.8 mg/dL (7-18); CALCIUM 8.6 mg/dL (8.5-10.1); MAGNESIUM 1.9 mg/dL (1.8-2.4)
[2024-07-04 13:07] LABS: CREATININE 3.4 mg/dL (0.55-1.3)
[2024-07-04 13:08] LABS: BILIRUBIN,TOTAL 0.4 mg/dL (0.2-1); TOT PROT 5.9 g/dl (6.4-8.2)
[2024-07-04] MEDS: INSULIN ASPART SLIDING SCALE (NOVOLOG) 1 VIAL SQ SCH (17:38)
[2024-07-04] MEDS: INSULIN (LEVEMIR) 100 UNITS/ML UNITS SQ SCH (21:19)
[2024-07-04] MEDS: LIDOCAINE PATCH REMOVAL MC SCH (21:25)
[2024-07-05] MEDS: INSULIN (LEVEMIR) 100 UNITS/ML UNITS SQ SCH (05:59)
[2024-07-05 09:20] LABS: BASO % 0.2 % (0-2.0); EOS % 1.6 % (0-4.5); HEMATOCRIT 28.1 % (32.4-45.2); HEMOGLOBIN 9.1 GM/dL (10.7-15.3); LYMPH % 5.4 % (8-40); MCH 30.9 pg (25.7-33.7); MCHC 32.3 g/dl (32.0-36.0); MEAN CELL VOLUME 95.6 fl (80-96); MEAN PLT VOLUME 8.1 fl (7.5-11.1); MONO % 4.8 % (3.8-10.2); PLATELET COUNT 195 10^3/uL (134-434); RBC 2.93 M/mm3 (3.60-5.2); RDW 18.8 % (11.6-15.6); WHITE BLOOD COUNT 15.6 K/mm3 (4.0-10.0)
[2024-07-05 09:50] LABS: POTASSIUM 4.9 mmol/L (3.5-5.1)
[2024-07-05 09:59] LABS: ALBUMIN 1.4 g/dl (3.4-5.0)
[2024-07-05 10:00] LABS: BLOOD UREA NITROGEN 44.6 mg/dL (7-18)
[2024-07-05 10:02] LABS: CALCIUM 8.8 mg/dL (8.5-10.1)
[2024-07-05 10:05] LABS: CREATININE 3.3 mg/dL (0.55-1.3)
[2024-07-05 10:07] LABS: BILIRUBIN,TOTAL 0.3 mg/dL (0.2-1)
[2024-07-05] MEDS: LIDOCAINE 4% PATCH TP SCH (10:47)
[2024-07-06] MEDS: CARVEDILOL 3.125 MG TABLET (FP) PO SCH (15:02)
[2024-07-06] MEDS: LEVOTHYROXINE NA 112 MCG TABLET (FP) PO SCH (15:08)
[2024-07-06] MEDS: hydrALAZINE HCL 25 MG TABLET (FP) PO ONE (17:26)
[2024-07-06] MEDS: ATORVASTATIN CA 20 MG TABLET (FP) PO SCH (22:37)
[2024-07-07 07:36] LABS: BASO % 0.4 % (0-2.0); EOS % 3.8 % (0-4.5); HEMATOCRIT 25.3 % (32.4-45.2); HEMOGLOBIN 8.2 GM/dL (10.7-15.3); LYMPH % 12.7 % (8-40); MCHC 32.5 g/dl (32.0-36.0); MEAN CELL VOLUME 95.4 fl (80-96); MEAN PLT VOLUME 9.2 fl (7.5-11.1); NEUT % 78.1 % (42.8-82.8); PLATELET COUNT 223 10^3/uL (134-434); RBC 2.65 M/mm3 (3.60-5.2); RDW 18.1 % (11.6-15.6); WHITE BLOOD COUNT 7.8 K/mm3 (4.0-10.0)
[2024-07-07 08:04] LABS: POTASSIUM 4.8 mmol/L (3.5-5.1)
[2024-07-07 08:05] LABS: CALCIUM 7.9 mg/dL (8.5-10.1)
[2024-07-07 08:06] LABS: ALBUMIN 1.5 g/dl (3.4-5.0); BLOOD UREA NITROGEN 38.7 mg/dL (7-18)
[2024-07-07 08:09] LABS: CREATININE 3.1 mg/dL (0.55-1.3)
[2024-07-07 08:11] LABS: BILIRUBIN,TOTAL 0.3 mg/dL (0.2-1)
[2024-07-07] MEDS: INSULIN (LEVEMIR) 100 UNITS/ML UNITS SQ SCH (08:11)
[2024-07-07] MEDS: amLODIPine BESYLATE 2.5 MG TABLET (FP) PO SCH (09:03)
[2024-07-07] MEDS: ACETAMINOPHEN 325 MG TABLET (FP) PO PRN (12:32)
[2024-07-07] MEDS: hydrALAZINE HCL 25 MG TABLET (FP) PO ONE (17:39)
[2024-07-08 07:34] LABS: BASO % 0.9 % (0-2.0); EOS % 3.3 % (0-4.5); HEMATOCRIT 25.2 % (32.4-45.2); HEMOGLOBIN 8.2 GM/dL (10.7-15.3); LYMPH % 11.4 % (8-40); MCH 30.7 pg (25.7-33.7); MCHC 32.6 g/dl (32.0-36.0); MEAN CELL VOLUME 94.3 fl (80-96); MEAN PLT VOLUME 8.9 fl (7.5-11.1); MONO % 7.8 % (3.8-10.2); NEUT % 76.6 % (42.8-82.8); PLATELET COUNT 213 10^3/uL (134-434); RBC 2.67 M/mm3 (3.60-5.2); RDW 17.3 % (11.6-15.6); WHITE BLOOD COUNT 6.5 K/mm3 (4.0-10.0)
[2024-07-08 07:35] LABS: POTASSIUM 4.9 mmol/L (3.5-5.1)
[2024-07-08 07:42] LABS: CALCIUM 7.7 mg/dL (8.5-10.1)
[2024-07-08 07:43] LABS: ALBUMIN 1.5 g/dl (3.4-5.0); BLOOD UREA NITROGEN 35.9 mg/dL (7-18)
[2024-07-08 07:46] LABS: CREATININE 2.8 mg/dL (0.55-1.3)
[2024-07-08 07:47] LABS: BILIRUBIN,TOTAL 0.3 mg/dL (0.2-1)
[2024-07-08] MEDS: traMADol HCL 50 MG TABLET PO PRN (09:18)
[2024-07-08] MEDS: amLODIPine BESYLATE 5 MG TABLET (FP) PO SCH (09:21)
[2024-07-08] MEDS: PIPERACILLIN/TAZOB 2.25 GM 2.25 GM/50 ML BAG IVPB SCH (16:57)
[2024-07-09 09:15] LABS: EOS % 3.1 % (0-4.5); HEMATOCRIT 27.7 % (32.4-45.2); LYMPH % 9.8 % (8-40); MCH 30.5 pg (25.7-33.7); MCHC 32.5 g/dl (32.0-36.0); MEAN CELL VOLUME 93.9 fl (80-96); MEAN PLT VOLUME 9.4 fl (7.5-11.1); MONO % 6.6 % (3.8-10.2); NEUT % 79.5 % (42.8-82.8); PLATELET COUNT 234 10^3/uL (134-434); RBC 2.95 M/mm3 (3.60-5.2); RDW 18.2 % (11.6-15.6); WHITE BLOOD COUNT 6.2 K/mm3 (4.0-10.0)
[2024-07-09 09:33] LABS: POTASSIUM 4.9 mmol/L (3.5-5.1)
[2024-07-09 09:36] LABS: ALBUMIN 1.7 g/dl (3.4-5.0); CALCIUM 8.2 mg/dL (8.5-10.1)
[2024-07-09 09:37] LABS: BLOOD UREA NITROGEN 35.3 mg/dL (7-18)
[2024-07-09 09:40] LABS: CREATININE 2.8 mg/dL (0.55-1.3)
[2024-07-09 09:41] LABS: BILIRUBIN,TOTAL 0.4 mg/dL (0.2-1); TOT PROT 6.4 g/dl (6.4-8.2)
[2024-07-09] MEDS: FLU VACCINE (FLULAVAL) PF 45 MCG/0.5 ML SYRINGE 2024-2025 IM ONE (18:57)
[2024-07-11] MEDS: LEVOTHYROXINE NA 125 MCG TABLET (FP) PO SCH (06:48)
[2024-07-11] MEDS: INSULIN (LEVEMIR) 100 UNITS/ML UNITS SQ SCH (06:49)
[2024-07-11 07:37] LABS: BASO % 1.1 % (0-2.0); EOS % 2.6 % (0-4.5); HEMATOCRIT 26.6 % (32.4-45.2); HEMOGLOBIN 8.8 GM/dL (10.7-15.3); LYMPH % 8.3 % (8-40); MCH 30.8 pg (25.7-33.7); MCHC 33.2 g/dl (32.0-36.0); MEAN CELL VOLUME 92.9 fl (80-96); MEAN PLT VOLUME 7.8 fl (7.5-11.1); MONO % 6.6 % (3.8-10.2); NEUT % 81.4 % (42.8-82.8); PLATELET COUNT 211 10^3/uL (134-434); RBC 2.86 M/mm3 (3.60-5.2); RDW 17.8 % (11.6-15.6); WHITE BLOOD COUNT 6.8 K/mm3 (4.0-10.0)
[2024-07-11 07:48] LABS: INR 1.02 (0.83-1.09); PROTHROMBIN TIME (PATIENT) 11.7 SEC (9.7-13.0)
[2024-07-11 07:51] LABS: ACTIVATED PTT 33.5 SECONDS (25.2-36.5)
[2024-07-11 07:53] LABS: POTASSIUM 4.6 mmol/L (3.5-5.1)
[2024-07-11 07:55] LABS: BLOOD UREA NITROGEN 37.8 mg/dL (7-18); CALCIUM 8.4 mg/dL (8.5-10.1)
[2024-07-11] MEDS ORDERED: BUPIVACAINE HCL/PF 0.25% (2.5MG/ML) 10 ML VIAL ONE (10:42)
[2024-07-11] MEDS ORDERED: DEXAMETHASONE SOD PHOSPHATE 4 MG/1 ML VIAL ONE (10:52)
[2024-07-11] MEDS ORDERED: ceFAZolin SODIUM 1 GM VIAL ONE (10:52)
[2024-07-11] MEDS ORDERED: LIDOCAINE HCL/PF 2% SDV 5ML VIAL ONE ×2 (10:52→11:06)
[2024-07-11] MEDS ORDERED: ONDANSETRON 4 MG/2 ML VIAL ONE (10:52)
[2024-07-11] MEDS ORDERED: KETOROLAC TROMETHAMINE 30 MG/1 ML VIAL ONE (10:52)
[2024-07-11] MEDS ORDERED: GLYCOPYRROLATE 0.2 MG/1 ML VIAL ONE (10:53)
[2024-07-11] MEDS ORDERED: ROCURONIUM BROMIDE 50 MG/5 ML SYRINGE ONE (10:54)
[2024-07-11] MEDS ORDERED: PROPOFOL 20 ML ONE ×2 (11:06→15:35)
[2024-07-11] MEDS ORDERED: NOREPINEPHRINE BITARTRATE 4 MG/4 ML ML IV ONE (11:06)
[2024-07-11] MEDS ORDERED: ETOMIDATE 20 MG/10 ML VIAL IVPUSH ONE (11:07)
[2024-07-11] MEDS ORDERED: MIDAZOLAM HCL 2 MG/2 ML SINGLE DOSE VIAL ONE ×2 (11:07→14:05)
[2024-07-11] MEDS ORDERED: CALCIUM CHLORIDE 1 GM/10 ML *DISP.SYRIN ONE (11:18)
[2024-07-11] MEDS ORDERED: MAGNESIUM SULF 50% (8.12 MEQ/2 ML-1 GM VIAL) ONE (11:18)
[2024-07-11] MEDS: ceFAZolin SODIUM 1 GM VIAL IVPB ONE (14:00)
[2024-07-11] MEDS ORDERED: HYDROmorphone HCl 2 MG/ML VIAL ONE (14:42)
[2024-07-11] MEDS ORDERED: ACETAMINOPHEN INJECTION 100 ML ONE (14:43)
[2024-07-11] MEDS ORDERED: SUGAMMADEX SODIUM 200 MG/2 ML VIAL ONE (15:18)
[2024-07-11] MEDS ORDERED: LABETALOL HCL 20 MG/4 ML VIAL ONE (15:21)
[2024-07-11] MEDS: BUPIVACAINE HCL/PF 2.5 MG/ML - 30 ML VIAL IJ ONE (15:34)
[2024-07-11] MEDS ORDERED: DEXTROSE 50%-WATER 25 GM/50 ML DISP.SYRIN IVPUSH PRN (16:10)
[2024-07-11] MEDS ORDERED: ACETAMINOPHEN INJECTION 0 ML ONE (16:12)
[2024-07-11] MEDS: ACETAMINOPHEN 1000 MG/100 ML BAG IVPB SCH (16:15)
[2024-07-11] MEDS ORDERED: HYDROmorphone *PCA* 10MG/50ML DISP.SYRIN ONE (16:21)
[2024-07-11 16:24] VITALS: BMI 25.0
[2024-07-11] MEDS: LACTATED RINGERS SOLUTION 1,000 ML IV SCH (16:30)
[2024-07-11] MEDS: HYDROmorphone *PCA* 10MG/50ML DISP.SYRIN PCA SCH (16:32)
[2024-07-11] MEDS: INSULIN ASPART SLIDING SCALE (NOVOLOG) 1 VIAL SQ SCH (16:53)
[2024-07-11] MEDS: CARVEDILOL 3.125 MG TABLET (FP) PO SCH (21:35)
[2024-07-11] MEDS ORDERED: LIDOCAINE PATCH REMOVAL MC SCH (22:00)
[2024-07-11] MEDS: MUPIROCIN 2% TOPICAL OINTMENT FOR DECOLONIZATION NS SCH (22:24)
[2024-07-11] MEDS: PIPERACILLIN/TAZOB 2.25 GM 2.25 GM/50 ML BAG IVPB SCH (22:24)
[2024-07-11] MEDS: CHLORHEXIDINE GLUCONATE 4% CLEANSER FOR DECOLONIZATION TP SCH (22:24)
[2024-07-11] MEDS: LIDOCAINE PATCH REMOVAL MC SCH (22:25)
[2024-07-11] MEDS: ATORVASTATIN CA 20 MG TABLET (FP) PO SCH (22:25)
[2024-07-12] MEDS: LEVOTHYROXINE NA 125 MCG TABLET (FP) PO SCH (06:43)
[2024-07-12] MEDS: INSULIN (LEVEMIR) 100 UNITS/ML UNITS SQ SCH (06:45)
[2024-07-12 07:40] LABS: HEMATOCRIT 26.2 % (32.4-45.2); HEMOGLOBIN 8.4 GM/dL (10.7-15.3); MCH 31.2 pg (25.7-33.7); MEAN CELL VOLUME 97.5 fl (80-96); RBC 2.69 M/mm3 (3.60-5.2); RDW 18.5 % (11.6-15.6)
[2024-07-12 07:43] LABS: WHITE BLOOD COUNT 21.1 K/mm3 (4.0-10.0)
[2024-07-12 07:54] LABS: CHLORIDE 104 mmol/L (98-107); POTASSIUM 5.7 mmol/L (3.5-5.1); SODIUM 135 mmol/L (136-145)
[2024-07-12] MEDS: ALBUMIN HUMAN 5% 500 ML IV SOLUTION IV ONE (08:01)
[2024-07-12 08:07] LABS: ANION GAP 18 mmol/L (4-13); BLOOD UREA NITROGEN 38.9 mg/dL (7-18); CALCIUM 8.7 mg/dL (8.5-10.1); CO2 13 mmol/L (21-32)
[2024-07-12 08:11] LABS: CREATININE 3.1 mg/dL (0.55-1.3)
[2024-07-12 08:12] LABS: GLUCOSE,RANDOM 417 mg/dL (74-106)
[2024-07-12 09:17] LABS: ANISOCYTOSIS 0; HELMET CELLS 0; HOWELL-JOLLY BODIES 0; MACROCYTOSIS 0; OVALOCYTE 0; ROULEAU 0; SICKELED CELLS 0; TARGET CELLS 0; TEAR DROP CELLS 0; TOXIC GRANULATION 0
[2024-07-12] MEDS: LIDOCAINE 4% PATCH TP SCH (09:32)
[2024-07-12] MEDS: amLODIPine BESYLATE 5 MG TABLET (FP) PO SCH (09:34)
[2024-07-12 09:57] LABS: POTASSIUM 4.7 mmol/L (3.5-5.1)
[2024-07-12 10:00] LABS: BLOOD UREA NITROGEN 39.7 mg/dL (7-18); CALCIUM 8.3 mg/dL (8.5-10.1)
[2024-07-12 10:02] LABS: ALBUMIN 2.1 g/dl (3.4-5.0)
[2024-07-12 10:03] LABS: CREATININE 3.1 mg/dL (0.55-1.3)
[2024-07-12 10:04] LABS: BILIRUBIN,TOTAL 0.4 mg/dL (0.2-1); TOT PROT 6.4 g/dl (6.4-8.2)
[2024-07-12 10:12] LABS: EPI CELLS 9 /uL (0-25.1); HYALINE CASTS 1 /uL (0-3.1); PH,URINE 5.5 (5.0-8.0); URINE APPEARANCE CLEAR; URINE BACTERIA 6 /uL (0-1359); URINE BILIRUBIN NEGATIVE (NEGATIVE); URINE COLOR YELLOW; URINE GLUCOSE (UA) 1+ (NEGATIVE); URINE KETONE TRACE (NEGATIVE); URINE LEUK ESTERASE NEGATIVE (NEGATIVE); URINE NITRITE NEGATIVE (NEGATIVE); URINE PROTEIN 3+ (NEGATIVE); URINE RBC 13 /uL (0-23.9); URINE UROBILINOGEN 0.2 mg/dL (0.2-1.0); URINE WBC 26 /uL (0-25.8)
[2024-07-12 11:00] LABS: ARTERIAL BLD GAS O2 SATURATION 96.8 % (95-98); ARTERIAL BLOOD GAS BASE EXCESS -9.8 mmol/L (-2-2); ARTERIAL BLOOD GAS PO2 94.3 mmHg (80-100); ARTERIAL BLOOD GAS pH 7.323 (7.350-7.450)
[2024-07-12 11:50] LABS: ARTERIAL BLD GAS O2 SATURATION 54.4 % (95-98); ARTERIAL BLOOD GAS BASE EXCESS -8.7 mmol/L (-2-2); ARTERIAL BLOOD GAS pH 7.261 (7.350-7.450)
[2024-07-12 11:54] LABS: ARTERIAL BLOOD GAS PO2 32.7 mmHg (80-100)
[2024-07-12] MEDS ORDERED: DEXTROSE 50%-WATER - 25 GM/50 ML VIAL IVPUSH PRN (11:59)
[2024-07-12] MEDS: INSULIN REGULAR 100 UNITS in SODIUM CHLORIDE 99 ML IVPB SCH (14:17)
[2024-07-12] MEDS: DEXTROSE 5%-NORMAL SALINE 1,000 ML IV SCH (14:22)
[2024-07-12 16:31] LABS: ARTERIAL BLD GAS O2 SATURATION 97.3 % (95-98); ARTERIAL BLOOD GAS BASE EXCESS -10.3 mmol/L (-2-2); ARTERIAL BLOOD GAS PO2 93.2 mmHg (80-100); ARTERIAL BLOOD GAS pH 7.394 (7.350-7.450)
[2024-07-12 17:06] LABS: POTASSIUM 4.3 mmol/L (3.5-5.1)
[2024-07-12 17:08] LABS: CALCIUM 8.3 mg/dL (8.5-10.1)
[2024-07-12 17:09] LABS: ALBUMIN 1.9 g/dl (3.4-5.0); BLOOD UREA NITROGEN 38.9 mg/dL (7-18)
[2024-07-12 17:12] LABS: CREATININE 3.3 mg/dL (0.55-1.3)
[2024-07-12 17:14] LABS: BILIRUBIN,TOTAL 0.2 mg/dL (0.2-1)
[2024-07-13 07:05] LABS: POTASSIUM 4.6 mmol/L (3.5-5.1)
[2024-07-13 07:12] LABS: ALBUMIN 1.7 g/dl (3.4-5.0); BLOOD UREA NITROGEN 40.8 mg/dL (7-18); CALCIUM 7.8 mg/dL (8.5-10.1); MAGNESIUM 2.1 mg/dL (1.8-2.4)
[2024-07-13 07:14] LABS: CREATININE 3.5 mg/dL (0.55-1.3)
[2024-07-13 07:16] LABS: BILIRUBIN,TOTAL 0.3 mg/dL (0.2-1); PHOSPHOROUS 4.9 mg/dL (2.5-4.9)
[2024-07-13 07:17] LABS: BASO % 0.4 % (0-2.0); EOS % 0.4 % (0-4.5); HEMATOCRIT 19.9 % (32.4-45.2); LYMPH % 6.3 % (8-40); MCH 30.4 pg (25.7-33.7); MCHC 32.5 g/dl (32.0-36.0); MEAN CELL VOLUME 93.5 fl (80-96); MONO % 5.8 % (3.8-10.2); NEUT % 87.1 % (42.8-82.8); PLATELET COUNT 185 10^3/uL (134-434); RBC 2.13 M/mm3 (3.60-5.2); RDW 17.9 % (11.6-15.6); TOT PROT 5.7 g/dl (6.4-8.2); WHITE BLOOD COUNT 18.2 K/mm3 (4.0-10.0)
[2024-07-13 07:35] LABS: HEMOGLOBIN 6.5 GM/dL (10.7-15.3)
[2024-07-13] MEDS: AMINO ACIDS/PROTEIN HYDROLYS 30 ML LIQUID.PKT PO SCH (15:02)
[2024-07-14 06:30] LABS: BASO % 0.7 % (0-2.0); EOS % 0.6 % (0-4.5); HEMATOCRIT 21.6 % (32.4-45.2); LYMPH % 5.8 % (8-40); MCH 29.6 pg (25.7-33.7); MCHC 31.6 g/dl (32.0-36.0); MEAN CELL VOLUME 93.5 fl (80-96); MEAN PLT VOLUME 9.4 fl (7.5-11.1); MONO % 6.5 % (3.8-10.2); NEUT % 86.4 % (42.8-82.8); PLATELET COUNT 179 10^3/uL (134-434); RBC 2.31 M/mm3 (3.60-5.2); RDW 19.1 % (11.6-15.6); WHITE BLOOD COUNT 15.6 K/mm3 (4.0-10.0)
[2024-07-14 06:54] LABS: HEMOGLOBIN 6.8 GM/dL (10.7-15.3)
[2024-07-14 07:01] LABS: POTASSIUM 4.5 mmol/L (3.5-5.1)
[2024-07-14 07:04] LABS: ALBUMIN 1.5 g/dl (3.4-5.0); BLOOD UREA NITROGEN 43.2 mg/dL (7-18); CALCIUM 7.8 mg/dL (8.5-10.1)
[2024-07-14 07:07] LABS: CREATININE 3.5 mg/dL (0.55-1.3); PHOSPHOROUS 4.6 mg/dL (2.5-4.9)
[2024-07-14 07:08] LABS: BILIRUBIN,TOTAL 0.3 mg/dL (0.2-1); TOT PROT 5.4 g/dl (6.4-8.2)
[2024-07-14] MEDS: INSULIN (NOVOLOG) ASPART 100 UNITS/ML 10ML VIAL SQ ONE (18:21)
[2024-07-14 19:22] LABS: HEMATOCRIT 27.4 % (32.4-45.2); HEMOGLOBIN 8.9 GM/dL (10.7-15.3); MCH 29.8 pg (25.7-33.7); MCHC 32.4 g/dl (32.0-36.0); MEAN CELL VOLUME 92.2 fl (80-96); MEAN PLT VOLUME 9.3 fl (7.5-11.1); PLATELET COUNT 190 10^3/uL (134-434); RBC 2.98 M/mm3 (3.60-5.2); RDW 18.3 % (11.6-15.6); WHITE BLOOD COUNT 14.6 K/mm3 (4.0-10.0)
[2024-07-14 20:44] LABS: ANISOCYTOSIS 2+; MACROCYTOSIS 0; OVALOCYTE 1+; TEAR DROP CELLS 1+
[2024-07-14] MEDS: HYDROmorphone HCl 2 MG/ML VIAL IVPUSH PRN (22:07)
[2024-07-15 07:41] LABS: BASO % 0.8 % (0-2.0); EOS % 0.6 % (0-4.5); HEMATOCRIT 27.6 % (32.4-45.2); HEMOGLOBIN 9.1 GM/dL (10.7-15.3); MCH 29.9 pg (25.7-33.7); MCHC 32.8 g/dl (32.0-36.0); MEAN CELL VOLUME 91.2 fl (80-96); MEAN PLT VOLUME 9.5 fl (7.5-11.1); MONO % 3.9 % (3.8-10.2); NEUT % 88.7 % (42.8-82.8); PLATELET COUNT 205 10^3/uL (134-434); RBC 3.03 M/mm3 (3.60-5.2); RDW 18.8 % (11.6-15.6); WHITE BLOOD COUNT 15.2 K/mm3 (4.0-10.0)
[2024-07-15 08:01] LABS: POTASSIUM 4.6 mmol/L (3.5-5.1)
[2024-07-15 08:02] LABS: CALCIUM 7.6 mg/dL (8.5-10.1)
[2024-07-15 08:03] LABS: ALBUMIN 1.6 g/dl (3.4-5.0); BLOOD UREA NITROGEN 39.9 mg/dL (7-18)
[2024-07-15 08:06] LABS: CREATININE 3.1 mg/dL (0.55-1.3)
[2024-07-15 08:07] LABS: PHOSPHOROUS 3.3 mg/dL (2.5-4.9)
[2024-07-15 08:08] LABS: BILIRUBIN,TOTAL 0.6 mg/dL (0.2-1)
[2024-07-15] MEDS: INSULIN (NOVOLOG) ASPART 100 UNITS/ML 10ML VIAL SQ ONE (14:00)
[2024-07-15 18:54] VITALS: RESP 18
[2024-07-15] MEDS ORDERED: CHLORHEXIDINE GLUCONATE 4% CLEANSER FOR DECOLONIZATION TP SCH (22:00)
[2024-07-15] MEDS ORDERED: MUPIROCIN 2% TOPICAL OINTMENT FOR DECOLONIZATION NS SCH (22:00)
[2024-07-15] MEDS: CARVEDILOL 3.125 MG TABLET (FP) PO SCH (22:23)
[2024-07-15] MEDS: HYDROmorphone HCl 2 MG/ML VIAL IVPB PRN (22:23)
[2024-07-15] MEDS: INSULIN ASPART SLIDING SCALE (NOVOLOG) 1 VIAL SQ SCH (22:24)
[2024-07-15] MEDS: ATORVASTATIN CA 20 MG TABLET (FP) PO SCH (22:27)
[2024-07-15] MEDS: LIDOCAINE PATCH REMOVAL MC SCH (22:28)
[2024-07-16] MEDS: LEVOTHYROXINE NA 125 MCG TABLET (FP) PO SCH (06:27)
[2024-07-16] MEDS: amLODIPine BESYLATE 5 MG TABLET (FP) PO SCH (09:40)
[2024-07-16] MEDS: AMINO ACIDS/PROTEIN HYDROLYS 30 ML LIQUID.PKT PO SCH (09:40)
[2024-07-16] MEDS: LIDOCAINE 4% PATCH TP SCH (09:40)
[2024-07-16] MEDS: INSULIN (LEVEMIR) 100 UNITS/ML UNITS SQ SCH (21:52)
[2024-07-17] MEDS: ACETAMINOPHEN 325 MG TABLET (FP) PO PRN (10:14)
[2024-07-17] MEDS: POLYETHYLENE GLYCOL (HEALTHYLAX) 3350 17 GM PACKET PO SCH (10:15)
[2024-07-17] MEDS: SENNOSIDES 8.6MG TABLET (FP) PO SCH (10:16)
[2024-07-17] MEDS: BISMUTH SUBSALICYLATE 524 MG/30 ML PO ONE (19:58)
[2024-07-17] MEDS: guaiFENesin/D-METHORPHAN HB 10 ML UNIT-DOSE CUPS PO PRN (21:23)
[2024-07-18] MEDS: ACETAMINOPHEN 1000 MG/100 ML BAG IVPB ONE (03:46)
[2024-07-18] MEDS: MELATONIN 5 MG TABLETS PO PRN (03:47)
[2024-07-18] MEDS: oxyCODONE HCL 5 MG TABLET PO PRN (09:23)
[2024-07-18 12:54] LABS: BASO % 0.4 % (0-2.0); EOS % 1.2 % (0-4.5); HEMOGLOBIN 8.6 GM/dL (10.7-15.3); LYMPH % 8.6 % (8-40); MCHC 33.1 g/dl (32.0-36.0); MEAN CELL VOLUME 90.6 fl (80-96); MEAN PLT VOLUME 8.8 fl (7.5-11.1); MONO % 8.9 % (3.8-10.2); NEUT % 80.9 % (42.8-82.8); PLATELET COUNT 206 10^3/uL (134-434); RBC 2.87 M/mm3 (3.60-5.2); WHITE BLOOD COUNT 6.6 K/mm3 (4.0-10.0)
[2024-07-18 13:18] LABS: POTASSIUM 4.4 mmol/L (3.5-5.1)
[2024-07-18 13:21] LABS: CALCIUM 7.9 mg/dL (8.5-10.1)
[2024-07-18 13:22] LABS: ALBUMIN 1.5 g/dl (3.4-5.0); BLOOD UREA NITROGEN 29.1 mg/dL (7-18)
[2024-07-18 13:25] LABS: CREATININE 2.3 mg/dL (0.55-1.3)
[2024-07-18 13:27] LABS: BILIRUBIN,TOTAL 0.4 mg/dL (0.2-1); TOT PROT 5.8 g/dl (6.4-8.2)
[2024-07-19] MEDS: SODIUM CHLORIDE 0.45% 1,000 ML IV SCH (21:20)
[2024-07-21] MEDS: oxyCODONE HCL 5 MG TABLET PO PRN (18:04)
[2024-07-22 12:07] LABS: BASO % 0.7 % (0-2.0); EOS % 1.6 % (0-4.5); HEMATOCRIT 26.8 % (32.4-45.2); LYMPH % 10.7 % (8-40); MCH 30.6 pg (25.7-33.7); MCHC 33.5 g/dl (32.0-36.0); MEAN CELL VOLUME 91.5 fl (80-96); MEAN PLT VOLUME 8.8 fl (7.5-11.1); MONO % 9.1 % (3.8-10.2); NEUT % 77.9 % (42.8-82.8); PLATELET COUNT 234 10^3/uL (134-434); RBC 2.93 M/mm3 (3.60-5.2); RDW 17.2 % (11.6-15.6); WHITE BLOOD COUNT 5.6 K/mm3 (4.0-10.0)
[2024-07-22 13:03] LABS: POTASSIUM 4.9 mmol/L (3.5-5.1)
[2024-07-22 13:08] LABS: CALCIUM 8.1 mg/dL (8.5-10.1)
[2024-07-22 13:09] LABS: ALBUMIN 1.8 g/dl (3.4-5.0); BLOOD UREA NITROGEN 24.6 mg/dL (7-18)
[2024-07-22 13:12] LABS: CREATININE 1.8 mg/dL (0.55-1.3)
[2024-07-22 13:14] LABS: BILIRUBIN,TOTAL 0.6 mg/dL (0.2-1); TOT PROT 6.9 g/dl (6.4-8.2)
[2024-07-22 21:37] VITALS: PULSE 65
[2024-07-23 06:47] VITALS: BP 167/71; TEMP 97.7
== END 2024-07-23 12:28 | disposition home health service (06) | DRG 853 ==
LOC: JER 05:12 → JERBED 09:33 → JICU 11:49 → J4W 07-04 06:22 → JICU 07-11 14:52 → J5S 07-15 17:18
PROVIDERS: ADMIT Internal Medicine Pulmonary Disease; ATTEND Internal Medicine
PROC: 0W9930Z Drainage of Right Pleural Cavity with Drainage Device, Percutaneous Approach (ICD-10-PCS; principal; 2024-07-01)
PROC: 30233N1 Transfusion of Nonautologous Red Blood Cells into Peripheral Vein, Percutaneous Approach (ICD-10-PCS; 2024-07-01)
PROC: 0BBN4ZX Excision of Right Pleura, Percutaneous Endoscopic Approach, Diagnostic (ICD-10-PCS; 2024-07-11)
PROC: 3E0L4GC Introduction of Other Therapeutic Substance into Pleural Cavity, Percutaneous Endoscopic Approach (ICD-10-PCS; 2024-07-11)
PROC: 0W9940Z Drainage of Right Pleural Cavity with Drainage Device, Percutaneous Endoscopic Approach (ICD-10-PCS; 2024-07-11)
PROC: 05HD33Z Insertion of Infusion Device into Right Cephalic Vein, Percutaneous Approach (ICD-10-PCS; 2024-07-13)
PROC: B54MZZA Ultrasonography of Right Upper Extremity Veins, Guidance (ICD-10-PCS; 2024-07-13)
DX: A41.9 Sepsis, unspecified organism (principal); E11.10 Type 2 diabetes mellitus with ketoacidosis without coma; J18.9 Pneumonia, unspecified organism; R65.21 Severe sepsis with septic shock; I69.354 Hemiplegia and hemiparesis following cerebral infarction affecting left non-dominant side; N17.9 Acute kidney failure, unspecified; M46.26 Osteomyelitis of vertebra, lumbar region; J91.0 Malignant pleural effusion; E03.9 Hypothyroidism, unspecified; I12.9 Hypertensive chronic kidney disease with stage 1 through stage 4 chronic kidney disease, or unspecified chronic kidney disease; E11.22 Type 2 diabetes mellitus with diabetic chronic kidney disease; N18.9 Chronic kidney disease, unspecified; E78.5 Hyperlipidemia, unspecified; D53.9 Nutritional anemia, unspecified; E87.5 Hyperkalemia; Z79.4 Long term (current) use of insulin; E11.69 Type 2 diabetes mellitus with other specified complication; C50.919 Malignant neoplasm of unspecified site of unspecified female breast
CPT/HCPCS: 36415; 36430; 36600; 70450-TC; 71045-TC-FY; 71250-TC; 72141-TC; 72146-TC; 78306-TC; 80048; 80053; 81003; 82010; 82042; 82150; 82272; 82607; 82746; 82803; 82945; 82962; 83036; 83540; 83550; 83605; 83615; 83690; 83735; 83986; 84100; 84157; 84436; 84443; 84478; 84484; 85025; 85610; 85730; 86850; 86900; 86901; 86922; 87040; 87070; 87075; 87086; 87102; 87116; 87205; 87206; 87210; 87481; 87635; 88108; 88305-TC; 88341-TC; 88342-TC; 90656; 93005; 93010; 94760; 94761; 97116-GP; 97162-GP; 99285-25; A9503; G0008; G0480; J0131; P9058